=== PATIENT | female | born 1985 | race Caucasian/White ===

== ENCOUNTER 2017-09-30 07:57 | Day surgery (SDC) | payer OTHER ==
[2017-09-24 10:52] LABS: Absolute Lymphocytes (CBC) 2.2 K/uL (0.7-4.9); Absolute Monocytes 0.6 K/uL (0.1-1.3); Absolute Neutrophil 4.1 K/uL (1.8-8.0); Basophils % 0.6 % (0-1.3); Eosinophils % 2.5 % (0-4.4); Lymphocytes % 31.2 % (15.3-44.8); MCH 31.4 pg (27.0-35.0); MCV 90.4 fL (80-100); MPV 8.2 fL (7.6-11.3); Monocytes % 7.9 % (3.3-12.3); RBC Red Blood Cell Count 4.65 M/uL (3.86-4.86)
[2017-09-24 10:56] LABS: Protime INR 1.11
[2017-09-24 11:22] LABS: BUN Blood Urea Nitrogen 15 mg/dL (6-20); Bicarbonate 26 mEq/L (21-31); Glomerular Filtration Rate > 90 mL/min (=/>90); Glucose Level 92 mg/dL (65-120); Potassium 4.5 mEq/L (3.6-5.0); Sodium Level 139 mEq/L (135-145)
[~2017-09-30 07:57] MED LIST: CLINDAMYCIN INJ 600 MG in NA CHLORIDE 0.9% 50 ML IV SCH
[2017-09-30] MEDS ORDERED: Ringers Lactate 1,000 ML IV ONE ×2 (08:24→12:12)
[2017-09-30 08:50] VITALS: O2SAT 100
[2017-09-30] MEDS ORDERED: MIDAZOLAM HCL 2 MG/2 ML INJ ONE ×2 (10:14→11:24)
[2017-09-30] MEDS ORDERED: FENTANYL CITR 100 MCG/2 ML ONE (10:14)
[2017-09-30] MEDS ORDERED: DEXAMETHASONE 4 MG/ML VIAL ONE (10:14)
[2017-09-30] MEDS ORDERED: ROPLVACAINE HCL 40 ML ONE (10:15)
[2017-09-30] MEDS ORDERED: BUPIVACA 0.5%/EPI 0.0005%/PF 30 ML VIAL ONE (11:07)
[2017-09-30] MEDS ORDERED: EPINEPHRINE/PF 1 MG/ML AMP ONE (11:07)
[2017-09-30] MEDS ORDERED: ROCURONIUM 50 MG/5 ML VIAL IV ONE (11:15)
[2017-09-30] MEDS ORDERED: PROPOFOL 200 MG/20 ML VIAL IV ONE (11:15)
[2017-09-30] MEDS ORDERED: GLYCOPYRROLATE 0.2 MG/ML SYR ONE (11:16)
[2017-09-30] MEDS ORDERED: LIDOCAINE 2% MPF 5 ML VIAL ONE (11:16)
[2017-09-30] MEDS ORDERED: ONDANSETRON 4 MG/2 ML VIAL ONE (11:16)
[2017-09-30] MEDS ORDERED: NEOSTIGMINE 1 MG/ML -5 ML SYRINGE ONE (11:20)
--- NOTE | 2017-09-30 12:15 | P.BOP ---
Preoperative diagnosis: right shoulder SLAP tear Postoperative diagnosis: same Primary procedure: right shoulder arthroscopic SLAP debridement Still Operator Gin: NONE,NONE Estimated blood loss: < 5cc Specimen: none Findings: see dictation Anesthesia: General Complications: None Implants: none Fluids & blood products: per anesthesia Transferred to: Recovery Room Condition: Good
[2017-09-30 12:37] VITALS: TEMP 97.2
[2017-09-30 13:46] VITALS: BP 106/63
--- NOTE | 2017-10-01 17:40 | OP ---
Date of Procedure: 09/30/2017 Surgeon: Eddy Lester MD Preoperative Diagnosis: Right shoulder superior labrum from anterior to posterior tear. Postoperative Diagnosis: Right shoulder superior labrum from anterior to posterior tear. Procedure Performed: Right shoulder arthroscopic superior labrum from anterior to posterior tear debridement. Anesthesia: General endotracheal. Fluids: Per Anesthesia record. Estimated Blood Loss: Less than 5 cc. Implants: None. Complication: None. Indication For Procedure: Ms. Billy is a 32-year-old female, who presented to my clinic with pain with her right shoulder and MRI arthrogram of her right shoulder which demonstrated a SLAP tear. The patient had undergone corticosteroid injections as well as physical therapy without significant improvement of her symptoms. I discussed with the patient at length risks and benefits associated with operative and nonoperative treatment. She expressed understanding and given her failed conservative treatment measures, we will proceed with operative treatment. Description Of Procedure: After informed consent was obtained, the patient was identified in the preoperative holding area. The right upper extremity was marked. The patient was then evaluated by Anesthesia and underwent an interscalene block in the recovery room. She was then transferred to the operating room, transferred to operating table in supine fashion, and placed under general endotracheal anesthesia. She was then placed in the left lateral decubitus position with her extremities well padded and an axillary roll placed. The right upper extremity was then prepped and draped in usual sterile fashion. A time-out was initiated. Correct patient and procedure were confirmed and identified. The patient did receive her preoperative prophylactic antibiotics. Via the posterior portal position, a spinal needle was introduced in the right glenohumeral joint. The shoulder was injected with 30 cc of normal saline to distend the capsule. A posterior portal was then created and an arthroscope was brought in via the posterior portal position. Standard anterior portal was then made. A diagnostic arthroscopy was performed. The patient was noted to have pristine cartilage of the humeral head as well as the glenoid. Anterior and inferior labrum was found to be intact as well as the labrum posteriorly. There was noted to be some fraying of the superior labrum both anteriorly and posteriorly consistent with a type 1 SLAP tear. Via the anterior portal, arthroscopic shaver was introduced and the anterior, posterior, superior labrum was debrided via arthroscopic shaver. The probe was introduced in the superior labrum, was probed both anteriorly and posteriorly. There was no peeling off the glenoid or unstable tear which would necessitate repair. The subscapularis was then identified. There was no tear of the subscapularis as well as supraspinatus and infraspinatus. The biceps tendon anchor was found to be intact with no significant erythema. The biceps tendon was then brought into the joint using the probe. There was no significant tendinitis noted. The instruments were then removed. The wounds were then irrigated with normal saline and approximated using a 3-0 Monocryl. Sterile dressings were applied and the patient was placed in a sling and awakened and transferred to PACU in stable condition. Postoperative Plan: She will follow up next week for wound check. She may begin physical therapy for her range of motion, rotator cuff strengthening and scapular stabilization exercises. GREGG/SAE Voice ID: [id number] Report ID: [id number] H[place]ARY
== END 2017-09-30 13:50 | disposition home or self-care (01) ==
LOC: OR 07:57
PROVIDERS: ATTEND Orthopaedic Surgery Sports Medicine
DX: Z88.0 Allergy status to penicillin; S43.431A Superior glenoid labrum lesion of right shoulder, initial encounter
CPT/HCPCS: 36415; 80048; 81025; 85025; 85610; 85730; J0171; J2250; J2405; J2710; J2795; J3010

== ENCOUNTER 2019-04-12 10:52 | Emergency (ER) | payer OTHER ==
--- NOTE | 2019-04-12 11:59 | RAD REPORT ---
EXAM DESCRIPTION: CT - Head Brain Wo Cont - 04/12/2019 11:37 am CLINICAL HISTORY: headache COMPARISON: None TECHNIQUE: Computed axial tomography of the head was obtained. IV contrast was not requested. All CT scans are performed using dose optimization technique as appropriate and may include automated exposure control or mA/KV adjustment according to patient size. FINDINGS: An intracranial bleed is not seen . The ventricles are normal in caliber. No extra-axial fluid collection is noted. Fluid within the sinuses/ mastoids is not seen. IMPRESSION: No acute intracranial abnormality is seen. If patient's symptoms persist MRI of the bra in would be recommended.
[2019-04-12] MEDS ORDERED: MORPHINE 4 MG/ML SYR ONE (12:16)
[2019-04-12] MEDS ORDERED: METOCLOPRAMIDE 10 MG/2mL INJ ONE (12:16)
[2019-04-12] MEDS ORDERED: ONDANSETRON 4 MG/2 ML VIAL ONE (12:16)
[2019-04-12] MEDS ORDERED: NA CHLORIDE 0.9% 1,000 ML ONE (12:16)
[2019-04-12 12:36] LABS: Urine Blood NEGATIVE (NEG); Urine Glucose NEGATIVE (NEG); Urine Protein NEGATIVE (NEG)
[2019-04-12 12:45] LABS: Absolute Lymphocytes (CBC) 1.2 K/uL (0.7-4.9); Basophils % 0.3 % (0-1.3); Hematocrit 40.5 % (36.0-45.0); Lymphocytes % 14.6 % (15.3-44.8); MPV 8.2 fL (7.6-11.3); RBC Red Blood Cell Count 4.52 M/uL (3.86-4.86)
[2019-04-12 12:47] LABS: BUN Blood Urea Nitrogen 14 mg/dL (7-18); Bicarbonate 30 mmol/L (21-32); Glucose Level 90 mg/dL (74-106); Potassium 3.8 mmol/L (3.5-5.1); Sodium Level 140 mmol/L (136-145)
--- NOTE | 2019-04-12 13:54 | RAD REPORT ---
EXAM DESCRIPTION: CT - Head angio - 04/12/2019 1:20 pm CLINICAL HISTORY: HEADACHE TECHNIQUE: During dynamic enhancement using nonionic IV contrast, axial 1 millimeter thick images of the head were obtained. Sagittal and axial reconstruction images were generated using MIP technique and reviewed. All CT scans are performed using dose optimization technique as appropriate and may include automated exposure control or mA/KV adjustment according to patient size. COMPARISON: CT head same date FINDINGS: No aneurysm or vascular malformation identified. Major venous sinuses are patent. No stenosis, named branch occlusion, vasculitis or other significant vascular finding identifiable. A nterior communicating artery present. IMPRESSION: Negative CT angio head examination.
--- NOTE | 2019-04-12 14:11 | ER ---
Nurse's Notes [facility] Name: Yadi Billy Age: 33 yrs Sex: Female : 1985 Arrival Date: 04/12/2019 Time: 10:55 Bed 14 Private MD: Diagnosis: Migraine Presentation: 04/12 11:19 Presenting complaint: Patient states: "I started feeling sick, I threw up this morning aj1 and at the same time I started having really bad pain in my head. I have migraines and this is worse than anything I've ever experienced, its shooting down my neck and my back" Denies fever. Denies recent head injury. Transition of care: patient was not received from another setting of care. Onset of symptoms was April 12, 2019 at 08:00. Risk Assessment: Do you want to hurt yourself or someone else? Patient reports no desire to harm self or others. Initial Sepsis Screen: Does the patient meet any 2 criteria? No. Patient's initial sepsis screen is negative. Does the patient have a suspected source of infection? No. Patient's initial sepsis screen is negative. Care prior to arrival: None. 11:19 Method Of Arrival: Ambulatory aj 11:19 Acuity: AIDAN 3 aj1 Triage Assessment: 11:21 Headache History: The patient has had previous headaches and this one is different than aj1 previous episodes, and this one is more severe than previous episodes. General: Appears uncomfortable, Behavior is calm, cooperative, appropriate for age. Pain: Complains of pain in top of head, forehead, right eye, left eye and right rastafari Pain currently is 10 out of 10 on a pain scale. Pain began 3 hours ago. Also complains of nausea. Neuro: Level of Consciousness is awake, alert, obeys commands, Oriented to person, place, time, situation, Mud Jack Nozzleman are equal bilaterally Moves all extremities. Gait is steady, Speech is normal, Facial symmetry appears normal. Cardiovascular: Patient's skin is warm and dry. Respiratory: Airway is patent Respiratory effort is even, unlabored, Respiratory pattern is regular, symmetrical. 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 - Social history:: Smoking status: Patient/guardian denies using tobacco. - Ebola Screening: : Patient denies travel to an Ebola-affected area in the 21 days before illness onset. - Family history:: not pertinent. - Hospitalizations: : No recent hospitalization is reported. Screenin:09 Abuse screen: Denies threats or abuse. Nutritional screening: No deficits noted. rb1 Tuberculosis screening: No symptoms or risk factors identified. Fall Risk None identified. Assessment: 11:45 General: Appears uncomfortable, Behavior is calm, cooperative. Pain: Complains of pain rb1 in head Pain radiates to Neck and back Pain currently is 10 out of 10 on a pain scale. Pain began This morning. Neuro: Level of Consciousness is awake, alert, obeys commands, Oriented to person, place, time, situation. Cardiovascular: Capillary refill < 3 seconds is brisk in bilateral fingers. Respiratory: Airway is patent Respiratory effort is even, unlabored, Respiratory pattern is regular, symmetrical. GI: Reports nausea, vomiting, x 2 this morning. : No signs and/or symptoms were reported regarding the genitourinary system. Derm: Skin is pink, warm \\T\\ dry. Musculoskeletal: Range of motion: intact in all extremities. 12:33 Reassessment: Patient appears in no apparent distress at this time. No changes from rb1 previously documented assessment. 13:20 Reassessment: Patient appears in no apparent distress at this time. Patient and/or rb1 family updated on plan of care and expected duration. Pain level reassessed. Patient is alert, oriented x 3, equal unlabored respirations, skin warm/dry/pink. 14:20 Reassessment: Patient appears in no apparent distress at this time. No changes from rb1 previously documented assessment. Vital Signs: 11:21 BP 121 / 89; Pulse 83; Resp 18; Temp 97.5; Pulse Ox 99% on R/A; Weight 77.11 kg (R); aj1 Height 5 ft. 5 in. (165.10 cm) (R); Pain 10/10; 12:20 BP 120 / 80; Pulse 61; Resp 16; Pulse Ox 99% on R/A; Pain 10/10; rb1 13:20 BP 114 / 84; Pulse 66; Resp 17; Pulse Ox 99% on R/A; Pain 6/10; rb1 14:20 BP 121 / 81; Pulse 68; Resp 17; Pulse Ox 98% on R/A; Pain 4/10; rb1 11:21 Body Mass Index 28.29 (77.11 kg, 165.10 cm) aj1 [place] Coma Score: 14:06 Eye Response: spontaneous(4). Verbal Response: oriented(5). Motor Response: obeys rn commands(6). Total: 15. ED Course: 10:55 Patient arrived in ED. as 11:21 Triage completed. aj1 11:21 Arm band placed on Patient placed in waiting room. aj1 11:41 CT Head Brain wo Cont In Process Unspecified. EDMS 11:46 Arabella Monk, GIANNA is Primary Nurse. rb1 11:53 Ric Garcia MD is Attending Physician. rn 12:09 Patient has correct armband on for positive identification. Bed in low position. Call rb1 light in reach. Side rails up X 1. Pulse ox on. NIBP on. 12:25 Initial lab(s) drawn, by ga, sent to lab. Inserted saline lock: 22 gauge in right jb1 antecubital area, using aseptic technique. Blood collected. 13:21 CT Head Angio In Process Unspecified. EDMS 14:40 No provider procedures requiring assistance completed. IV discontinued, intact, rb1 bleeding controlled, No redness/swelling at site. Pressure dressing applied. Administered Medications: 12:30 Drug: NS 0.9% 1000 ml Route: IV; Rate: 1000 ml; Site: right antecubital; rb1 13:37 Follow up: IV Status: Completed infusion rb1 12:30 Drug: Reglan 10 mg Route: IVP; Site: right antecubital; rb1 12:45 Follow up: Response: No adverse reaction rb1 12:30 Drug: morphine 4 mg Route: IVP; Site: right antecubital; rb1 12:45 Follow up: Response: No adverse reaction; Pain is decreased rb1 12:30 Drug: Zofran 4 mg Route: IVP; Site: right antecubital; rb1 12:45 Follow up: Response: No adverse reaction; Nausea is decreased rb1 Outcome: 14:10 Discharge ordered by . rn 14:40 Discharged to home ambulatory, with family. rb1 14:40 Condition: stable 14:40 Discharge instructions given to patient, Instructed on discharge instructions, follow up and referral plans. Demonstrated understanding of instructions, follow-up care, Prescriptions given X none 14:41 Patient left the ED. rb1 Signatures: Dispatcher [employer] EDOlivier Santana jb1 Lorena Hewitt, RN RN aj1 Bridget Khan Roman, MD MD rn Barber, Rebecca, RN RN rb1
--- NOTE | 2019-04-12 14:11 | EDPHYS ---
Physician Documentation [facility] Name: Yadi Billy Age: 33 yrs Sex: Female : 1985 Arrival Date: 04/12/2019 Time: 10:55 Bed 14 Private MD: ED Physician Ric Garcia HPI: 04/12 14:06 This 33 yrs old Female presents to ER via Ambulatory with complaints of rn Headache. 14:06 The patient complains of pain to the forehead. The patient describes the headache as rn aching. Onset: The symptoms/episode began/occurred this morning. Associated signs and symptoms: Pertinent positives: nausea, vomiting, Pertinent negatives: there are no associated signs or symptoms. altered mental status, fever, rash, vision loss, vertigo. Severity of symptoms: At its worst the pain was "never this severe", in the emergency department the pain is unchanged. Headache History: The patient has had previous headaches and this one is more severe than previous episodes. The symptoms are alleviated by nothing. the symptoms are aggravated by lights, noise, stress. the symptoms are aggravated by movement. The patient has experienced similar episodes in the past, but today's symptoms are worse. The patient has not recently seen a physician. 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 - Social history:: Smoking status: Patient/guardian denies using tobacco. - Ebola Screening: : Patient denies travel to an Ebola-affected area in the 21 days before illness onset. - Family history:: not pertinent. - Hospitalizations: : No recent hospitalization is reported. ROS: 14:06 Constitutional: Negative for fever, chills, and weight loss, Eyes: Negative for injury, rn pain, redness, and discharge, Neck: Negative for injury, pain, and swelling, Cardiovascular: Negative for chest pain, palpitations, and edema, Respiratory: Negative for shortness of breath, cough, wheezing, and pleuritic chest pain, Abdomen/GI: Negative for abdominal pain, diarrhea, and constipation, MS/Extremity: Negative for injury and deformity, Skin: Negative for injury, rash, and discoloration, Neuro: Negative for numbness, tingling, and seizure. Exam: 14:06 Constitutional: This is a well developed, well nourished patient who is awake, alert, rn sitting with legs crossed in bed Head/Face: Normocephalic, atraumatic. Eyes: Pupils equal round and reactive to light, extra-ocular motions intact. Lids and lashes normal. Conjunctiva and sclera are non-icteric and not injected. Cornea within normal limits. Periorbital areas with no swelling, redness, or edema. ENT: MMM Neck: Trachea midline, no thyromegaly or masses palpated, and no cervical lymphadenopathy. Supple, full range of motion without nuchal rigidity, or vertebral point tenderness. No Meningismus. Cardiovascular: Regular rate and rhythm. No pulse deficits. Respiratory: No increased work of breathing, no retractions or nasal flaring. Abdomen/GI: soft, non-tender MS/ Extremity: Pulses equal, no cyanosis. Neurovascular intact. Full, normal range of motion. Equal circumference. Neuro: Awake and alert, GCS 15, oriented to person, place, time, and situation. Cranial nerves II-XII grossly intact. Motor strength 5/5 in all extremities. Sensory grossly intact. Cerebellar exam normal. Vital Signs: 11:21 BP 121 / 89; Pulse 83; Resp 18; Temp 97.5; Pulse Ox 99% on R/A; Weight 77.11 kg (R); aj1 Height 5 ft. 5 in. (165.10 cm) (R); Pain 10/10; 12:20 BP 120 / 80; Pulse 61; Resp 16; Pulse Ox 99% on R/A; Pain 10/10; rb1 13:20 BP 114 / 84; Pulse 66; Resp 17; Pulse Ox 99% on R/A; Pain 6/10; rb1 14:20 BP 121 / 81; Pulse 68; Resp 17; Pulse Ox 98% on R/A; Pain 4/10; rb1 11:21 Body Mass Index 28.29 (77.11 kg, 165.10 cm) aj1 [place] Coma Score: 14:06 Eye Response: spontaneous(4). Verbal Response: oriented(5). Motor Response: obeys rn commands(6). Total: 15. MDM: 11:53 Patient medically screened. rn 14:06 Differential diagnosis: intracerebral hemorrhage, migraine, tension headache, vasomotor rn headache. Data reviewed: vital signs, nurses notes, lab test result(s), radiologic studies, CT scan, and as a result, I will discharge patient. Counseling: I had a detailed discussion with the patient and/or guardian regarding: the historical points, exam findings, and any diagnostic results supporting the discharge/admit diagnosis, lab results, radiology results, the need for outpatient follow up, to return to the emergency department if symptoms worsen or persist or if there are any questions or concerns that arise at home. Response to treatment: the patient's symptoms have markedly improved after treatment, and as a result, I will discharge patient. Special discussion: I discussed with the patient/guardian in detail that at this point there is no indication for admission to the hospital. It is understood, however, that if the symptoms persist or worsen the patient needs to return immediately for re-evaluation. Based on the history and exam findings, there is no indication for further emergent testing or inpatient evaluation. I discussed with the patient/guardian the need to see the neurologist for further evaluation of the symptoms. 14:06 ED course: Markedly improved, ambulatory, normal neuro exam, neg ct head and ct angio. .rn 04/12 11:46 Order name: Urine Dipstick--Ancillary (enter results); Complete Time: 12:57 gm 04/12 11:46 Order name: Urine --Ancillary (enter results); Complete Time: 12:57 gm 04/12 11:24 Order name: CT Head Brain wo Cont; Complete Time: 12:57 aj1 04/12 12:06 Order name: Basic Metabolic Panel; Complete Time: 12:57 rn 04/12 12:06 Order name: CBC with Diff; Complete Time: 12:57 rn 04/12 12:06 Order name: CT Head Angio; Complete Time: 14:03 rn 04/12 12:08 Order name: IV Start; Complete Time: 12:25 rn Administered Medications: 12:30 Drug: NS 0.9% 1000 ml Route: IV; Rate: 1000 ml; Site: right antecubital; rb1 13:37 Follow up: IV Status: Completed infusion rb1 12:30 Drug: Reglan 10 mg Route: IVP; Site: right antecubital; rb1 12:45 Follow up: Response: No adverse reaction rb1 12:30 Drug: morphine 4 mg Route: IVP; Site: right antecubital; rb1 12:45 Follow up: Response: No adverse reaction; Pain is decreased rb1 12:30 Drug: Zofran 4 mg Route: IVP; Site: right antecubital; rb1 12:45 Follow up: Response: No adverse reaction; Nausea is decreased rb1 Disposition: 04/12/19 14:10 Discharged to Home. Impression: Migraine. - Condition is Stable. - Discharge Instructions: Migraine Headache. - Medication Reconciliation Form, Thank You Letter, Antibiotic Education, Prescription Opioid Use form. - Follow up: Private Physician; When: As needed; Reason: Recheck today's complaints, Re-evaluation by your physician. - Problem is new. - Symptoms have improved. Signatures: Dispatcher [employer] EDLorena Peter RN RN aj1 Ric Garcia MD MD rn Barber, Rebecca, RN RN rb1 Corrections: (The following items were deleted from the chart) 14:41 14:10 04/12/2019 14:10 Discharged to Home. Impression: Migraine. Condition is Stable. rb1 Forms are Medication Reconciliation Form, Thank You Letter, Antibiotic Education, Prescription Opioid Use. Follow up: Private Physician; When: As needed; Reason: Recheck today's complaints, Re-evaluation by your physician. Problem is new. Symptoms have improved. rn
[2019-04-12 15:40] VITALS: TEMP 97.5
[2019-04-12 15:44] VITALS: BP 121/81; O2SAT 98
== END 2019-04-12 14:41 | disposition home or self-care (01) ==
LOC: ER 10:52
DX: G43.909 Migraine, unspecified, not intractable, without status migrainosus (principal); Z88.0 Allergy status to penicillin
CPT/HCPCS: 96361; 85025; 80048; 36415; 81025; 81003; 70450; 70496; 96375; 96374; 99284; Q9967; J2765; J7030; J2405

== ENCOUNTER 2020-03-23 19:47 | Emergency (ER) | payer OTHER ==
--- OUTSIDE RECORDS SUMMARY | 2020-03-23 19:52 | XMS REPORT | Continuity of Care Document ---
:1985 Author Organization [employer] Care Team Providers Name Role Phone Quat-E Unavailable Un available Problems Problem Status Onset Classification Date Comments Sourc e Date Reported CONTRACTIONS Active 10/23/19 [facility] s Medical Center Patient Resolved 02/14/20 Problem 10/30/2018 [place] [id number] [facility] Center (finding) PELVIC PAIN Active 07/10/20 [facility] [address] [place] ABD PAIN Active 07/10/[address] Hypertensive Active Problem 07/14/2013 disorder, [facility] systemic arterial (disorder) Celiac disease Resolved Problem 10/30/2018 [facility] [place] (disorder) Medical Center,[facility] Test tube ovum Active Problem 10/30/2018 [facility] ex fertilization Medica l (procedure) Center Multiple Active Problem 10/30/2018 [facility] Medical (disorder) Center Polycystic Active Problem 10/30/2018 [facility] ovaries Medical (disorder) Center,[facility] Medications Medication Details Route Status Patient Ordering Order Source Instructions Provider Date Acetaminophen 325 1 tab, PO, Q4H, Active 10/29[facility] [place] MG / butalbital PRN Headache 2019 Med ical 50 MG / Caffeine 6-10, 0 [place] 40 MG Oral Tablet Refill(s) [Esgic] Acetaminophen 325 1 tab, PO, Q4H, Active 10/29[facility] MG / Hydrocodone PRN Pain Score 2019 Medical Bitartrate 5 MG 4-6, 0 [place] Oral Tablet Refill(s) Docusate Sodium 100 mg = 1 cap, Active [place] 100 MG Oral PO, BID, PRN 2019 Medical Capsule Constipation, 0 Center Refill(s) ibuprofen 600 mg 600 mg = 1 tab, Active [place] oral tablet PO, Q6H, PRN 2019 Medical Other -See Center Comment, 0 Refill(s) 1 tab, Route: No Longer Christophera s Multivitamins PO, Drug Form: Active 2019 Med ical oral tablet TAB, Dosing Center Weight 87.273, kg, Daily, Start date: 10/27/18 9:00:00 CDT, Duration: 30 day, Stop date: 11/25/18 9:00:00 CDT Ibuprofen Notes: (Same No Longer [facility] s as: Motrin) "Do Active 2019 Medical Not Crush" Center Take with food. M-M-R II Notes: (Same No Longer [facility] as: M-M-R II) Active 2019 Medical (measles-mumps- Center rubella virus vaccine 0.5 ml INJ VL) WASTE: F/P - Red; E -Red GIVE PRIOR TO DISCHARGE Atropine Sulfate Notes: (Same Inactive [facility] [place] 0.025 MG / As: Lomotil) 2019 Medical Diphenoxylate MAX Adult dose Eduardo ter Hydrochloride 2.5 = 8 tabs/day MG Oral Tablet [Lomotil] Acetaminophen 325 Notes: (Same No Longer [facility] MG / Hydrocodone as: [place] Active 2019 Medic al Bitartrate 5 MG 325/5) Do not C enter Oral Tablet exceed 4gm/day of acetaminophen. Bisacodyl Notes: (Same No Longer [facility] s As: Dulcolax, Active 2019 Medical Correctol) (Do Center Not Crush) "Do Not Crush" lanolin topical Notes: (Same No Longer [facility] as:Lanolin) Active 2019 Medical Center Ondansetron Notes: (Same [place] Long[place] as: Zofran) Active 2019 Medical MEDICATION Center WASTE Product Size: 4 mg Product Wasted: ___ mg Docusate Notes: (Same No Longer [place] as: Colace) (Do Active 2019 Medical Not Crush) Center zolpidem Notes: (Same No Longer [facility] As: Ambien) Active 2019 Medical Center Methylergonovine Notes: (Same No Longer [facility] as:Methergine) Active 2019 Medical Center Benzocaine 200 Notes: (Same No Longer [facility] MG/ML Topical As: Dermoplast) Active 2019 Me dical [place] WASTE: Aerosol Center [Dermoplast] - Return to Pharmacy FOR EXTERNAL USE ONLY Lactated Ringers 1,000 mL, Rate: No Longer 10/27 [facility] IV 1,000 mL 100 ml/hr, Active 2019 Medical Infuse over: 10 Center hr, Route: IV, Dosing Weight 87.273 kg, Total Volume: 1,000, Start date: 10/27/18 2:28:00 CDT, Duration: 30 day, Stop date: 11/26/18 2:27:00 CDT, 2.03, m2 Oxytocin 30 unit, 500 No Longer [place] mL, Rate: 42 Active 2018 Medical ml/hr, Infuse Center over: 11.9 hr, Dosing Weight 87.273, kg, Route: IV, Total Volume: 500 mL, Start date: 10/27/18 2:28:00 CDT, Duration: 2 day, Stop date: 10/29/18 2:27:00 CDT, Replace Every: 11.9 hr Oxytocin 30 unit, 500 No Longer [place] mL, Rate: Active 2018 Medical Titrate, Dosing Center Weight 87.273, kg, Route: IV, Total Volume: 500 mL, Start date: 10/26/18 10:00:00 CDT, Duration: 2 day, Stop date: 10/28/18 9:59:00 CDT, Replace Every: 24 hr Remove - Notes: Vaginal Inactive Marisol balbuena dinoprostone insert: to be 2019 Medic al (Cervidil) insert removed 1 hour Center prior to oxytocin administration or 12 hours after insertion. Ofirmev Notes: Infuse No Longer [place] over 15 minutes Active 2018 Medical Do not exceed Center 4gm/day of acetaminophen MEDICATION WASTE Product Size: 1000 mg Product Wasted: ___ mg Cervidil Notes: (Same Inactive [place] as: Cervidil) 2019 Medical Center Calcium Carbonate 1 tab, PO, No Longer H [place] 800 MG / Q12H, PRN Active 2019 Medical Famotidine 10 MG Heartburn, 0 Ce nter / Magnesium Refill(s) Hydroxide 165 MG Chewable Tablet [Pepcid Complete] Maxalt 10 mg, PO, Q2H, Active [facility] PRN Headache 2019 Medical 6-10, 0 Center Refill(s) Esomeprazole 20 20 mg = 1 cap, Active H [place] MG Enteric Coated PO, Daily, 0 2019 M edical Capsule [Nexium] Refill(s) Cente r Acetaminophen 325 1 cap, PO, Q6H, Active [facility] MG / butalbital PRN Headache 2019 Med ical 50 MG / Caffeine 6-10, 0 Center 40 MG Oral Refill(s) Capsule [Esgic] Unknown Home iron 1 tab, PO, Active [facility] Medication Q-M-W-F, 2019 Medical Refill(s) 0 Center Aspirin 81 mg, PO, No Longer [facility] Daily, 0 Active 2019 Medical Refill(s) Center PNV 1 tab, PO, Active [facility] Daily, 0 2019 Medical Refill(s) Center Oxytocin 30 unit, 500 No Longer [facility] mL, Rate: Active 2018 Medical Titrate, Dosing Center Weight 87.273, kg, Route: IV, Total Volume: 500 mL, Start date: 10/24/18 4:00:00 CDT, Duration: 2 day, Stop date: 10/26/18 3:59:00 CDT, Replace Every: 24 hr Remove - Notes: Vaginal Inactive [facility] dinoprostone insert: to be 2019 Medic al (Cervidil) insert removed 1 hour Center prior to oxytocin administration or 12 hours after insertion. betamethasone Notes: Inactive [facility] (betamethasone 2018 [facility] acetate-sodium Center phosphate 6 mg/ml INJ) (Same As: Celestone Soluspan) betamethasone 12 mg, Route: Inactive [facility] IM, Q24H, 2019 Medical Dosing Weight Center 87.273, kg, Start date: 10/23/18 13:00:00 CDT, Duration: 2 doses or times, Stop date: 10/24/18 13:00:00 CDT Cervidil Notes: (Same Inactive [facility] as: Cervidil) [address] [place] [address] Remove - Notes: Vaginal Inactive [facility] s dinoprostone insert: to be 2019 Medic al (Cervidil) insert removed 1 hour Center prior to oxytocin administration or 12 hours after insertion. Acetaminophen 325 Notes: No Longer [place] MG / butalbital (acetaminophen- Active 2018 Medical 50 MG / Caffeine butalbital-caff Center 40 MG Oral Tablet eine [Esgic] 325-50-40mg) Do not exceed 4 gm/day of acetaminophen. (Same as: Esgic, Fioricet) Famotidine Notes: (Same No Longer [place] as as: Pepcid) Can Active 2018 Medical be dilute in Center 5-10cc NS IVP: Slow IV push over at least 2 minutes. Misoprostol Notes: (Same [place] Long[place] as:Cytotec) Active 2019 Medical Take with food Center Carboprost Notes: (Same No Longer [place] As: Hemabate) Active 2019 Medical Center Methylergonovine Notes: (Same No Longer [place] as:Methergine) Active 2018 Medical Center Citric Acid / Notes: (Same No Longer [facility] sodium citrate As: Bicitra, Active 2018 [facility] Cytra-2) Sodium Center citrate-citric acid (500-334 mg/5 mL): 1 mL contains sodium 1 mEq/mL and bicarbonate 1 mEq/mL Cervidil Notes: (Same Inactive [place] as: Cervidil) 2019 Medical Center Ibuprofen Notes: (Same No Longer [place] as: Motrin) "Do Active 2018 Medical Not Crush" Center Take with food. Acetaminophen 325 Notes: (Same No Longer [facility] MG / Hydrocodone as: [place] Active 2018 Medic al Bitartrate 5 MG 325/5) Do not C enter Oral Tablet exceed 4gm/day of acetaminophen. Butorphanol Notes: (Same [place] Long[place] As: Stadol) Active 2019 Medical MEDICATION Center WASTE Product Size: 2 mg Product Wasted: ___ mg Ondansetron Notes: (Same [place] Long[place] as: Zofran) Active 2019 Medical MEDICATION Center WASTE Product Size: 4 mg Product Wasted: ___ mg Lidocaine Notes: No Longer [place] Hydrochloride 10 Preservative Active 2018 Me dical MG/ML Injectable free. (Same Ce nter Solution as: Xylocaine MPF) Terbutaline Notes: DO NOT No Longer [place] USE IN ASSISTANT OCEANOGRAPHER Active 2019 Medical AREA (Same Center As: Debra) Oxytocin 30 unit, 500 No Longer [place] mL, Rate: 42 Active 2019 Medical ml/hr, Infuse Center over: 11.9 hr, Dosing Weight 87.273, kg, Route: IV, Total Volume: 500 mL, Start date: 10/22/18 17:08:00 CDT, Duration: 2 day, Stop date: 10/24/18 17:07:00 CDT, Replace Every: 11.9 hr Lactated Ringers 1,000 mL, Rate: No Longer 10/22 [place] IV 1,000 mL 125 ml/hr, Active 2019 Medical Infuse over: 8 Center hr, Route: IV, Dosing Weight 87.273 kg, Total Volume: 1,000, Start date: 10/22/18 17:08:00 CDT, Duration: 30 day, Stop date: 11/21/18 17:07:00 CDT, 2.03, m2 Calcium Chloride 1,000 mL, 1,000 Inactive [place] 0.0014 MEQ/ML / ml/hr, Infuse 2018 Wy dical Potassium Over: 1 hr, Center Chloride 0.004 Route: IV, MEQ/ML / Sodium 1,000, Drug [place] 0.103 form: INJ, MEQ/ML / Sodium ONCE, Dosing Lactate 0.028 Weight 87.273 MEQ/ML Injectable kg, Start date: Solution 10/22/18 17:08:00 CDT, Stop date: 10/22/18 17:08:00 CDT, Bolus for regional anesthesia per unit routine Keflex 500 mg, 1 cap, Inactive [place] Route: PO, Drug 2012 [facility] t form: CAP, [id number], Dosing Weight 72.727, kg, Start date: 07/12/13 14:00:00, Duration: 30 day, Stop date: 08/11/13 2:00:00Take on empty stomach. (Same As: Keflex) Keflex 500 mg = 500 mg, PO, Active [facility] oral capsule [id number], # 20 2012 caplet, 0 Refill(s) [place] 10/325 oral 1-2 tab, PO, Active [place] tablet Q4-6H, Pain, # 2013 [place] 30 tab, 0 Refill(s) Tylenol 650 mg, 2 tab, Inactive [place] Route: PO, Drug [facility] t form: TAB, Q4H, Dosing Weight 72.727, kg, PRN Headache, Start date: 07/12/13 6:25:00, Duration: 30 day, Stop date: 08/11/13 6:24:00Do not exceed 4 gm/day. (Same as: Tylenol) metoprolol 100 mg, 1 tab, No Longer [place] extended release Route: PO, Drug Active 2012 form: ERTAB, Daily, Start date: 07/11/13 9:00:00, Duration: 30 day, Stop date: 08/09/13 9:00:00(Same as: Toprol XL) May split tab, but do not crush. Phenergan + 12.5 mg, 0.5 No Longer [place] Sodium Chloride mL, Route: Active 2012 [facility] 0.9% IV 50 mL IVPB, Drug form: INJ, Q6H, Dosing Weight 72.727, kg, PRN Nausea & Vomiting, Start date: 07/11/13 7:54:00, Duration: 30 day, Stop date: 08/10/13 7:53:00Do not give IV push. (Same as: Phenergan) Demerol HCl 50 mg, 1 mL, No Longer [place] 07/11/ MH Route: IV, Drug Active [facility] t form: INJ, Q4H, Dosing Weight 72.727, kg, PRN Pain, Start date: 07/11/13 7:53:00, Duration: 4 day, Stop date: 07/15/13 7:52:00(Same as: Demerol) "Use Precaution in Elderly, Seizure disorders, and Renal impairment" Zofran 4 mg, PO, 0 No Longer Refill(s) Active 2012 [place] 10/325 oral 1-2 tab, PO, No Longer [place] 07/11/ MH tablet Q4-6H, Pain, # Active 2012 tab, 0 Refill(s) metoprolol 100 mg 100 mg = 1 tab, No Longer 06/14 0/ MH oral tablet, PO, BID, # 30 Active 2012 [facility] extended release tab, 0 Refill(s) Dextrose 5% with 1,000 mL, Rate: No Longer [place] 06/14 0/ 0.45% NaCl IV 125 ml/hr, Active 2012 [facility] st 1,000 mL Infuse over: 8 hr, Route: IV, Dosing Weight 72.727 kg, Total Volume: 1,000, Start date: 07/11/13 4:49:00, Duration: 30 day, Stop date: 08/10/13 4:48:00 morphine Sulfate 2 mg, 1 mL, No Longer [place] Route: IVP, 2012 [facility] Drug form: INJ, Q3H, Dosing Weight 72.727, kg, PRN Pain Score 4-6, Start date: 07/11/13 4:49:00, Duration: 30 day, Stop date: 08/10/13 4:48:00(Same as:MORPhine Sulfate) ondansetron 4 mg, 2 mL, No Longer [place] Route: IVP, 2012 [facility] Drug form: INJ, Q8H, Dosing Weight 72.727, kg, PRN Nausea & Vomiting, Start date: 07/11/13 4:49:00, Duration: 30 day, Stop date: 08/10/13 4:48:00(Same as: Zofran) docusate 100 mg, 1 cap, No Longer [place] Route: PO, Drug Active 2012 [place] form: CAP, BID, Dosing Weight 72.727, kg, PRN Constipation, Start date: 07/11/13 4:49:00, Duration: 30 day, Stop date: 08/10/13 4:48:00(Same as: Colace) (Do Not Crush) Saline Flush 0.9% 5 ml, Route: No Longer [place] IVP, Drug Form: Active 2012 [place] INJ, Dosing Weight 72.727, kg, PRN, PRN Line Flush, Start date: 07/11/13 4:49:00, Duration: 30 day, Stop date: 08/10/13 4:48:00(Same as: BD Posiflush) morphine Sulfate 4 mg, 2 mL, Inactive [place] 07/11[facility] Route: IVP, 2012 [facility] Drug form: INJ, ONCE, Dosing Weight 72.727, kg, Priority: STAT, Start date: 07/11/13 3:45:00, Stop date: 07/11/13 3:45:00(Same as:MORPhine Sulfate) hydromorphone 1 mg, 1 mL, Inactive [facility] 07/11[facility] Route: IVP, 2012 [facility] Drug form: INJ, ONCE, Dosing Weight 72.727, kg, Priority: STAT, Start date: 07/11/13 0:48:00, Stop date: 07/11/13 0:48:00 Sodium Chloride 500 mL, Rate: Inactive [facility] 07/11[facility] 0.9% (Bolus) IV 500 ml/hr, 2012 [facility] 500 mL Infuse over: 1 hr, Route: IV, Dosing Weight 72.727 kg, Total Volume: 500, Priority: STAT, Start date: 07/10/13 23:16:00, Duration: 1 doses or times, Stop date: 07/11/13 0:15:00, Bolus DoseBolus Dose ondansetron 4 mg, Route: Inactive [facility] 07/11[facility] IVP, Drug form: 2012 [place] INJ, ONCE, Dosing Weight 72.727, kg, Priority: STAT, Start date: 07/10/13 23:10:00, Stop date: 07/10/13 23:10:00 morphine Sulfate 4 mg, 2 mL, Inactive [facility] 07/11[facility] Route: IVP, 2012 [facility] Drug form: INJ, ONCE, Dosing Weight 72.727, kg, Priority: STAT, Start date: 07/10/13 23:02:00, Stop date: 07/10/13 23:02:00(Same as:MORPhine Sulfate) Allergies, Adverse Reactions, Alerts Substance Category Reaction Severity Reaction Status Date Comments S ource type Reported Food drug Allergy Gluten/Whea allergy [place] Food Nuts food Allergy allergy [place] penicillin Assertion Anaphylaxis Severe Drug Active [facility] Immunizations No Data Provided for This Section Results Order Name Results Value Reference Date Interpretation Comments Jayne rce Range HEMATOLOGY Hgb 10.1 12.0 - 10/27 [facility] 16.0 /[address] [place] [address] HEMATOLOGY Hct 29.3 36.0 - 10/27 [facility] 48.0 [facility] BLOOD BANK ABO/Rh B POS 10/26 [facility] RESULTS [facility] BLOOD BANK Antibody Negative 10/26 [facility] RESULTS Scrn (10/26/18 5:43 AM) [facility] CHEM PANEL ALT 12 0 - 65 10/26 [facility] CHEM PANEL AST 17 0 - 37 10/26 [facility] CHEM PANEL LDH 175 98 - 192 10/26 [facility] ELECTROLYT AGAP 11.7 10.0 - 10/26 [facility] ES 20.0 [facility] ELECTROLYT eGFR 122 10/26 Result [facility] Comment: The Medical eGFR is Center calculated using the CKD-EPI formula. In most young, healthy individuals the eGFR will be >90 mL/min/1.73m2 . The eGFR declines with age. An eGFR of 60-89 may be normal in some populations, particularly the elderly, for whom the CKD-EPI formula has not been extensively validated. Use of the eGFR is not recommended in the following populations:< br/>
Silvia viduals with unstable creatinine concentration s, including patients and those with serious co-morbid conditions.<b r/>
Patie nts with extremes in muscle mass or diet.

The data above are obtained from the National Kidney Disease Education Program (NKDEP) which additionally recommends that when the eGFR is used in patients with extremes of body mass index for purposes of drug dosing, the eGFR should be multiplied by the estimated BMI. ELECTROLYT Chloride Lvl 111 95 - 109 10/26 [place] [facility] ELECTROLYT CO2 23 24 - 32 10/26 [facility] ELECTROLYT Calcium Lvl 8.4 8.5 - 10.5 10/26 [facility] ELECTROLYT Potassium 3.7 3.5 - 5.1 10/26 [facility] Lvl [facility] ELECTROLYT Glucose Lvl 72 70 - 99 10/26 [facility] ELECTROLYT Sodium Lvl 142 135 - [address] [facility] ELECTROLYT BUN 9 7 - 22 10/26 [facility] ELECTROLYT Creatinine 0.57 0.50 - 10/26 [facility] [place] ES Lvl 1.40 [facility] HEMATOLOGY Eosinophils 0.1 0.0 - 0.5 10/26 [place] # /2019 [facility] HEMATOLOGY Lymphocytes 1.8 1.0 - 5.5 10/26 [place] # /2019 [facility] HEMATOLOGY Neutrophils 5.1 1.5 - 8.1 10/26 [place] # /2019 [facility] HEMATOLOGY Monocytes # 0.7 0.0 - 0.8 10/26 [place] /2019 [facility] HEMATOLOGY Segs 66.7 45.0 - 10/26 [place] 75.0 /2019 [facility] HEMATOLOGY Monocytes 9.1 2.0 - 12.0 10/26 /2018 [facility] HEMATOLOGY Lymphocytes 23.0 20.0 - 10/26 [place] 40.0 [facility] HEMATOLOGY Basophils 0.5 0.0 - 1.0 10/26 /2018 [facility] HEMATOLOGY Eosinophils 0.7 0.0 - 4.0 10/26 [place] /2018 [facility] HEMATOLOGY Platelet 130 133 - 450 10/26 [facility] HEMATOLOGY MPV 10.8 7.4 - 10.4 10/26 /2018 [facility] HEMATOLOGY WBC 7.7 3.7 - 10.4 10/26 [facility] HEMATOLOGY RBC 3.75 4.20 - 10/26 [place] 5.40 [facility] HEMATOLOGY RDW 13.6 11.5 - 10/26 [place] 14.5 2019 [facility] HEMATOLOGY Hgb 12.1 12.0 - 10/26 [place] 16.0 2019 [facility] HEMATOLOGY MCV 92.2 80.0 - 10/26 [place] 98.0 2019 [facility] HEMATOLOGY Hct 34.5 36.0 - 10/26 [place] 48.0 2019 [facility] HEMATOLOGY MCHC 34.9 32.0 - 10/26 [place] 36.0 2019 [facility] HEMATOLOGY MCH 32.2 27.0 - 10/26 [place] 31.0 2019 [facility] URINE AND UA Bacteria Occasional None Seen 10/26 [place] STOOL /HPF /HPF /2018 [facility] URINE AND UA Sq Epi Occasional Few /LPF 10/26 [place] STOOL /LPF /2018 [facility] URINE AND UA Leuk Est Negative Negative 10/26 [facility] STOOL (10/25/18 7:16 PM) /2018 [facility] URINE AND UA RBC 1 0 - 2 10/26 [facility] STOOL [facility] URINE AND UA WBC <1 0 - 5 10/26 [facility] STOOL [facility] URINE AND UA Nitrite Negative Negative 10/26 [facility] (10/25/18 7:16 PM) [facility] URINE AND UA <1.0 0.1 - 1.0 10/26 [facility] Urobilinogen /2018 [facility] URINE AND UA Mucus Few /LPF None Seen 10/26 [facility] STOOL /LPF /2018 [facility] URINE AND UA Ketones Negative Negative 10/26 [facility] STOOL *NA* /2018 [facility] (10/25/18 7:16 PM) Center URINE AND UA Glucose Negative Negative 10/26 [facility] *NA* [facility] (10/25/18 7:16 PM) [place] URINE AND UA Bili Negative Negative 10/26 [facility] STOOL *NA* [facility] (10/25/18 7:16 PM) [place] URINE AND UA Blood Small Negative 10/26 [facility] *ABN* [facility] (10/25/18 7:16 PM) Center URINE AND UA Spec Grav 1.002 <=1.030 10/26 [facility] STOOL [facility] URINE AND UA Turbidity Clear Clear 10/26 [facility] (10/25/18 7:16 PM) [facility] URINE AND UA Color Light Yellow Yellow 10/26 [facility] STOOL *NA* [facility] (10/25/18 7:16 PM) [place] URINE AND UA Protein Negative Negative 10/26 [facility] (10/25/18 7:16 PM) [facility] URINE AND UA pH 7.0 5.0 - 8.0 10/26 [facility] STOOL [facility] BLOOD BANK Antibody Negative 10/22 [facility] RESULTS Scrn (10/22/18 5:16 PM) [facility] BLOOD BANK ABO/Rh B POS 10/22 [facility] RESULTS /2018 [facility] CHEM PANEL AST 14 0 - 37 10/22 [place] [facility] CHEM PANEL ALT 13 0 - 65 10/22 [place] [facility] CHEM PANEL LDH 179 98 - 192 10/22 [facility] CHEM PANEL Uric Acid 6.4 2.5 - 7.0 10/22 [place] [facility] CHEM PANEL Creatinine 0.56 0.50 - 10/22 [facility] [place] Lvl 1.40 [facility] CHEM PANEL eGFR 123 10/22 Result Comment: The Medical eGFR is Center calculated using the CKD-EPI formula. In most young, healthy individuals the eGFR will be >90 mL/min/1.73m2 . The eGFR declines with age. An eGFR of 60-89 may be normal in some populations, particularly the elderly, for whom the CKD-EPI formula has not been extensively validated. Use of the eGFR is not recommended in the following populations:< br/>
Silvia viduals with unstable creatinine concentration s, including patients and those with serious co-morbid conditions.<b r/>
Patie nts with extremes in muscle mass or diet.

The data above are obtained from the National Kidney Disease Education Program (NKDEP) which additionally recommends that when the eGFR is used in patients with extremes of body mass index for purposes of drug dosing, the eGFR should be multiplied by the estimated BMI. HEMATOLOGY Hgb 12.9 12.0 - 10/22 [facility] 16.0 [facility] HEMATOLOGY RBC 4.03 4.20 - 10/22 [facility] 5.40 [facility] HEMATOLOGY WBC 9.0 3.7 - 10.4 10/22 [facility] HEMATOLOGY MCV 92.2 80.0 - 10/22 [facility] 98.0 [facility] HEMATOLOGY MCH 31.9 27.0 - 10/22 [facility] 31.0 [facility] HEMATOLOGY Hct 37.1 36.0 - 10/22 [facility] 48.0 [facility] HEMATOLOGY RDW 13.5 11.5 - 10/22 [facility] 14.5 [facility] HEMATOLOGY MCHC 34.6 32.0 - 10/22 [facility] 36.0 2019 [facility] HEMATOLOGY Platelet 162 133 - 450 10/22 2018 [facility] HEMATOLOGY MPV 10.9 7.4 - 10.4 10/22 2018 [facility] HEMATOLOGY Basophils 0.2 0.0 - 1.0 10/22 [facility]2018 [facility] HEMATOLOGY Neutrophils 7.7 1.5 - 8.1 10/22 [place] # /2018 [facility] HEMATOLOGY Monocytes # 0.2 0.0 - 0.8 10/22 [place] /2018 [facility] HEMATOLOGY Lymphocytes 1.0 1.0 - 5.5 10/22 [place] # /2018 [facility] HEMATOLOGY Eosinophils 0.3 0.0 - 4.0 10/22 [place] /2018 [facility] HEMATOLOGY Monocytes 2.1 2.0 - 12.0 10/22 [facility] HEMATOLOGY Segs 86.3 45.0 - 10/22 [place] 75.0 [facility] HEMATOLOGY Lymphocytes 11.1 20.0 - 10/22 [facility] 40.0 [facility]UNOLOGY [facility]. [facility] 5[facility] [place] IMMUNOLOGY Hep Bs Ag Negative Negative 10[facility]10[facility] 5:16 PM[facility] IMMUNOLOGY Treponemal Non-Reactive Non 10/22 [place] [facility] [facility] (10/22/18 5:16 PM) [place] URINE CHEM U Creatinine 89.60 10/22 [facility] URINE CHEM U Prot/Creat 0.17 10/22 [facility] URINE CHEM U Protein 15.0 10/22 [facility] CHEMISTRY S Preg Positive Negative 07/12 * [place] (07/12/2013 06:10:00) CHEMISTRY hCG Tot 201 07/12 <sup>5</sup>I nterpretive [facility] Data: Reference Range:
Male 0 - 5 mIU/mL
Non- Female 0 - 5 mIU/mL
<b r/>Note: hCG result should be used in conjunction with symptoms, results
of other tests, and clinical impressions.& lt;br/>
W eeks of Gestation hCG (mIU/mL)
----- ---
3 6 - 71
4 10-750
5 217 - 7,138
6 158 -31,795<br/&g t; 7 3,697 - 163,563
8 32,065 - 149,571
9 63,803 - 151,410
10 46,506 - 186,977
11 27,832 - 210,612
14 13,950 - 62,530
15 12,039 - 70,971
16 9,040 - 56,451
17 8,175 - 55,868
18 8,099 - 58,176 CHEMISTRY eGFR 124 07/12 <sup>1</sup>R /2012 esult [facility] Comment: The eGFR is calculated using the CKD-EPI formula. In most young, healthy individuals the eGFR will be >90 mL/min/1.73m2 . The eGFR declines with age. An eGFR of 60-89 may be normal in some populations, particularly the elderly, for whom the CKD-EPI formula has not been extensively validated. Use of the eGFR is not recommended in the following populations:& lt;br/>
I ndividuals with unstable creatinine concentration s, including patients and those with serious co-morbid conditions.<b r/>
Patie nts with extremes in muscle mass or diet.

The data above are obtained from the National Kidney Disease Education Program (NKDEP) which additionally recommends that when the eGFR is used in patients with extremes of body mass index for purposes of drug dosing, the eGFR should be multiplied by the estimated BMI. CHEMISTRY CO2 28 24 - 32 07/12 Normal [facility] CHEMISTRY Calcium Lvl 8.0 8.5 - 10.5 07/12 LOW MH [facility] CHEMISTRY Chloride Lvl 107 95 - 109 07/12 Normal [facility] CHEMISTRY Total 6.1 6.4 - 8.4 07/12 LOW Protein [facility] CHEMISTRY Albumin Lvl 3.3 3.5 - 5.0 07/12 LOW [facility] CHEMISTRY BUN 3 7 - 22 07/12 LOW MH [facility] CHEMISTRY Creatinine 0.6 0.5 - 1.4 07/12 Normal MH Lvl [facility] CHEMISTRY Glucose Lvl 91 70 - 99 07/12 Normal <sup>3</sup>I nterpretive [facility] Data: Adult reference range values reflect the clinical guidelines
of the [place] [employer]. CHEMISTRY Sodium Lvl 141 135 - 145 07/12 Normal MH /2012 [facility] CHEMISTRY Potassium 3.6 3.5 - 5.1 07/12 Normal MH Lvl /2012 [facility] CHEMISTRY ALANINE 17 0 - 65 07/12 Normal MH AMINOTRANSFE /2012 [facility] RASE CHEMISTRY Alk Phos 32 39 - 136 07/12 LOW MH /2012 [facility] CHEMISTRY Bili Total 0.3 0.2 - 1.3 07/12 Normal MH /2012 [facility] CHEMISTRY ASPARTATE 11 0 - 37 07/12 Normal MH TRANSAMINASE /2012 [facility] CHEMISTRY AGAP 9.6 10.0 - 07/12 LOW MH 20.0 /2012 [facility] CHEMISTRY B/C Ratio 5 6 - 25 07/12 LOW MH /2012 [facility] CHEMISTRY Globulin 2.8 2.0 - 4.0 07/12 Normal MH /2012 [facility] CHEMISTRY A/G Ratio 1.2 0.7 - 1.6 07/12 Normal MH /2012 [facility] HEMATOLOGY RBC X 10x6 3.19 4.20 - 07/12 LOW MH 5.40 /2012 [facility] HEMATOLOGY WBC X 10x3 4.9 3.7 - 10.4 07/12 Normal /2012 [facility] HEMATOLOGY Hct 30.1 36.0 - 07/12 LOW MH 48.0 /2012 [facility] HEMATOLOGY Hgb 10.4 12.0 - 07/12 LOW MH 16.0 /2012 [facility] HEMATOLOGY MPV 8.3 7.4 - 10.4 07/12 Normal /2012 [facility] HEMATOLOGY Platelet 215 133 - 450 07/12 Normal MH /2012 [place] HEMATOLOGY MCH 32.6 27.0 - 07/12 HI MH 31.0 /2012 [facility] HEMATOLOGY MCV 94.6 81.0 - 07/12 Normal MH 99.0 /2012 [facility] HEMATOLOGY RDW 12.0 11.5 - 07/12 Normal MH 14.5 /2012 [facility] HEMATOLOGY MCHC 34.5 32.0 - 07/12 Normal MH 36.0 /2013 [facility] HEMATOLOGY Lymphocytes 2.2 1.0 - 5.5 07/12 Normal MH # /2013 [facility] HEMATOLOGY Basophils # 0.0 0.0 - 0.2 07/12 Normal MH /2012 [facility] HEMATOLOGY Eosinophils 0.2 0.0 - 0.5 07/12 Normal MH # /2012 [facility] HEMATOLOGY Monocytes # 0.5 0.0 - 0.8 07/12 Normal MH /2012 [facility] HEMATOLOGY Basophils 0.4 0.0 - 1.0 07/12 Normal /2012 [facility] HEMATOLOGY Eosinophils 5.0 0.0 - 4.0 07/12 HI /2012 [facility] HEMATOLOGY Lymphocytes 45.3 20.0 - 07/12 HI MH 40.0 [facility] HEMATOLOGY Monocytes 10.0 2.0 - 12.0 07/12 Normal [facility] HEMATOLOGY Segs 39.3 45.0 - 07/12 LOW MH 75.0 /2012 [facility] HEMATOLOGY Segs-Bands # 1.9 1.5 - 8.1 07/12 Normal [facility] HEMATOLOGY Hgb 10.5 12.0 - 07/11 LOW MH 16.0 [facility] HEMATOLOGY Hct 30.9 36.0 - 07/11 LOW MH 48.0 /2012 [facility] HEMATOLOGY Hgb 10.3 12.0 - 07/11 LOW MH 16.0 [facility] HEMATOLOGY Hct 30.3 36.0 - 07/11 LOW MH 48.0 [facility] CHEMISTRY hCG Tot 270 07/11 <sup>6</sup>I nterpretive [facility] Data: Reference Range:
Male 0 - 5 mIU/mL
Non- Female 0 - 5 mIU/mL
<b r/>Note: hCG result should be used in conjunction with symptoms, results
of other tests, and clinical impressions.& lt;br/>
W eeks of Gestation hCG (mIU/mL)
----- ---
3 6 - 71
4 10-750
5 217 - 7,138
6 158 -31,795<br/&g t; 7 3,697 - 163,563
8 32,065 - 149,571
9 63,803 - 151,410
10 46,506 - 186,977
11 27,832 - 210,612
14 13,950 - 62,530
15 12,039 - 70,971
16 9,040 - 56,451
17 8,175 - 55,868
18 8,099 - 58,176 BLOOD BANK ABO/Rh B POS 07/11 RESULTS [facility] BLOOD BANK Antibody Negative 07/11 Normal RESULTS [facility] (07/10/2013 23:05:00) /2012 [place] CHEMISTRY hCG Tot 314 07/11 <sup>7</sup>I nterpretive [facility] Data: Reference Range:
Male 0 - 5 mIU/mL
Non- Female 0 - 5 mIU/mL
<b r/>Note: hCG result should be used in conjunction with symptoms, results
of other tests, and clinical impressions.& lt;br/>
W eeks of Gestation hCG (mIU/mL)
----- ---
3 6 - 71
4 10-750
5 217 - 7,138
6 158 -31,795<br/&g t; 7 3,697 - 163,563
8 32,065 - 149,571
9 63,803 - 151,410
10 46,506 - 186,977
11 27,832 - 210,612
14 13,950 - 62,530
15 12,039 - 70,971
16 9,040 - 56,451
17 8,175 - 55,868
18 8,099 - 58,176 CHEMISTRY A/G Ratio 1.2 0.7 - 1.6 07/11 Normal [facility] CHEMISTRY Globulin 3.5 2.0 - 4.0 07/11 Normal [facility] CHEMISTRY AGAP 8.8 10.0 - 07/11 LOW MH 20.0 [facility] CHEMISTRY B/C Ratio 12 6 - 25 07/11 Normal [facility] CHEMISTRY eGFR 101 07/11 <sup>2</sup>R esult [facility] Comment: The eGFR is calculated using the CKD-EPI formula. In most young, healthy individuals the eGFR will be >90 mL/min/1.73m2 . The eGFR declines with age. An eGFR of 60-89 may be normal in some populations, particularly the elderly, for whom the CKD-EPI formula has not been extensively validated. Use of the eGFR is not recommended in the following populations:& lt;br/>
I ndividuals with unstable creatinine concentration s, including patients and those with serious co-morbid conditions.<b r/>
Patie nts with extremes in muscle mass or diet.

The data above are obtained from the National Kidney Disease Education Program (NKDEP) which additionally recommends that when the eGFR is used in patients with extremes of body mass index for purposes of drug dosing, the eGFR should be multiplied by the estimated BMI. CHEMISTRY Glucose Lvl 87 70 - 99 07/11 Normal <sup>4</sup>I nterpretive [facility] Data: Adult reference range values reflect the clinical guidelines
of the [place] [employer]. CHEMISTRY BUN 10 7 - 22 07/11 Normal MH [facility] CHEMISTRY ASPARTATE 15 0 - 37 07/11 Normal MH TRANSAMINASE [facility] CHEMISTRY Total 7.7 6.4 - 8.4 07/11 Normal MH Protein [facility] CHEMISTRY Albumin Lvl 4.2 3.5 - 5.0 07/11 Normal [facility] CHEMISTRY ALANINE 21 0 - 65 07/11 Normal AMINOTRANSFE [facility] RASE CHEMISTRY Alk Phos 52 39 - 136 07/11 Normal [facility] CHEMISTRY Bili Total 0.3 0.2 - 1.3 07/11 Normal [facility] CHEMISTRY Potassium 3.8 3.5 - 5.1 07/11 Normal MH Lvl [facility] CHEMISTRY Chloride Lvl 106 95 - 109 07/11 Normal [facility] CHEMISTRY CO2 28 24 - 32 07/11 Normal [facility] CHEMISTRY Calcium Lvl 8.6 8.5 - 10.5 07/11 Normal [facility] CHEMISTRY Creatinine 0.8 0.5 - 1.4 07/11 Normal MH Lvl [facility] CHEMISTRY Sodium Lvl 139 135 - 145 07/11 Normal [facility] HEMATOLOGY Segs 43.7 45.0 - 07/11 LOW MH 75.0 /2013 [facility] HEMATOLOGY Eosinophils 3.9 0.0 - 4.0 07/11 Normal MH [facility] HEMATOLOGY Segs-Bands # 3.1 1.5 - 8.1 07/11 Normal /2012 [facility] HEMATOLOGY Basophils 0.4 0.0 - 1.0 07/11 Normal /2012 [facility] HEMATOLOGY Lymphocytes 43.1 20.0 - 07/11 HI MH 40.0 /2012 [facility] HEMATOLOGY Monocytes 8.9 2.0 - 12.0 07/11 Normal /2012 [facility] HEMATOLOGY Basophils # 0.0 0.0 - 0.2 07/11 Normal /2012 [facility] HEMATOLOGY Eosinophils 0.3 0.0 - 0.5 07/11 Normal MH # /2012 [facility] HEMATOLOGY Lymphocytes 3.0 1.0 - 5.5 07/11 Normal MH # /2012 [facility] HEMATOLOGY Monocytes # 0.6 0.0 - 0.8 07/11 Normal /2012 [facility] HEMATOLOGY WBC X 10x3 7.0 3.7 - 10.4 07/11 Normal /2012 [facility] HEMATOLOGY MCHC 33.6 32.0 - 07/11 Normal MH 36.0 [facility] HEMATOLOGY MCH 31.5 27.0 - 07/11 HI MH 31.0 [facility] HEMATOLOGY RBC X 10x6 3.65 4.20 - 07/11 LOW MH 5. [facility] HEMATOLOGY MCV 93.6 81.0 - 07/11 Normal MH 99.0 /2012 [facility] HEMATOLOGY MPV 8.6 7.4 - 10.4 07/11 Normal [facility] HEMATOLOGY Platelet 260 133 - 450 07/11 Normal /2012 [facility] HEMATOLOGY RDW 12.0 11.5 - 07/11 Normal MH 14.5 [facility] CHEMISTRY U Preg Positive Negative 07/11 ABN MH *ABN* /2012 [facility] (07/10/2013 20:42:12) URINALYSIS UA Mucus Few /LPF None Seen 07/11 [facility] URINALYSIS UA RBC 5 0 - 2 07/11 HI [facility] URINALYSIS UA <=1.0 0.1 - 1.0 07/11 Urobilinogen mg/dL /2012 [facility] URINALYSIS UA Color Ltyellow 07/11 [facility] URINALYSIS UA Blood Large Negative 07/11 ABN MH *ABN* /2012 [facility] (07/10/2013 20:42:12) URINALYSIS UA Bili Negative Negative 07/11 MH *NA* /2012 [facility] (07/10/2013 20:42:12) URINALYSIS UA WBC 1 0 - 5 07/11 Normal [facility] URINALYSIS UA Sq Epi Many /LPF Few 07/11 ABN [facility] URINALYSIS UA Leuk Est Negative Negative 07/11 Normal (07/10/2013 20:42:12) [place] URINALYSIS UA Nitrite Negative Negative 07/11 Normal (07/10/2013 20:42:12) [place] URINALYSIS UA Spec Grav 1.024 <=1.030 07/11 Normal [facility] URINALYSIS UA Ketones Negative Negative 07/11 mg/dL [facility] URINALYSIS UA Glucose Negative Negative 07/11 mg/dL [facility] URINALYSIS UA Protein Negative Negative 07/11 Normal mg/dL [facility] URINALYSIS UA pH 5.0 5.0 - 8.0 07/11 Normal [facility] URINALYSIS UA Turbidity Slight Clear 07/11 ABN *ABN* /2012 [facility] (07/10/2013 20:42:12) Pathology Reports No Data Provided for This Section Diagnostic Reports Report Value Date Source Abdomen/Pelvis w IV CT ABDOMEN WITH CONTRAST; CT PELVIS WITH CONTRAST: 07/11/[address] [facility] [address] TECHNIQUE: Both exams were done with oral and IV contrast. FINDINGS: There is no eviden ce of appendicitis or diverticulitis. The GI tract is otherwise within normal limits. The liver, spleen, pancreas, kidneys and adrenal glands show no significant abnormality. The gallbladder is unremark able. There is no intra-abdominal mass, free fluid or significant retroperitoneal abnormality. High density free fluid is seen in the cul-de-sac consistent with hemorrhagic f luid. The uterus and adnexal regions are otherwi se unremarkable. IMPRESSION: Hemorrhagic free fluid in th e cul-de-sac. There is no other acute CT abnormality in the abdomen or pelvis. SL:13 Consultation Notes No Data Provided for This Section Discharge Summaries No Data Provided for This Section History and Physicals No Data Provided for This Section Vital Signs Vital Sign Value Date Comments Source Temperature Oral (F) 98.0 F 10/28/2018 [facility] Heart Rate 77 10/28/2018 [facility] [place] Respitory Rate 18 10/28/2018 [facility] Systolic (mm Hg) 136 10/28/2018 [facility] dical Center Diastolic (mm Hg) 88 10/28/2018 [facility] Temperature Oral (F) 97.9 F 10/28/2018 [facility] Respitory Rate 18 10/28/2018 [facility] Heart Rate 92 10/28/[facility] [place] [facility] [place] Systolic (mm Hg) 136 10/28/2018 [facility] dical Center Diastolic (mm Hg) 84 10/28/2018 [facility] Respitory Rate 18 10/28/2018 [facility] Heart Rate 89 10/28/2018 [facility] [place] Temperature Oral (F) 98.2 F 10/28/2018 [facility] Systolic (mm Hg) 126 10/28/2018 [facility] dical Center Diastolic (mm Hg) 82 10/28/2018 [facility] BMI Calculated 32.02 10/22/2018 [facility] Weight 87.273 10/22/2018 [facility] [place] [facility] Height 165.1 cm 10/22/2018 [facility] [place] Temperature Oral (F) 98.6 F 07/12/2013 [facility] Rate 14 07/12/2013 [facility] Heart Rate 77 07/12/2013 [facility] Systolic (mm Hg) 104 07/12/[place] [facility] Diastolic (mm Hg) 64 07/12/[address] Temperature Oral (F) 98.3 F 07/12/2013 [facility] Diastolic (mm Hg) 61 07/12/[address] Heart Rate 82 07/12/2013 [facility] Respitory Rate 16 07/12/2013 [facility] Systolic (mm Hg) 97 07/12/[place] [facility] Diastolic (mm Hg) 64 07/12/[address] Systolic (mm Hg) 98 07/12/2013 [facility] Temperature Oral (F) 98.5 F 07/12/2013 [facility] Rate 16 07/12/2013 [facility] Heart Rate 77 07/12/2013 [facility] Height 165.1 cm 07/11/2013 [facility] Weight 72.727 07/11/2013 [facility] Height 165.1 cm 07/11/2013 [facility] Weight 72.727 07/11/2013 [facility] Encounters Location Location Encounter Encounter Reason Attending ADM DC Stat us Source Details Type Number For Provider Date Date Visit [facility] [id number] PELVIC JAG 07/10 07/12 Active [facility] PAIN ASROSENDO /2012 [facility] Inpatient [id number] Martinez 10/22 10/29 Peace Nickerson /2018 [facility] Procedures Procedure Code Date Perfomer Comments Source Appendectomy<sup [id number] 2003 [facility] ></sup> [facility] Assessment and Plan Assessment and Plan Date Source Extracted from:Title: Clinical Document 10/29/2018 [facility] [place] Author: Martinez Nickerson MD Date: 10/28/18 PPD 1 S/Asx. Ambulating and voiding w/o problems. States normal bleeding. Some afterpains. going well. Neonates have passed their tests. Boy had circumcision. Would like to go home today. and neonates at bedside . O/VSS. Normotensive. Afebrile course Eupneic. Alert and oriented. Not pale. CTA B. Cor rhythmic Uterus involuted. No edema in LE's PP H/H: 10.129.3 A/P 1-A1 2-PPD 1 for twin delivery 3-In clinical condition to be discharged home Plan: 1-D/C home 2-F/U in 4 weeks 3-D/C meds: [place]/Ibuprofen Plan of Care No Data Provided for This Section Social History Social History Date Source Social History TypeResponse 10/22/2018 [facility] Substance Abuse Use: None. Employment/School Status: Employed. Alcohol Past, Frequency: 1-2 times per week. Smoking Status Former smoker; Type: Cigarettes; Exposur e to Tobacco Smoke None; Cigarette Smoking Last 365 Days No; Reg Smoking Cessation Counseling No; Started at age: 15.0; Stopped at age: 21; entered on: 10/22/18 Family History No Data Provided for This Section Advance Directives No Data Provided for This Section Functional Status No Data Provided for This Section
--- OUTSIDE RECORDS SUMMARY | 2020-03-23 19:53 | XMS REPORT | Summary of Care ---
:1985 Author Organization [facility] Address [address] [place] [id number] Care Team Providers Name Role Phone Ralf Mg Unavailable Pcp, Does Not Have A Primary Care Provider Reason for Visit Reason Comments Refill Request Encounter Details Date Type Department Care Team Description 01/11/[address] [facility] Jamar Veras MD Refill Request Neurology-[address] [place] [phone] [address] [place] [address] [facility] [phone] Allergies Active Allergy Reactions Severity Noted Date Comments Penicillins Rash 02/18/2016 Penicillin Anaphylaxis 11/30/2018 documented as of this encounter (statuses as of 01/16/2020) Medications Medication Sig Dispensed Refills Start Date End Date Status acetaminophen-cod Take 1 tablet 10 tablet 0 02/05/2016 Active eine by mouth (TYLENOL-CODEINE every 4 #3) 300-30 mg (four) hours tablet as needed for Pain (scale 4-6). cephALEXin 500 mg TAKE 1 0 11/24/2018 A ctive capsule CAPSULE BY MOUTH EVERY 6 HOURS X7 DAYS TOPIRAMATE 50 mg TAKE 1 TABLET 180 tablet 1 08/04/2019 Active tabletIndications BY MOUTH : Other TWICE A DAY complicated headache syndrome DULoxetine 60 mg Take 60 mg by 0 09/02/2019 Active capsule mouth daily. benzonatate 200 Take 1 30 capsule 0 10/21/2019 Ac tive mg capsule capsule by mouth 2 (two) times daily as needed for Cough. butorphanol 10 INSERT 1 2.5 mL 0 01/16/2020 Acti ve mg/mL nasal SPRAY INTO sprayIndications: NOSTRIL EVERY Intractable 8 HOURS migraine without NEEDED FOR aura and without PAIN*USE status SPARINGLYMA migrainosus YBE HABIT FORMING butorphanol 10 INSERT 1 2.5 mL 3 09/26/2019 Disc ontinued mg/mL nasal SPRAY INTO 0 (Reorde r) sprayIndications: NOSTRIL EVERY Intractable 8 HOURS migraine without NEEDED FOR aura and without PAIN*USE status SPARINGLYMA migrainosus YBE HABIT [employer]MING documented as of this encounter (statuses as of 01/16/2020) Active Problems No known active problemsdocumented as of this encounter (statuses as of 01/16/2020) Social History Tobacco Use Types Packs/Day Years Used Date Former Smoker Quit: 2013 Smokeless Tobacco: Never Used Alcohol Use Drinks/Week oz/Week Comments Yes occaisonal Sex Assigned at Date Recorded Not on file Job Start Date Occupation Industry Not on file Not on file Not on file Travel History Travel Start Travel End No recent travel history available. documented as of this encounter Last Filed Vital Signs Not on filedocumented in this encounter Plan of Treatment Health Maintenance Due Date Last Done Comments VARICELLA VACCINES (1 of 2 - 1986 2-dose childhood series) DTaP,Tdap,and Td Vaccines (1 - 1996 Tdap) PAP SMEAR 2006 INFLUENZA VACCINE (#1) 2020 03/29/2019 Depression Screening 10/08/2020 10/09/2019 PNEUMOCOCCAL 0-64 YEARS COMBINED Aged Out No longer eligible based on SERIES patient's age to complete this topic documented as of this encounter Results Not on filedocumented in this encounter Visit Diagnoses Diagnosis Intractable migraine without aura and wi thout status migrainosus Migraine without aura, with intractable migraine, so stated, without mention of status migrainosus documented in this encounter Insurance Payer Benefit Plan / Group Subscriber ID Effective Dates Phone Address Type [employer] [id number] 2018-Present PPO A[employer] AET[employer] HMO [id number] 2018-Present HMO documented as of this encounter
--- OUTSIDE RECORDS SUMMARY | 2020-03-23 19:53 | XMS REPORT | Summary of Care ---
:1985 Author Organization [facility] Address [address] [place] [address] Care Team Providers Name Role Phone Ralf Mg Unavailable Pcp, Does Not Have A Primary Care Provider Reason for Visit Reason Comments Refill Request Encounter Details Date Type Department Care Team Description 01/16/2020 Telephone [facility] Jamar Veras MD Refill Request Neurology-[address] [place] [phone] [address] [place] [address] [facility] [phone] Allergies Active Allergy Reactions Severity Noted Date Comments Penicillins Rash 02/18/2016 Penicillin Anaphylaxis 11/30/2018 documented as of this encounter (statuses as of 01/17/2020) Medications Medication Sig Dispensed Refills Start Date End Date Status acetaminophen-codeine Take 1 tablet by 10 tablet 0 02/05/2016 Active (TYLENOL-CODEINE #3) mouth every 4 300-30 mg tablet (four) hours as needed for Pain (scale 4-6). cephALEXin 500 mg TAKE 1 CAPSULE BY 0 11/24/2018 Active capsule MOUTH EVERY 6 HOURS X7 DAYS TOPIRAMATE 50 mg TAKE 1 TABLET BY 180 tablet 1 08/04/2019 Active tabletIndications: MOUTH TWICE A DAY Other complicated headache syndrome DULoxetine 60 mg Take 60 mg by 0 09/02/2019 Active capsule mouth daily. benzonatate 200 mg Take 1 capsule by 30 capsule 0 10/21/2019 Active capsule mouth 2 (two) times daily as needed for Cough. butorphanol 10 mg/mL INSERT 1 SPRAY 2.5 mL 0 01/16/2020 Active nasal INTO NOSTRIL sprayIndications: EVERY 8 HOURS Intractable migraine NEEDED FOR without aura and PAIN*USE without status SPARINGLYMAYBE migrainosus HABIT FORMING documented as of this encounter (statuses as of 01/17/2020) Active Problems No known active problemsdocumented as of this encounter (statuses as of 01/17/2020) Social History Tobacco Use Types Packs/Day Years [...] Last Done Comments VARICELLA VACCINES (1 of - 1986 2-dose childhood series) DTaP,Tdap,and Td Vaccines ( - 1996 Tdap) PAP SMEAR 2006 INFLUENZA VACCINE (#1) 2020 03/29/2019 Depression Screening 10/08/2020 10/09/2019 PNEUMOCOCCAL 0-64 YEARS COMBINED Aged Out No longer eligible based on SERIES patient's age to complete this topic documented as of this encounter Results Not on filedocumented in this encounter Insurance Payer Benefit Plan / Group Subscriber ID Effective Dates Phone Address Type [employer] [id number] 2018-Present PPO A[employer] AETNA O [id number] 2018-Present HMO documented as of this encounter
--- OUTSIDE RECORDS SUMMARY | 2020-03-23 19:53 | XMS REPORT | Summary of Care ---
:1985 Author Name Yancy Bhatia Address Unavailable Unavailable , Care Team Providers Name Role Phone HOMAR Torres Unavailable Unavailable Yancy Bhatia Unavailable Unavailable HOMAR GIL Unavailable Unavailable Unavailable Unavailable Unavailable Functional Status Name Dates Details Functional status health issues are not documented Status: Name Dates Details Cognitive status health issues are not documented Status: Problems Name Dates Details Anxiety (300.00, F41.9) Status: Active Intractable chronic migraine without aur a and with status migrainosus (346.73, G43.711) Status: Active Status migrainosus (346.20, G43.901) Sta tus: Active Medications Name Dates Details Drvsyjdmxz-ISRZ-Gvwhnahj 50-325-40 MG Or al Capsule TAKE 1 CAPSULE Daily PRN headache Quantity: 9 Refills: 1 JUSTIN GRAF M.D. Start : 15-Dec-2019 Active Magnesium Gluconate 500 MG Oral Tablet TAKE 1 TABLET DAILY. Quantity: 90 Refills: 1 JUSTIN GRAF M.D. Start : 15-Dec-2019 Active Allergies and Adverse Reactions Name Dates Details Penicillins (Allergy) Status: Active Past Medical History Name Dates Details History of migraine (V12.49, Z86.69) Sta tus: Resolved Procedures Procedure Dates Details History of In vitro fertilization Comple wilder Immunization Name Dates Details Immunizations not documented Family History Name Dates Details Family history of cerebrovascular accident (CVA) (V17.1, Z82 .3) Status: Active Social History Name Dates Details Tobacco smoking consumption unknown (finding) Vital Signs Date Test Result Details [id number] Systolic blood pressure 127 mm[Hg] Status: Diastolic blood pressure 87 mm[Hg] Status: Body height 65 in Status: Weight 180 lb Status: Body mass index (BMI) [Ratio] 29.95 kg/m2 Status: Body surface area Derived from formula 1.89 m2 S tatus: Body temperature 98.2 f Status: Heart Rate 89 /min Status: Results Date Description Value Details Results not documented Plan of Care Name Dates Details Planned Observations Planned Goals not documented Planned Encounters Appointment; JUSTIN GRAF M.D. On: 27-Mar-2020 13:0 0 Interventions Provided Discussion/SummaryGuideline Used: Zach is on day 2 of a migraine. PT is taking magnesium daily, PT took last butalbital apap caffeine capsule. - No relief. Requesting new medication to [facility] on [address]: worst headache, weakness, numbness, fever Intended Caller Action: Other: new Rx Additional Information: Task sent to [facility] clinical team Instructions Name Dates Details Instructions not documented Encounters Appointment; JUSTIN GRAF M.D. On: 14-Jun-2019 14:00 Encounter Diagnosis: Problem not documented Appointment; JUSTIN GRAF M.D. On: 30-Aug-2019 13:3 0 Encounter Diagnosis: Problem not documented Appointment; JUSTIN GRAF M.D. On: 29-Nov-2019 8:00 Encounter Diagnosis: Problem not documented Appointment; JUSTIN GRAF M.D. On: 03-Jan-2020 9:30 Encounter Diagnosis: Problem not documented
--- OUTSIDE RECORDS SUMMARY | 2020-03-23 19:53 | XMS REPORT | Continuity of Care Document ---
:1985 Author Organization [facility] t Address [address] [place] [address] Care Team Providers Name Role Phone HOMAR Attending Clinician Unavailable Rito GIL, Gene Attending Clinician Doctor Unassigned, Name Attending Clinician Unavailable Mario Nickerson Attending Clinician Mario Nickerson Admitting Clinician Problems Condition Condition Condition Status Onset Resolution Last Treating Co mments Source Name Details Category Date Date Treatment Clinician Date CONTRACTIO Diagnosis Active 2018-10-22 Memoria NS - 19:01:00 l 00:00: Isaak CONTRACTIO 00 NS Active 9 [facility] [place] PELVIC Diagnosis Active 2012-072013-08-16 Mem oria PAIN 08:15:00 l PELVIC 00:00: [place] PAIN 00 Active 07/10/2013 [facility] ABD PAIN Diagnosis Active 2012-072013-07-10 M emoria 23:22:00 l ABD PAIN 00:00: Joe n 00 Active 07/10/2013 [facility] Pain [facility] shoulder [facility] a region region l Outpati ent Clinics Bicipital Bicipital Diagnosis Active [facility] tendinitis tendinitis Joann kes - of right of right Memori a shoulder shoulder l Outpati ent Clinics Superior Superior Diagnosis Active [facility] glenoid glenoid [facility] - labrum labrum Memoria lesion of lesion of l right right Outpati shoulder, shoulder, ent subsequent subsequent Cl inics encounter encounter History of History of Problem Resolve Univers migraine migraine d [facility] [place] [facility] ans Intractabl Intractabl Problem Active U nivers e chronic e chronic ity of migraine migraine [place] without without Physici aura and aura and ans with with status status migrainosu migrainosu s s Anxiety Anxiety Problem Active [facility] [place] [facility] ans Status Status Problem Active Univers migrainosu migrainosu it y of s s [place] [facility] ans Transient Transient Problem Active Uni vers neurologic neurologic it y of al al [place] symptoms symptoms Physic i ans Gait Gait Problem Active Univers instabilit instabilit it y of y y [place] [facility] ans Visual Visual Problem Active Univers changes changes [facility] [place] [facility] Neck pain Neck pain Problem Active Uni vers [facility] [place] [facility] Back pain Back pain Problem Active Uni vers [facility] [place] [facility] ans Celiac Problem Resolve 2018-10-30 Masood ana disease d 22:45:49 l (disorder) Celiac Herm becky disease (disorder) Resolved Problem 10/30/2018 [facility] Hypertensi Problem Active 2013-07-14 M emoria ve 22:15:02 l disorder, Isaak systemic Hypertensi arterial ve (disorder) disorder, systemic arterial (disorder) Active Problem 07/14/2013 [facility] Test tube Problem Active 2018-10-30 Me moria ovum 22:45:49 l fertilizat Test Joe n ion tube ovum (procedure fertilizat ) ion (procedure ) Active Problem 10/30/2018 [facility] [place] Multiple Problem Active 2018-10-30 Mem oria 22:45:49 l (disorder) Multiple He rmann (disorder) Active Problem 10/30/2018 [facility] [place] Polycystic Problem Active 2018-10-30 M emoria ovaries 22:45:49 l (disorder) Joe n Polycystic ovaries (disorder) Active Problem 10/30/2018 [facility] History of Past Illness Condition Condition Condition Status Onset Resolution Last Treating Co mments Source Name Details Category Date Date Treatment Clinician Date Patient Problem Resolve 2018-10-30 2018-10-30 Memoria currently d 8-04 22:45:49 22:45:49 l Patient 00:00: Chary nn (finding) currently 00 (finding) Resolved 02/13/2018 Problem 10/30/2018 [facility] [place] Allergies, Adverse Reactions, Alerts Allergy Allergy Status Severity Reaction(s) Onset Inactive Treating Comm ents Source Name Type Date Date Clinician Peniclli Adverse Active Info Not [facility] Reaction [facility] Penicill Allergy Active Univers ins to drug ity of (finding [place] ) Physici ans Food Food Active Memoria Gluten/W Gluten/W l heat heat [place] Food Food Active Memoria Nuts Nuts l [place] penicill penicill Active Severe Memori a in in l [place] Family History Family Member Diagnosis Comments Start Date Stop Date Source Mother Family history of Univers ity of cerebrovascular [place] Phy sicians accident (CVA) Social History Social Habit Start Date Stop Date Quantity Comments Source Social History 2018-10-22 2018-10-22 [facility] 21:54:29 21:54:29 Medications Ordered Filled Start Stop Current Ordering Indication Dosage Frequency Signature Comments Components Source Medication Medication Date Date Medication? Clinician (SIG) Name Name Diclofenac Diclofenac 2019-0 Yes JUSTIN 1 QD TAKE 1 Univers Sodium ER Sodium ER 9-11 HOMAR M.D. TABLET ity of 100 MG Oral 100 MG Oral 00:00: DAILY PRN [place] Tablet Tablet 00 Back Pain Physic i Extended Extended ans Release 24 Release 24 Hour Hour Rizatriptan Rizatriptan 2019-0 Yes JUSTIN Q2H TAKE 1 Univers Benzoate 10 Benzoate 10 7-21 BROWN M.D. TABLET AT ity of MG Oral MG Oral 00:00: ONSET OF Christopher as Tablet Tablet 00 HEADACHE. Physic i MAY REPEAT ans EVERY 2 HOURS NEEDED. MAXIMUM 3 TABLETS IN 24 HOURS. Butalbital- Butalbital- 2020-0 Yes JUSTIN 1 QD TAKE 1 Univers APAP-Caffei APAP-Caffei 6-04 BROWN M.D. CAPSULE ity of ne ne 00:00: Daily PRN [place] 50-325-40 50-325-40 00 headache P hysici MG Oral MG Oral ans Capsule Capsule Magnesium Magnesium 2019-0 Yes JUSTIN 1 QD TAKE 1 Univers Gluconate Gluconate 6-04 BROWN M.D. TABLET ity of 500 MG Oral 500 MG Oral 00:00: DAILY. [place] Tablet Tablet 00 Physici ans Acetaminoph 2019-0 Yes 1 tab, PO, Memoria en 325 MG / 4-19 Q4H, PRN l butalbital 00:34: Headache Her adamson 50 MG / 00 6-10, 0 Caffeine 40 Refill(s) MG Oral Tablet [Esgic] Acetaminoph Yes 1 tab, PO, Memoria en 325 MG / -19 Q4H, PRN l Hydrocodone 00:34: Pain Score [place] Bitartrate 00 4-6, 0 5 MG Oral Refill(s) Tablet Docusate Yes 100 mg = 1 Mem oria Sodium 100 4-19 cap, PO, l MG Oral 00:34: BID, PRN Joe n Capsule 00 Constipati on, 0 Refill(s) ibuprofen Yes 600 mg = 1 Me moria 600 mg oral -19 tab, PO, l tablet 00:34: Q6H, PRN [place] 00 Other -See Comment, 0 Refill(s) No 1 tab, Memoria Multivitami -17 Route: PO, l ns oral 14:00: Drug Form: Herm becky tablet 00 TAB, Dosing Weight 87.273, kg, Daily, Start date: 10/27/18 9:00:00 CDT, Duration: 30 day, Stop date: 11/25/18 9:00:00 CDT Ibuprofen No Notes: Memori a 4-17 (Same as: l 08:00: Motrin) [place] 00 "Do Not Crush" Take with food. M-M-R II No Notes: Memoria 4-17 (Same as: l 08:00: M-M-R II) [place] 00 (measles-m umps-rubel la virus vaccine 0.5 ml INJ VL) WASTE: F/P - Red; E -Red GIVE PRIOR TO DISCHARGE Atropine No Notes: Memoria Sulfate -17 (Same As: l 0.025 MG / 07:38: Lomotil) Her adamson Diphenoxyla 00 MAX Adult te dose = 8 Hydrochlori tabs/day de 2.5 MG Oral Tablet [Lomotil] Acetaminoph No Notes: Masood ana en 325 MG / 4-17 (Same as: l Hydrocodone 07:28: [place] Chary nn Bitartrate 00 325/5) Do 5 MG Oral not exceed Tablet 4gm/day of acetaminop hen. Bisacodyl No Notes: Memori a 4-17 (Same As: l 07:28: Dulcolax, Isaak 00 Correctol) (Do Not Crush) "Do Not Crush" lanolin No Notes: Memoria topical 4-17 (Same l 07:28: as:Lanolin Isaak ) Ondansetron No Notes: Masood ana 4-17 (Same as: l 07:28: Zofran) Isaak MEDICATION WASTE Product Size: 4 mg Product Wasted: ___ mg Docusate No Notes: Memoria 4-17 (Same as: l 07:28: Colace) [place] (Do Not Crush) zolpidem No Notes: Memoria 4-17 (Same As: l 07:28: Ambien) [place] 00 Methylergon No Notes: Masood ana ovine -17 (Same l 07:28: as:Metherg [place] ine) Benzocaine No Notes: Memor ia 200 MG/ML - (Same As: l Topical 07:28: Dermoplast Herm becky [place] ) WASTE: [Dermoplast Aerosol - ] Return to Pharmacy FOR EXTERNAL USE ONLY Lactated No 1,000 mL, Masood ana Ringers IV -17 Rate: 100 l 1,000 mL 07:28: ml/hr, [place] 00 Infuse over: 10 hr, Route: IV, Dosing Weight 87.273 kg, Total Volume: 1,000, Start date: 10/27/18 2:28:00 CDT, Duration: 30 day, Stop date: 11/26/18 2:27:00 CDT, 2.03, m2 Oxytocin No 30 unit, Memor ia 4-17 500 mL, l 07:28: Rate: 42 Isaak 00 ml/hr, Infuse over: 11.9 hr, Dosing Weight 87.273, kg, Route: IV, Total Volume: 500 mL, Start date: 10/27/18 2:28:00 CDT, Duration: 2 day, Stop date: 10/29/18 2:27:00 CDT, Replace Every: 11.9 hr Oxytocin No 30 unit, Memor ia 4-16 500 mL, l 15:00: Rate: Isaak 00 Titrate, Dosing Weight 87.273, kg, Route: IV, Total Volume: 500 mL, Start date: 10/26/18 10:00:00 CDT, Duration: 2 day, Stop date: 10/28/18 9:59:00 CDT, Replace Every: 24 hr Remove - No Notes: Memoria dinoproston 4-16 Vaginal l e 09:00: insert: to Isaak (Cervidil) 00 be removed insert 1 hour prior to oxytocin administra tion or 12 hours after insertion. Ofirmev No Notes: Memoria 4-16 Infuse l 00:25: over 15 Isaak minutes Do not exceed 4gm/day of acetaminop hen MEDICATION WASTE Product Size: 1000 mg Product Wasted: ___ mg Cervidil No Notes: Memoria 4-15 (Same as: l 20:38: Cervidil) Calcium No 1 tab, PO, Masood ana Carbonate 4-15 Q12H, PRN l 800 MG / 00:24: Heartburn, Her adamson Famotidine 00 0 10 MG / Refill(s) Magnesium Hydroxide 165 MG Chewable Tablet [Pepcid Complete] Maxalt Yes 10 mg, PO, Memor ia 4-15 Q2H, PRN l 00:24: Headache Isaak 00 6-10, 0 Refill(s) Esomeprazol Yes 20 mg = 1 M emoria e 20 MG 4-15 cap, PO, l Enteric 00:24: Daily, 0 Joe n Coated 00 Refill(s) Capsule [Nexium] Acetaminoph Yes 1 cap, PO, Memoria en 325 MG / 4-15 Q6H, PRN l butalbital 00:24: Headache Her adamson 50 MG / 00 6-10, 0 Caffeine 40 Refill(s) MG Oral Capsule [Esgic] Unknown Yes iron 1 Memoria Home 4-15 tab, PO, l Medication 00:24: Q-M-W-F, Her adamson 00 Refill(s) 0 Aspirin No 81 mg, PO, Masood ana 4-15 Daily, 0 l 00:22: Refill(s) [place] 00 PNV Yes 1 tab, PO, Memoria 4-15 Daily, 0 l 00:22: Refill(s) Oxytocin No 30 unit, Memor ia 4-14 500 mL, l 09:00: Rate: Titrate, Dosing Weight 87.273, kg, Route: IV, Total Volume: 500 mL, Start date: 10/24/18 4:00:00 CDT, Duration: 2 day, Stop date: 10/26/18 3:59:00 CDT, Replace Every: 24 hr Remove - No Notes: Memoria dinoproston 4-14 Vaginal l e 00:00: insert: to [place] (Cervidil) 00 be removed insert 1 hour prior to oxytocin administra tion or 12 hours after insertion. betamethaso No Notes: Masood ana ne 4-13 (betametha l 19:30: sone acetate-so dium phosphate 6 mg/ml INJ) (Same As: Celestone Soluspan) betamethaso No 12 mg, Masood ana ne 4-13 Route: IM, l 18:00: Q24H, Dosing Weight 87.273, kg, Start date: 10/23/18 13:00:00 CDT, Duration: 2 doses or times, Stop date: 10/24/18 13:00:00 CDT Cervidil No Notes: Memoria 4-13 (Same as: l 11:43: Cervidil) Remove - No Notes: Memoria dinoproston 4-13 Vaginal l e 11:00: insert: to Isaak (Cervidil) 00 be removed insert 1 hour prior to oxytocin administra tion or 12 hours after insertion. Acetaminoph No Notes: Masood ana en 325 MG / 4-12 (acetamino l butalbital 23:08: phen-butal H ermann 50 MG / 00 bital-caff Caffeine 40 eine MG Oral 325-50-40m Tablet g) Do not [Esgic] exceed 4 gm/day of acetaminop hen. (Same as: Esgic, Fioricet) Famotidine No Notes: Memor ia 4-12 (Same as: l 23:00: Pepcid) Can be dilute in 5-10cc NS IVP: Slow IV push over at least 2 minutes. Misoprostol No Notes: Masood ana 4-12 (Same l 23:00: as:Cytotec [place] 00 ) Take with food Carboprost No Notes: Memor ia 4-12 (Same As: l 23:00: Hemabate) Methylergon No Notes: Masood ana ovine 4-12 (Same l 23:00: as:Metherg Isaak 00 ine) Citric Acid No Notes: Masood ana / sodium 4-12 (Same As: l citrate 23:00: Bicitra, Joe n 00 Cytra-2) Sodium citrate-ci tric acid (500-334 mg/5 mL): 1 mL contains sodium 1 mEq/mL and bicarbonat e 1 mEq/mL Cervidil No Notes: Memoria 4-12 (Same as: l 22:08: Cervidil) [place] 00 Ibuprofen No Notes: Memori a 4-12 (Same as: l 22:08: Motrin) "Do Not Crush" Take with food. Acetaminoph No Notes: Masood ana en 325 MG / 4-12 (Same as: l Hydrocodone 22:08: [place] Chary nn Bitartrate 00 325/5) Do 5 MG Oral not exceed Tablet 4gm/day of acetaminop hen. Butorphanol No Notes: Masood ana 4-12 (Same As: l 22:08: Stadol) MEDICATION WASTE Product Size: 2 mg Product Wasted: ___ mg Ondansetron No Notes: Masood ana 4-12 (Same as: l 22:08: Zofran) 00 MEDICATION WASTE Product Size: 4 mg Product Wasted: ___ mg Lidocaine No Notes: Memori a Hydrochlori 4-12 Preservati l de 10 MG/ML 22:08: ve free. He rmann Injectable (Same as: Solution Xylocaine MPF) Terbutaline No Notes: Masood ana 4-12 DO NOT l 22:08: USE IN [place] 00 [employer] ARE[employer] (Same As: Debra) Oxytocin 2019-0 No 30 unit, Memor ia 4-12 500 mL, l 22:08: Rate: 42 Isaak 00 ml/hr, Infuse over: 11.9 hr, Dosing Weight 87.273, kg, Route: IV, Total Volume: 500 mL, Start date: 10/22/18 17:08:00 CDT, Duration: 2 day, Stop date: 10/24/18 17:07:00 CDT, Replace Every: 11.9 hr Lactated 0 No 1,000 mL, Masood naa Ringers IV 4-12 Rate: 125 l 1,000 mL 22:08: ml/hr, Infuse over: 8 hr, Route: IV, Dosing Weight 87.273 kg, Total Volume: 1,000, Start date: 10/22/18 17:08:00 CDT, Duration: 30 day, Stop date: 11/21/18 17:07:00 CDT, 2.03, m2 Calcium 2019- Yes 1,000 mL, Memor ia Chloride 4-12 1,000 l 0.0014 22:08: ml/hr, Isaak MEQ/ML / 00 Infuse Potassium Over: 1 Chloride hr, Route: 0.004 IV, 1,000, MEQ/ML / Drug form: Sodium INJ, ONCE, Chloride Dosing 0.103 Weight MEQ/ML / 87.273 kg, Sodium Start Lactate date: 0.028 10/22/18 MEQ/ML 17:08:00 Injectable CDT, Stop Solution date: 10/22/18 17:08:00 CDT, Bolus for regional anesthesia per unit routine Keflex 2012-07 No Casa N 500 mg, 1 Memoria 2-31 Asumugha cap, l 20:00: Route: PO, Drug form: CAP, [id number], Dosing Weight 72.727, kg, Start date: 07/12/13 14:00:00, Duration: 30 day, Stop date: 08/11/13 2:00:00Tak e on empty stomach. (Same As: Keflex) Keflex 500 2012-07 Yes Mcclelland N = 500 mg, Memoria mg oral 2-31 Asumugha PO, l capsule 19:43: [id number], # Herm becky 00 20 caplet, 0 Refill(s) [place] 2012-07 Yes Casa N 1-2 tab, Me moria 10/325 oral 2-31 Asumugha PO, Q4-6H, l tablet 19:39: Pain, # 30 Chary nn 00 tab, 0 Refill(s) Tylenol 2012-07 No Mcclelland N 650 mg, 2 Memoria 2-31 Asumugha tab, l 12:25: Route: PO, Isaak 00 Drug form: TAB, Q4H, Dosing Weight 72.727, kg, PRN Headache, Start date: 07/12/13 6:25:00, Duration: 30 day, Stop date: 08/11/13 6:24:00Do not exceed 4 gm/day. (Same as: Tylenol) metoprolol 2012-07 No Mcclelland N 100 mg, 1 Memoria extended 2-30 Asumugha tab, l release 15:00: Route: PO, Herm becky 00 Drug form: ERTAB, Daily, Start date: 07/11/13 9:00:00, Duration: 30 day, Stop date: 08/09/13 9:00:00([facility] as: Toprol XL) May split tab, but do not crush. Phenergan + 2012-07 No Mcclelland N 12.5 mg, Memoria Sodium 2-30 Asumugha 0.5 mL, l Chloride 13:54: Route: [place] 0.9% IV 50 00 IVPB, Drug mL form: INJ, Q6H, Dosing Weight 72.727, kg, PRN Nausea & Vomiting, Start date: 07/11/13 7:54:00, Duration: 30 day, Stop date: 08/10/13 7:53:00Do not give IV push. (Same as: Phenergan) Demerol HCl 2012-07 No Mcclelland N 50 mg, 1 Memoria 2-30 Asumugha mL, Route: l 13:53: IV, Drug Isaak 00 form: INJ, Q4H, Dosing Weight 72.727, kg, PRN Pain, Start date: 07/11/13 7:53:00, Duration: 4 day, Stop date: 07/15/13 7:52:00(Sa me as: Demerol) "Use Precaution in Elderly, Seizure disorders, and Renal impairment " Zofran 2012-07 No 4 mg, PO, Memori a 2-30 0 l 11:30: Refill(s) [place] 00 [place] 2012-07 No Casa N 1-2 tab, Me moria 10/325 oral 2-30 Asumugha PO, Q4-6H, l tablet 11:30: Pain, # 30 Chary nn 00 tab, 0 Refill(s) metoprolol 2012-07 No 100 mg = 1 M emoria 100 mg oral 2-30 tab, PO, l tablet, 11:29: BID, # 30 Chary nn extended 00 tab, 0 release Refill(s) Dextrose 5% 2012-07 No Mcclelland N 1,000 mL, Memoria with 0.45% 2-30 Asumugha Rate: 125 l NaCl IV 10:49: ml/hr, Isaak 1,000 mL 00 Infuse over: 8 hr, Route: IV, Dosing Weight 72.727 kg, Total Volume: 1,000, Start date: 07/11/13 4:49:00, Duration: 30 day, Stop date: 08/10/13 4:48:00 morphine 2012-07 No Mcclelland N 2 mg, 1 Memoria Sulfate 2-30 Asumugha mL, Route: l 10:49: IVP, Drug form: INJ, Q3H, Dosing Weight 72.727, kg, PRN Pain Score 4-6, Start date: 07/11/13 4:49:00, Duration: 30 day, Stop date: 08/10/13 4:48:00([facility] [place] as:MORPhin e Sulfate) ondansetron 2012-07 No Mcclelland N 4 mg, 2 Memoria 2-30 Asumugha mL, Route: l 10:49: IVP, Drug form: INJ, Q8H, Dosing Weight 72.727, kg, PRN Nausea & Vomiting, Start date: 07/11/13 4:49:00, Duration: 30 day, Stop date: 08/10/13 4:48:00([facility] [place] as: Zofran) docusate 2012-07 No Casa N 100 mg, 1 Memoria 2-30 Asumugha cap, l 10:49: Route: PO, Isaak 00 Drug form: CAP, BID, Dosing Weight 72.727, kg, PRN Constipati on, Start date: 07/11/13 4:49:00, Duration: 30 day, Stop date: 08/10/13 4:48:00(Sa me as: Colace) (Do Not Crush) Saline 2012-07 No Mcclelland N 5 ml, Masood aan Flush 0.9% 2-30 Asumugha Route: l 10:49: IVP, Drug [place] 00 Form: INJ, Dosing Weight 72.727, kg, PRN, PRN Line Flush, Start date: 07/11/13 4:49:00, Duration: 30 day, Stop date: 08/10/13 4:48:00(Sa me as: BD Posiflush) morphine 2012-07 No Christion 4 mg, 2 M emoria Sulfate 2-30 Brett mL, Route: l 09:45: Rice IVP, Drug [place] 00 form: INJ, ONCE, Dosing Weight 72.727, kg, Priority: STAT, Start date: 07/11/13 3:45:00, Stop date: 07/11/13 3:45:00(Sa me as:MORPhin e Sulfate) hydromorpho 2012-07 No [place] 1 mg, 1 M emoria ne 2-30 Damian Sparks mL, Route: l 06:48: IVP, Drug Isaak 00 form: INJ, ONCE, Dosing Weight 72.727, kg, Priority: STAT, Start date: 07/11/13 0:48:00, Stop date: 07/11/13 0:48:00 Sodium 2012-07 No [place] 500 mL, Memori a Chloride 2-30 Damian Sparks Rate: 500 l 0.9% 05:16: ml/hr, [place] (Bolus) IV 00 Infuse 500 mL over: 1 hr, Route: IV, Dosing Weight 72.727 kg, Total Volume: 500, Priority: STAT, Start date: 07/10/13 23:16:00, Duration: 1 doses or times, Stop date: 07/11/13 0:15:00, Bolus DoseBolus Dose ondansetron 2012-07 No [place] 4 mg, Mem oria 2-30 Damian Sparks Route: l 05:10: IVP, Drug Isaak 00 form: INJ, ONCE, Dosing Weight 72.727, kg, Priority: STAT, Start date: 07/10/13 23:10:00, Stop date: 07/10/13 23:10:00 morphine 2012- No [place] 4 mg, 2 Masood ana Sulfate 2-30 Damian Sparks mL, Route: l 05:02: IVP, Drug [place] 00 form: INJ, ONCE, Dosing Weight 72.727, kg, Priority: STAT, Start date: 07/10/13 23:02:00, Stop date: 07/10/13 23:02:00(S jace as:MORPhin e Sulfate) Cyclobenzap Cyclobenzap Yes Eddy not [facility] rine HCl rine HCl Lester defined Shar s - [facility] Vital Signs Vital Name Observation Time Observation Value Comments Source Systolic blood 2020-01-03 09:33:00 127 mm[Hg] Univer sity of pressure [place] [facility]ician s Diastolic blood 2020-01-03 09:33:00 87 mm[Hg] Unive rsity of pressure [place] Physician s Body height 2020-01-03 09:33:00 65 [in_us] [facility] ty [facility] [place] [facility]ician s Weight 2020-01-03 09:33:00 180 [lb_av] [facility] [place] [facility] s Body mass index 2020-01-03 09:33:00 29.95 kg/m2 Unive rsity of (BMI) [Ratio] [place] Physicia ns Body temperature 2020-01-03 09:33:00 98.2 [degF] Univ ersity of [place] [facility]ician s Heart Rate 2020-01-03 09:33:00 89 /min [facility] [place] [facility] BP Systolic 2019-06-14 14:05:00 117 mm[Hg] [facility] [place] [facility] BP Diastolic 2019-06-14 14:05:00 78 mm[Hg] [facility] [place] [facility] Height 2019-06-14 14:05:00 65 [in_us] [facility] [place] [facility] Weight 2019-06-14 14:05:00 156.375 [lb_av] Unive rsity of [place] [facility]ician s Body Mass Index 2019-06-14 14:05:00 26.02 kg/m2 Unive rsity of Calculated [place] Physician s Temperature 2019-06-14 14:05:00 97.5 [degF] Universi ty [facility] Physician s Heart Rate 2019-06-14 14:05:00 80 [facility] Phys[facility] s Respiration Rate 2019-06-14 14:05:00 80 /min [facility] [place] [facility] Temperature Oral (F) 2018-10-28 21:58:00 98.0 F [facility] [place] Heart Rate 2018-10-28 21:58:00 [facility] [place] Respitory Rate 2018-10-28 21:58:00 Memori al Isa[place] Systolic (mm Hg) 2018-10-28 21:58:00 Masood rial Isaak Diastolic (mm Hg) 2018-10-28 21:58:00 Mem orial Isaak Temperature Oral (F) 2018-10-28 13:43:00 97.9 F [facility] [place] Respitory Rate 2018-10-28 13:43:00 Memori al [place] Heart Rate 2018-10-28 13:43:00 [facility] [place] Systolic (mm Hg) 2018-10-28 13:43:00 Masood rial Isaak Diastolic (mm Hg) 2018-10-28 13:43:00 Mem orial [place] Respitory Rate 2018-10-28 05:01:00 Memori al [place] Heart Rate 2018-10-28 05:01:00 [facility] [place] Temperature Oral (F) 2018-10-28 05:01:00 98.2 F [facility] [place] Systolic (mm Hg) 2018-10-28 05:01:00 Masood rial [place] Diastolic (mm Hg) 2018-10-28 05:01:00 Mem orial Isaak BMI Calculated 2018-10-22 21:56:00 Memori al [place] Weight 2018-10-22 21:56:00 [facility] [place] Height 2018-10-22 21:56:00 165.1 cm [facility] [place] Temperature Oral (F) 2013-07-12 13:35:00 98.6 F [facility] [place] Respitory Rate 2013-07-12 13:35:00 Memori al Isaak Heart Rate 2013-07-12 13:35:00 [facility] [place] Systolic (mm Hg) 2013-07-12 13:35:00 Masood rial Isaak Diastolic (mm Hg) 2013-07-12 13:35:00 Mem orial [place] Temperature Oral (F) 2013-07-12 09:32:00 98.3 F [facility] [place] Diastolic (mm Hg) 2013-07-12 09:32:00 Mem orial Isaak Heart Rate 2013-07-12 09:32:00 [facility] [place] Respitory Rate 2013-07-12 09:32:00 Memori al Isa[place] Systolic (mm Hg) 2013-07-12 09:32:00 Masood rial [place] Diastolic (mm Hg) 2013-07-12 07:15:00 Mem orial Isaak Systolic (mm Hg) 2013-07-12 07:15:00 Masood rial Isaak Temperature Oral (F) 2013-07-12 07:15:00 98.5 F [facility] [place] Respitory Rate 2013-07-12 07:15:00 Memori al Isa[place] Heart Rate 2013-07-12 07:15:00 [facility] [place] Height 2013-07-11 11:17:00 165.1 cm [facility] [place] Weight 2013-07-11 11:17:00 [facility] [place] Height 2013-07-11 01:11:00 165.1 cm [facility] [place] Weight 2013-07-11 01:11:00 [facility] [place] Procedures Procedure Date / Time Performing Clinician Source Performed MRI Brain wo contrast 2020-03-21 00:00:00 [facility] [id number] Physicians [UTP] Toxin - Botox 2020-02-15 00:00:00 [facility] Physicians [UTP] Toxin - Botox 2019-12-09 00:00:00 [facility] Physicians [UTP] Toxin - Botox 2019-11-29 00:00:00 [facility] Physicians [UTP] Toxin - Botox 2019-07-27 00:00:00 [facility] Physicians [UTP] Toxin - Botox 2019-06-14 00:00:00 [facility] Physicians History of In vitro [facility] [place] fertilization Physicians Appendectomy<sup>1</sup> Mook Beyerann Plan of Care Planned Activity Planned Date Details Comments Source Future Scheduled Test 2020-03-27 [UTP] Toxin - Unive [facility] 00:00:00 Botox [code = Physicians [UTP] Toxin - Botox] Future Scheduled Test 2020-03-27 [UTP] Toxin - Unive [facility] 00:00:00 Botox [code = Physicians [UTP] Toxin - Botox] Future Scheduled Test 2019-12-20 [UTP] Toxin - Unive [facility] 00:00:00 Botox [code = Physicians [UTP] Toxin - Botox] Diagnostic Test 2019-11-29 [UTP] Toxin [facility] Pending 00:00:00 Botox [code = Physicians [UTP] Toxin - Botox] Diagnostic Test 2019-11-29 [UTP] Toxin - [facility] Pending 00:00:00 Botox [code = Physicians [UTP] Toxin - Botox] Diagnostic Test 2019-11-29 [UTP] Toxin [facility] Pending 00:00:00 Botox [code = Physicians [UTP] Toxin - Botox] Diagnostic Test 2019-08-30 [UTP] Toxin [facility] Pending 00:00:00 Botox [code = Physicians [UTP] Toxin - Botox] Diagnostic Test 2019-08-30 [UTP] Toxin [facility] Pending 00:00:00 Botox [code = Physicians [UTP] Toxin - Botox] Diagnostic Test 2019-06-14 [UTP] Toxin [facility] Pending 00:00:00 Botox [code = Physicians [UTP] Toxin - Botox] Diagnostic Test 2019-06-14 [UTP] Toxin [facility] Pending 00:00:00 Botox [code = Physicians [UTP] Toxin - Botox] Future Appointment 2020-03-27 Melissa ANDERSON [facility] 13:00:00 Dante GRAF Encounters Start End Encounter Admission Attending Care Care Encounter Source Date/Time Date/Time Type Type Clinicians Facility Department ID 2018-10-22 Inpatient U [facility] 9102 [facility] H 16:11:00 2020-03-21 2020-03-21 Appointmen MAHSA GRAF Neurology - [id number] [facility] 09:00:00 09:00:00 tJUSTIN BERNAL, [facility] gaby ANDERSON M.D. [facility] [place] [facility] 2020-02-07 2020-02-07 Kayy Veras [facility] [id number] 00:00:00 00:00:00 Jamar Willson [id number] [place] [id number] Professio [phone] nal 092 [facility] 2020-01-11 2020-01-11 [facility] [id number] 00:00:00 00:00:00 Jamar Willson [id number] [place] [id number] Professio [phone] nal 092 [facility] 2020-01-03 2020-01-03 Appointmen MAHSA GRAF Neurology - [id number] [facility] 09:30:00 09:30:00 t; JUSTIN GRAF [place] [facility]. [facility] [place] [facility] 2019-12-20 2019-12-20 Appointmen MAHSA GRAF Neurology - [id number] [facility] 10:30:00 10:30:00 t; JUSTIN GRAF [place], M.D. [facility] [place] [facility] 2019-11-29 2019-11-29 Appointmen MAHSA GRAF Neurology - [id number] [facility] 08:00:00 08:00:00 t; JUSTIN GRAF [place], M.D. [facility] [place] [facility] 2019-08-30 2019-08-30 Appointmen MAHSA GRAF Neurology - [id number] [facility] 13:30:00 13:30:00 t; JUSTIN GRAF [place], [facility]. [facility] [place] [facility] 2019-06-14 2019-06-14 Appointmen MAHSA GRAF Neurology - [id number] [facility] 14:00:00 14:00:00 t; JUSTIN GRAF [place], M.[facility]. [facility] [place] [facility] 2019-02-25 2019-02-25 Betina TREJO [id number] 00:00:00 00:00:00 Only Unassigned, AMAURY [id number] [place] [facility] 4.2.7.2.686 [id number] [id number] 2019-02-22 2019-02-22 [facility] [id number] 12:51:52 23:59:00 Encounter Jamar Willson [id number] [place] 4.2.7.2.686 [place] [id number] [id number] 2019-02-22 2019-02-22 [facility] [id number] 12:45:29 12:50:00 Encounter Jamar Willson [id number] [place] 4.2.7.2.686 [place] [phone] [id number] 2019-02-22 2019-02-22 [facility] [id number] 12:44:26 12:44:26 Encounter Jamar Willson [id number] [place] 4.2.7.2.686 [place] [id number] [id number] 2019-02-22 2019-02-22 Orders Doctor NEIL [id number] 00:00:00 00:00:00 Only Unassigned, AMAURY 350.1.13.10 [place] [id number] [id number] 2019-02-08 2019-02-08 [facility] [id number] 00:00:00 00:00:00 Jamar Willson 350.1.13.10 [place] [id number] Professio [phone] nal 2 [facility] 2018-10-22 2018-10-28 Outpatient Liya, [facility] [id number] 16:11:00 20:45:[address] [place] [address] 2018-02-05 2018-02-05 [facility] [id number] 08:30:00 08:30:00 [facility] 2013-07-10 2013-07-12 Outpatient JUANITA VIRAL [id number] Memoria 18:58:00 14:30:00 l [facility] l Results Test Description Test Time Test Comments Results Result [facility] e Comments HEMATOLOGY 2018-10-27 10.1 [facility] 20:37:00 [place] HEMATOLOGY 2018-10-27 29.3 [facility] 20:37:00 [place] BLOOD BANK RESULTS 2018-10-26 Negative Memori al 10:43:00 (10/26/18 5:43 [place] AM) CHEM PANEL 2018-10-26 12 [facility] 10:43:00 [place] CHEM PANEL 2018-10-26 17 [facility] 10:43:00 [place] CHEM PANEL 2018-10-26 175 [facility] 10:43:00 [place] ELECTROLYTES 2018-10-26 11.7 [facility] 10:43:00 [place] ELECTROLYTES 2018-10-26 122 [facility] 10:43:00 [place] ELECTROLYTES 2018-10-26 111 [facility] 10:43:00 [place] ELECTROLYTES 2018-10-26 23 [facility] 10:43:00 [place] ELECTROLYTES 2018-10-26 8.4 [facility] 10:43:00 [place] ELECTROLYTES 2018-10-26 3.7 [facility] 10:43:00 [place] ELECTROLYTES 2018-10-26 72 [facility] 10:43:00 [place] ELECTROLYTES 2018-10-26 142 [facility] 10:43:00 [place] ELECTROLYTES 2018-10-26 9 [facility] 10:43:00 [place] ELECTROLYTES 2018-10-26 0.57 [facility] 10:43:00 [place] HEMATOLOGY 2018-10-26 0.1 [facility] 10:43:00 [place] HEMATOLOGY 2018-10-26 1.8 [facility] 10:43:00 [place] HEMATOLOGY 2018-10-26 5.1 [facility] 10:43:00 [place] HEMATOLOGY 2018-10-26 0.7 [facility] 10:43:00 [place] HEMATOLOGY 2018-10-26 66.7 [facility] 10:43:00 [place] HEMATOLOGY 2018-10-26 9.1 [facility] 10:43:00 [place] HEMATOLOGY 2018-10-26 23.0 [facility] 10:43:00 [place] HEMATOLOGY 2018-10-26 0.5 [facility] 10:43:00 [place] HEMATOLOGY 2018-10-26 0.7 [facility] 10:43:00 [place] HEMATOLOGY 2018-10-26 130 [facility] 10:43:00 [place] HEMATOLOGY 2018-10-26 10.8 [facility] 10:43:00 [place] HEMATOLOGY 2018-10-26 7.7 [facility] 10:43:00 [place] HEMATOLOGY 2018-10-26 3.75 [facility] 10:43:00 [place] HEMATOLOGY 2018-10-26 13.6 [facility] 10:43:00 [place] HEMATOLOGY 2018-10-26 12.1 [facility] 10:43:00 [place] HEMATOLOGY 2018-10-26 92.2 [facility] 10:43:00 [place] HEMATOLOGY 2018-10-26 34.5 [facility] 10:43:00 [place] HEMATOLOGY 2018-10-26 34.9 [facility] 10:43:00 [place] HEMATOLOGY 2018-10-26 10:43:00 Test Item Value Reference Range Interpretation Comme nts MCH (test code = MCH) 32.2 pg 27.0-31.0 [facility] YHTMW9995-67-58 00:16:00Negative (10/25/18 7:16 PM) [facility] YUALI7003-80-92 00:16:001[facility] KCBMR1650-40-60 00:16:00<1[facility] ALYCV7936-50-84 00:16:00 Negative (10/25/18 7:16 PM)[facility] PHGNL3324-78-40 00:16:00 <1.0[facility] XLFEI3862-16-10 00:16:00Negative *NA*(10/25/18 7:16 PM)[facility] PVARE7773-87-70 00:16:00Negative *NA*(10/25/18 7:16 PM)[facility] BTSSK7107-19-42 00:16:00Negative *NA*(10/25/18 7:16 PM)[facility] NXLVQ8364-85-92 00:16:00Small *ABN*(10/25/18 7:16 PM)[facility] HGAIP3799-59-54 00:16:00 Test Item Value Reference Range Interpretation Comments UA Spec Grav (test code = UA Spec 1.002 1 Grav) [facility] JPBTR7036-50-92 00:16:00Clear (10/25/18 7:16 PM) [facility] USDUV8334-58-02 00:16:00Light Yellow *NA*(10/25/18 7:16 PM)[facility] MVHJM3721-63-74 00:16:00Negative (10/25/18 7:16 PM) [facility] UYFKR4776-07-53 00:16:00 Test Item Value Reference Range Interpretation Comments UA pH (test code = UA pH) 7.0 1 5.0-8.0 [facility] GIQKRWP1464-31-06 22:16:00Negative (10/22/18 5:16 PM) [facility] ZABNH6847-68-68 22:16:0014[facility]annCHE[facility] PANEL 2018-10-22 22:16:0013[facility]annCHE[facility] EKUUL1527-04-50 22:16:75262Hbhaighm HermannCHEM SNRUP7466-01-49 22:16:006.4[facility]ann[facility] ERWNO2668-07-70 22:16:000.56[facility]ann[facility] TLUJN3606-32-63 22:16:67556[place] UHKNIATFVF1840-14-78 22:16:0012.9[facility] EtxlrwtEPVNHATENL4200-76-91 22:16:00 4.03Memorial WsyxkvgQHEHCWAJVX2547-79-49 22:16:009.0[facility]annHEMATOLOGY 2018-10-22 22:16:0092.2[facility] DhcnsizAIBSPKVJRT4922-29-69 22:16:00 Test Item Value Reference Range Interpretation Comments MCH (test code = MCH) 31.9 pg 27.0-31.0 [facility] OchfemnRPASIXHKXR4622-28-56 22:16:0037.1[facility]ann[facility]MATOLOGY 2018-10-22 22:16:0013.5[facility] JypgpzlHWTXLZLCOZ6622-59-67 22:16:0034.6[facility] OnpkolwQKXBCFAMYU2874-60-12 22:16:21949Oxvgbyqc WmtictnNBDWKGYVDI0592-85-87 22:16:0010.9[facility] MoqpwjqPBFDNKOYSF5609-72-38 22:16:000.2[facility] [place] MISJIONBPB5901-27-29 22:16:007.7[facility] EogfuwrQGNQJQQHSI1460-61-28 22:16:000.2 [facility] VuxiryqQNLXWHQBTT4959-29-98 22:16:001.0[facility]annHEMATOLOGY 2018-10-22 22:16:000.3[facility] VrujcxeIQAIEPRJZO0907-80-20 22:16:002.1[facility] YqkumytRVPPXPRXVC8490-07-76 22:16:0086.3[facility] MtsxohcZIUAPLHJWL7937-59-65 22:16:0011.1[facility] EkeahffTYBBGKLQTG3907-71-57 22:16:00Negative *NA*(10/22/18 5:16 PM)[facility] NorlqfxLRBDTTBPMZ3038-49-65 22:16:00Negative *NA*(10/22/18 5:16 PM)[facility] MbvxgvkSTFGTVPDAR6188-38-68 22:16:00Non-Reactive *NA*(10/22/18 5:16 PM)[facility] ELWX3290-98-25 22:16:0089.60[facility] CHEM 2018-10-22 22:16:00 Test Item Value Reference Range Interpretation Comments U Prot/Creat (test code = U 0.17 1 Prot/Creat) [facility] LHCW9307-84-30 22:16:0015.0[facility]annCHEMISTRY 2013-07-12 12:10:00Positive *NA*(07/12/2013 06:10:00)[facility]annCHEMISTRY 2013-07-12 12:10:82446Tjhjkkev MzhixfdBNMLNCQVS5291-10-02 12:10:27803Zgodrxcr XohnybhVHZTUZIGB0026-65-29 12:10:0028[facility] ArawuiaWVVQUPOPB8076-48-43 12:10:008.0[facility] UvwpipbOZFCKBXWD4715-93-11 12:10:98755Mnfxcewk [place] OFUUUYEDD7204-46-61 12:10:006.1[facility] BfmzhxxDADAAACPJ6101-14-33 12:10:003.3 Memorial LcugbywYOPFVZWGS6217-68-28 12:10:003[facility] VlchzdgAGCKBROVS3355-00-18 12:10:000.6[facility] MmvctotKZHXSWBJC4107-61-66 12:10:0091[facility] [place] XQEGTUVMD9362-15-93 12:10:83361Dyrtovrd TnnsfvgJFXVPZCJY5832-26-56 12:10:003.6 [facility] IafznxgBPEFTDKRP3051-59-91 12:10:0017[facility] HermannCHEMISTRY 2013-07-12 12:10:0032[facility] CesllflXOFRYACZY5760-10-02 12:10:000.3[facility] DbipqirQUGQEOYCW7140-46-05 12:10:0011[facility] KuapgncGBDIIGAXG1020-40-20 12:10:009.6[facility] WcmodxyEEVJNOBRO4218-98-98 12:10:005[facility] [place] PWTUYWUCV3797-40-42 12:10:002.8[facility] JszaitjIWVBWBPPF6155-11-60 12:10:001.2 [facility] ZtlzywfLEPZUTDXIC3744-49-37 12:10:003.19[facility] HermannHEMATOLOGY 2013-07-12 12:10:004.9[facility] IgbizoeBLPZWUYDRP1753-63-53 12:10:0030.1[facility] RnomfhtOHFKPGLLNP0186-43-54 12:10:0010.4[facility] ElalqzhKDQXBHAWET4160-32-99 12:10:008.3[facility] CenecfnACDOFJBSHR6679-79-43 12:10:70528Fitjkiqt [place] BNDBGPUPQZ4995-58-09 12:10:00 Test Item Value Reference Range Interpretation Comments MCH (test code = MCH) 32.6 pg 27.0-31.0 H [facility] SxcnujeWKSVGRILHW8501-16-88 12:10:0094.6[facility] HermannHEMATOLOGY 2013-07-12 12:10:0012.0[facility] LedvsfmOTROPOESHX9475-88-03 12:10:0034.5[facility] JhdhlnvBNQMXEINDK8716-37-37 12:10:002.2[facility] ZuebyqqIPEELNMZDY9265-95-23 12:10:000.0[facility] SeuavjqIRTCZDTLQY2239-67-09 12:10:000.2[facility] [place] VBXXTKCFUJ2798-02-58 12:10:000.5[facility] NpcnjdrDOYAQOPBZL8274-22-51 12:10:000.4 Memorial KlfzwyjDYYLIHOFQX2578-53-68 12:10:005.0[facility] HermannHEMATOLOGY 2013-07-12 12:10:0045.3[facility] QaajqhpRYHXMLQIMK2317-03-65 12:10:0010.0[facility] AqrqpbpFMPLIHZOYW1162-06-71 12:10:0039.3[facility] PzklughNGCWOUXBYA0273-78-48 12:10:001.9[facility] RagaegkTLAAAOAIUD8839-22-31 20:52:0010.5[facility] [place] SDTBJVOCZD4409-42-79 20:52:0030.9[facility] HipmmmlRZOCWMQECG4125-43-99 15:58:00 10.3[facility] IqnyeopXAMRZRESCP6874-16-46 15:58:0030.3[facility]annCHEMISTRY 2013-07-11 10:19:98655Kizdgnzr HermannBLOOD BANK DUVMKMF3964-07-47 05:05:00 Negative (07/10/2013 23:05:00)[facility] TnkzmghMVGPPYCKI5043-64-96 04:50:87937 [facility] RnsjyrcXCHPPHGDR8858-19-96 04:50:001.2[facility] HermannCHEMISTRY 2013-07-11 04:50:003.5[facility] NllcoofHVMTCDNNI7309-91-60 04:50:008.8[facility] HswpmizUXLTVBQQN3406-70-07 04:50:0012[facility] AwavootTGAOSGVCJ5621-02-00 04:50:66807Rqclynyo NmnnzqdRPQQLXDHS2769-29-60 04:50:0087[facility] [place] YLAVHFEGX2331-39-12 04:50:0010[facility] FntyhitTSAHWEIRP0130-97-84 04:50:0015 Memorial TqlibhoBKKYHCXPH9920-86-85 04:50:007.7[facility] HermannCHEMISTRY 2013-07-11 04:50:004.2[facility] HsgptbqECJOUZIJF6363-07-07 04:50:0021[facility] DnwbvizDAOWHOENV0391-98-73 04:50:0052[facility] AtmqlhgNCKAWIZCC9324-11-64 04:50:000.3[facility] OgkphblEDQWXRIFV9495-16-88 04:50:003.8[facility] [place] FKCHPJTRI1248-88-15 04:50:64767Pfkdwwud WxnlwkqELVPIERXO5886-70-64 04:50:0028 [facility] IycspfhBJFOUILTA8347-39-31 04:50:008.6[facility] HermannCHEMISTRY 2013-07-11 04:50:000.8[facility] UopyfeqJJQXOFKJV5038-27-58 04:50:56342Xfnlidbr FpicavnDGHUCTYAUR5807-33-12 04:50:0043.7[facility] LgqbcknKRVTXYUPAM4616-72-88 04:50:003.9[facility] OwicelbKUBDFLDLPS5375-52-03 04:50:003.1[facility] [place] UJZDDQQAPG6291-62-70 04:50:000.4[facility] JbfvbfgSBKAKTBHCM7547-86-51 04:50:00 43.1[facility] KovlqyzLECEFRLJEI4898-69-73 04:50:008.9[facility] HermannHEMATOLOGY 2013-07-11 04:50:000.0[facility] VhvwvxvFXRRRSMRQD6409-07-28 04:50:000.3[facility] KbfkqxrDYWDFVSDEL6553-06-72 04:50:003.0[facility] HkklofuLUFPXVUZVL7466-10-44 04:50:000.6[facility] MohbtgaPSXITNKGGH1544-53-29 04:50:007.0[facility] [place] FTVRZNHABP0958-36-55 04:50:0033.6[facility] WatquwfXYSKKHAWWZ5904-34-50 04:50:00 Test Item Value Reference Range Interpretation Comments MCH (test code = MCH) 31.5 pg 27.0-31.0 H [facility] TktfkjaTQPJCJPQLM5907-71-61 04:50:003.65[facility] HermannHEMATOLOGY 2013-07-11 04:50:0093.6[facility] VcathjfLPBNMTWGIZ0632-39-26 04:50:008.6[facility] LntrfcqKJIBUNVJTZ2838-16-89 04:50:04783Mgjvbvpl XmsiqxnELNNHVFYRP6845-90-42 04:50:0012.0[facility] DgdllwmZHRKDSMIM6717-91-84 02:42:12Positive *ABN*(07/10/2013 20:42:12)[facility] GplehdnMEONXDUFYT9621-13-87 02:42:125[facility] GqatcthZOJKWYPELI6694-48-19 02:42:12Large *ABN*(07/10/2013 20:42:12)[facility] QarlwnvTZYVMSOBCN7681-34-72 02:42:12Negative *NA*(07/10/2013 20:42:12)[facility] LohgehdMLMOQBPYBY1233-14-16 02:42:121[facility] KgowlfyOICUIYCOQS1051-83-47 02:42:12Negative (07/10/2013 20:42:12)[facility] FkeyttkOUVCNWVCKB6237-04-16 02:42:12Negative (07/10/2013 20:42:12)[facility] MoykrbwFQMKERWVDC2691-06-68 02:42:121.024[facility] GhrhpubLICRWXLMBP1512-12-75 02:42:125.0[facility] [place] KUKKYEAYDV2797-53-22 02:42:12Slight *ABN*(07/10/2013 20:42:12)[facility]
--- OUTSIDE RECORDS SUMMARY | 2020-03-23 19:53 | XMS REPORT | Summary of Care ---
:1985 Author Name HOMAR Torres Address Unavailable Unavailable , Care Team Providers Name Role Phone HOMAR Torres Unavailable Unavailable HOMAR GIL Unavailable Unavailable Unavailable [...] Sta tus: Active Medications Name Dates Details Agtckstkgb-RZJO-Ckgxqjmf 50-325-40 MG Or al Capsule TAKE 1 CAPSULE Daily PRN headache Quantity: 9 Refills: 1 JUSTIN GRAF M.D. Start : 15-Dec-2019 Active Magnesium Gluconate 500 MG Oral Tablet TAKE 1 TABLET DAILY. Quantity: 90 Refills: 1 HOMAR Torres, JUSTIN Start : 15-Dec-2019 Active Rizatriptan Benzoate 10 MG Oral Tablet TAKE 1 TABLET AT ONSET OF HEADACHE. MAY REPEAT EVERY 2 HOURS NEEDED. MAXIMUM 3 TABLETS IN 24 HOURS. Quantity: 9 Refills: 5 HOMAR Torres, JUSTIN Start : 31-Jan-2020 Active Allergies and Adverse Reactions Name Dates [...] (finding) Vital Signs Date Test Result Details 64-Lml-83508:33 Systolic blood pressure 127 mm[Hg] Status: Diastolic [...] M.D. On: 27-Mar-2020 13:0 0 Interventions Provided Medication ChangesRizatriptan Benzoate 10 MG Oral Tablet - Start Instructions Name Dates Details Instructions not documented [...]
--- OUTSIDE RECORDS SUMMARY | 2020-03-23 19:54 | XMS REPORT | Summary of Care ---
:1985 Author Organization [facility] Address [address] [place] [address] Care Team Providers Name Role Phone Ralf Mg Unavailable Pcp, Does Not Have A Primary Care Provider Reason for Visit Reason Comments Refill Request Encounter Details Date Type Department Care Team Description 02/07/2020 Refill [facility] Jamar Veras MD Refill Request Neurology-[address] [place] [phone] [address] [place] [address]7 [facility] [phone] Allergies Active Allergy Reactions Severity Noted Date Comments Penicillins Rash 02/18/2016 Penicillin Anaphylaxis 11/30/2018 documented as of this encounter (statuses as of 02/08/2020) Medications Medication Sig Dispensed Refills Start Date End Date Status acetaminophen-code Take 1 tablet 10 tablet 0 02/05/2016 Active ine by mouth every (TYLENOL-CODEINE 4 (four) hours #3) 300-30 mg as needed for tablet Pain (scale 4-6). cephALEXin 500 mg TAKE 1 CAPSULE 0 11/24/2018 Active capsule BY MOUTH EVERY 6 HOURS X7 DAYS DULoxetine 60 mg Take 60 mg by 0 09/02/2019 Active capsule mouth daily. benzonatate 200 mg Take 1 capsule 30 capsule 0 10/21/2019 Active capsule by mouth 2 (two) times daily as needed for Cough. butorphanol 10 INSERT 1 SPRAY 2.5 mL 0 01/16/2020 Active mg/mL nasal INTO NOSTRIL sprayIndications: EVERY 8 HOURS Intractable NEEDED FOR migraine without PAIN*USE aura and without SPARINGLYMAY status migrainosus BE HABIT FORMING TOPIRAMATE 50 mg TAKE 1 TABLET 180 tablet 2 02/08/2020 Active tabletIndications: BY MOUTH TWICE Other complicated A DAY headache syndrome TOPIRAMATE 50 mg TAKE 1 TABLET 180 tablet 1 08/04/2019 020 Discontinued tabletIndications: BY MOUTH TWICE Other complicated A DAY headache syndrome documented as of this encounter (statuses as of 02/08/2020) Active Problems No known active problemsdocumented as of this encounter (statuses as of 02/08/2020) Social History Tobacco Use Types Packs/Day Years [...] filedocumented in this encounter Visit Diagnoses Diagnosis Other complicated headache syndrome documented in this encounter Insurance Payer Benefit Plan / Group Subscriber ID Effective Dates Phone Address Type [employer] [id number] 2018-Present PPO A[employer] AETNA HMO [id number] 2018-Present HMO documented as of this encounter
--- OUTSIDE RECORDS SUMMARY | 2020-03-23 19:54 | XMS REPORT | Summary of Care ---
:1985 Author Name HOMAR Torres Address Unavailable Unavailable , Care Team Providers Name Role Phone HOMAR Torres Unavailable Unavailable HOMAR IGL Unavailable Unavailable Unavailable Unavailable Unavailable Functional Status Name Dates Details Functional status health issues are not documented Status: Name Dates Details Cognitive status health issues are not documented Status: Problems Name Dates Details Anxiety (300.00, F41.9) Status: Active Status migrainosus (346.20, G43.901) Sta tus: Active Intractable chronic migraine without aur a and with status migrainosus (346.73, G43.711) Status: Active Transient neurological symptoms (781.99, R29.818) Status: Active Gait instability (781.2, R26.81) Status: Active Visual changes (368.9, H53.9) Status: Ac tive Neck pain (723.1, M54.2) Status: Active Back pain (724.5, M54.9) Status: Active Medications Name Dates Details Enokoeypvc-BAWN-Zfhysayy 50-325-40 MG Or al Capsule TAKE 1 CAPSULE Daily PRN headache Quantity: 9 Refills: 1 JUSTIN GRAF M.D. Start : 15-Dec-2019 Active Magnesium Gluconate 500 MG Oral Tablet TAKE 1 TABLET DAILY. Quantity: 90 Refills: 1 JUSTIN GRAF M.D. Start : 15-Dec-2019 Active Rizatriptan Benzoate 10 MG Oral Tablet TAKE 1 TABLET AT ONSET OF HEADACHE. MAY REPEAT EVERY 2 HOURS NEEDED. MAXIMUM 3 TABLETS IN 24 HOURS. Quantity: 9 Refills: 5 JUSTIN GRAF M.D. Start : 31-Jan-2020 Active Diclofenac Sodium ER 100 MG Oral Tablet Extended Release 24 Hour TAKE 1 TABLET DAILY PRN Back Pain Quantity: 7 Refills: 0 JUSTIN GRAF M.D. Start : 23-Mar-2020 Active Allergies and Adverse Reactions Name Dates Details Penicillins (Allergy) Status: Active Past Medical History Name Dates Details History of migraine (V12.49, Z86.69) Sta tus: Resolved Procedures Procedure Dates Details [UTP] Toxin - Botox Date: 15-Feb-2020 MRI Brain wo contrast 24966 Date: 21-Mar-2020 History of In vitro fertilization Comple wilder Immunization Name Dates Details Immunizations not documented Family History Name Dates Details Family history of cerebrovascular accident (CVA) (V17.1, Z82 .3) Status: Active Social History Name Dates Details Tobacco smoking consumption unknown (finding) Vital Signs Date Test Result Details No Known Vitals to report Results Date Description Value Details Results not documented Plan of Care Name Dates Details Planned Observations Planned Goals not documented Planned Encounters Appointment; JUSTIN GRAF M.D. On: 27-Mar-2020 13:0 0 Interventions Provided Medication ChangesDiclofenac Sodium ER 100 MG Oral Tablet Extended Release 24 Hour - Start Instructions Name Dates Details Instructions not documented Encounters Appointment; JUSTIN GRAF M.D. On: 14-Jun-2019 14:00 Encounter Diagnosis: Problem not documented Appointment; JUSTIN GRAF M.D. On: 30-Aug-2019 13:3 0 Encounter Diagnosis: Problem not documented Appointment; JUSTIN GRAF M.D. On: 29-Nov-2019 8:00 Encounter Diagnosis: Problem not documented Appointment; JUSTIN GRAF M.D. On: 03-Jan-2020 9:30 Encounter Diagnosis: Problem not documented Appointment; JUSTIN GRAF M.D. On: 21-Mar-2020 9:00 Encounter Diagnosis: Problem not documented
--- OUTSIDE RECORDS SUMMARY | 2020-03-23 19:54 | XMS REPORT | Summary of Care ---
:1985 Author Organization [facility] Address [address] [place] [address] Care Team Providers Name Role Phone Ralf Mg Unavailable Pcp, Does Not Have A Primary Care Provider Reason for Visit Reason Comments Refill Request Encounter Details Date Type Department Care Team Description 01/11/2020 Refill [facility] Jamar Veras MD Refill Request Neurology-[address] [place] [phone] [address] [place] [address] [facility] [phone] Allergies Active Allergy Reactions Severity Noted Date Comments Penicillins Rash 02/18/2016 Penicillin Anaphylaxis 11/30/2018 documented as of this encounter (statuses as of 01/31/2020) Medications Medication Sig Dispensed Refills Start Date [...] as of this encounter (statuses as of 01/31/2020) Active Problems No known active problemsdocumented as of this encounter (statuses as of 01/31/2020) Social History Tobacco Use Types Packs/Day Years [...] Address Type [employer] [id number] 2018-Present PPO AETNA AETNA HMO [id number] 2018-Present HMO documented as of this encounter
--- OUTSIDE RECORDS SUMMARY | 2020-03-23 19:54 | XMS REPORT | Summary of Care ---
:1985 Author Name Buck Bhatia Address Unavailable Unavailable , Care Team Providers Name Role Phone HOMAR Torres Unavailable Unavailable Buck Bhatia Unavailable Unavailable HOMAR GIL Unavailable Unavailable [...] tive Neck pain (723.1, M54.2) Status: Active Medications Name Dates Details Kevbqqbqwj-[id number]-Cixhxllx 50-325-40 MG Or al Capsule TAKE 1 [...] 24 HOURS. Quantity: 9 Refills: 5 HOMAR Rosa., JUSTIN Start : 31-Jan-2020 Active Allergies and Adverse Reactions Name Dates Details Penicillins (Allergy) Status: Active Past Medical History Name Dates Details History of migraine (V12.49, Z86.69) Sta tus: Resolved Procedures Procedure Dates Details [UTP] Toxin - Botox Date: 15-Feb-2020 MRI Brain wo contrast 18281 Date: 21-Mar-2020 History of In vitro fertilization [...] 27-Mar-2020 13:0 0 Interventions Provided Discussion/SummaryGuideline Used: Other: Diagnostice orders Recommended Disposition: Task sent to [facility] Name Dates Details Instructions not documented Encounters Appointment; JUSTIN GRAF M.D. On: 14-Jun-2019 14:00 Encounter Diagnosis: Problem not documented Appointment; JUSTIN GRAF M.D. On: 30-Aug-2019 13:3 0 Encounter Diagnosis: Problem not documented Appointment; JUSTIN GRAF M.D. On: 29-Nov-2019 8:00 Encounter Diagnosis: Problem not documented Appointment; JUSTIN GRAF M.D. On: 03-Jan-2020 9:30 Encounter Diagnosis: Problem not documented
--- OUTSIDE RECORDS SUMMARY | 2020-03-23 19:54 | XMS REPORT | Summary of Care ---
:1985 Author Name Hany Ferrari Address Unavailable Unavailable , Care Team Providers Name Role Phone HOMAR Torres Unavailable Unavailable Hany Ferrari Unavailable Unavailable HOMAR GIL Unavailable Unavailable Unavailable [...] Sta tus: Active Medications Name Dates Details Ekouocicwe-RODO-Prppcnaf 50-325-40 MG Or al Capsule TAKE 1 [...] JUSTIN GRAF M.D. Start : 31-Jan-2020 Active Allergies and Adverse Reactions Name Dates Details Penicillins (Allergy) Status: Active Past Medical History Name Dates Details History of migraine (V12.49, Z86.69) Sta tus: Resolved Procedures Procedure Dates Details [UTP] Toxin - Botox Date: 15-Feb-2020 History of In vitro fertilization Comple wilder [...] of Care Name Dates Details Planned Observations [UTP] Toxin - Botox On: 27-Mar-2020 Intent Planned Goals not documented Planned Encounters Appointment; JUSTIN GRAF M.D. On: 27-Mar-2020 13:0 0 Instructions Name Dates Details Instructions not documented [...]
--- OUTSIDE RECORDS SUMMARY | 2020-03-23 19:54 | XMS REPORT | Summary of Care ---
[...] M54.2) Status: Active Medications Name Dates Details Zpbxbiqxpx-PLZW-Varuqtzl 50-325-40 MG Or al Capsule TAKE 1 [...] Botox Date: 15-Feb-2020 MRI Brain wo contrast [id number] Date: 21-Mar-2020 History of In vitro fertilization [...] M.D. On: 27-Mar-2020 13:0 0 Interventions Provided Labs/Procedures/ImagingMRI Brain wo contrast [id number]; To Be Done: 21 Mar 2020Plan- Refer to PT for neck pain.- Order MRI Brain and Tilt Table Test.- Advised patient to see eye doctor.- Obtain external medical records.- RTC in 6 weeks. Discussion/SummaryMrsMarita Billy is a 34 y/o woman who I was previously following for migraine headaches who presents toclinic today requesting evaluation of multiple complaints including brain fog, transient vision changes, speech difficulties, poor balance/coordination, lightheadedness, fatigue and GI complaints. She states that she has been evaluated by multiple specialists but an etiology for her concerns have not been determined. She has undergone a MRI brain (greater than 1 year ago before visual changes) and MRI cervical spine which was reportedly unremarkable. The etiology of the patient's symptoms are unclear but she has been following with rheumatology who told her that her symptoms were likely related to hormonal changes related to . Will plan to get imaging and get tilt-table testing to rule out dysautonomia as a possible cause of her symptoms Instructions Name Dates Details Instructions not documented [...]
--- OUTSIDE RECORDS SUMMARY | 2020-03-23 19:54 | XMS REPORT | Summary of Care ---
[...] M54.2) Status: Active Medications Name Dates Details Smcthjhcmp-RKXV-Kuctenae 50-325-40 MG Or al Capsule TAKE 1 [...] IN 24 HOURS. Quantity: 9 Refills: 5 HMOAR Torres, JUSTIN Start : 31-Jan-2020 Active Allergies and Adverse Reactions Name Dates Details Penicillins (Allergy) Status: Active Past Medical History Name Dates Details History of migraine (V12.49, Z86.69) Sta tus: Resolved Procedures Procedure Dates Details [UTP] Toxin - Botox Date: 15-Feb-2020 MRI Brain wo contrast [id number] Date: 21-Mar-2020 History of In vitro fertilization [...] 0 Interventions Provided Labs/Procedures/ImagingMRI Brain wo contrast [id number]; To Be Done: 21 Mar 2020 Instructions Name Dates Details Instructions not documented [...]
--- OUTSIDE RECORDS SUMMARY | 2020-03-23 19:54 | XMS REPORT | Summary of Care ---
:1985 Author Name Marion Cat Address Unavailable Unavailable , Care Team Providers [...] Sta tus: Active Medications Name Dates Details Eoolmpijif-AUWY-Izuqiulm 50-325-40 MG Or al Capsule TAKE 1 [...] 24 HOURS. Quantity: 9 Refills: 5 JUSTIN RGAF M.D. Start : 31-Jan-2020 Active Allergies and [...] Planned Encounters Appointment; JUSTIN GRAF M.D. On: 21-Mar-2020 9:00 Appointment; JUSTIN GRAF M.D. On: 27-Mar-2020 13:0 0 Interventions Provided Plan- Refer to PT for neck pain.- Order MRI Brain and Tilt Table Test.- Advised patient to see eye doctor.- Obtain external medical records.- RTC in 6 weeks. Instructions Name Dates Details Instructions not documented [...]
--- OUTSIDE RECORDS SUMMARY | 2020-03-23 19:54 | XMS REPORT | Summary of Care ---
[...] Sta tus: Active Medications Name Dates Details Tmxpkvgakj-WRLK-Aqlowmfo 50-325-40 MG Or al Capsule TAKE 1 [...]
--- NOTE | 2020-03-23 20:59 | RAD REPORT ---
EXAM DESCRIPTION: CTSpine Lumbar Wo Con03/23/2020 8:29 pm CLINICAL HISTORY: Bilateral leg radiculopathy and back pain COMPARISON: None TECHNIQUE: Computed axial tomography lumbar spine was obtained with coronal and sagittal reconstruct ion. All CT scans are performed using dose optimization technique as appropriate and may include automated exposure control or mA/KV adjustment according to patient size. FINDINGS: Slight posterior subluxation L4 on L5. Slight anterior subluxation L5 on S1. Bilateral spondylolysis L5 No fracture Large bulging/disc herniation not seen. Next central spinal stenosis. Neural foramina are patent IMPRESSION: Spondylolysis L5 4.1 centimeter right ovarian cystic mass. Further evaluation with ultrasound may helpful
--- NOTE | 2020-03-23 21:22 | ER ---
Nurse's Notes [facility] Name: Yadi Billy Age: 34 yrs Sex: Female : 1985 Arrival Date: 03/23/2020 Time: 19:50 Bed 5 Private MD: Diagnosis: Low back pain Presentation: 03/23 19:52 Chief complaint: Patient states: "I am having really bad lower back pain. the pain jd3 travels down into both my legs.". Coronavirus screen: At this time, the client does not indicate any symptoms associated with coronavirus-19. Ebola Screen: Patient negative for fever greater than or equal to 101.5 degrees Fahrenheit, and additional compatible Ebola Virus Disease symptoms. Initial Sepsis Screen: Does the patient meet any 2 criteria? No. Patient's initial sepsis screen is negative. Does the patient have a suspected source of infection? No. Patient's initial sepsis screen is negative. Risk Assessment: Do you want to hurt yourself or someone else? Patient reports no desire to harm self or others. Onset of symptoms was March 23, 2020. 19:52 Method Of Arrival: Ambulatory jd3 19:52 Acuity: AIDAN 3 jd3 19:56 Note Robaxin taken at about 1700. 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 - Social history:: Smoking status: Patient/guardian denies using tobacco, the patient reports quitting approximately 5 years ago. Screenin:23 Abuse screen: Denies threats or abuse. Nutritional screening: No deficits noted. ea Tuberculosis screening: No symptoms or risk factors identified. Fall Risk None identified. Assessment: 20:22 General: Appears in no apparent distress. Behavior is calm, cooperative, appropriate ea for age. Pain: Complains of pain in low back area. Neuro: Level of Consciousness is awake, alert, obeys commands, Oriented to person, place, time. Respiratory: Airway is patent Respiratory effort is even, unlabored, Respiratory pattern is regular, symmetrical. Derm: Skin is pink, warm \\T\\ dry. Vital Signs: 19:55 BP 139 / 90; Pulse 84; Resp 16 S; Temp 98.0(TE); Pulse Ox 97% on R/A; Weight 77.11 kg jd3 (R); Height 5 ft. 5 in. (165.10 cm) (R); Pain 9/10; 20:58 BP 121 / 93; Pulse 79; Resp 18; Pulse Ox 98% ; ea 19:55 Body Mass Index 28.29 (77.11 kg, 165.10 cm) jd3 ED Course: 19:50 Patient arrived in ED. cf2 19:53 Triage completed. jd3 19:56 Arm band placed on. jd3 19:57 Neli Logan FNP-C [facility]. kb 19:57 Boaz Sharma MD is Attending Physician. kb 20:07 Kavya Tolentino, RN is Primary Nurse. ea 20:23 Patient has correct armband on for positive identification. Bed in low position. Call ea light in reach. Side rails up X 1. 20:29 CT Lumbar Spine Wo Con In Process Unspecified. EDMS 21:26 No provider procedures requiring assistance completed. Patient did not have IV access rv during this emergency room visit. Administered Medications: 21:13 Drug: [place] (7.5 mg-325 mg) 1 tabs {Note: RASS 0.} Route: PO; ea 21:26 Follow up: Response: Medication administered at discharge. rv Outcome: 21:21 Discharge ordered by MD. kb 21:26 Discharged to home ambulatory. rv 21:26 Condition: good 21:26 Discharge instructions given to patient, Instructed on discharge instructions, follow up and referral plans. medication usage, Demonstrated understanding of instructions, follow-up care, medications, Prescriptions given X 2. 21:26 Patient left the ED. rv Signatures: Dispatcher [employer] EDMS Neli Logan FNP-C FNP-Ckb Antunez, Elena, RN RN ea Davies, Jonathon, RN RN jd3 Vicente, Ronaldo, RN RN rv Frazier, Celesta cf2 Corrections: (The following items were deleted from the chart) 20:58 20:22 General: rv ea
--- NOTE | 2020-03-23 21:22 | EDPHYS ---
Physician Documentation [facility] Name: Yadi Billy Age: 34 yrs Sex: Female : 1985 Arrival Date: 03/23/2020 Time: 19:50 Bed 5 Private MD: ED Physician Boaz Sharma HPI: 03/23 22:06 This 34 yrs old Female presents to ER via Ambulatory with complaints of Back kb Pain, Leg Pain. 22:06 The patient presents with pain that is acute, with no known mechanism of injury, and kb tenderness. The symptoms are located in the low back. Onset: The symptoms/episode began/occurred 6 day(s) ago. The pain radiates to the right hamstring and left hamstring. Associated signs and symptoms: The patient has no apparent associated signs or symptoms, Pertinent negatives: incontinence, numbness, tingling, urinary retention, weakness. The problem was sustained without known cause. Modifying factors: The patient symptoms are alleviated by nothing, the patient symptoms are aggravated by walking. Severity of symptoms: At their worst the symptoms were moderate, in the emergency department the symptoms are unchanged. The patient has not experienced similar symptoms in the past. The patient has not recently seen a physician. Pt reports pain across entire low back that started 6 days ago. States pain radiates down back of legs when she walks. Denies fever, injury, trauma, incontinence, numbness, tingling. 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 - Social history:: Smoking status: Patient/guardian denies using tobacco, the patient reports quitting approximately 5 years ago. ROS: 21:37 Constitutional: Negative for fever, chills, and weight loss, Cardiovascular: Negative kb for chest pain, palpitations, and edema, Respiratory: Negative for shortness of breath, cough, wheezing, and pleuritic chest pain, Abdomen/GI: Negative for abdominal pain, nausea, vomiting, diarrhea, and constipation, : Negative for injury, bleeding, discharge, and swelling, MS/Extremity: Negative for injury and deformity, Skin: Negative for injury, rash, and discoloration, Neuro: Negative for headache, weakness, numbness, tingling, and seizure. 21:37 Back: Positive for pain at rest, pain with movement, of the low back area, Negative for injury or acute deformity, decreased range of motion. Exam: 21:37 Constitutional: This is a well developed, well nourished patient who is awake, alert, kb and in no acute distress. Head/Face: Normocephalic, atraumatic. Chest/axilla: Normal chest wall appearance and motion. Nontender with no deformity. No lesions are appreciated. Cardiovascular: Regular rate and rhythm with a normal S1 and S2. No gallops, murmurs, or rubs. Normal PMI, no JVD. No pulse deficits. Respiratory: Lungs have equal breath sounds bilaterally, clear to auscultation and percussion. No rales, rhonchi or wheezes noted. No increased work of breathing, no retractions or nasal flaring. Abdomen/GI: Soft, non-tender, with normal bowel sounds. No distension or tympany. No guarding or rebound. No evidence of tenderness throughout. Skin: Warm, dry with normal turgor. Normal color with no rashes, no lesions, and no evidence of cellulitis. MS/ Extremity: Pulses equal, no cyanosis. Neurovascular intact. Full, normal range of motion. Neuro: Awake and alert, GCS 15, oriented to person, place, time, and situation. Cranial nerves II-XII grossly intact. Motor strength 5/5 in all extremities. Sensory grossly intact. Cerebellar exam normal. Normal gait. 21:37 Back: pain, that is moderate, of the low back area, ROM is normal, normal spinal alignment noted, CVA tenderness, is absent. 21:39 Neuro: Exam negative for kb Vital Signs: 19:55 BP 139 / 90; Pulse 84; Resp 16 S; Temp 98.0(TE); Pulse Ox 97% on R/A; Weight 77.11 kg jd3 (R); Height 5 ft. 5 in. (165.10 cm) (R); Pain 9/10; 20:58 BP 121 / 93; Pulse 79; Resp 18; Pulse Ox 98% ; ea 19:55 Body Mass Index 28.29 (77.11 kg, 165.10 cm) jd3 MDM: 19:57 Patient medically screened. kb 21:08 Data reviewed: vital signs, nurses notes. Data interpreted: Pulse oximetry: on room air kb is 98 %. Interpretation: normal. Counseling: I had a detailed discussion with the patient and/or guardian regarding: the historical points, exam findings, and any diagnostic results supporting the discharge/admit diagnosis, lab results, radiology results, the need for outpatient follow up, a family practitioner, to return to the emergency department if symptoms worsen or persist or if there are any questions or concerns that arise at home. 21:38 ED course: Pt ambulates with steady gait. No tingling, numbness to extremities. No kb injury or trauma to back. Educated on need for MRI if symptoms persist. Educated to return for numbness, incontinence or any other concerns. . 03/23 20:22 Order name: Urine Dipstick--Ancillary (enter results) [facility] 03/23 20:22 Order name: Urine --Ancillary (enter results) [facility] 03/23 20:07 Order name: Urine Test (obtain specimen); Complete Time: 20:21 kb 03/23 20:07 Order name: Urine Dipstick-Ancillary (obtain specimen); Complete Time: 20:21 kb 03/23 20:07 Order name: CT Lumbar Spine Wo Con; Complete Time: 21:03 kb Administered Medications: 21:13 Drug: [place] (7.5 mg-325 mg) 1 tabs {Note: RASS 0.} Route: PO; ea 21:26 Follow up: Response: Medication administered at discharge. rv Disposition: 03/24 03:31 Co-signature as Attending Physician, Boaz Sharma MD I agree with the assessment and tw4 plan of care. Disposition: 03/23/20 21:21 Discharged to Home. Impression: Low back pain. - Condition is Stable. - Discharge Instructions: Back Injury Prevention, Jreg-rf-Vvkl, Back Pain, Adult, Yiub-zg-Uszl, Back Exercises, Rcdu-vb-Amxn. - Prescriptions for Cyclobenzaprine 10 mg Oral Tablet - take 1 tablet by ORAL route every 8 hours As needed; 21 tablet. Diclofenac Sodium 75 mg Oral Tablet, Delayed Release (E.C.) - take 1 tablet by ORAL route 2 times per day As needed; 30 tablet. - Medication Reconciliation Form, Thank You Letter, Antibiotic Education, Prescription Opioid Use form. - Follow up: Emergency Department; When: As needed; Reason: Worsening of condition. Follow up: Private Physician; When: 2 - 3 days; Reason: Recheck today's complaints, Continuance of care, Re-evaluation by your physician. Signatures: Dispatcher [employer] EDNeli Carter, MOHAMUD HERNÁNDEZ-Kavya Andrews, RN RN Abhijeet Langford RN RN jBoaz Wallace MD MD tw4 Jorge L Multani RN RN rv Corrections: (The following items were deleted from the chart) 03/23 21:26 21:21 03/23/2020 21:21 Discharged to Home. Impression: Low back pain. Condition is rv Stable. Forms are Medication Reconciliation Form, Thank You Letter, Antibiotic Education, Prescription Opioid Use. Follow up: Emergency Department; When: As needed; Reason: Worsening of condition. Follow up: Private Physician; When: 2 - 3 days; Reason: Recheck today's complaints, Continuance of care, Re-evaluation by your physician. kb
[2020-03-23] MEDS ORDERED: HYDROCODONE/APAP 7.5/325 MG TAB ONE (21:24)
[2020-03-23 21:42] VITALS: TEMP 98
[2020-03-23 21:43] VITALS: BP 121/93; O2SAT 98
[2020-03-23 21:54] LABS: Urine Blood NEGATIVE (NEG); Urine Glucose NEGATIVE (NEG); Urine Protein NEGATIVE (NEG)
== END 2020-03-23 21:26 | disposition home or self-care (01) ==
LOC: ER 19:47
DX: M54.5 Low back pain (principal); F32.9 Major depressive disorder, single episode, unspecified; Z88.0 Allergy status to penicillin; Z88.8 Allergy status to other drugs, medicaments and biological substances
CPT/HCPCS: 72131; 81003; 81025; 99283

== ENCOUNTER 2020-08-26 11:03 | Emergency (ER) | payer OTHER ==
[2020-08-26 11:48] LABS: Absolute Lymphocytes (CBC) 1.9 K/uL (0.7-4.9); Basophils % 0.5 % (0-1.3); Hematocrit 43.5 % (36.0-45.0); Lymphocytes % 19.4 % (15.3-44.8); MPV 8.5 fL (7.6-11.3); RBC Red Blood Cell Count 4.73 M/uL (3.86-4.86)
[2020-08-26 12:09] LABS: ALT/SGPT 13 U/L (12-78); AST/SGOT 12 U/L (15-37); Albumin 3.8 g/dL (3.4-5.0); Alkaline Phosphatase 49 U/L (45-117); BUN Blood Urea Nitrogen 12 mg/dL (7-18); Bicarbonate 29 mmol/L (21-32); Bilirubin Direct < 0.1 mg/dL (0-0.2); Bilirubin Total 0.3 mg/dL (0.2-1.0); Glucose Level 88 mg/dL (74-106); Lipase 128 U/L (73-393); Potassium 3.9 mmol/L (3.5-5.1); Protein, Total 8.3 g/dL (6.4-8.2); Sodium Level 140 mmol/L (136-145)
[2020-08-26 12:15] LABS: Urine Blood TRACE (NEG); Urine Glucose NEGATIVE (NEG); Urine Protein NEGATIVE (NEG); Urine pH 5.5 (5.0-7.0)
--- NOTE | 2020-08-26 12:32 | RAD REPORT ---
EXAM DESCRIPTION: CT - Abdomen Pelvis W Contrast - 08/26/2020 12:13 pm CLINICAL HISTORY: Abdominal pain COMPARISON: 2016 TECHNIQUE: Computed axial tomography of the abdomen pelvis was obtained. 100 cc Isovue-300 was admin istered intravenously. Oral contrast was not requested which limits evaluation of bowel. All CT scans are performed using dose optimization technique as appropriate and may include automated exposure control or mA/KV adjustment according to patient size. FINDINGS: The liver, spleen, pancreas, adrenal and kidneys appear unremarkable. There is no evidence of diverticulitis. No adnexal mass noted. Spondylolysis L5 IMPRESSION: No acute abnormality is displayed.
[2020-08-26] MEDS ORDERED: MORPHINE 4 MG/ML SYR ONE (12:47)
[2020-08-26] MEDS ORDERED: PROMETHAZINE INJ 25 MG/ML AMP ONE (12:47)
--- NOTE | 2020-08-26 13:31 | RAD REPORT ---
EXAM DESCRIPTION: US - Transvaginal Study Probe - 08/26/2020 1:15 pm CLINICAL HISTORY: Pelvic pain COMPARISON: 2018 FINDINGS: The uterus measures 7 x 3 x 3cm. A fibroid is not seen. The uterus is retroverted. Endomet rial stripe measures 5 millimeters Each ovary contains blood flow. The ovaries are normal in size and echotexture. The right and left ad nexal unremarkable No significant free fluid is seen. IMPRESSION: Unremarkable pelvic ultrasound
[2020-08-26] MEDS ORDERED: KETOROLAC 30 MG/ML INJ ONE (14:38)
--- NOTE | 2020-08-26 15:03 | ER ---
Nurse's Notes [facility] Name: Yadi Billy Age: 35 yrs Sex: Female : 1985 Arrival Date: 08/26/2020 Time: 11:05 Bed 17 Private MD: Diagnosis: Lower abdominal pain, unspecified Presentation: 08/26 11:10 Chief complaint: Patient states: L groin/LLQ pain for 1 hour. Coronavirus screen: 1 Client denies travel out of the [place] in the last 14 days. At this time, the client does not indicate any symptoms associated with coronavirus-19. Ebola Screen: Patient denies travel to an Ebola-affected area in the 21 days before illness onset. Initial Sepsis Screen: Does the patient meet any 2 criteria? No. Patient's initial sepsis screen is negative. Does the patient have a suspected source of infection? Yes: Acute abdominal pain. Risk Assessment: Do you want to hurt yourself or someone else? Patient reports no desire to harm self or others. Onset of symptoms was August 26, 2020. 11:10 Method Of Arrival: Ambulatory [facility] 11:10 Acuity: AIDAN 3 ll1 Triage Assessment: 13:00 General: Appears in no apparent distress. uncomfortable, Behavior is calm, cooperative. ae4 Pain: Complains of pain in left femoral area, left inguinal area and left iliac crest. EENT: No signs and/or symptoms were reported regarding the EENT system. Neuro: Level of Consciousness is awake, alert, obeys commands, Oriented to person, place, time, situation, Appropriate for age. Cardiovascular: Heart tones S1 S2 present Patient's skin is warm and dry. Respiratory: Airway is patent Respiratory effort is even, unlabored, Respiratory pattern is regular, symmetrical. GI: Patient currently denies nausea, vomiting. : Urine is clear. Derm: Skin is pink, warm \T\ dry. Musculoskeletal: No signs and/or symptoms reported regarding the musculoskeletal system. 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 - Social history:: Smoking status: Patient denies any tobacco usage or history of. Screenin:22 Abuse screen: Denies threats or abuse. Denies injuries from another. Nutritional ae4 screening: No deficits noted. Tuberculosis screening: No symptoms or risk factors identified. Fall Risk None identified. Assessment: 12:49 Reassessment: Ultrasound at bedside discussing procedure. ae4 14:50 Reassessment: Patient reports pain is increasing, provider notified, new orders ae4 received. 15:21 Reassessment: Patient reports pain has returned, provider notified, new orders received.ae4 15:41 Reassessment: Provider at bedside discussing results and plan of care. ae4 Vital Signs: 11:10 BP 145 / 108; Pulse 81; Resp 17; Temp 97.9; Pulse Ox 98% ; Weight 70.31 kg; Height 5 ll1 ft. 5 in. (165.10 cm); Pain 7/10; 13:30 BP 133 / 90; Pulse 79; Resp 18; Pulse Ox 99% on R/A; ae4 14:11 BP 129 / 94; Resp 17; Pulse Ox 99% on R/A; ae4 15:34 BP 143 / 93; Pulse 88; Resp 17; Pulse Ox 99% on R/A; ae4 11:10 Body Mass Index 25.79 (70.31 kg, 165.10 cm) ll1 ED Course: 11:05 Patient arrived in ED. ds1 11:11 Triage completed. ll1 11:11 Christiane Clayton PA is PHCP. jmm 11:11 Boaz Sharma MD is Attending Physician. jmm 11:11 Arm band placed on Patient placed in an exam room, on a stretcher. ll1 11:39 Inserted saline lock: 22 gauge in right antecubital area, using aseptic technique. ll1 Blood collected. 12:26 Lito Mcleod, GIANNA is Primary Nurse. ae4 13:00 Placed in gown. Bed in low position. Call light in reach. Side rails up X 1. Lights ae4 dimmed. Warm blanket given. 13:13 Ultrasound completed. Patient tolerated well. Notified ED Physician christiane. sg3 15:37 No provider procedures requiring assistance completed. IV discontinued, intact, ae4 bleeding controlled, No redness/swelling at site. Pressure dressing applied. Administered Medications: 12:40 Drug: Promethazine 12.5 mg Route: IVP; Site: right antecubital; ae4 14:45 Follow up: Response: No adverse reaction ae4 12:45 Drug: morphine 4 mg Route: IVP; Site: right antecubital; ae4 12:49 Follow up: Response: No adverse reaction; Pain is decreased ae4 14:25 Drug: Ketorolac 30 mg Route: IVP; Site: right antecubital; ae4 14:44 Follow up: Response: Pain is decreased ae4 14:45 Follow up: Response: RASS: Alert and Calm (0) ae4 15:15 Drug: Dilaudid 1 mg Route: IVP; Site: left antecubital; ae4 15:40 Follow up: Response: Pain is decreased; RASS: Alert and Calm (0) ae4 Outcome: 15:02 Discharge ordered by MD. escobar 15:42 Discharged to home ambulatory, Patient ambulated with steady gait, patient states her ae4 Mom is awaiting to transport her home. 15:42 Condition: stable 15:42 Discharge instructions given to patient, Instructed on discharge instructions, follow up and referral plans. medication usage, Demonstrated understanding of instructions, follow-up care, medications, Prescriptions given X 1. 15:43 Patient left the ED. ae4 Signatures: Christiane Clayton PA PA jmm Sanford, Demi ds1 Romelia Umanzor sg3 Lito Mcleod RN RN ae4 Destiny Saavedra RN RN ll1
--- NOTE | 2020-08-26 15:03 | EDPHYS ---
Physician Documentation [facility] Name: Yadi Billy Age: 35 yrs Sex: Female : 1985 Arrival Date: 08/26/2020 Time: 11:05 Bed 17 Private MD: ED Physician Boaz Sharma HPI: 08/26 11:27 This 35 yrs old Female presents to ER via Ambulatory with complaints of Lower jmm Abd Pain. 11:27 The patient presents with abdominal pain in the lower abdomen. Onset: The jmm symptoms/episode began/occurred acutely. 11:27 The symptoms radiate to left leg. jmm 11:27 Associated signs and symptoms: Pertinent positives: Pertinent negatives: diarrhea, jmm vaginal discharge, vomiting. The symptoms are described as achy, crampy. Modifying factors: The symptoms are alleviated by nothing, the symptoms are aggravated by nothing. The patient has not experienced similar symptoms in the past. This is a 35 year old female with a history of kidney stones, depression, migraines, ovarian cysts that presents to the ED of worsening llq abdominal pain described as cramping beginning approx 1 hour prior to arrival. Denies fever, vomiting, diarrhea, dysuria, vaginal discharge. Patient is s/p hysteroscopy this past Thursday with no pain afterwards. . 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 - Social history:: Smoking status: Patient denies any tobacco usage or history of. ROS: 11:27 Constitutional: Negative for fever, chills, and weight loss, Cardiovascular: Negative jmm for chest pain, palpitations, and edema, Respiratory: Negative for shortness of breath, cough, wheezing, and pleuritic chest pain. 11:27 Abdomen/GI: Positive for abdominal pain. 11:27 All other systems are negative. Exam: 11:27 Constitutional: This is a well developed, well nourished patient who is awake, alert, jmm and in no acute distress. Head/Face: atraumatic. Eyes: EOMI, no conjunctival erythema appreciated ENT: Moist Mucus Membranes Neck: Trachea midline, Supple Chest/axilla: Normal chest wall appearance and motion. Cardiovascular: Regular rate and rhythm. No edema appreciated Respiratory: Normal respirations, no respiratory distress appreciated Abdomen/GI: Non distended, soft Back: Normal ROM Skin: General appearance color normal MS/ Extremity: Moves all extremities, no obvious deformities appreciated, no edema noted to the lower extremities Neuro: Awake and alert, normal gait Psych: Behavior is normal, Mood is normal, Patient is cooperative and pleasant Vital Signs: 11:10 BP 145 / 108; Pulse 81; Resp 17; Temp 97.9; Pulse Ox 98% ; Weight 70.31 kg; Height 5 ll1 ft. 5 in. (165.10 cm); Pain 7/10; 13:30 BP 133 / 90; Pulse 79; Resp 18; Pulse Ox 99% on R/A; ae4 14:11 BP 129 / 94; Resp 17; Pulse Ox 99% on R/A; ae4 15:34 BP 143 / 93; Pulse 88; Resp 17; Pulse Ox 99% on R/A; ae4 11:10 Body Mass Index 25.79 (70.31 kg, 165.10 cm) ll1 MDM: 11:27 Patient medically screened. [facility] 15:00 Data reviewed: vital signs, nurses notes. Counseling: I had a detailed discussion with [facility] the patient and/or guardian regarding: the historical points, exam findings, and any diagnostic results supporting the discharge/admit diagnosis, lab results, radiology results, the need for outpatient follow up, to return to the emergency department if symptoms worsen or persist or if there are any questions or concerns that arise at home. 15:00 ED course: Pain is decreased in the ED. CT imaging and US negative for an acute [facility] process. Patient is advised to follow up with [facility] or return to the ED if symptoms worsen. . 08/26 11:36 Order name: Basic Metabolic Panel [facility] 08/26 11:36 Order name: CBC with Diff [facility] 08/26 11:36 Order name: Hepatic Function [facility] 08/26 11:36 Order name: Lipase [facility] 08/26 11:51 Order name: CBC with Automated Diff; Complete Time: 11:53 EDMS 08/26 12:09 Order name: Basic Metabolic Panel; Complete Time: 12:19 EDMS 08/26 11:36 Order name: US Pelvis Complete [facility] 08/26 11:40 Order name: CT Abd/Pelvis - IV Contrast Only [facility] 08/26 12:09 Order name: Liver (Hepatic) Function; Complete Time: 12:19 EDMS 08/26 12:09 Order name: Lipase; Complete Time: 12:19 EDMS 08/26 12:11 Order name: Urine Dipstick--Ancillary (enter results) [facility] 08/26 12:11 Order name: Urine --Ancillary (enter results) [facility] 08/26 12:15 Order name: Urine --Ancillary; Complete Time: 12:19 EDMS 08/26 12:15 Order name: Urine Dipstick-Ancillary; Complete Time: 12:19 MS 08/26 11:36 Order name: IV Saline Lock; Complete Time: 11:38 [facility] 08/26 11:36 Order name: Labs collected and sent; Complete Time: 11:38 [facility] 08/26 11:36 Order name: Urine Dipstick-Ancillary (obtain specimen); Complete Time: 11:38 [facility] 08/26 11:36 Order name: Urine Test (obtain specimen); Complete Time: 12:11 [facility] 08/26 12:33 Order name: CT; Complete Time: 12:44 EDMS 08/26 13:32 Order name: US; Complete Time: 13:44 EDMS Administered Medications: 12:40 Drug: Promethazine 12.5 mg Route: IVP; Site: right antecubital; ae4 14:45 Follow up: Response: No adverse reaction ae4 12:45 Drug: morphine 4 mg Route: IVP; Site: right antecubital; ae4 12:49 Follow up: Response: No adverse reaction; Pain is decreased ae4 14:25 Drug: Ketorolac 30 mg Route: IVP; Site: right antecubital; ae4 14:44 Follow up: Response: Pain is decreased ae4 14:45 Follow up: Response: RASS: Alert and Calm (0) ae4 15:15 Drug: Dilaudid 1 mg Route: IVP; Site: left antecubital; ae4 15:40 Follow up: Response: Pain is decreased; RASS: Alert and Calm (0) ae4 Disposition: 08/26/20 15:02 Discharged to Home. Impression: Lower abdominal pain, unspecified. - Condition is Stable. - Discharge Instructions: Abdominal Pain, Adult. - Prescriptions for Ultracet 37.5- 325 mg Oral Tablet - take 1 tablet by ORAL route every 6 hours - for up to 5 days; do not exceed 8 tablets per day.; 20 tablet. - Medication Reconciliation Form, Thank You Letter, Antibiotic Education, Prescription Opioid Use form. - Follow up: Private Physician; When: 2 - 3 days; Reason: Recheck today's complaints, Continuance of care, Re-evaluation by your physician. Addendum: 08/31/2020 19:20 Co-signature as Attending Physician, Boaz Sharma MD I agree with the assessment and t w4 plan of care. Signatures: Dispatcher [employer] EDMS Darrin Clayton PA PA jmm Wadley, Terrence, MD MD tw4 Lito Mcleod RN RN ae4 Destiny Saavedra RN RN ll1 Corrections: (The following items were deleted from the chart) 08/26 15:43 15:02 08/26/2020 15:02 Discharged to Home. Impression: Lower abdominal pain, ae4 unspecified. Condition is Stable. Forms are Medication Reconciliation Form, Thank You Letter, Antibiotic Education, Prescription Opioid Use. Follow up: Private Physician; When: 2 - 3 days; Reason: Recheck today's complaints, Continuance of care, Re-evaluation by your physician. luz
[2020-08-26] MEDS ORDERED: HYDROMORPHONE HCL 1 MG/ML INJ ONE (15:25)
[2020-08-26 15:47] VITALS: TEMP 97.9
[2020-08-26 15:48] VITALS: O2SAT 99
[2020-08-26 15:51] VITALS: BP 143/93
== END 2020-08-26 15:43 | disposition home or self-care (01) ==
LOC: ER 11:03
DX: R10.30 Lower abdominal pain, unspecified (principal); F32.9 Major depressive disorder, single episode, unspecified; Z87.442 Personal history of urinary calculi; Z88.0 Allergy status to penicillin; Z88.8 Allergy status to other drugs, medicaments and biological substances
CPT/HCPCS: 85025; 80048; 36415; 81025; 80076; 81003; 83690; 74177; 76830; 99284; Q9967; J2550; J1170

== ENCOUNTER 2021-11-13 10:53 | Day surgery (SDC) | payer OTHER ==
[2021-11-08 12:07] LABS: Absolute Lymphocytes (CBC) 1.3 K/uL (0.7-4.9); Hematocrit 38.7 % (36.0-45.0); Lymphocytes % 24.8 % (15.3-44.8); MPV 7.7 fL (7.6-11.3)
[2021-11-08 12:22] LABS: Protime INR 1.02
[2021-11-08 12:25] LABS: BUN Blood Urea Nitrogen 15 mg/dL (7-18); Bicarbonate 31 mmol/L (21-32); Glucose Level 104 mg/dL (74-106); Potassium 3.7 mmol/L (3.5-5.1); Sodium Level 140 mmol/L (136-145)
--- NOTE | 2021-11-08 12:44 | RAD REPORT ---
EXAM DESCRIPTION: Pratima Ho (2 Views)11/08/2021 12:07 pm CLINICAL HISTORY: Preop for carpal tunnel surgery COMPARISON: 2016 FINDINGS: The lungs appear clear of acute infiltrate. The heart is normal size IMPRESSION: No acute abnormalities displayed
--- NOTE | 2021-11-08 17:32 | EKG ---
Test Date: 2021-11-08 Test Time: 10:48:45 Rn Examiner: JUAN MEASUREMENT RESULTS: Intervals: Rate: 62 LA: 142 QRSD: 92 QT: 432 QTc: 438 [place]: P: 57 LA: 142 QRS: 74 T: 50 INTERPRETIVE STATEMENTS: Normal sinus rhythm Normal ECG No previous ECG available for comparison Electronically Signed On 11-08-21 17:31:03 CDT by Todd Nelson
[2021-11-13] MEDS ORDERED: Ringers Lactate 1,000 ML IV ONE (11:09)
[2021-11-13] MEDS ORDERED: MIDAZOLAM HCL 2 MG/2 ML INJ ONE (11:54)
[2021-11-13] MEDS ORDERED: FENTANYL CITR 100 MCG/2 ML ONE (11:54)
[2021-11-13] MEDS ORDERED: propofoL 200 MG/20 ML VIAL IV ONE (11:54)
[2021-11-13] MEDS ORDERED: LIDOCAINE 1% MPF 30 ML VIAL ONE (11:54)
[2021-11-13] MEDS ORDERED: LIDOCAINE 2% MPF 5 ML VIAL ONE (11:54)
[2021-11-13] MEDS ORDERED: NS 0.9% VIAL 30 ML ONE (11:54)
[2021-11-13] MEDS: BUPIVACAINE 0.25% PF 10 ML VIAL ONE ×3 (12:20→13:36)
[2021-11-13] MEDS: CLINDAMYCIN 600MG/D5W 600 MG/50 ML BAG IV ONE ×2 (12:21→12:48)
--- NOTE | 2021-11-13 13:48 | P.BOP ---
Preoperative diagnosis: right carpal tunnel syndrome Postoperative diagnosis: same Primary procedure: right open carpal tunnel release Call Center Nurse: NONE,NONE Estimated blood loss: 2 cc Specimen: none Findings: see dictation Anesthesia: General Complications: None Implants: none Fluids & blood products: per anesthesia record; TT: 37 mins @ 300 mmHg Transferred to: Recovery Room Condition: Good
[2021-11-13] MEDS ORDERED: TRAMADOL HCL 50 MG TAB ONE (14:29)
[2021-11-13 15:00] VITALS: BP 114/81; TEMP 97.6; O2SAT 97
--- NOTE | 2021-11-14 08:20 | OP ---
Date of Procedure: 11/13/2021 Surgeon: Eddy Lester MD Preoperative Diagnosis: Right carpal tunnel syndrome. Postoperative Diagnosis: Right carpal tunnel syndrome. Procedure Performed: Right open carpal tunnel release. Anesthesia: Wren block. Complications: None. Implants: None. Tourniquet Time: 37 minutes at 300 mmHg. Indication For Procedure: Yadi is a 36-year-old female, who presented to my clinic with signs and signs symptoms and EMG findings consistent with severe right carpal tunnel syndrome. Patient failed conservative treatment measures and have significant symptoms that interfere with her activities of d aily living. Given her symptoms, she elected to proceed with right open carpal tunnel release. Risk s and benefits associated with the procedure were discussed with the patient and then she expressed u nderstanding and elected to proceed with operative treatment. Description Of Procedure: After informed consent was obtained, the patient was identified in the pre operative holding area. The right upper extremity was marked. Patient was then brought back to the operating room, underwent Wren block anesthesia performed by the anesthesia team. The right upper ex tremity was then prepped and draped in usual sterile fashion. A time-out was initiated. The correct patient and procedure confirmed and identified. The patient did receive her preoperative prophylact ic antibiotics. Approximately, a 2 cm incision was made just ulnar to her thenar crease. Dissection was taken down to the palmar fascia, was then released in line with the incision and a [place] elevato r was placed just deep to the palmar fascia to protect the median nerve at all times. The 15 blade w as then used to release the palmar fascia as well as the transverse carpal ligament to complete the c arpal tunnel release. Any remaining fascial bands were released using blunt-tipped Metzen[place]ums with the tips pointed superficially to protect the median nerve at all times. After this was completed, t he wound was then irrigated thoroughly with normal saline. Skin was approximated using a 5-0 Prolene . Sterile dressings were applied. Tourniquet was let down. The patient was awakened and transferre d to post-anesthesia care unit in stable condition. Postoperative Plan: The patient will be nonweightbearing. She will follow up in 1 week for suture r emoval. She may begin working on range of motion exercises. GREGG/MODL Voice ID: [id number] Report ID: [id number]
== END 2021-11-13 14:50 | disposition home or self-care (01) ==
LOC: OR 10:53
PROVIDERS: ATTEND Orthopaedic Surgery Sports Medicine
PROC: 01N50ZZ Release Median Nerve, Open Approach (ICD-10-PCS; principal; 2021-11-13 12:15)
DX: G56.01 Carpal tunnel syndrome, right upper limb (principal); M25.541 Pain in joints of right hand; Z20.822 Contact with and (suspected) exposure to COVID-19; F41.9 Anxiety disorder, unspecified; Z88.0 Allergy status to penicillin
CPT/HCPCS: 93005; 85025; 80048; 36415; 81025; 85610; 85730; 71046; 64721; U0003; J2704; J7120; J2250; J3010

== ENCOUNTER 2022-06-11 09:07 | Emergency (ER) | payer OTHER ==
--- OUTSIDE RECORDS SUMMARY | 2022-06-11 09:27 | XMS REPORT | Continuity of Care Document ---
:1985 Author Organization [facility] t Address [address] [place] [address] Care Team Providers Name Role Phone Justin Crabtree MD Primary Care Physician MONA RANDALL Attending Clinician Unavailable NEIL WALKER Attending Clinician Unavailable Rob Bucio Attending Clinician Unavailable [email or web address]_Kyung Attending Clinician Unavailable Neil Saucedo Attending Clinician Unavailable Masood Medeiros Attending Clinician [phone] JH_Karla_Kelin Attending Clinician Unavailable Jean Marie Muniz MD Attending Clinician Clementina Obando Attending Clinician [phone] Amanda Gamez Attending Clinician Unavailable JUSTIN CRABTREE M.D. Attending Clinician Unavailable MONA RANDALL M.D. Attending Clinician Unavailable Anali PALOMINO, Rudi Attending Clinician [phone] Arnold Hopper MD Attending Clinician Doctor Unassigned, [place] Attending Clinician Unavailable Jamar Veras MD Attending Clinician JAMAR VERAS Attending Clinician Unavailable JAMAR VERAS Attending Clinician Unavailable JUSTIN CRABTREE Attending Clinician Unavailable YANNICK MURDOCK Attending Clinician Unavailable [facility] Attending Clinician Unavailable Unknown, Attending Attending Clinician Unavailable Trang Solis Attending Clinician UNKNOWN, ATTENDING Attending Clinician Unavailable Agnes Saenz RN Attending Clinician Unavailable KNOW, DOES_NOT Admitting Clinician Unavailable [email or web address]_Waldemar_S Admitting Clinician Unavailable JH_SUSANA_Fred_Kelin Admitting Clinician Unavailable Amanda Gamez Admitting Clinician Unavailable JAMAR VERAS Admitting Clinician Unavailable Payers Payer Name Policy Type Policy Number Effective Date Expiration Date S eliel AETNA CHOICE [id number] 2017 POS II 00:00:00 AETNA [id number] [facility] AETNA (POS) [id number] 2017 00:00:00 Problems Condition Condition Condition Status Onset Resolution Last Treating Co mments Source Name Details Category Date Date Treatment Clinician Date High risk High Risk Problem Active 2020-07 Kristy via 1-11 Medi amada 00:00: 00 Cervico-oc Cervico-oc Problem Active 2020-07 P rivia cipital cipital 0-21 Medical neuralgia Neuralgia 00:00: 00 Acid Acid Problem Active [facility] reflux Reflux 9-23 Medical 00:00: 00 Sciatica Sciatica Problem Active [facility] 7-14 Medical 00:00: 00 Low lying Low Lying Problem Active Kristy via placenta Placenta 7-12 Medica l 00:00: 00 Vomiting Vomiting Problem Active [facility] of of 6-14 Medical 00:00: 00 Multigravi Multigravi Problem Active P sheila da of da of 6-14 Medical advanced Advanced 00:00: maternal Maternal 00 age Age [id number] [place]pal [place] [id number] tunnel Spirit syndrome - [facility] on left [facility] [id number] Carpal [place] [id number] tunnel Spirit syndrome - [facility] on right [facility] History of History of Problem Resolve [facility] migraine migraine d Physic i ans Intractabl Intractabl Problem Active U T e chronic e chronic Phys ici migraine migraine ans without without aura and aura and with with status status migrainosu migrainosu s s Anxiety Anxiety Problem Active [facility] Physici ans Status Status Problem Active UT migrainosu migrainosu Ph ysici s s ans Transient Transient Problem Active UT neurologic neurologic Ph ysici al al ans symptoms symptoms Gait Gait Problem Active UT instabilit instabilit Ph ysici y y ans Visual Visual Problem Active UT changes changes Physici ans Neck pain Neck pain Problem Active UT Physici ans Back pain Back pain Problem Active [facility] Physici ans Dysautonom Dysautonom Problem Active U T ia ia Physici ans Cognitive Cognitive Problem Active UT changes changes Physici ans Atypical Atypical Problem Active UT facial facial Physici pain pain ans Bilateral Bilateral Problem Active UT occipital occipital Phys ici neuralgia neuralgia ans No known No known Disease Unive rs active active ity of problems problems [facility] Branch Allergies, Adverse Reactions, Alerts Allergy Allergy Status Severity Reaction(s) Onset Inactive Treating Comm ents Source Name Type Date Date Clinician Penicill Propensi Active Anaphylaxis M ethodi ins ty to 09-11 st adverse 00:00: Hospita reaction 00 l s to drug amoxicil DA Active SV ANAPHYLAXIS 2020-07 [facility] bob 1-17 Clear 00:00: Feng 00 [facility] amoxicil DA Active SV ANAPHYLAXIS 2020-07 [facility] bob 1-10 Clear 00:00: Feng 00 [facility] Penicill DA Active SV 2019-07 [facility] ins 2- [place] 00:00: Orthope 00 dic Hospita l ondanset DA Active SV 2019-07 [facility] cristo 2- [place] 00:00: Orthope 00 dic Hospita l Penicill DA Active SV ANAPHYLAXIS, 2019-07 [facility] ins mouth/[place]ongue 2[place] swell[place] 00:[place]: Orthop e 00 dic Hospita l ondanset DA Active SV anaphylaxis, 2019-07 HC A cristo tongue/mouth 2-[place] swell[place]itch 00:00: Orthop e 00 dic Hospita l Penicill Propensi Active Anaphylaxis 2019-0 U nivers in ty to 5-21 ity of adverse 00:00: [place] reaction 00 Medical s Branch Penicill Propensi Active Anaphylaxis 2019-0 U nivers in ty to 5-21 ity of adverse 00:00: [place] reaction 00 Medical s Branch PENICILL DRUG Active Anaphylaxis 2019-0 Uni vers IN INGREDI 5-21 ity of 00:00: [place] 00 Medical Branch Penicill DA Active SV 2018-0 [facility] ins 2- [place] 00:00: Orthope 00 dic Hospita l Penicill DA Active SV ANAPHYLAXIS 2017-0 [facility] ins 2-21 [place] 00:00: Orthope 00 dic Hospita l amoxicil DA Active SV ANAPHYLAXIS 2015-0 [facility] bob 8-12 Clear 00:00: Feng 00 [facility] Penicill Propensi Active Rash 2016-0 Univer s ins ty to 8-08 ity of adverse 00:00: [place] reaction 00 Medical s Branch PENICILL Drug Active Rash 2016-0 Univers INS Class 8-08 ity of 00:00: [place] 00 Medical Branch 0 Drug Active Unknown Common allergy [facility] Penicill Allergy Active [facility] ins to drug [facility] (finding ans ) PENICILL Allergy Active [facility] INS to Medical substanc e Family History Family Member Diagnosis Comments Start Date Stop Date Source Mother Family history of [facility] icians cerebrovascular accident (CVA) Social History Social Habit Start Date Stop Date Quantity Comments Source History of [facility] - Tobacco Use [facility] Tobacco use and 2021-09-11 2021-09-11 Smokeless tobacco [facility] exposure 00:00:00 00:00:00 non-user Hospital Alcohol intake 2021-09-11 2021-09-11 Current drinker of [facility] 00:00:00 00:00:00 alcohol (finding) Hospita l Alcohol Comment 2021-09-11 2021-09-11 occassionally [facility] 00:00:00 00:00:00 Hospital Sex Ass[birth year] At [birth year] [facility] 00:00:00 00:00:00 Hospital Smoking Status Start Date Stop Date Source Tobacco smoking [facility] consumption unknown Never Smoker [facility] nter Former smoker 2018-11-30 00:00:00 2018-11-30 [facility] 00:00:00 Medical Branch Medications Ordered Filled Start Stop Current Ordering Indication Dosage Frequency Signature Comments Components Source Medication Medication Date Date Medication? Clinician (SIG) Name Name Mobic 7.5 Mobic 7.5 2021- No 1{table QD Mobic 7.5 MG MG 3-31 04-30 t} MG 00:00: 00:00 00 :00 Mobic 7.5 Mobic 7.5 0 2021- No 1{table QD Mobic 7.5 MG MG 3-31 04-30 t} MG 00:00: 00:00 00 :00 Mobic 7.5 Mobic 7.5 2021- No 1{table QD Mobic 7.5 MG MG 3-31 04-30 t} MG 00:00: 00:00 00 :00 Mobic 7.5 Mobic 7.5 2021-0 2021- No 1{table QD Mobic 7.5 MG MG 3-31 04-30 t} MG 00:00: 00:00 00 :00 Mobic 7.5 Mobic 7.5 2021-0 2- No 1{table QD Mobic 7.5 MG MG 3-31 04-30 t} MG 00:00: 00:00 00 :00 Mobic 7.5 Mobic 7.5 0 2021- No 1{table QD Mobic 7.5 MG MG 3-31 04-30 t} MG 00:00: 00:00 00 :00 Mobic 7.5 Mobic 7.5 0 2022- No 1{table QD Mobic 7.5 MG MG 3-31 04-30 t} MG 00:00: 00:00 00 :00 Mobic 7.5 Mobic 7.5 0 2- No 1{table QD Mobic 7.5 MG MG 3-31 04-30 t} MG 00:00: 00:00 00 :00 gabapentin 2021-0 Yes 300mg Take 300 [facility] (NEURONTIN) 3-[address] 300 mg 13:21: mouth. Hospita capsule 00 l buprenorphi Yes 1{film} Q.5D 1 Film 2 [facility] ne-naloxone 2-01 (two) st (SUBOXONE) 00:00: times a Hosp matthieu 8-2 mg film 00 day. l Acetaminoph Acetaminoph Yes JUSTIN 1 QD TAKE 1 UT en-Codeine en-Codeine 4-29 BROWN M.DMarita TABLET [facility] 300-15 MG 300-15 MG 00:00: Daily PRN ans Oral Tablet Oral Tablet 00 facial pain Estradiol 2 Estradiol 2 Yes 1 Q0.3333D TAKE 1 UT MG Oral MG Oral 4-20 TABLET 3 Physi ci Tablet Tablet 00:00: TIMES ans 00 DAILY Estradiol Estradiol Yes APPLY 2 UT 0.1 MG/24HR 0.1 MG/24HR 4-20 PATCHES [facility] Transdermal Transdermal 00:00: EVERY ans Patch Patch 00 THREE DAYS Weekly Weekly Progesteron Progesteron Yes 2 QD INJECT 2 UT e 50 MG/ML e 50 MG/ML 4-20 ML DAILY [facility] Intramuscul Intramuscul 00:00: ans ar Oil ar Oil 00 lidocaine 2020- No [id number] 2.5mL U nivers 2% 10-16 ity of (XYLOCAINE) 21:45: 21:26 [place] 20 mg/mL (2 00 :00 Medical %) Branch injection 2.5 mL triamcinolo 2020- No [id number] 2.4mg [facility] 10-16 ity of acetonide 21:45: 21:26 [place] (KENALOG) 00 :00 Medical injection Branch 2.4 mg triamcinolo 2020- No [id number] 2.5mg 2.4 mg [facility] 10-16 (rounded ity of acetonide 21:45: 21:26 from 2.5 [place] as (KENALOG) 00 :00 mg), Medical injection Intramuscu Bran ch 2.4 mg lar, ONCE, 1 dose, 10/16/20 at 1645, Routine lidocaine 2020- No [id number] 2.5mL 2.5 mL, Univers 2% 10-16 Infiltrati ity of (XYLOCAINE) 21:45: 21:26 on, ONCE, [place] 20 mg/mL (2 00 :00 1 dose, Medic al %) 10/16/20 Branch injection at 1645, 2.5 mL Routine lidocaine 2020-0 2020- No [id number] 2.5mL U nivers 2% 10-16- ity of (XYLOCAINE) 21:45: 21:26 [place] 20 mg/mL (2 00 :00 Medical %) Branch injection 2.5 mL triamcinolo 2020-0 2020- No [id number] 2.4mg Univers ne 10-16 ity of acetonide 21:45: 21:26 [place] (KENALOG) 00 :00 Medical injection Branch 2.4 mg triamcinolo 2020-0 2020- No [id number] 2.5mg 2.4 mg Univers ne 10-16 (rounded ity of acetonide 21:45: 21:26 from 2.5 [place] as (KENALOG) 00 :00 mg), Medical injection Intramuscu Bran ch 2.4 mg lar, ONCE, 1 dose, 10/16/20 at 1645, Routine lidocaine 2020-0 2020- No [id number] 2.5mL 2.5 mL, Univers 2% 10-16 Infiltrati ity of (XYLOCAINE) 21:45: 21:26 on, ONCE, [place] 20 mg/mL (2 00 :00 1 dose, Medic al %) 10/16/20 Branch injection at 1645, 2.5 mL Routine lidocaine 2020-0 2020- No [id number] 2.5mL U nivers 2% 10-16 ity of (XYLOCAINE) 21:45: 21:26 [place] 20 mg/mL (2 00 :00 Medical %) Branch injection 2.5 mL triamcinolo 2020-0 2020- No [id number] 2.4mg Univers ne 10-16 ity of acetonide 21:45: 21:26 [place] (KENALOG) 00 :00 Medical injection Branch 2.4 mg triamcinolo 2020-0 2020- No [id number] 2.5mg 2.4 mg Univers ne 10-16 (rounded ity of acetonide 21:45: 21:26 from 2.5 [place] as (KENALOG) 00 :00 mg), Medical injection Intramuscu Bran ch 2.4 mg lar, ONCE, 1 dose, 10/16/20 at 1645, Routine lidocaine 2020-0 2020- No [id number] 2.5mL 2.5 mL, Univers 2% 10-16 Infiltrati ity of (XYLOCAINE) 21:45: 21:26 on, ONCE, [place] 20 mg/mL (2 00 :00 1 dose, Medic al %) 10/16/20 Branch injection at 1645, 2.5 mL Routine lidocaine 2020-0 2020- No [id number] 2.5mL U nivers 2% 10-16 ity of (XYLOCAINE) 21:45: 21:26 [place] 20 mg/mL (2 00 :00 Medical %) Branch injection 2.5 mL triamcinolo 2020-2020- No [id number] 2.4mg Univers ne 10-16 ity of acetonide 21:45: 21:26 [place] (KENALOG) 00 :00 Medical injection Branch 2.4 mg triamcinolo 2020-0 2020- No [id number] 2.5mg 2.4 mg Univers ne 10-16 (rounded ity of acetonide 21:45: 21:26 from 2.5 [place] as (KENALOG) 00 :00 mg), Medical injection Intramuscu Bran ch 2.4 mg lar, ONCE, 1 dose, 10/16/20 at 1645, Routine lidocaine 2020-0 2020- No [id number] 2.5mL 2.5 mL, Univers 2% 10-16 Infiltrati ity of (XYLOCAINE) 21:45: 21:26 on, ONCE, [place] 20 mg/mL (2 00 :00 1 dose, Medic al %) 10/16/20 Branch injection at 1645, 2.5 mL Routine triamcinolo 2020-0 2020- No [id number] 2.4mg Univers ne 10-16 ity of acetonide 20:15: 21:16 [place] (KENALOG) 00 :02 Medical injection Branch 2.4 mg lidocaine 2020-0 2020- No [id number] 2.5mL U nivers 2% 10-16 ity of (XYLOCAINE) 20:15: 21:16 [place] 20 mg/mL (2 00 :01 Medical %) Branch injection 2.5 mL triamcinolo 2020- No [id number] 2.4mg Univers ne 10-16- ity of acetonide 20:15: 21:16 [place] (KENALOG) 00 :02 Medical injection Branch 2.4 mg lidocaine 2020- No [id number] 2.5mL U nivers 2% 10-16- ity of (XYLOCAINE) 20:15: 21:16 [place] 20 mg/mL (2 00 :01 Medical %) Branch injection 2.5 mL triamcinolo 2020- No [id number] 2.4mg Univers ne 10-16- ity of acetonide 20:15: 21:16 [place] (KENALOG) 00 :02 Medical injection Branch 2.4 mg lidocaine 2020- No [id number] 2.5mL U nivers 2% 10-16- ity of (XYLOCAINE) 20:15: 21:16 [place] 20 mg/mL (2 00 :01 Medical %) Branch injection 2.5 mL triamcinolo 2020- No [id number] 2.4mg Univers ne 10-16- ity of acetonide 20:15: 21:16 [place] (KENALOG) 00 :02 Medical injection Branch 2.4 mg lidocaine 2020- No [id number] 2.5mL U nivers 2% 10-16- ity of (XYLOCAINE) 20:15: 21:16 [place] 20 mg/mL (2 00 :01 Medical %) Branch injection 2.5 mL estradioL 2 2020- Yes 1{tbl} Take 1 Un moises mg tablet 3-24 tablet by ity o f 00:00: mouth 3 (three) Medical times Branch daily. estradioL 2 2020- Yes 1{tbl} Take 1 Un moises mg tablet 3-24 tablet by ity o f 00:00: mouth 3 (three) Medical times Branch daily. estradioL 2 2020- Yes 1{tbl} Take 1 Un moises mg tablet 3-24 tablet by ity o f 00:00: mouth 3 00 (three) Medical times Branch daily. estradioL 2 2020- Yes 1{tbl} Take 1 Un moises mg tablet 3-24 tablet by ity o f 00:00: mouth 3 00 (three) Medical times Branch daily. estradioL 2 Yes 1{tbl} Take 1 Un moises mg tablet 3-24 tablet by ity o f 00:00: mouth 3 00 (three) Medical times Branch daily. estradioL Yes 2{patch Apply 2 Un moises 0.1 mg/24 3-23 } Patches to ity of hr twice 00:00: skin every [place] as weekly 00 72 Medical patch (seventy-t Branch wo) hours. estradioL Yes 2{patch Apply 2 Un moises 0.1 mg/24 3-23 } Patches to ity of hr twice 00:00: skin every [place] as weekly 00 72 Medical patch (seventy-t Branch wo) hours. estradioL Yes 2{patch Apply 2 Un moises 0.1 mg/24 3-23 } Patches to ity of hr twice 00:00: skin every [place] as weekly 00 72 Medical patch (seventy-t Branch wo) hours. estradioL Yes 2{patch Apply 2 Un moises 0.1 mg/24 3-23 } Patches to ity of hr twice 00:00: skin every [place] as weekly 00 72 Medical patch (seventy-t Branch wo) hours. estradioL Yes 2{patch Apply 2 Un moises 0.1 mg/24 3-23 } Patches to ity of hr twice 00:00: skin every [place] as weekly 00 72 Medical patch (seventy-t Branch wo) hours. butorphanol 2020- No [id number] 1{spray Use 1 U nivers 10 mg/mL 09-24 } Yoder in ity of nasal spray 00:00: 04:59 each [place] 00 :00 nostril Medical every 8 Branch (eight) hours as needed for Pain for up to 7 days. Indication s: chronic pain, occipital nerve apin butorphanol 2020- No 2745 1{spray Use 1 U nivers 10 mg/mL 323 } Yoder in ity of nasal spray 00:00: 04:59 each [place] 00 :00 nostril Medical every 8 Branch (eight) hours as needed for Pain for up to 7 days. Indication s: chronic pain, occipital nerve apin butorphanol 2020- No 2745 1{spray Use 1 U nivers 10 mg/mL 3-15 -23 } Yoder in ity of nasal spray 00:00: 04:59 each [place] 00 :00 nostril Medical every 8 Branch (eight) hours as needed for Pain for up to 7 days. Indication s: chronic pain, occipital nerve apin butorphanol 2020- No 2745 1{spray Use 1 U nivers 10 mg/mL 3-15 -23 } Yoder in ity of nasal spray 00:00: 04:59 each [place] 00 :00 nostril Medical every 8 Branch (eight) hours as needed for Pain for up to 7 days. Indication s: chronic pain, occipital nerve apin butorphanol Yes 4647 SPRAY ONCE Univers 10 mg/mL 2-23 IN A ity of nasal spray 00:00: NOSTRIL [place] as 00 EVERY 8 Medical HOURS Branch NEEDED; USE SPARINGLY, MAY CAUSE HABIT FORMING Indication s: acute pain butorphanol Yes 4647 SPRAY ONCE Univers 10 mg/mL 2-23 IN A ity of nasal spray 00:00: NOSTRIL [place] as 00 EVERY 8 Medical HOURS Branch NEEDED; USE SPARINGLY, MAY CAUSE HABIT FORMING Indication s: acute pain butorphanol Yes 4647 SPRAY ONCE Univers 10 mg/mL 2-23 IN A ity of nasal spray 00:00: NOSTRIL [place] as 00 EVERY 8 Medical HOURS Branch NEEDED; USE SPARINGLY, MAY CAUSE HABIT FORMING Indication s: acute pain butorphanol 2020- No 4647 SPRAY ONCE Univers 10 mg/mL 2-23 -15 IN A ity of nasal spray 00:00: 00:00 NOSTRIL [place] 00 :00 EVERY 8 Medical HOURS Branch NEEDED; USE SPARINGLY, MAY CAUSE HABIT FORMING Indication s: acute pain butorphanol 2020- No 4647 SPRAY ONCE Univers 10 mg/mL 2-17 -23 IN A ity of nasal spray 00:00: 00:00 [place]STRIL [place] 00 :00 EVERY 8 Medical HOURS Branch NEEDED; USE SPARINGLY, MAY CAUSE HABIT FORMING Indication s: acute pain butorphanol 2020- No 4647 SPRAY ONCE Univers 10 mg/mL 2-17 -23 IN A ity of nasal spray 00:00: 00:00 NOSTRIL [place] 00 :00 EVERY 8 Medical HOURS Branch NEEDED; USE SPARINGLY, MAY CAUSE HABIT FORMING Indication s: acute pain butorphanol 2020- No 4647 SPRAY ONCE Univers 10 mg/mL 08-29 IN A ity of nasal spray 00:00: 00:00 NOSTRIL [place] 00 :00 EVERY 8 Medical HOURS Branch NEEDED; USE SPARINGLY, MAY CAUSE HABIT FORMING Indication s: acute pain butorphanol No 4647 SPRAY ONCE Univers 10 mg/mL 08-29 IN A ity of nasal spray 00:00: 00:00 NOSTRIL [place] 00 :00 EVERY 8 Medical HOURS Branch NEEDED; USE SPARINGLY, MAY CAUSE HABIT FORMING Indication s: acute pain butorphanol 2020- No 2745 1{spray Use 1 U nivers 10 mg/mL 08-10 } Yoder in ity of nasal spray 00:00: 05:59 each [place] 00 :00 nostril Medical every 8 Branch (eight) hours as needed for Pain for up to 7 days. Indication s: chronic pain, intractabl e complicate d headache. butorphanol 2020- No 2745 1{spray Use 1 U nivers 10 mg/mL 08-10 } Yoder in ity of nasal spray 00:00: 05:59 each [place] 00 :00 nostril Medical every 8 Branch (eight) hours as needed for Pain for up to 7 days. Indication s: chronic pain, intractabl e complicate d headache. butorphanol 2020- No 2745 1{spray Use 1 U nivers 10 mg/mL 08-10 } Yoder in ity of nasal spray 00:00: 05:59 each [place] 00 :00 nostril Medical every 8 Branch (eight) hours as needed for Pain for up to 7 days. Indication s: chronic pain, intractabl e complicate d headache. progesteron Yes 2mL 2 mL by Uni vers e 50 mg/mL 1-14 Intramuscu ity of injection 00:00: lar route [place] as 00 daily. Medical Branch progesteron Yes 2mL 2 mL by Uni vers e 50 mg/mL 1-14 Intramuscu ity of injection 00:00: lar route [place] as 00 daily. Medical Branch progesteron Yes 2mL 2 mL by Uni vers e 50 mg/mL 1-14 Intramuscu ity of injection 00:00: lar route [place] as 00 daily. Medical Branch progesteron Yes 2mL 2 mL by Uni vers e 50 mg/mL 1-14 Intramuscu ity of injection 00:00: lar route [place] as 00 daily. Medical Branch progesteron Yes 2mL 2 mL by Uni vers e 50 mg/mL 1-14 Intramuscu ity of injection 00:00: lar route [place] as 00 daily. Medical Branch butorphanol 2019-07 Yes 4647 SPRAY ONCE Univers 10 mg/mL 0-13 IN A ity of nasal spray 00:00: NOSTRIL [place] as 00 EVERY 8 Medical HOURS Branch NEEDED; USE SPARINGLY, MAY CAUSE HABIT FORMING Indication s: acute pain butorphanol 2019-07 Yes 4647 SPRAY ONCE Univers 10 mg/mL 0-13 IN A ity of nasal spray 00:00: NOSTRIL [place] as 00 EVERY 8 Medical HOURS Branch NEEDED; USE SPARINGLY, MAY CAUSE HABIT FORMING Indication s: acute pain butorphanol 2019-07 Yes 4647 SPRAY ONCE Univers 10 mg/mL 0-13 IN A ity of nasal spray 00:00: NOSTRIL [place] as 00 EVERY 8 Medical HOURS Branch NEEDED; USE SPARINGLY, MAY CAUSE HABIT FORMING Indication s: acute pain butorphanol 2019-07 Yes 4647 SPRAY ONCE Univers 10 mg/mL 0-13 IN A ity of nasal spray 00:00: NOSTRIL [place] as 00 EVERY 8 Medical HOURS Branch NEEDED; USE SPARINGLY, MAY CAUSE HABIT FORMING Indication s: acute pain butorphanol 2019-07 Yes 4647 SPRAY ONCE Univers 10 mg/mL 0-13 IN A ity of nasal spray 00:00: NOSTRIL [place] as 00 EVERY 8 Medical HOURS Branch NEEDED; USE SPARINGLY, MAY CAUSE HABIT FORMING Indication s: acute pain butorphanol 2019-07- No 4647 SPRAY ONCE Univers 10 mg/mL 0-13 02-17 IN A ity of nasal spray 00:00: 00:00 NOSTRIL [place] 00 :00 EVERY 8 Medical HOURS Branch NEEDED; USE SPARINGLY, MAY CAUSE HABIT FORMING Indication s: acute pain butorphanol 2019-2020- No 4647 SPRAY ONCE Univers 10 mg/mL 013 17 IN A ity of nasal spray 00:00: 00:00 NOSTRIL [place] 00 :00 EVERY 8 Medical HOURS Branch NEEDED; USE SPARINGLY, MAY CAUSE HABIT FORMING Indication s: acute pain TOPIRAMATE 2020-0 Yes [id number] TAKE 1 Univers 50 mg 7-29 TABLET BY ity of tablet 00:00: MOUTH 00 TWICE A Medical DAY Branch TOPIRAMATE 2020-0 Yes [id number] TAKE 1 Univers 50 mg 7-29 TABLET BY ity of tablet 00:00: MOUTH 00 TWICE A Medical DAY Branch TOPIRAMATE 2020-0 Yes [id number] TAKE 1 Univers 50 mg 7-29 TABLET BY ity of tablet 00:00: MOUTH 00 TWICE A Medical DAY Branch TOPIRAMATE 2020-0 Yes [id number] TAKE 1 Univers 50 mg 7-29 TABLET BY ity of tablet 00:00: MOUTH TWICE A Medical DAY Branch TOPIRAMATE 2020-0 Yes [id number] TAKE 1 Univers 50 mg 7-29 TABLET BY ity of tablet 00:00: MOUTH 00 TWICE A Medical DAY Branch TOPIRAMATE 2020-0 Yes [id number] TAKE 1 Univers 50 mg 7-29 TABLET BY ity of tablet 00:00: MOUTH 00 TWICE A Medical DAY Branch TOPIRAMATE 2020-0 Yes [id number] TAKE 1 Univers 50 mg 7-29 TABLET BY ity of tablet 00:00: MOUTH 00 TWICE A Medical DAY Branch TOPIRAMATE 2020-0 Yes [id number] TAKE 1 Univers 50 mg 7-29 TABLET BY ity of tablet 00:00: MOUTH 00 TWICE A Medical DAY Branch TOPIRAMATE 2020-0 Yes [id number] TAKE 1 Univers 50 mg 7-29 TABLET BY ity of tablet 00:00: MOUTH 00 TWICE A Medical DAY Branch TOPIRAMATE 2020-0 Yes [id number] TAKE 1 Univers 50 mg 7-29 TABLET BY ity of tablet 00:00: MOUTH 00 TWICE A Medical DAY Branch TOPIRAMATE 2020-0 Yes [id number] TAKE 1 Univers 50 mg 7-29 TABLET BY ity of tablet 00:00: MOUTH 00 TWICE A Medical DAY Branch TOPIRAMATE 2020-0 Yes [id number] TAKE 1 Univers 50 mg 7-29 TABLET BY ity of tablet 00:00: MOUTH [place] 00 TWICE A Medical DAY Branch TOPIRAMATE 2020-0 Yes [id number] TAKE 1 Univers 50 mg 7-29 TABLET BY ity of tablet 00:00: MOUTH [place] 00 TWICE A Medical DAY Branch TOPIRAMATE 2020-0 Yes [id number] TAKE 1 Univers 50 mg 7-29 TABLET BY ity of tablet 00:00: MOUTH [place] 00 TWICE A Medical DAY Branch TOPIRAMATE 2020-0 Yes [id number] TAKE 1 Univers 50 mg 7-29 TABLET BY ity of tablet 00:00: MOUTH [place] 00 TWICE A Medical DAY Branch TOPIRAMATE 2020-0 Yes [id number] TAKE 1 Univers 50 mg 7-29 TABLET BY ity of tablet 00:00: MOUTH [place] 00 TWICE A Medical DAY Branch TOPIRAMATE 2020-0 Yes [id number] TAKE 1 Univers 50 mg 7-29 TABLET BY ity of tablet 00:00: MOUTH [place] 00 TWICE A Medical DAY Branch TOPIRAMATE 2020-0 Yes [id number] TAKE 1 Univers 50 mg 7-29 TABLET BY ity of tablet 00:00: MOUTH [place] 00 TWICE A Medical DAY Branch TOPIRAMATE 2020-0 Yes [id number] TAKE 1 Univers 50 mg 7-29 TABLET BY ity of tablet 00:00: MOUTH [place] 00 TWICE A Medical DAY Branch TOPIRAMATE 2020-0 Yes [id number] TAKE 1 Univers 50 mg 7-29 TABLET BY ity of tablet 00:00: MOUTH [place] 00 TWICE A Medical DAY Branch TOPIRAMATE 2020-0 Yes [id number] TAKE 1 Univers 50 mg 7-29 TABLET BY ity of tablet 00:00: MOUTH [place] 00 TWICE A Medical DAY Branch Rizatriptan Rizatriptan 2020-0 Yes JUSTIN Q2H TAKE 1 UT Benzoate 10 Benzoate 10 7-21 BROWN M.DMarita TABLET AT [facility] MG Oral MG Oral 00:00: ONSET OF ans Tablet Tablet 00 HEADACHE. MAY REPEAT EVERY 2 HOURS NEEDED. MAXIMUM 3 TABLETS IN 24 HOURS. butorphanol 2019-0 Yes [id number] INSERT 1 Univers 10 mg/mL 706 SPRAY INTO ity o f nasal spray 00:00: NOSTRIL [place] as 00 EVERY 8 Medical HOURS Branch NEEDED FOR PAIN*USE SPARINGLY* *MAYBE HABIT FORMING butorphanol 2019-0 Yes [id number] INSERT 1 Univers 10 mg/mL 7-06 SPRAY INTO ity o f nasal spray 00:00: NOSTRIL [place] as 00 EVERY 8 Medical HOURS Branch NEEDED FOR PAIN*USE SPARINGLY* *MAYBE HABIT FORMING butorphanol 2020-0 Yes [id number] INSERT 1 Univers 10 mg/mL 7-06 SPRAY INTO ity o f nasal spray 00:00: NOSTRIL [place] as 00 EVERY 8 Medical HOURS Branch NEEDED FOR PAIN*USE SPARINGLY* *MAYBE HABIT FORMING butorphanol 2020-0 Yes [id number] INSERT 1 Univers 10 mg/mL 7-06 SPRAY INTO ity o f nasal spray 00:00: NOSTRIL [place] as 00 EVERY 8 Medical HOURS Branch NEEDED FOR PAIN*USE SPARINGLY* *[employer] butorphanol 2020-0 2020- No [id number] INSERT 1 [facility] 10 mg/mL 7-06 10-13 SPRAY INTO ity of nasal spray 00:00: 00:00 [place] 00 :00 EVERY 8 Medical HOURS Branch NEEDED FOR PAIN*USE SPARINGLY* *[employer]BE [employer]MING fluticasone 2020-0 Yes 2{spray Use 2 Un moises propionate 6-18 } Sprays in ity of 50 00:00: each [place] mcg/actuati 00 nostril 2 Med ical on nasal (two) Branch spray times daily. fluticasone 2020-0 Yes 2{spray Use 2 Un mo[facility] propionate 6-18 } Sprays in ity of 50 00:00: each [place] mcg/actuati 00 nostril 2 Med ical on nasal (two) Branch spray times daily. fluticasone 2020-0 Yes 2{spray Use 2 Un mo[facility] propionate 6-18 } Sprays in ity of 50 00:00: each [place] mcg/actuati 00 nostril 2 Med ical on nasal (two) Branch spray times daily. fluticasone 2020-0 Yes 2{spray Use 2 Un mo[facility] propionate 6-18 } Sprays in ity of 50 00:00: each [place] mcg/actuati 00 nostril 2 Med ical on nasal (two) Branch spray times daily. fluticasone 2020-0 Yes 2{spray Use 2 Un mo[facility] propionate 6-18 } Sprays in ity of 50 00:00: each [place] mcg/actuati 00 nostril 2 Med ical on nasal (two) Branch spray times daily. benzonatate 2020-0 Yes 200mg Take 1 [facility] vers 200 mg 4-10 capsule by ity of capsule 00:00: mouth (two) Medical times Branch daily as needed for Cough. benzonatate 2020-0 Yes 200mg Take 1 [facility] vers 200 mg 4-10 capsule by ity of capsule 00:00: mouth (two) Medical times Branch daily as needed for Cough. benzonatate 2020-0 Yes 200mg Take 1 [facility] vers 200 mg 4-10 capsule by ity of capsule 00:00: mouth (two) Medical times Branch daily as needed for Cough. benzonatate 2020-0 Yes 200mg Take 1 [facility] vers 200 mg 4-10 capsule by ity of capsule 00:00: mouth (two) Medical times Branch daily as needed for Cough. benzonatate 2020-0 Yes 200mg Take 1 [facility] vers 200 mg 4-10 capsule by ity of capsule 00:00: mouth (two) Medical times Branch daily as needed for Cough. benzonatate 2020-0 Yes 200mg Take 1 [facility] vers 200 mg 4-10 capsule by ity of capsule 00:00: mouth (two) Medical times Branch daily as needed for Cough. benzonatate 2020-0 Yes 200mg Take 1 [facility] vers 200 mg 4-10 capsule by ity of capsule 00:00: mouth (two) Medical times Branch daily as needed for Cough. benzonatate 2020-0 Yes 200mg Take 1 [facility] vers 200 mg 4-10 capsule by ity of capsule 00:00: mouth (two) Medical times Branch daily as needed for Cough. benzonatate 2020-0 Yes 200mg Take 1 [facility] vers 200 mg 4-10 capsule by ity of capsule 00:00: mouth (two) Medical times Branch daily as needed for Cough. benzonatate 2020-0 Yes 200mg Take 1 [facility] vers 200 mg 4-10 capsule by ity of capsule 00:00: mouth (two) Medical times Branch daily as needed for Cough. benzonatate 2020-0 Yes 200mg Take 1 [facility] vers 200 mg 4-10 capsule by ity of capsule 00:00: mouth (two) Medical times Branch daily as needed for Cough. benzonatate 2020-0 Yes 200mg Take 1 [facility] vers 200 mg 4-10 capsule by ity of capsule 00:00: mouth (two) Medical times Branch daily as needed for Cough. benzonatate 2020-0 Yes 200mg Take 1 [facility] vers 200 mg 4-10 capsule by ity of capsule 00:00: mouth (two) Medical times Branch daily as needed for Cough. benzonatate 2020-0 Yes 200mg Take 1 [facility] vers 200 mg 4-10 capsule by ity of capsule 00:00: mouth (two) Medical times Branch daily as needed for Cough. benzonatate 2020-0 Yes 200mg Take 1 [facility] vers 200 mg 4-10 capsule by ity of capsule 00:00: mouth (two) Medical times Branch daily as needed for Cough. benzonatate 2020-0 Yes 200mg Take 1 [facility] vers 200 mg 4-10 capsule by ity of capsule 00:00: mouth (two) Medical times Branch daily as needed for Cough. benzonatate 2020-0 Yes 200mg Take 1 [facility] vers 200 mg 4-10 capsule by ity of capsule 00:00: mouth (two) Medical times Branch daily as needed for Cough. benzonatate 2020-0 Yes 200mg Take 1 [facility] vers 200 mg 4-10 capsule by ity of capsule 00:00: mouth (two) Medical times Branch daily as needed for Cough. benzonatate 2020-0 Yes 200mg Take 1 [facility] vers 200 mg 4-10 capsule by ity of capsule 00:00: mouth (two) Medical times Branch daily as needed for Cough. benzonatate 2020-0 Yes 200mg Take 1 [facility] vers 200 mg 4-10 capsule by ity of capsule 00:00: mouth (two) Medical times Branch daily as needed for Cough. benzonatate 2020-0 Yes 200mg Take 1 [facility] vers 200 mg 4-10 capsule by ity of capsule 00:00: mouth (two) Medical times Branch daily as needed for Cough. benzonatate 2020-0 Yes 200mg Take 1 [facility] vers 200 mg 4-10 capsule by ity of capsule 00:00: mouth (two) Medical times Branch daily as needed for Cough. benzonatate 2020-0 Yes 200mg Take 1 [facility] vers 200 mg 4-10 capsule by ity of capsule 00:00: mouth 2 [place] 00 (two) Medical times Branch daily as needed for Cough. benzonatate 2020-0 Yes 200mg Take 1 [facility] vers 200 mg 4-10 capsule by ity of capsule 00:00: mouth 2 [place] (two) Medical times Branch daily as needed for Cough. butorphanol 2020-0 Yes [id number] INSERT 1 [facility] 10 mg/mL 3-16 SPRAY INTO ity o f nasal spray 00:00: [place]STRIL [place] 00 EVERY 8 Medical HOURS Branch NEEDED FOR PAIN*USE SPARINGLY* *[employer] butorphanol 2020-0 Yes [id number] INSERT 1 [facility] 10 mg/mL 3-16 SPRAY INTO ity o f nasal spray 00:00: [place]IL [place] 00 EVERY 8 Medical HOURS Branch NEEDED FOR PAIN*USE SPARINGLY* *[employer] butorphanol 2020-0 Yes [id number] INSERT 1 [facility] 10 mg/mL 3-16 SPRAY INTO ity o f nasal spray 00:00: [place] 00 EVERY 8 Medical HOURS Branch NEEDED FOR PAIN*USE SPARINGLY* *[employer] butorphanol 2020-0 Yes [id number] INSERT 1 [facility] 10 mg/mL 3-16 SPRAY INTO ity o f nasal spray 00:00: [place] 00 EVERY 8 Medical HOURS Branch NEEDED FOR PAIN*USE SPARINGLY* *[employer] butorphanol 2020-0 2020- No [id number] INSERT 1 [facility] 10 mg/mL 3-16 07-06 SPRAY INTO ity of nasal spray 00:00: 00:00 [place] 00 :00 EVERY 8 Medical HOURS Branch NEEDED FOR PAIN*USE SPARINGLY* *[employer] butorphanol 2020-0 2020- No [id number] INSERT 1 [facility] 10 mg/mL 3-16 07-06 SPRAY INTO ity of nasal spray 00:00: 00:00 [place] 00 :00 EVERY 8 Medical HOURS Branch NEEDED FOR PAIN*USE SPARINGLY* *[employer]ING DULoxetine 2020-0 Yes 60mg Take 60 mg U nivers 60 mg 2-21 by mouth ity of capsule 00:00: daily. [place] [address] Medical Branch DULoxetine 2020-0 Yes 60mg Take 60 mg U nivers 60 mg 2-21 by mouth ity of capsule 00:00: daily. [place] [address] Medical Branch DULoxetine 2020-0 Yes 60mg Take 60 mg U nivers 60 mg 2-21 by mouth ity of capsule 00:00: daily. [place] [facility] DULoxetine 2020-0 Yes 60mg Take 60 mg U nivers 60 mg 2-21 by mouth ity of capsule 00:00: daily. [place] [facility] Branch DULoxetine 2020-0 Yes 60mg Take 60 mg U nivers 60 mg 2-21 by mouth ity of capsule 00:00: daily. [place] [facility] DULoxetine 2020-0 Yes 60mg Take 60 mg U nivers 60 mg 2-21 by mouth ity of capsule 00:00: daily. [place] [facility] Branch DULoxetine 2020-0 Yes 60mg Take 60 mg U nivers 60 mg 2-21 by mouth ity of capsule 00:00: daily. [place] [facility] DULoxetine 2020-0 Yes 60mg Take 60 mg U nivers 60 mg 2-21 by mouth ity of capsule 00:00: daily. [place] [facility] DULoxetine 2020-0 Yes 60mg Take 60 mg U nivers 60 mg 2-21 by mouth ity of capsule 00:00: daily. [place] [facility] DULoxetine 2020-0 Yes 60mg Take 60 mg U nivers 60 mg 2-21 by mouth ity of capsule 00:00: daily. [place] [facility] DULoxetine 2020-0 Yes 60mg Take 60 mg U nivers 60 mg 2-21 by mouth ity of capsule 00:00: daily. [place] [facility] DULoxetine 2020-0 Yes 60mg Take 60 mg U nivers 60 mg 2-21 by mouth ity of capsule 00:00: daily. [place] [facility] DULoxetine 2020-0 Yes 60mg Take 60 mg U nivers 60 mg 2-21 by mouth ity of capsule 00:00: daily. [place] [facility] DULoxetine 2020-0 Yes 60mg Take 60 mg U nivers 60 mg 2-21 by mouth ity of capsule 00:00: daily. [place] [facility] DULoxetine 2020-0 Yes 60mg Take 60 mg U nivers 60 mg 2-21 by mouth ity of capsule 00:00: daily. [place] [facility] DULoxetine 2020-0 Yes 60mg Take 60 mg U nivers 60 mg 2-21 by mouth ity of capsule 00:00: daily. [address] DULoxetine 2020-0 Yes 60mg Take 60 mg U nivers 60 mg 2-21 by mouth ity of capsule 00:00: daily. [place] 00 Medical Branch DULoxetine 2020-0 Yes 60mg Take 60 mg U nivers 60 mg 2-21 by mouth ity of capsule 00:00: daily. [place] [facility] Branch DULoxetine 2020-0 Yes 60mg Take 60 mg U nivers 60 mg 2-21 by mouth ity of capsule 00:00: daily. [place] [facility] Branch DULoxetine 2020-0 Yes 60mg Take 60 mg U nivers 60 mg 2-21 by mouth ity of capsule 00:00: daily. [place] [facility] Branch DULoxetine 2020-0 Yes 60mg Take 60 mg U nivers 60 mg 2-21 by mouth ity of capsule 00:00: daily. [place] [facility] Branch DULoxetine 2020-0 Yes 60mg Take 60 mg U nivers 60 mg 2-21 by mouth ity of capsule 00:00: daily. [place] [facility] Branch DULoxetine 2020-0 Yes 60mg Take 60 mg U nivers 60 mg 2-21 by mouth ity of capsule 00:00: daily. [place] [facility] Branch DULoxetine 2020-0 Yes 60mg Take 60 mg U nivers 60 mg 2-21 by mouth ity of capsule 00:00: daily. [place] [facility] Branch DULoxetine 2020-0 Yes 60mg Take 60 mg U nivers 60 mg 2-21 by mouth ity of capsule 00:00: daily. [place] [facility] Branch DULoxetine 2020-0 Yes 60mg Take 60 mg U nivers 60 mg 2-21 by mouth ity of capsule 00:00: daily. [place] [address] Medical Branch TOPIRAMATE 2020-0 Yes [id number] TAKE 1 [facility] 50 mg 1-23 TABLET BY ity of tablet 00:00: [facility] TWICE A Medical DAY Branch TOPIRAMATE 2020-0 Yes [id number] TAKE 1 [facility] 50 mg 1-23 TABLET BY ity of tablet 00:00: [facility] TWICE A Medical DAY Branch TOPIRAMATE 2020-0 Yes [id number] TAKE 1 [facility] 50 mg 1-23 TABLET BY ity of tablet 00:00: [facility] TWICE A Medical DAY Branch TOPIRAMATE 2020-0 Yes [id number] TAKE 1 [facility] 50 mg 1-23 TABLET BY ity of tablet 00:00: [facility] TWICE A Medical DAY Branch TOPIRAMATE 2020-0 Yes [id number] TAKE 1 [facility] 50 mg 1-23 TABLET BY ity of tablet 00:00: [facility] TWICE A Medical DAY Branch TOPIRAMATE Yes [id number] TAKE 1 [facility] 50 mg 1-23 TABLET BY ity of tablet 00:00: MOUTH [place] 00 TWICE A Medical DAY Branch TOPIRAMATE Yes [id number] TAKE 1 [facility] 50 mg 1-23 TABLET BY ity of tablet 00:00: MOUTH [place] 00 TWICE A Medical DAY Branch TOPIRAMATE Yes [id number] TAKE 1 [facility] 50 mg 1-23 TABLET BY ity of tablet 00:00: MOUTH [place] 00 TWICE A Medical DAY Branch TOPIRAMATE 2020- No [id number] TAKE 1 [facility] 50 mg 1-23 07-29 TABLET BY ity of tablet 00:00: 00:00 MOUTH [place] 00 :00 TWICE A Medical DAY Branch butorphanol 2018-07 Yes [id number] INSERT 1 [facility] 10 mg/mL 1-07 SPRAY INTO ity o f nasal spray 00:00: NOSTRIL [place] 00 EVERY 8 Medical HOURS Branch NEEDED FOR PAIN*USE SPARINGLY* *[employer]BE [employer]MING butorphanol 2018-07 Yes [id number] INSERT 1 [facility] 10 mg/mL 1-07 SPRAY INTO ity o f nasal spray 00:00: [place] 00 EVERY 8 Medical HOURS Branch NEEDED FOR PAIN*USE SPARINGLY* *[employer]BE [employer]MING butorphanol 2018-07 2020- No [id number] INSERT 1 [facility] 10 mg/mL 1-07 03-16 SPRAY INTO ity of nasal spray 00:00: 00:00 [place] 00 :00 EVERY 8 Medical HOURS Branch NEEDED FOR PAIN*USE SPARINGLY* *[employer]MING topiramate 2018-07 Yes [id number] 50mg Take 1 [facility] 50 mg 0-28 tablet by ity of tablet 00:00: mouth 2 [place] 00 (two) Medical times Branch daily. topiramate 2018-07 2020- No [id number] 50mg Take 1 [facility] 50 mg 0-28 -23 tablet by ity of tablet 00:00: 00:00 mouth 2 [place] 00 :00 (two) Medical times Branch daily. gadoterate 2019- No .2mL/kg 15.06 mL [facility] [place] 8- 08-13 (0.2 mL/kg ity of (DOTAREM-15 20:30: 20:30 ?75.3 kg), [place] mL) 00 :00 Intravenou Medical injection s, ONCE, 1 Bran ch 15.06 mL dose, 02/22/19 at 1530, Routine BUTORPHANOL Yes [id number] INSERT 1 [facility] 10 mg/mL 7-30 SPRAY INTO ity o f nasal spray 00:00: NOSTRIL [place] 00 EVERY 8 Medical HOURS Branch NEEDED FOR PAIN*USE SPARINGLY* *[employer]BE [employer]MING BUTORPHANOL Yes [id number] INSERT 1 [facility] 10 mg/mL 7-30 SPRAY INTO ity o f nasal spray 00:00: NO[place] 00 EVERY 8 Medical HOURS Branch NEEDED FOR PAIN*USE SPARINGLY* *MAYBE HABIT FORMING BUTORPHANOL Yes [id number] INSERT 1 [facility] 10 mg/mL 7-30 SPRAY INTO ity o f nasal spray 00:00: [place] 00 EVERY 8 Medical HOURS Branch NEEDED FOR PAIN*USE SPARINGLY* *MAYBE HABIT FORMING BUTORPHANOL Yes [id number] INSERT 1 [facility] 10 mg/mL 7-30 SPRAY INTO ity o f nasal spray 00:00: NO[place] 00 EVERY 8 Medical HOURS Branch NEEDED FOR PAIN*USE SPARINGLY* *MAYBE HABIT FORMING BUTORPHANOL Yes [id number] INSERT 1 [facility] 10 mg/mL 7-30 SPRAY INTO ity o f nasal spray 00:00: [place] 00 EVERY 8 Medical HOURS Branch NEEDED FOR PAIN*USE SPARINGLY* *MAYBE HABIT FORMING BUTORPHANOL Yes [id number] INSERT 1 [facility] 10 mg/mL 7-30 SPRAY INTO ity o f nasal spray 00:00: [place] 00 EVERY 8 Medical HOURS Branch NEEDED FOR PAIN*USE SPARINGLY* *[employer]BE H[employer]MING TOPIRAMATE Yes [id number] TAKE 1 [facility] 25 mg 6-12 TABLET BY ity of tablet 00:00: MOUTH [place] 00 TWICE A Medical DAY Branch TOPIRAMATE Yes [id number] TAKE 1 [facility] 25 mg 6-12 TABLET BY ity of tablet 00:00: MOUTH [place] 00 TWICE A Medical DAY Branch TOPIRAMATE Yes [id number] TAKE 1 [facility] 25 mg 6-12 TABLET BY ity of tablet 00:00: MOUTH [place] 00 TWICE A Medical DAY Branch TOPIRAMATE Yes [id number] TAKE 1 [facility] 25 mg 6-12 TABLET BY ity of tablet 00:00: MOUTH 00 TWICE A Medical DAY Branch TOPIRAMATE 2019-0 Yes [id number] TAKE 1 [facility] 25 mg 6-12 TABLET BY ity of tablet 00:00: MOUTH [place] 00 TWICE A Medical DAY Branch TOPIRAMATE 2019-0 Yes [id number] TAKE 1 [facility] 25 mg 6-12 TABLET BY ity of tablet 00:00: MOUTH [place] 00 TWICE A Medical DAY Branch butorphanol 2018-0 2019- No [id number] 1{spray Use 1 [facility] 10 mg/mL 5-24 02-08 } [place] in ity of nasal spray 00:00: 00:00 each [place] 00 :00 nostril Medical every 8 Branch (eight) hours as needed for Pain. cephALEXin 2018- Yes TAKE 1 Unive rs 500 mg 5-15 CAPSULE BY ity of capsule 00:00: MOUTH [place] 00 EVERY 6 Medical HOURS X7 Branch DAYS cephALEXin Yes TAKE 1 Unive rs 500 mg 5-15 CAPSULE BY ity of capsule 00:00: MOUTH [place] 00 EVERY 6 Medical HOURS X7 Branch DAYS cephALEXin 2018-0 Yes TAKE 1 Unive rs 500 mg 5-15 CAPSULE BY ity of capsule 00:00: MOUTH [place] 00 EVERY 6 Medical HOURS X7 Branch DAYS cephALEXin 2018-0 Yes TAKE 1 Unive rs 500 mg 5-15 CAPSULE BY ity of capsule 00:00: MOUTH [place] 00 EVERY 6 Medical HOURS X7 Branch DAYS cephALEXin 2019-0 Yes TAKE 1 Unive rs 500 mg 5-15 CAPSULE BY ity of capsule 00:00: MOUTH [place] 00 EVERY 6 Medical HOURS X7 Branch DAYS cephALEXin 2019-0 Yes TAKE 1 Unive rs 500 mg 5-15 CAPSULE BY ity of capsule 00:00: MOUTH [place] 00 EVERY 6 Medical HOURS X7 Branch DAYS cephALEXin 2019-0 Yes TAKE 1 Unive rs 500 mg 5-15 CAPSULE BY ity of capsule 00:00: MOUTH [place] 00 EVERY 6 Medical HOURS X7 Branch DAYS cephALEXin 2019-0 Yes TAKE 1 Unive rs 500 mg 5-15 CAPSULE BY ity of capsule 00:00: MOUTH [place] 00 EVERY 6 Medical HOURS X7 Branch DAYS cephALEXin 2019-0 Yes TAKE 1 Unive rs 500 mg 5-15 CAPSULE BY ity of capsule 00:00: MOUTH [place] 00 EVERY 6 Medical HOURS X7 Branch DAYS cephALEXin 2019-0 Yes TAKE 1 Unive rs 500 mg 5-15 CAPSULE BY ity of capsule 00:00: MOUTH [place] 00 EVERY 6 Medical HOURS X7 Branch DAYS cephALEXin 2019-0 Yes TAKE 1 Unive rs 500 mg 5-15 CAPSULE BY ity of capsule 00:00: MOUTH [place] 00 EVERY 6 Medical HOURS X7 Branch DAYS cephALEXin 2019-0 Yes TAKE 1 Unive rs 500 mg 5-15 CAPSULE BY ity of capsule 00:00: MOUTH [place] 00 EVERY 6 Medical HOURS X7 Branch DAYS cephALEXin 2019-0 Yes TAKE 1 Unive rs 500 mg 5-15 CAPSULE BY ity of capsule 00:00: MOUTH [place] 00 EVERY 6 Medical HOURS X7 Branch DAYS cephALEXin 2019-0 Yes TAKE 1 Unive rs 500 mg 5-15 CAPSULE BY ity of capsule 00:00: MOUTH [place] 00 EVERY 6 Medical HOURS X7 Branch DAYS cephALEXin 2019-0 Yes TAKE 1 Unive rs 500 mg 5-15 CAPSULE BY ity of capsule 00:00: MOUTH [place] 00 EVERY 6 Medical HOURS X7 Branch DAYS cephALEXin 2019-0 Yes TAKE 1 Unive rs 500 mg 5-15 CAPSULE BY ity of capsule 00:00: MOUTH [place] 00 EVERY 6 Medical HOURS X7 Branch DAYS cephALEXin 2019-0 Yes TAKE 1 Unive rs 500 mg 5-15 CAPSULE BY ity of capsule 00:00: MOUTH [place] 00 EVERY 6 Medical HOURS X7 Branch DAYS cephALEXin 2019-0 Yes TAKE 1 Unive rs 500 mg 5-15 CAPSULE BY ity of capsule 00:00: MOUTH [place] 00 EVERY 6 Medical HOURS X7 Branch DAYS cephALEXin 2019-0 Yes TAKE 1 Unive rs 500 mg 5-15 CAPSULE BY ity of capsule 00:00: MOUTH [place] 00 EVERY 6 Medical HOURS X7 Branch DAYS cephALEXin 2019-0 Yes TAKE 1 Unive rs 500 mg 5-15 CAPSULE BY ity of capsule 00:00: MOUTH [place] 00 EVERY 6 Medical HOURS X7 Branch DAYS cephALEXin 2019-0 Yes TAKE 1 Unive rs 500 mg 5-15 CAPSULE BY ity of capsule 00:00: MOUTH [place] 00 EVERY 6 Medical HOURS X7 Branch DAYS cephALEXin 2019-0 Yes TAKE 1 Unive rs 500 mg 5-15 CAPSULE BY ity of capsule 00:00: MOUTH [place] 00 EVERY 6 Medical HOURS X7 Branch DAYS cephALEXin 2019-0 Yes TAKE 1 Unive rs 500 mg 5-15 CAPSULE BY ity of capsule 00:00: MOUTH [place] 00 EVERY 6 Medical HOURS X7 Branch DAYS cephALEXin 2019-0 Yes TAKE 1 Unive rs 500 mg 5-15 CAPSULE BY ity of capsule 00:00: MOUTH [place] 00 EVERY 6 Medical HOURS X7 Branch DAYS cephALEXin 2019-0 Yes TAKE 1 Unive rs 500 mg 5-15 CAPSULE BY ity of capsule 00:00: MOUTH [place] 00 EVERY 6 Medical HOURS X7 Branch DAYS cephALEXin 2019-0 Yes TAKE 1 Unive rs 500 mg 5-15 CAPSULE BY ity of capsule 00:00: MOUTH [place] 00 EVERY 6 Medical HOURS X7 Branch DAYS cephALEXin 2019-0 Yes TAKE 1 Unive rs 500 mg 5-15 CAPSULE BY ity of capsule 00:00: MOUTH [place] 00 EVERY 6 Medical HOURS X7 Branch DAYS cephALEXin 2019-0 Yes TAKE 1 Unive rs 500 mg 5-15 CAPSULE BY ity of capsule 00:00: MOUTH [place] 00 EVERY 6 Medical HOURS X7 Branch DAYS cephALEXin 2019-0 Yes TAKE 1 Unive rs 500 mg 5-15 CAPSULE BY ity of capsule 00:00: MOUTH [place] 00 EVERY 6 Medical HOURS X7 Branch DAYS cephALEXin 2019-0 Yes TAKE 1 Unive rs 500 mg 5-15 CAPSULE BY ity of capsule 00:00: MOUTH [place] 00 EVERY 6 Medical HOURS X7 Branch DAYS cephALEXin 2019-0 Yes TAKE 1 Unive rs 500 mg 5-15 CAPSULE BY ity of capsule 00:00: MOUTH [place] 00 EVERY 6 Medical HOURS X7 Branch DAYS cephALEXin 2019-0 Yes TAKE 1 Unive rs 500 mg 5-15 CAPSULE BY ity of capsule 00:00: MOUTH [place] 00 EVERY 6 Medical HOURS X7 Branch DAYS cephALEXin 2019-0 Yes TAKE 1 Unive rs 500 mg 5-15 CAPSULE BY ity of capsule 00:00: MOUTH [place] 00 EVERY 6 Medical HOURS X7 Branch DAYS cephALEXin 2019-0 Yes TAKE 1 Unive rs 500 mg 5-15 CAPSULE BY ity of capsule 00:00: MOUTH [place] 00 EVERY 6 Medical HOURS X7 Branch DAYS cephALEXin 2019-0 Yes TAKE 1 Unive rs 500 mg 5-15 CAPSULE BY ity of capsule 00:00: MOUTH [place] 00 EVERY 6 Medical HOURS X7 Branch DAYS cephALEXin 2019-0 Yes TAKE 1 Unive rs 500 mg 5-15 CAPSULE BY ity of capsule 00:00: MOUTH [place] 00 EVERY 6 Medical HOURS X7 Branch DAYS Betamethaso Betamethaso 2018-0 No 1mL Common ne Sodium ne Sodium 7-27 Spiri t Phosphate Phosphate 00:00: - C HI [facility] LIDOCAINE LIDOCAINE 2018-0 No 5mL Com mon HCL 10MG/ML HCL 10MG/ML 7-27 S pirit 00:00: - CHI 00 [facility] Betamethaso Betamethaso 2018-0 No 1mL Common ne Sodium ne Sodium 7-27 Spiri t Phosphate Phosphate 00:00: - C HI [facility] LIDOCAINE LIDOCAINE 2018-0 No 5mL Com mon HCL 10MG/ML HCL 10MG/ML 7-27 S pirit 00:00: - CHI 00 [facility] Betamethaso Betamethaso 2018-0 No 1mL Common ne Sodium ne Sodium 7-27 Spiri t Phosphate Phosphate 00:00: - C HI [facility] LIDOCAINE LIDOCAINE 2018-0 No 5mL Com mon HCL 10MG/ML HCL 10MG/ML 7-27 S pirit 00:00: - CHI [facility] Betamethaso Betamethaso 2018-0 No 1mL Common ne Sodium ne Sodium 7-27 Spiri t Phosphate Phosphate 00:00: - C HI [facility] LIDOCAINE LIDOCAINE 2018-0 No 5mL Com mon HCL 10MG/ML HCL 10MG/ML 7-27 S pirit 00:00: - CHI 00 [facility] Betamethaso Betamethaso 2018-0 No 1mL Common ne Sodium ne Sodium 7-27 Spiri t Phosphate Phosphate 00:00: - C HI [facility] LIDOCAINE LIDOCAINE 2018-0 No 5mL Com mon HCL 10MG/ML HCL 10MG/ML 7-27 S pirit 00:00: - CHI 00 [facility] Betamethaso Betamethaso 2018-0 No 1mL Common ne Sodium ne Sodium 7-27 Spiri t Phosphate Phosphate 00:00: - C HI [facility] LIDOCAINE LIDOCAINE 2018-0 No 5mL Com mon HCL 10MG/ML HCL 10MG/ML 7-27 S pirit 00:00: - [facility]I 00 [facility] Betamethaso Betamethaso 2018-0 No 1mL Common ne Sodium ne Sodium 7-27 Spiri t Phosphate Phosphate 00:00: - C HI [facility] LIDOCAINE LIDOCAINE 2018-0 No 5mL Com mon HCL 10MG/ML HCL 10MG/ML 7-27 S pirit 00:00: - [facility]I 00 [facility] acetaminoph Yes 1{tbl} Take 1 Un moises en-codeine 7-26 tablet by ity of (TYLENOL-CO 00:00: mouth [place] DEINE #3) 00 every 4 Medical 300-30 mg (four) Branch tablet hours as needed for Pain (scale 4-6). acetaminoph Yes 1{tbl} Take 1 Un moises en-codeine 7-26 tablet by ity of (TYLENOL-CO 00:00: mouth [place] DEINE #3) 00 every 4 Medical 300-30 mg (four) Branch tablet hours as needed for Pain (scale 4-6). acetaminoph Yes 1{tbl} Take 1 Un moises en-codeine 7-26 tablet by ity of (TYLENOL-CO 00:00: mouth [place] DEINE #3) 00 every 4 Medical 300-30 mg (four) Branch tablet hours as needed for Pain (scale 4-6). acetaminoph Yes 1{tbl} Take 1 Un moises en-codeine 7-26 tablet by ity of (TYLENOL-CO 00:00: mouth [place] DEINE #3) 00 every 4 Medical 300-30 mg (four) Branch tablet hours as needed for Pain (scale 4-6). acetaminoph Yes 1{tbl} Take 1 Un moises en-codeine 7-26 tablet by ity of (TYLENOL-CO 00:00: mouth [place] DEINE #3) 00 every 4 Medical 300-30 mg (four) Branch tablet hours as needed for Pain (scale 4-6). acetaminoph Yes 1{tbl} Take 1 Un moises en-codeine 7-26 tablet by ity of (TYLENOL-CO 00:00: mouth [place] DEINE #3) 00 every 4 Medical 300-30 mg (four) Branch tablet hours as needed for Pain (scale 4-6). acetaminoph Yes 1{tbl} Take 1 Un moises en-codeine 7-26 tablet by ity of (TYLENOL-CO 00:00: mouth [place] DEINE #3) 00 every 4 Medical 300-30 mg (four) Branch tablet hours as needed for Pain (scale 4-6). acetaminoph Yes 1{tbl} Take 1 Un moises en-codeine 7-26 tablet by ity of (TYLENOL-CO 00:00: mouth [place] DEINE #3) 00 every 4 Medical 300-30 mg (four) Branch tablet hours as needed for Pain (scale 4-6). acetaminoph Yes 1{tbl} Take 1 Un moises en-codeine 7-26 tablet by ity of (TYLENOL-CO 00:00: mouth [place] DEINE #3) 00 every 4 Medical 300-30 mg (four) Branch tablet hours as needed for Pain (scale 4-6). acetaminoph Yes 1{tbl} Take 1 Un moises en-codeine 7-26 tablet by ity of (TYLENOL-CO 00:00: mouth [place] DEINE #3) 00 every 4 Medical 300-30 mg (four) Branch tablet hours as needed for Pain (scale 4-6). acetaminoph Yes 1{tbl} Take 1 Un moises en-codeine 7-26 tablet by ity of (TYLENOL-CO 00:00: mouth [place] DEINE #3) 00 every 4 Medical 300-30 mg (four) Branch tablet hours as needed for Pain (scale 4-6). acetaminoph Yes 1{tbl} Take 1 Un moises en-codeine 7-26 tablet by ity of (TYLENOL-CO 00:00: mouth [place] DEINE #3) 00 every 4 Medical 300-30 mg (four) Branch tablet hours as needed for Pain (scale 4-6). acetaminoph Yes 1{tbl} Take 1 Un moises en-codeine 7-26 tablet by ity of (TYLENOL-CO 00:00: mouth [place] DEINE #3) 00 every 4 Medical 300-30 mg (four) Branch tablet hours as needed for Pain (scale 4-6). acetaminoph Yes 1{tbl} Take 1 Un moises en-codeine 7-26 tablet by ity of (TYLENOL-CO 00:00: mouth [place] DEINE #3) 00 every 4 Medical 300-30 mg (four) Branch tablet hours as needed for Pain (scale 4-6). acetaminoph Yes 1{tbl} Take 1 Un moises en-codeine 7-26 tablet by ity of (TYLENOL-CO 00:00: mouth [place] DEINE #3) 00 every 4 Medical 300-30 mg (four) Branch tablet hours as needed for Pain (scale 4-6). acetaminoph 0 Yes 1{tbl} Take 1 Un moises en-codeine 7-26 tablet by ity of (TYLENOL-CO 00:00: mouth [place] DEINE #3) 00 every 4 Medical 300-30 mg (four) Branch tablet hours as needed for Pain (scale 4-6). acetaminoph 0 Yes 1{tbl} Take 1 Un moises en-codeine 7-26 tablet by ity of (TYLENOL-CO 00:00: mouth [place] DEINE #3) 00 every 4 Medical 300-30 mg (four) Branch tablet hours as needed for Pain (scale 4-6). acetaminoph Yes 1{tbl} Take 1 Un moises en-codeine 7-26 tablet by ity of (TYLENOL-CO 00:00: mouth [place] DEINE #3) 00 every 4 Medical 300-30 mg (four) Branch tablet hours as needed for Pain (scale 4-6). acetaminoph 0 Yes 1{tbl} Take 1 Un moises en-codeine 7-26 tablet by ity of (TYLENOL-CO 00:00: mouth [place] DEINE #3) 00 every 4 Medical 300-30 mg (four) Branch tablet hours as needed for Pain (scale 4-6). acetaminoph 0 Yes 1{tbl} Take 1 Un moises en-codeine 7-26 tablet by ity of (TYLENOL-CO 00:00: mouth [place] DEINE #3) 00 every 4 Medical 300-30 mg (four) Branch tablet hours as needed for Pain (scale 4-6). acetaminoph 0 Yes 1{tbl} Take 1 Un moises en-codeine 7-26 tablet by ity of (TYLENOL-CO 00:00: mouth [place] DEINE #3) 00 every 4 Medical 300-30 mg (four) Branch tablet hours as needed for Pain (scale 4-6). acetaminoph Yes 1{tbl} Take 1 Un moises en-codeine 7-26 tablet by ity of (TYLENOL-CO 00:00: mouth [place] DEINE #3) 00 every 4 Medical 300-30 mg (four) Branch tablet hours as needed for Pain (scale 4-6). acetaminoph 0 Yes 1{tbl} Take 1 Un moises en-codeine 7-26 tablet by ity of (TYLENOL-CO 00:00: mouth [place] DEINE #3) 00 every 4 Medical 300-30 mg (four) Branch tablet hours as needed for Pain (scale 4-6). acetaminoph Yes 1{tbl} Take 1 Un moises en-codeine 7-26 tablet by ity of (TYLENOL-CO 00:00: mouth [place] DEINE #3) 00 every 4 Medical 300-30 mg (four) Branch tablet hours as needed for Pain (scale 4-6). acetaminoph Yes 1{tbl} Take 1 Un moises en-codeine 7-26 tablet by ity of (TYLENOL-CO 00:00: mouth [place] DEINE #3) 00 every 4 Medical 300-30 mg (four) Branch tablet hours as needed for Pain (scale 4-6). acetaminoph Yes 1{tbl} Take 1 Un moises en-codeine 7-26 tablet by ity of (TYLENOL-CO 00:00: mouth [place] DEINE #3) 00 every 4 Medical 300-30 mg (four) Branch tablet hours as needed for Pain (scale 4-6). acetaminoph 0 Yes 1{tbl} Take 1 Un moises en-codeine 7-26 tablet by ity of (TYLENOL-CO 00:00: mouth [place] DEINE #3) 00 every 4 Medical 300-30 mg (four) Branch tablet hours as needed for Pain (scale 4-6). acetaminoph 0 Yes 1{tbl} Take 1 Un moises en-codeine 7-26 tablet by ity of (TYLENOL-CO 00:00: mouth [place] DEINE #3) 00 every 4 Medical 300-30 mg (four) Branch tablet hours as needed for Pain (scale 4-6). acetaminoph 2015-0 Yes 1{tbl} Take 1 Un moises en-codeine 7-26 tablet by ity of (TYLENOL-CO 00:00: mouth [place] DEINE #3) 00 every 4 Medical 300-30 mg (four) Branch tablet hours as needed for Pain (scale 4-6). acetaminoph 2016 Yes 1{tbl} Take 1 Un moises en-codeine 7-26 tablet by ity of (TYLENOL-CO 00:00: mouth [place] DEINE #3) 00 every 4 Medical 300-30 mg (four) Branch tablet hours as needed for Pain (scale 4-6). acetaminoph acetaminoph No acetaminop [facility] en 300 en 300 hen 300 Medical mg-codeine mg-codeine mg-codeine 30 mg 30 mg 30 mg tablet TAKE tablet TAKE tablet 1 TABLET BY 1 TABLET BY TAKE 1 MOUTH EVERY MOUTH EVERY TABLET BY 4 - 6 HOURS 4 - 6 HOURS MOUTH NEEDED NEEDED EVERY 4 - FOR 5 DYAS FOR 5 DYAS 6 HOURS NEEDED FOR 5 DYAS hydrocodone hydrocodone No hydrocodon [facility] 5 5 e 5 Medical mg-acetamin mg-acetamin mg-acetami ophen 325 ophen 325 nophen 325 mg tablet mg tablet mg tablet Take 1 Take 1 Take 1 tablet tablet tablet every 6 every 6 every 6 hours by hours by hours by oral route oral route oral route as needed. as needed. as needed. hydrocortis hydrocortis No hydrocorti [facility] one 2.5 % one 2.5 % sone 2.5 % Medical topical topical topical cream with cream with cream with perineal perineal perineal applicator applicator applicator APPLY A APPLY A APPLY A THIN LAYER THIN LAYER THIN LAYER TO THE TO THE TO THE AFFECTED AFFECTED AFFECTED AREA(S) BY AREA(S) BY AREA(S) BY TOPICAL TOPICAL TOPICAL ROUTE 2-4 ROUTE 2-4 ROUTE 2-4 TIMESDAILY TIMESDAILY TIMESDAILY ibuprofen ibuprofen No ibuprofen [facility] 800 mg 800 mg 800 mg Medical tablet Take tablet Take tablet 1 tablet 1 tablet Take 1 every 8 every 8 tablet hours by hours by every 8 oral route oral route hours by as as oral route directed. directed. as directed. montelukast montelukast No montelukas [facility] 10 mg 10 mg t 10 mg Medical tablet tablet tablet ondansetron ondansetron No 1 Q4H ondansetro [facility] 4 mg 4 mg n 4 mg Medical disintegrat disintegrat disintegra ing tablet ing tablet ting Place 1 Place [address] 1 every 4 every 4 tablet hours by hours by every 4 translingua translingua hours by l route as l route as translingu needed for needed for al route 30 days. 30 days. as needed for 30 days. pantoprazol pantoprazol No pantoprazo [facility] e 40 mg e 40 mg le 40 mg Medic al tablet,lizandro tablet,lizandro tablet,del yed release yed release ayed TAKE 1 TAKE 1 release TABLET BY TABLET BY TAKE 1 MOUTH EVERY MOUTH EVERY TABLET BY DAY DAY MOUTH EVERY DAY Zofran 4 mg Zofran 4 mg No 1 Q5H Zofran 4 [facility] tablet Take tablet Take mg tablet Medical 1 tablet 1 tablet Take 1 every 4-6 every 4-6 tablet hours by hours by every 4-6 oral route oral route hours by as needed as needed oral route for 30 for 30 as needed days. days. for 30 days. buprenorphi buprenorphi No buprenorph [facility] ne 8 ne 8 ine 8 Medical mg-naloxone mg-naloxone mg-naloxon 2 mg 2 mg e 2 mg sublingual sublingual sublingual film TAKE 1 film TAKE 1 film TAKE FILM TWICE FILM TWICE 1 FILM A DAY FOR A DAY FOR TWICE A 28 DAY(S) 28 DAY(S) DAY FOR 28 DAY(S) gabapentin gabapentin No gabapentin [facility] 300 mg 300 mg 300 mg Medical capsule capsule capsule TAKE 1 TAKE 1 TAKE 1 CAPSULE CAPSULE CAPSULE THREE TIMES THREE TIMES THREE A DAY FOR A DAY FOR TIMES A 28 DAYS 28 DAYS DAY FOR 28 START AT START AT DAYS START BEDTIME X 3 BEDTIME X 3 AT BEDTIME DAYS THEN 3 DAYS THEN 3 X 3 DAYS TIMES A DAY TIMES A DAY THEN 3 TIMES A DAY Cyclobenzap Cyclobenzap Yes Eddy not Common rine HCl rine HCl Lester defined Spir it - [facility] Cyclobenzap Cyclobenzap No Cyclobenza rine HCl 10 rine HCl 10 adry HCl MG MG 10 MG Gabapentin Gabapentin No Gabapentin Cyclobenzap Cyclobenzap No Cyclobenza rine HCl 10 rine HCl 10 adry HCl MG MG 10 MG Gabapentin Gabapentin No Gabapentin Cyclobenzap Cyclobenzap No Cyclobenza rine HCl 10 rine HCl 10 adry HCl MG MG 10 MG Gabapentin Gabapentin No Gabapentin Cyclobenzap Cyclobenzap No Cyclobenza rine HCl 10 rine HCl 10 adry HCl MG MG 10 MG Gabapentin Gabapentin No Gabapentin Gabapentin Gabapentin No Gabapentin Cyclobenzap Cyclobenzap No Cyclobenza rine HCl 10 rine HCl 10 adry HCl MG MG 10 MG Suboxone Suboxone No Suboxone Cyclobenzap Cyclobenzap No Cyclobenza rine HCl 10 rine HCl 10 adry HCl MG MG 10 MG Gabapentin Gabapentin No Gabapentin traMADol traMADol No traMADol HCl HCl HCl Suboxone Suboxone No Suboxone traMADol traMADol No traMADol HCl HCl HCl Gabapentin Gabapentin No Gabapentin Suboxone Suboxone No Suboxone Cyclobenzap Cyclobenzap No Cyclobenza rine HCl 10 rine HCl 10 adry HCl MG MG 10 MG Immunizations Ordered Immunization Filled Immunization Date Status Commen ts Source Name Name influenza, influenza, 2021-04-04 Completed [facility] injectable, injectable, 12:28:09 quadrivalent, quadrivalent, preservative free preservative free influenza, influenza, 2021-04-04 Completed [facility] injectable, injectable, 12:28:09 quadrivalent, quadrivalent, preservative free preservative free Vital Signs Vital Name Observation Time Observation Value Comments Source blood pressure 2021-12-12 74 mm[Hg] [facility] - diastolic 10:15:00 [facility] height 2021-12-12 65 [in_i] [facility] - 10:15:00 [facility] weight 2021-12-12 164 [lb_av] [facility] - 10:15:00 [facility] temperature 2021-12-12 97.1 [degF] [facility] - 10:15:00 [facility] bmi 2021-12-12 27.29 kg/m2 [facility] - 10:15:00 [facility] blood pressure 2021-12-12 112 mm[Hg] [facility] - systolic 10:15:00 [facility] height 2021-11-25 65 [in_i] [facility] - 10:15:00 [facility] weight 2021-11-25 164 [lb_av] [facility] - 10:15:00 [facility] temperature 2021-11-25 97.4 [degF] [facility] - 10:15:00 [facility] bmi 2021-11-25 27.29 kg/m2 [facility] - 10:15:00 [facility] blood pressure 2021-11-25 100 mm[Hg] [facility] - systolic 10:15:00 [facility] blood pressure 2021-11-25 64 mm[Hg] [facility] - diastolic 10:15:00 [facility] height 2021-11-07 65 [in_i] [facility] - 14:45:00 [facility] weight 2021-11-07 164 [lb_av] [facility] - 14:45:00 [facility] temperature 2021-11-07 97.4 [degF] [facility] - 14:45:00 [facility] bmi 2021-11-07 27.29 kg/m2 [facility] - 14:45:00 [facility] blood pressure 2021-11-07 132 mm[Hg] [facility] - systolic 14:45:00 [facility] blood pressure 2021-11-07 74 mm[Hg] [facility] - diastolic 14:45:00 [facility] height 2021-10-10 65 [in_i] [facility] - 11:00:00 [facility] weight 2021-10-10 164 [lb_av] [facility] - 11:00:00 [facility] temperature 2021-10-10 97.8 [degF] [facility] - 11:00:00 [facility] bmi 2021-10-10 27.29 kg/m2 [facility] - 11:00:00 [facility] blood pressure 2021-10-10 122 mm[Hg] [facility] - systolic 11:00:00 [facility] blood pressure 2021-10-10 82 mm[Hg] [facility] - diastolic 11:00:00 [facility] Height 2021-09-18 65 [in_i] [facility] 00:00:00 BMI (Body Mass 2021-09-18 26.6 kg/m2 [facility] Index) 00:00:00 Body Weight 2021-09-18 2560 [oz_av] [facility] 00:00:00 BP Diastolic 2021-07-03 89 mm[Hg] [facility] 00:00:00 Height 2021-07-03 65 [in_i] [facility] 00:00:00 BMI (Body Mass 2021-07-03 26.6 kg/m2 [facility] l Index) 00:00:00 BP Systolic 2021-07-03 132 mm[Hg] [facility] 00:00:00 Body Weight 2021-07-03 160 [lb_av] [facility] 00:00:00 Systolic blood 2020-10-16 114 mm[Hg] [facility] pressure 19:04:00 [facility] Diastolic blood 2020-10-16 78 mm[Hg] [facility] pressure 19:04:00 [facility] Heart rate 2020-10-16 84 /min University of 19:04:00 [facility] Body temperature 2020-10-16 36.72 [place] [facility] of 19:04:00 [facility] Respiratory rate 2020-10-16 18 /min University of 19:04:00 [facility] Body height 2020-10-16 165.1 cm University of 19:04:00 [facility] Body weight 2020-10-16 74.98 kg University of 19:04:00 [facility] BMI 2020-10-16 27.51 kg/m2 University of 19:04:00 [facility] Systolic blood 2019-10-09 126 mm[Hg] [facility] pressure 20:16:00 [facility] Diastolic blood 2019-10-09 81 mm[Hg] University o [facility] pressure 20:16:00 [facility] Heart rate 2019-10-09 77 /min University of 20:16:00 [facility] Body temperature 2019-10-09 36.89 [place] [facility] 20:16:00 [facility] Respiratory rate 2019-10-09 18 /min University of 20:16:00 [facility] Body height 2019-10-09 165.1 cm University of 20:16:00 [facility] Body weight 2019-10-09 72.576 kg University of 20:16:00 [facility] BMI 2019-10-09 26.63 kg/m2 University of 20:16:00 [facility] Oxygen saturation 2019-10-09 97 /min [facility] in Arterial blood 20:16:00 [facility] by Pulse oximetry [place] Systolic blood 2021-09-11 144 mm[Hg] [facility] pressure 19:20:00 Hospital Diastolic blood 2021-09-11 94 mm[Hg] [facility] pressure 19:20:00 Hospital Heart rate 2021-09-11 79 /min [facility] 19:20:00 Hospital Body temperature 2021-09-11 36.78 [place] [facility] 19:20:00 Hospital Respiratory rate 2021-09-11 18 /min [facility] 19:20:00 Hospital Oxygen saturation 2021-09-11 99 /min [facility] in Arterial blood 19:20:00 Hospital by Pulse oximetry Body height 2021-09-11 165.1 cm [facility] 15:52:00 Hospital Body weight 2021-09-11 73.936 kg [facility] 15:52:00 Hospital BMI 2021-09-11 27.12 kg/m2 [facility] 15:52:00 Hospital Systolic blood 2020-05-10 136 mm[Hg] Location: [facility]; [facility] pressure 09:33:00 Position: Sitting Diastolic blood 2020-05-10 93 mm[Hg] [place] [facility] [place] [facility] pressure 09:33:00 Position: Sitting Body height 2020-05-10 65 [in_us] [facility] 09:33:00 Weight 2020-05-10 168.4 [lb_av] [facility] 09:33:00 Body mass index 2020-05-10 28.02 kg/m2 [facility] (BMI) [Ratio] 09:33:00 Body temperature 2020-05-10 98.2 [degF] Method: [facility] 09:33:00 Temporal Heart Rate 2020-05-10 73 /min [facility] 09:33:00 O2 SAT 2020-05-10 99 % Source: RA [facility] 09:33:00 Systolic blood 2020-01-03 127 mm[Hg] [facility] pressure 09:33:00 Diastolic blood 2020-01-03 87 mm[Hg] [facility] pressure 09:33:00 Body height 2020-01-03 65 [in_us] [facility] 09:33:00 Weight 2020-01-03 180 [lb_av] [facility] 09:33:00 Body mass index 2020-01-03 29.95 kg/m2 [facility] (BMI) [Ratio] 09:33:00 Body temperature 2020-01-03 98.2 [degF] [facility] 09:33:00 Heart Rate 2020-01-03 89 /min [facility] 09:33:00 BP Systolic 2019-06-14 117 mm[Hg] [facility] 14:05:00 BP Diastolic 2019-06-14 78 mm[Hg] [facility] 14:05:00 Height 2019-06-14 65 [in_us] [facility] 14:05:00 Weight 2019-06-14 156.375 [lb_av] [facility] 14:05:00 Body Mass Index 2019-06-14 26.02 kg/m2 [facility] Calculated 14:05:00 Temperature 2019-06-14 97.5 [degF] [facility] 14:05:00 Heart Rate 2019-06-14 80 /min [facility] 14:05:00 Respiration Rate 2019-06-14 80 /min [facility] 14:05:00 Procedures Procedure Date / Time Performing Clinician Source Performed MRI, brain, w/o contrast 2021-09-18 00:00:00 Kristy via Medical MRI, cervical spine, w/o 2021-09-18 00:00:00 Kristy via Medical contrast CT HEAD WO CONTRAST 2021-09-11 17:38:41 Rosa ElenaJean Marie walker [facility] CT CERVICAL SPINE WO 2021-09-11 17:35:00 Rosa ElenaJean Marie walker [facility] CONTRAST HC COMPLETE BLD COUNT 2021-09-11 16:55:00 Rosa ElenaJean Marie salvador [facility] W/AUTO DIFF COMPREHENSIVE METABOLIC 2021-09-11 16:55:00 Rosa Elena Jean Marie D. [facility] PANEL HCG QUALITATIVE, URINE 2021-09-11 16:55:00 Rosa ElenaJean Marie salvador [facility] SCREEN URINALYSIS 2021-09-11 16:55:00 Rosa ElenaJean Marie walker [facility] ESTIMATED GFR 2021-09-11 16:55:00 Rosa ElenaJean Marie walker [facility] [id number] 2021-05-30 00:00:00 LEBJO [facility] [id number] 2021-05-30 00:00:00 LEBJO [facility] [id number] 2021-05-30 00:00:00 LEBJO [facility] [id number] 2021-05-30 00:00:00 LEBJO [facility] [UT[facility]] Neuro - Nerve 2020-10-31 00:00:00 [facility] Blocks DISCLOSURE AND CONSENT, 2020-10-16 05:01:00 [facility] [place] [facility] PROCEDURES Hysteroscopy 2020-08-13 00:00:00 [facility] MEDICATION CORRESPONDENCE 2020-08-10 06:01:00 Doctor Unassigned, [facility] [place] [facility] Knee Arthroscopy/surgery 2020-06-12 00:00:00 Kristy via Medical Tilt Table Test 2020-03-25 00:00:00 [facility] MRI Brain wo contrast 2020-03-21 00:00:[place] [id number] [[place]] Toxin - Botox 2020-02-15 00:00:00 [facility] [[facility]] Toxin - Botox 2019-12-09 00:00:00 [facility] [[facility]] Toxin - Botox 2019-11-29 00:00:00 [facility] POCT FLU A AND B 2019-10-09 20:28:00 Trang Kinsey [facility] (MOLECULAR) [facility] [[facility]] Toxin - Botox 2019-07-27 00:00:00 [facility] AUTHORIZATION FOR RELEASE 2019-06-29 06:01:00 Doctor Иван, [facility] [place] [facility] [[facility]] Toxin - Botox 2019-06-14 00:00:00 [facility] AUTHORIZATION FOR RELEASE 2019-02-25 05:01:00 Doctor Иван, [facility] [place] [facility] MR CERVICAL SPINE W WO 2019-02-22 20:05:59 [facility] [place] MR VENOGRAM HEAD WO 2019-02-22 19:35:32 Jamar Veras Uni versity [facility] CONTRAST [facility] MR BRAIN W WO CONTRAST 2019-02-22 19:00:00 Jamar Veras [facility] ASSIGNMENT OF BENEFITS 2019-02-22 17:34:41 Doctor Unassigned, Un [facility] [place] [facility] Knee Arthroscopy/surgery 2015-07-13 00:00:00 Kristy via Medical Dilation and Curettage 2013-07-13 00:00:00 [facility] Shoulder Joint Surgery [facility] Laparoscopy [facility] Appendectomy [facility] History of In vitro [facility] fertilization Plan of Care Planned Activity Planned Date Details Comments Source Future Scheduled 2022-05-13 HEPATITIS B VACCINES Met [facility] Test 08:02:10 (1 of 3 - 3-dose series) [code = HEPATITIS B VACCINES (1 of 3 - 3-dose series)] Future Scheduled 2022-05-13 Hepatitis C [facility] Test 08:02:10 screening (procedure) [code = 605908412] Future Scheduled 2022-05-13 Screening for [facility] Test 08:02:10 malignant neoplasm of cervix (procedure) [code = 572370466] Future Scheduled 2022-05-13 COVID-19 [facility]10 - Booster for Pfizer series) [code = COVID-19 VACCINE (3 - Booster for Pfizer series)] Future Scheduled 2022-05-13 INFLUENZA VACCINE Method [facility] Test 08:02:10 [code = INFLUENZA VACCINE] Diagnostic Test 2021-07-03 vitamin D, [facility] Pending 00:00:00 25-hydroxy, total, serum [code = vitamin D, 25-hydroxy, total, serum] Diagnostic Test 2021-07-03 Grapefruit IgE Ab [facility] Pending 00:00:00 [Units/volume] in Serum [code = 6131-7] Diagnostic Test 2021-07-03 TSH + free T4, serum [facility] Pending 00:00:00 [code = TSH + free T4, serum] Diagnostic Test 2021-07-03 Pyridoxine congeners [facility] Pending 00:00:00 [Mass/volume] in Serum or Plasma [code = 2901-7] Diagnostic Test 2021-07-03 vitamin B12 + [facility]i amada Pending 00:00:00 folate, serum or blood [code = vitamin B12 + folate, serum or blood] Diagnostic Test 2021-07-03 Spiny Pigweed IgE Ab [facility] Pending 00:00:00 [Units/volume] in Serum [code = 6250-5] Diagnostic Test 2021-07-03 zander albicans [facility] Pending 00:00:00 DNA, PCR, vaginal fluid [code = zander albicans DNA, PCR, vaginal fluid] Diagnostic Test 2020-10-31 [[facility]] Neuro - Nerve [facility] Pending 00:00:00 Blocks [code = [UTP] Neuro - Nerve Blocks] Future Scheduled 2020-03-27 [UTP] Toxin - Botox [facility] Test 00:00:00 [code = [UTP] Toxin - Botox] Future Scheduled 2020-03-27 [UTP] Toxin - Botox [facility] Test 00:00:00 [code = [UTP] Toxin - Botox] Future Scheduled 2019-12-20 [UTP] Toxin - Botox [facility] Test 00:00:00 [code = [UTP] Toxin - Botox] Diagnostic Test 2019-11-29 [UTP] Toxin - Botox [facility] Pending 00:00:00 [code = [UTP] Toxin - Botox] Diagnostic Test 2019-11-29 [UTP] Toxin - Botox [facility] Pending 00:00:00 [code = [UTP] Toxin - Botox] Diagnostic Test 2019-11-29 [UTP] Toxin - Botox [facility] Pending 00:00:00 [code = [UTP] Toxin - Botox] Diagnostic Test 2019-08-30 [UTP] Toxin - Botox [facility] Pending 00:00:00 [code = [UTP] Toxin - Botox] Diagnostic Test 2019-08-30 [UTP] Toxin - Botox [facility] Pending 00:00:00 [code = [UTP] Toxin - Botox] Diagnostic Test 2019-06-14 [UTP] Toxin - Botox [facility] Pending 00:00:00 [code = [UTP] Toxin - Botox] Diagnostic Test 2019-06-14 [UTP] Toxin - Botox [facility] Pending 00:00:00 [code = [UTP] Toxin - Botox] Encounters Start End Encounter Admission Attending Care Care Encounter Source Date/Time Date/Time Type Type Clinicians Facility Department ID 2022-01-23 Outpatient [facility] [id number] Common 15:39:00 [facility] 2021-10-10 Outpatient [facility] [id number] Common 11:18:01 [facility] 2021-10-09 Outpatient STLMLC STLMLC [id number] Common 10:41:00 [facility] 2021-09-25 Outpatient STLMLC STLMLC [id number] Common 11:01:00 [facility] 2021-09-14 Outpatient SANJIV, [facility] [id number] [place] 02:41:35 [facility] 2021-09-13 Outpatient DENISE [facility] [id number] [place] 15:21:58 [facility] 2021-09-09 Outpatient SANJIV, [facility] [id number] [place] 08:51:39 [facility] 2021-08-09 Outpatient SANJIV, [facility] [id number] [place] 15:16:50 [facility] 2021-08-07 Outpatient STLMLC STLMLC [id number] Common 12:21:34 [id number] [facility] 2020-06-29 Inpatient ABIGAIL Bucio, [facility] [id number] [facility] 11:00:00 Rob Vicente [facility] 2018-10-22 Inpatient U [id number] [facility] H 16:11:00 2021-12-12 2021-12-12 NON-BILLAB STLMLC STLMLC [id number] Common 00:00:00 00:00:[address] [facility] 2021-12-07 2021-12-07 Outpatient GC_TNC_Lovi PRIV PRIV [id number] [facility] 02:30:00 02:30:00 tt_S [id number] Medica l 2021-11-25 2021-11-25 NON-BILLAB STLMLC STLMLC [id number] Common 00:00:00 00:00:[address] [facility] 2021-11-09 2021-11-09 Outpatient GC_TNC_Lovi PRIV PRIV [id number] [facility] 01:16:00 01:16:00 tt_S [id number] Medica l 2021-11-07 2021-11-07 OFFICE STLMLC STLMLC [id number] Co mmon 00:00:00 00:00:[address] 2021-10-28 2021-10-28 (TEL) STLMLC STLMLC [id number] Co mmon 00:00:00 00:00:00 [facility] 2021-10-14 2021-10-14 (TEL) STLMLC STLMLC [id number] Co mmon 00:00:00 00:00:00 [facility] 2021-10-12 2021-10-12 Outpatient GC_TNC_Lovi PRIV PRIV [id number] [facility] 02:26:00 02:26:00 tt_S [id number] Medica l 2021-10-10 2021-10-10 (TEL) STLMLC STLMLC [id number] Co mmon 00:00:00 00:00:00 [facility] 2021-10-10 2021-10-10 OFFICE STLMLC STLMLC [id number] Co mmon 00:00:00 00:00:00 VISIT [facility] LEVEL 4 [facility] 2021-09-18 2021-09-18 Outpatient GC_TNC_Lovi PRIV PRIV [id number] [facility] 12:53:00 12:53:00 tt_S [id number] Medica l 2021-09-18 2021-09-18 Outpatient Waldemar PRIV PRIV [id number] 00:00:00 00:00:00 Masood Spaulding [id number] 2021-09-18 2021-09-18 Masood Spaulding PRIV PR - [facility] [id number] [facility] 00:00:00 00:00:00 Waldemar [facility] - Medic hipolito GIL: [id number] GC_TNC_Sout [facility], Office* [address], [place] [address] , Ph. 2021-09-17 2021-09-17 Outpatient GC_SWHABAWS PRIV PRIV [id number] [facility] 01:40:00 01:40:00 _Romina [id number] Medi amada 2021-09-16 2021-09-16 Outpatient GC_TNC_Lovi PRIV PRIV [id number] [facility] 10:50:00 10:50:00 tt_S [id number] Medica l 2021-09-11 2021-09-11 Emergency Rosa Elena, [id number] Methodi 09:41:00 13:21:00 Jean Marie BravoMarita [id number] 825 s t [id number] Hospit [id number] l .8 2021-09-11 2021-09-11 Emergency ROSA ELENA, [facility] [id number] [place] 00:00:00 00:00:00 JEAN MARIE [address] 2021-09-11 2021-09-11 Travel [id number] [facility] 00:00:00 00:00:00 [id number] [address] 3.430.2.7 0.2.7.3.698 Ho spita .[id number] 084.8 l .8 2021-09-10 2021-09-10 Outpatient GC_TNC_Lovi PRIV PRIV 215 [id number] [facility] 12:53:00 12:53:00 tt_S [id number] Medica l 2021-08-28 2021-08-28 Telephone MAHSA Randall 6410 1.2.840.114 [id number] [place] 00:00:00 00:00:[address] 350.1.13.58 Health 9.2.7.2.686 [id number] 8 2021-08-11 2021-08-11 Abstract MAHSA Randall 6410 1.2.645.783 [id number] [place] 00:00:00 00:00:[address] 350.1.13.58 Health 9.2.7.2.686 [id number] 8 2021-07-03 2021-07-03 Outpatient GC_SWHABAWS PRIV PRIV 215 [id number] [facility] 02:30:00 02:30:00 _Romina [id number] [facility] 2021-07-03 2021-07-03 Clementina PRIV PR - [facility] [id number] [facility] 00:00:00 00:00:00 Gisella [facility] dical PA: 560 GC_SUSANA [place] _Blossom [facility], [place] [address] , Ph. 2021-07-03 2021-07-03 Outpatient CELESTINO Obando PRIV b966 e92c-[id number] 00:00:00 00:00:00 Clementina 1ab-11ec-9 [id number] 2021-05-29 2021-06-01 Inpatient ABIGAIL Gamez HCACL OBPP [id number] [facility] 11:11:00 11:00:00 Amanda 84 [facility] 2021-05-22 2021-05-22 Outpatient ABIGAIL Gamez HCACL ADMI [id number] [facility] 11:31:00 11:31:00 Amanda 70 [facility] 2020-11-12 2020-11-12 Outpatient JH_SUSANA PRIV PRIV [id number] [facility] 02:45:00 02:45:00 _Fred_J [id number] [facility] 2020-11-08 2020-11-08 Appointmen MAHSA CRABTREE Neurology - [id number] [place] 14:00:00 14:00:00 t; JUSTIN CRABTREE [place] Dejuan ANDERSON M.D. Medical ans M.DMarita Campo 2020-10-31 2020-10-31 Appointmen MAHSA RANDALL Neurology [id number] [place] 11:00:00 11:00:00 t; MONA RANDALL [place] Dejuan ORNELAS M.D. Medical ans M.DMarita Campo 2020-10-16 2020-10-16 Office Rudi Briones [facility] 1.2 .840.114 [id number] Univers 13:51:59 14:54:13 Visit Arnold Hopper PRIMARY 350.1.13.1 0 ity of CARE 4.2.7.2.686 Marisol FERRERA [id number] Hi dical [address] 2020-10-16 2020-10-16 Outpatient R [facility] [id number] Univers 14:00:00 14:00:00 ity of [facility] 2020-10-16 2020-10-16 Orders Doctor NEIL 1.2.840.114 [id number] Univers 00:00:00 00:00:00 Only Unassigned, AMAURY 350.1.13.10 ity of [place] [facility] 4.2.7.2.686 Christopher as [phone] [address] 2020-09-24 2020-09-24 Refill Doctor [place] 1.2.840.114 [id number] Univers 00:00:00 00:00:00 Unassigned, [place] 350.1.13.10 ity of [place] [phone] [address] 2020-09-24 2020-09-24 Refill Doctor [place] 1.2.840.114 [id number] Univers 00:00:00 00:00:00 Unassigned, [place] 350.1.13.10 ity of [place] [phone] Hi dicor nal [address] [place] [address] 2020-09-24 2020-09-24 Refill Doctor [facility] 1.2.840.114 [id number] Univers 00:00:00 00:00:00 Unassigned, [place] 350.1.13.10 [place] of [place] [phone] Hi dicor nal [address] [place] [address] 2020-09-24 2020-09-24 Refill Doctor [facility] 1.2.840.114 [id number] Univers 00:00:00 00:00:00 Unassigned, [place] 350.1.13.10 [place] [phone] [address] 2020-09-20 2020-09-20 Ray Veras [facility] 1.2.840.114 [id number] Univers 00:00:00 00:00:00 Jamar Willson 350.1.13.10 [place] of [place] [phone] [address] 2020-09-14 2020-09-14 [facility] 1.2.840.114 [id number] Univers 00:00:00 00:00:00 Jamar Willson 350.1.13.10 it[place] of [place] [phone] [address] 2020-09-04 2020-09-04 [facility] 1.2.840.114 [id number] Univers 00:00:00 00:00:00 Jamar Willson 350.1.13.10 it[place] of [place] [phone] [address] 2020-08-24 2020-08-[address] [facility] 1.2.840.114 [id number] Univers 00:00:00 00:00:00 Jamar Willson 350.1.13.10 it[place] of [place] [phone] [address] 2020-08-14 2020-08-14 [facility] 1.2.840.114 [id number] Univers 00:00:00 00:00:00 Jamar Willson 350.1.13.10 ity of [place] [phone] [address] 2020-08-10 2020-08-10 Outpatient R JAMAR VERAS [facility] [id number] Univers 15:00:00 15:00:00 JAMAR VERAS [facility] 2020-08-10 2020-08-10 Telemedici Rito [facility] 1.2.840.114 [id number] Univers 07:56:15 14:42:38 ne Visit Jamar Willson 350.1.13.10 ity of [place] 4.[place].2.[place] [phone] [address] 2020-08-10 2020-08-10 Orders Doctor NEIL 1.2.840.114 [id number] Univers 00:00:00 00:00:00 Only Unassigned, AMAURY 350.1.13.10 ity of [place] [facility] 4.2.7.2.686 Christopher as [phone] [address] 2020-08-07 2020-08-07 Telephone [facility] 1.2.840.114 [id number] Univers 00:00:00 00:00:00 Jamar Willson 350.1.13.10 [place] of [place] [phone] [address] 2020-07-27 2020-07-27 Outpatient STLMLC STLMLC [id number] Common 00:00:00 00:00:00 [facility] 2020-05-10 2020-05-10 Appointmen HOMAR [facility] Neurology - [id number] [place] 09:30:00 09:30:00 t; JUSTIN CRABTREE [facility] chris ANDERSON M.D. [facility] 2020-04-24 2020-04-24 Telephone [facility] 1.2.840.114 [id number] 00:00:00 00:00:00 Jamar Willson 350.1.13.10 [place] 4.2.7.2.686 Professio [phone] [address] 2020-04-24 2020-04-24 Telephone [facility] 1.2.840.114 [id number] [facility] 00:00:00 00:00:00 Jamar Willson 350.1.13.10 ity of [place] [phone] [address] 2020-04-23 2020-04-23 Refill [facility] 1.2.840.114 [id number] 00:00:00 00:00:00 Jamar Willson 350.1.13.10 [place] 4.2.7.2.686 Professio [phone] [address] 2020-04-23 2020-04-23 [facility] 1.2.840.114 [id number] Univers 00:00:00 00:00:00 Jamar Willson 350.1.13.10 ity of [place] 4.[place].2.[place] [phone] Hi dic[address] 2020-04-10 2020-04-10 [facility] 07:20:00 07:20:00 JUSTIN 2020-03-27 2020-03-27 Appointzeeshan CRABTREE [facility] [id number] [place] 13:00:00 13:00:00 t; [facility] ans Melissa 2020-03-21 2020-03-21 Appointzeeshan CRABTREE [facility] Neurology - 690 [id number] [place] 09:00:00 09:00:00 t; [place] AND[place] M.D. [facility] MThao Campo 2020-02-07 2020-02-07 [facility] 1.2.840.114 [id number] 00:00:00 00:00:00 Jamar Willson 350.1.13.10 [place] 4.2.7.2.686 Professio [phone] [address] 2020-02-07 2020-02-07 [facility] 1.2.840.114 [id number] [facility] 00:00:00 00:00:00 Jamar Willson 350.1.13.10 ity of [place] 4[place].2.[place] [phone] Hi dic[address] 2020-01-16 2020-01-16 Ray Rito [facility] 1.2.840.114 [id number] Univers 00:00:00 00:00:00 Jamar Willson 350.1.13.10 ity of [place] 4[place].2.[place] [phone] Hi dic[address] 2020-01-11 2020-01-11 Kayy Veras [facility] 1.2.840.114 [id number] 099 00:00:00 00:00:00 Jamar Willson 350.1.13.10 [place] 4.2.7.2.686 Professio [phone] [address] 2020-01-11 2020-01-11 Kayy Veras [facility] 1.2.840.114 [id number] [id number] Univers 00:00:00 00:00:00 Jamar Willson 350.1.13.10 ity of [place] 4.2.7.2.686 [facility] [phone] [facility] 092 [facility] 2020-01-03 2020-01-03 Appointmen MAHSA CRABTREE Neurology - 672 [id number] [place] 09:30:00 09:30:00 t; JUSTIN CRABTREE [place] [facility] [place], M.D. Medical rc [place] 2019-12-20 2019-12-20 Appointmen MAHSA CRABTREE Neurology - 667 [id number] [place] 10:30:00 10:30:00 t; JUSTIN CRABTREE [place] [facility] [place] [place]ST[place], M.D. Medical rc [place] 2019-11-29 2019-11-29 Appointmen MAHSA CRABTREE Neurology - [id number] [place] 08:00:00 08:00:00 t; JUSTIN CRABTREE [place] [facility] [place] [place], M.D. Medical rc [place] 2019-10-21 2019-10-21 Outpatient R ANENE, [facility] [id number] Univers 13:00:00 13:00:00 YANNICK lees of [facility] 2019-10-09 2019-10-09 Urgent Pob1, Acute Care Clinic [facility] 1. 2.840.114 [id number] Univers 15:06:11 16:33:23 Care Unknown, Attending Health 350.1.13.10 ity of [place] 4.2.7.2.686 [place] Profess[place] [phone] [place] [address] [address] 2019-10-09 2019-10-09 Outpatient R UNKNOWN, [facility] [id number] Univers 15:00:00 15:00:00 ATTENDING ity of [facility] 2019-10-09 2019-10-09 Nurse NEIL Saenz 1.2.840.114 [id number] Univers 00:00:00 00:00:00 Triage Agnes GELLERY 350.1.13.10 it y of [facility] 4.2.7.2.686 Christopher as [phone] [facility] 019 [place] 2019-09-26 2019-09-[address] [facility] 1.2.840.114 [id number] Univers 00:00:00 00:00:00 Jamar Willson 350.1.13.10 ity of [place].2.[place] [phone] Hi dicor nal 2 [facility] 2019-08-30 2019-08-30 Appointmen MAHSA CRABTREE Neurology - 622 [id number] [place] 13:30:00 13:30:00 t; JUSTIN CRABTREE [place] [facility] [place] [place]ST[place], M.D. Medical ans M.D. [place] 2019-07-31 2019-07-31 [facility]ha [facility] 1.2.840.114 [id number] Univers 00:00:00 00:00:00 Jamar Willosn 350.1.13.10 ity [facility] 4.2.7.2.[place] [phone] [place] [address]142 [facility] 2019-06-29 2019-06-29 Orders Doctor TREJO 1.2.840.114 [id number] Univers 00:00:00 00:00:00 Only Unassigned, AMAURY 350.1.13.10 ity of [facility] 4.2.7.2.686 Christopher as [phone] [facility] 009 [place] 2019-06-14 2019-06-14 Appointmen MAHSA CRABTREE Neurology - 586 [id number] [place] 14:00:00 14:00:00 t; JUSTIN CRABTREE [place] [facility] [place] KRISTIN, M.D. Medical ans Melissa Campo 2019-02-25 2019-02-25 Orders Doctor TREJO 1.2.840.114 [id number] 00:00:00 00:00:00 Only Unassigned, [place]UR[place] 350.1.13.10 [place] [facility] [id number] 009 2019-02-25 2019-02-25 Orders Doctor NEIL 1.2.840.114 [id number] Univers 00:00:00 00:00:00 Only Unassigned, AMAURY 350.1.13.10 ity of [place] [facility] 4.2.7.2.686 Christopher as [phone] [facility] [address] 2019-02-22 2019-02-22 [facility] 1.2.842.477 [id number] 12:51:52 23:59:00 Encounter Jamar Willson 350.1.13.10 [place] 4.2.7.2.686 [place] [id number] 804 2019-02-22 2019-02-22 [facility] 1.2.851.341 [id number] [facility] 12:51:52 23:59:00 Encounter Jamar Willson 350.1.13.10 ity of [place] 4.2.7.2.686 [facility] [place] [phone] [facility] [address] 2019-02-22 2019-02-22 [facility] 1.2.493.072 [id number] 3592 12:45:29 12:50:00 Encounter Jamar Willson 350.1.13.10 [place] 4.2.7.2.686 [place] [phone] [facility] 2019-02-22 2019-02-22 [facility] 1.2.512.260 [id number] [facility] 12:45:29 12:50:00 Encounter Jamar [place] 350.1.13.10 ity of [place] 4.2.7.2.686 [facility] [place] [phone] [facility] [address] 2019-02-22 2019-02-22 [facility] 1.2.438.688 [id number] 12:44:26 12:44:26 Encounter Jamar [place] 350.1.13.10 [place] 4.2.7.2.686 [place] [phone] [facility] 2019-02-22 2019-02-22 [facility] 1.2.950.520 [id number] Univers 12:44:26 12:44:26 Encounter Jamar Willson 350.1.13.10 ity of [place] 4.2.7.2.686 [place] [phone] [facility] 804 [place] 2019-02-22 2019-02-22 Outpatient Renate VERAS JAMAR [facility] [id number] [facility] 12:44:26 12:44:26 JAMAR VERAS itchina [facility] 2019-02-22 2019-02-22 Orders Doctor NEIL 1.2.840.114 [id number] 00:00:00 00:00:00 Only Unassigned, [place] 350.1.13.10 [place] [facility] [phone] [facility] [place] 2019-02-22 2019-02-22 Orders Doctor NEIL 1.2.840.114 [id number] Univers 00:00:00 00:00:00 Only Unassigned, AMAURY 350.1.13.10 ity of [place] [facility] 4.2.7.2.686 Christopher as [phone] [facility] 009 [place] 2019-02-08 2019-02-08 [facility] 1.2.840.114 [id number] 00:00:00 00:00:00 Jamar Willson 350.1.13.10 [place] 4.2.7.2.686 Professio [phone] [address] 2019-02-08 2019-02-08 Refmiesha [facility] 1.2.840.114 [id number] [facility] 00:00:00 00:00:00 Jamar Willson 350.1.13.10 ity of [place] 4.[place].2.[place] [phone] Hi dical [address] 2018-02-05 2018-02-05 [facility] [id number] Common 08:30:00 08:30:00 t [facility] Results Test Description Test Time Test Comments Results Result Sour e Comments MRI CERVICAL WO 2021-09-19 15:18:41 DACIA Geoffrey MEDICAL IMAGINGName: YADI PETERSEN : 1985 Sex: F CLINI AMADA INDICATION: R20.0, Anesthesia of skin MODALITY: Synthorx 3T MRITECHNIQUE: Multiplanar SE and FSE evaluation of the cervical region was performed without contrast enhancement.IMPRESSION :1. C6-7 shows a three - 4 mm posterior leftward lateralizing disc protrusion mildly compressing cord against posterior elements with mild to moderate central canal stenosis. No cord gliosis or edema. Moderate left foraminal stenosis encroaching on left C7 root.2. Remainder described belowFINDINGS:COMPARIS ON: noneNo tonsillar ectopia or foramen magnum mass and cervical cord is unremarkable without intradural extramedullary abnormalities.Mild kyphotic deformity cervical spine with curvature convex to the right.There is mild disc desiccation and disc degeneration C4-5, C5-6 and C6-7 levels.No vertebral body compression or pathologic marrow infiltrative process. No evidence of paraspinal soft tissue mass.Atlanto-axial articulation unremarkable. FINDINGS AT SPECIFIC LEVELS:C2-C3: UnremarkableC3-C4: UnremarkableC4-C5: One - 2 mm posterior disc bulge with small annular tear slightly encroaches on ventral cord no significant central canal stenosis. No foraminal stenosis.C5-C6: Two - 3 millimeter posterocentral disc protrusion with annular tear encroaches on ventral cord with slight posterior cord displacement and mild central canal narrowing. No cord compression, gliosis or edema. No foraminal stenosis.C6-C7: Three - 4 mm posterior leftward lateralizing disc protrusion or herniation encroaches on left ventral lateral cord. There is posterior cord displacement I could not exclude mild cord compression to the left. No cord gliosis or edema. Mild to moderate central canal stenosis. There is moderate left foraminal stenosis encroaching on left C7 root. Only minimal right foraminal narrowing noted.C7-T1: Unremarkable. MRI BRAIN WO 2021-09-19 15:18:41 DACIA Hale MEDICAL IMAGINGName: YADI PETERSEN : 1985 Sex: F CLINI AMADA INDICATION: R20.0, Anesthesia of skinMODALITY: [employer] [place] 3T MRITECHNIQUE: Multiplanar SE, FSE and inversion recovery pulse sequences of the brain were performed without contrast enhancement. Diffusion weighted imaging is utilized.IMPRESSION:1. Minimal supratentorial deep white matter disease with an occasional tiny subcortical deep white matter lesion. This is nonspecific but probably secondary to chronic microvascular ischemic change. Recommend clinical laboratory correlation.FINDINGS:C OMPARISON: noneMinimal supratentorial deep white matter disease with an occasional tiny subcortical deep white matter lesion. This is nonspecific.There are no acute infarcts, ischemic changes or hemorrhages. There is no acute restriction on diffusion sequences.There are no intracranial or extra-axial masses. There is no hydrocephalous.Sella and parasellar structures are normal. Central skull base is intact. The craniocervical junction is intact. No mass or Chiari malformation.The brainstem, midbrain and cerebellum are normal. Bilateral internal auditory canals are normal and symmetric.Normal flow voids are seen intracranially in carotid and vertebrobasilar arteries. The calvarium is intact. Extracranial soft tissues are unremarkable. Bacterial vaginosis DNA and score panel - Vaginal flui d by CESAR 2021-07-12 00:00:00 with probe detection Test Item Value Reference Range Interpretation Comme nts g. vaginalis by RT-PCR (test code = g. vaginalis by not detected no t detected RT-PCR) g. vaginalis log (cells/mL) (test code = g. vaginalis <3.25 not detected log (cells/mL)) A. vaginalis by RT-PCR (test code = A. vaginalis by not detected no t detected RT-PCR) A. vaginalis log (cells/mL) (test code = A. vaginalis <3.25 not detected log (cells/mL)) bvab2 by RT-PCR (test code = bvab2 by RT-PCR) not detected not dete cted lactobacillus (species) by PCR (test code = not detected detected A lactobacillus (species) by PCR) lactobacillus sp. log (cells/mL) (test code = <3.25 not dete cted A lactobacillus sp. log (cells/mL)) megasphaera type 1 by RT PCR (test code = megasphaera not detect ed not detected type 1 by RT PCR) [facility] [Presence] in Vaginal fluid by CESAR with probe [id number] 00:00:00 Test Item Value Reference Range Interpretation Comments C.albicans by PCR (test code = not detected not detected C.albicans by PCR) zander genus (test code = not detected not detected zander genus) [facility] panel - Blood by Automated [id number] 00:00:00 Test Item Value Reference Range Interpretation Comments WBC (test code = WBC) 6.6 10 3.7-12.0 RBC (test code = RBC) 4.50 10 3.60-5.50 HGB (test code = HGB) 12.3 g/dL 11.5-15.6 HCT (test code = HCT) 38.1 % 34.5-46.5 MCV (test code = MCV) 84.7 um 80.0-102.0 MCH (test code = MCH) 27.2 pg 25.0-34.1 MCHC (test code = MCHC) 32.2 g/dL 29.0-35.0 RDW (test code = RDW) 16.0 % 10.9-16.9 plt (test code = plt) 263 10 136-392 MPV (test code = MPV) 8.7 um 7.4-11.1 gran % (test code = gran %) 72.7 % 36.0-78.0 lymph % (test code = lymph %) 19.0 % 12.0-48.0 mono % (test code = mono %) 6.3 % 0.0-13.0 eos % (test code = eos %) 1 % 0-8 baso % (test code = baso %) 1 % 0-2 gran # (test code = gran #) 4.8 10 1.2-6.8 lymph # (test code = lymph #) 1.3 10 1.2-3.2 mono # (test code = mono #) 0.4 10 0.3-0.8 eos # (test code = eos #) 0.1 10 0.0-0.2 baso # (test code = baso #) 0.1 10 0.0-0.2 [facility]+Cyanocobalamin [Interpretation] in Serum or [id number] 00:00:00 Test Item Value Reference Range Interpretation Comments folate (test code = folate) 10.44 NG/mL 2.00-20.00 vitamin B12 (test code = vitamin 635.1 pg/mL 200.0-900.0 B12) [facility] HospitalNbcresn68-Vvkcjeajopnwoh D3+25-Hydroxyvitamin D2 [Mass/volume] in Serum or [id number] 00:00:00 Test Item Value Reference Range Interpretation Comments vitamin D (test code = vitamin D) 22.2 NG/mL 32.0-100.0 L [facility] T4 and TSH panel - Serum or [id number] 00:00:00 Test Item Value Reference Range Interpretation Comments TSH (test code = TSH) 0.147 uIU/mL 0.178-4.530 L free T4 (test code = free T4) 1.05 NG/dL 0.80-1.73 [facility] HospitalComprehensive [facility] 2000 panel - Serum or [id number] 00:00:00 Test Item Value Reference Range Interpretation Comments sodium (test code = 142 mmol/L 136-145 sodium) potassium (test code = 4.0 mmol/L 3.5-5.5 potassium) chloride (test code = 102 mmol/L 98-107 chloride) CO2 (test code = CO2) 24 mmol/ L 24-31 glucose (test code = 91 mg/dL 70-99 glucose) BUN (test code = BUN) 13 mg/dL 6-20 creatinine (test code = 0.5 mg/dL 0.5-0.9 creatinine) calcium (test code = 9.4 mg/dL 8.8-10.6 calcium) total protein (test code = 7.2 g/dL 6.0-8.3 total protein) albumin (test code = 4.6 g/dL 3.5-5.2 albumin) total bilirubin (test code 0.2 mg/dL 0.0-1.2 = total bilirubin) alkaline phosphatase (test 67 U/L 44-147 code = alkaline phosphatase) AST (SGOT) (test code = 20 U/L 0-32 AST (SGOT)) ALT (SGPT) (test code = 17 U/L 0-33 ALT (SGPT)) globulin (test code = 2.6 g/dL 1.7-3.7 globulin) A/G ratio (test code = A/G 1.8 calc. 1.1-2.9 ratio) BUN/creatinine ratio (test 25.8 calc 10.0-28.0 code = BUN/creatinine ratio) eGFR non- 148.380 >60.000 (test code = eGFR mL/min/1.73A? non-) eGFR 178.056 >60.000 (test code = eGFR mL/min/1.73A? andorran) [facility]MA [id number] 10:35:00 Test Item Value Reference Range Interpretation Comments RAPID PLASMA REAGIN (test code = NONREACTIVE NONREACTIVE RPR) AG HEPATITIS B [id number] 10:35:00 Test Item Value Reference Range Interpretation Comments AG HEPATITIS B SURFACE NON REACTIVE INDEX NonReactive (test code = HBSAG) AB HIV 1 10:35:00 Test Item Value Reference Range Interpretation Comments AB HIV 1 2 (test code = [id number]) Nonreactive Nonreactive COVID 19 Asymptomatic IH [id number] 12:47:00 Test Item Value Reference Range Interpretation Comments COVID 19 Asymptomatic Negative Negative A nega tive result is IH AG (test code = presumpti ve and should COVNONPUIAG) be confirmedwit h an FDA authorized mole cular assay, if neces halley forpatient marla gement.A positive result does not rule out co-inf ections withother patho gens.This test detects osvaldo th viable (live) and non-viable,SARS -CoV, and SARS-CoV-2. Radha t performance dep ends on theamount of vi brandon (antigen) in th e sample.This radha t has not been FDA cleare d or approved; the t est hasbeen authori zed by FDA under an Em ergency Use Authorizati on(EUA) for use by labo ratories certified under the CLIA thatmeet the requirements to perform moderate, high or waivedcomplexit y tests. CBC W/AUTO [id number] 12:45:00 Test Item Value Reference Range Interpretation Comments WHITE BLOOD CELL (test code = 5.8 x10 3/uL 4.5-11.0 N WBC) RED BLOOD CELL (test code = 3.86 x10 6/uL 3.54-5.02 N RBC) HEMOGLOBIN (test code = HGB) 10.8 g/dL 11.0-15.0 L HEMATOCRIT (test code = HCT) 32.6 % 33.0-45.0 L MEAN CELL VOLUME (test code = 84.5 fL 81.0-99.0 N MCV) MEAN CELL HGB (test code = MCH) 28.0 pg 27.0-33.0 N MEAN CELL HGB CONCETRATION 33.1 g/dL 33.0-37.0 N (test code = MCHC) RED CELL DISTRIBUTION WIDTH CV 13.0 % 11.5-14.5 N (test code = RDW) RED CELL DISTRIBUTION WIDTH SD 39.4 fL 37.0-54.0 N (test code = RDW-SD) PLATELET COUNT (test code = 200 x10 3/uL 150-400 N PLT) MEAN PLATELET VOLUME (test code 10.4 fL 7.0-9.0 H = MPV) NEUTROPHIL % (test code = NT%) 63.1 % 56.0-77.0 N IMMATURE GRANULOCYTE % (test 0.3 % 0.0-2.0 N code = IG%) LYMPHOCYTE % (test code = LY%) 25.6 % 14.0-32.0 N MONOCYTE % (test code = MO%) 9.0 % 4.8-9.0 N EOSINOPHIL % (test code = EO%) 1.7 % 0.3-3.7 N BASOPHIL % (test code = BA%) 0.3 % 0.0-2.0 N NUCLEATED RBC % (test code = 0.0 % 0-0 N NRBC%) NEUTROPHIL # (test code = NT#) 3.63 x10 3/uL 2.0-7.6 N IMMATURE GRANULOCYTE # (test 0.02 x10 3/uL 0.00-0.03 N code = IG#) LYMPHOCYTE # (test code = LY#) 1.48 x10 3/uL 1.0-3.8 N MONOCYTE # (test code = MO#) 0.52 x10 3/uL 0.1-0.8 N EOSINOPHIL # (test code = EO#) 0.10 x10 3/uL 0.0-0.2 N BASOPHIL # (test code = BA#) 0.02 x10 3/uL 0.0-0.2 N NUCLEATED RBC # (test code = 0.00 x10 3/uL 0.0-0.1 N NRBC#) MANUAL DIFF REQUIRED (test code NO = MDIFF) AMNISURE (ROM) [id number] 12:29:00 Test Item Value Reference Range Interpretation Comments AMNISURE (ROM) TEST (test NEGATIVE NEGATIVE OP ENED:05-21-2021 code = AMNI) COVID 19 Asymptomatic IH [id number] 09:15:00 Test Item Value Reference Range Interpretation Comments COVID 19 Asymptomatic IH AG (test NEGATIVE NEGATIVE code = COVNONPUIAG) POCT FLU A AND B (MOLECULAR)2019-10-09 20:39:00 Test Item Value Reference Range Interpretation Comments POCT INFLUENZA A (test code = negative Negative - Negative 3840) POCT INFLUENZA B (test code = negative Negative - Negative 3841) Lab Interpretation (test code = Normal 06550-2) [facility]2019-10-09 20:39:00 Test Item Value Reference Range Interpretation Comments POCT INFLUENZA A (test code = negative Negative - Negative 3840) POCT INFLUENZA B (test code = negative Negative - Negative 3841) Lab Interpretation (test code = Normal 71277-8) [facility] SP[facility] W WO [id number] 20:14:50HISTORY: Migraines. TECHNIQUE: T1/T2/STIR sagittal and T1/T2 FRFSE/2D MERGE axial studies ofcervicalspines were obtained. Contrast enhanced fat sat sagittal and axialstudies were obtained after intravenous injection of 15 mL of DOTAREM. FINDINGS: Reversal of normal cervical lordosis is suggestive of neck musclespasm. No compression fracture or abnormal marrow changes of the bonesdetected. Spinal canal is of adequate size and no intrinsic cervical cordpathology detected. The anatomy of the craniocervical junction appearsnormal. C2-C3: Normal. C3-C4: Normal. C4-C5: Prominent disc bulge in the midline indenting the ventral surface ofthe spinal cord without causing any pressure effect or displacementof thespinal cord. No foraminal encroachment. C5- C6: Prominent midline disc bulge indenting the ventral surface of thespinal cord in the midline and slightly to the left of the midline withoutpressure effect or displacement of the spinal cord. No foraminalencroachment. C6-C7: Mild bulging of the disc in the midline and left side of the spinalcanal without cord compression or foraminal encroachment. C7-T1: Normal. CONCLUSIONS:1. Neck muscle spasm suspected.2. Prominent bulging of the disc at C4-C5, C5-C6 and mild bulging disc atC6-C7 without cord compression or nerve root compression. [facility], Radiant Results Inft User - 02/22/2019 3:16 PM CDTHISTORY: Migraines.TECHNIQUE: T1/T2/STIR sagittal and T1/D8TBFYI/2D MERGE axial studies ofcervical spines were obtained. Contrast enhanced fat sat sagittal andaxialstudies were obtained after intravenous injection of 15 mL of DOTAREM.FINDINGS: Reversal of normal cervical lordosis is suggestive of neck musclespasm. No compression fracture or abnormal marrow changes of the bonesdetected. Spinal canal is of adequate size and no intrinsic cervical cordpathologydetected. The anatomy of the craniocervical junction appearsnormal.C2-C3: Normal.C3-C4: Normal.C4-C5: Prominent disc bulge in the midline indenting the ventral surface ofthe spinal cord without causingany pressure effect or displacement of thespinal cord. No foraminal encroachment.C5-C6: Prominent midline disc bulge indenting the ventral surface of thespinal cord in the midline and slightly to the left of the midline withoutpressure effect or displacement of the spinal cord. No foraminalencroachment.C6-C7: Mild bulging of the disc in the midline and left side of the spinalcanal without cord compression or foraminal encroachment.C7- T1: Normal.CONCLUSIONS:1. Neck muscle spasm suspected.2. Prominentbulging of the disc at C4-C5, C5-C6 and mild bulging disc atC6-C7 without cord compression or nerve root compression.[facility] VENOGRAM HEAD WO [id number] 19:55:40HISTORY: Occlusion of sagittal venous sinus. Patient complaining ofheadache after childbirth. TECHNIQUE: Multislab 2-D TOF acquisition and MIP processing techniques areutilized to generate venographic i mages of major intracranial venouscirculation. FINDINGS: Sagittal sinus appears to be patent and normal. Transverse andsigmoid sinuses also appear patent and symmetrical.The vein of Alberto, vein of Trolard/Blaise and inferior cerebral vein areall visualized and appear patent. CONCLUSIONS: Normal MR venography study. [facility], Radiant Results Inft User - 02/22/2019 2:57 PM CDTHISTORY: Occlusion of sagittal venous sinus. Patient complaining ofheadache after childbirth.TECHNIQUE: Multislab 2-D TOF acquisition and MIP processing techniques areutilized to generate venographic images of major intracranial v enouscirculation.FINDINGS: Sagittal sinus appears to be patent and normal. Transverse andsigmoid sinuses also appear patent and symmetrical.The vein of Alberto, vein of Trolard/Blaise and inferior cerebral vein areall visualized and appear patent.CONCLUSIONS: Normal MR venography study.[facility] BRAIN W WO [id number] 19:55:31HISTORY: Patient recently delivered twins and having headaches. TECHNIQUE: Routine MRI of the brain is obtained initially without andsubsequently with intravenous contrast injection of 15 mL of DOTAREM.Examination includes sagittal T1/T2 FLAIR/3-D FSPGR, axial T2 FLAIR,DWI/ADC studies and postcontrastsagittal SPGR 3-D, axial T1 FS and coronalT1 FS studies. From the 3-D imaging, subsequently axial and coronalreformations were generated. FINDINGS: Following structures appear to be of normal size, shape andtissue intensity in all the sequences: ?* Signal void of major intracranial vascular structures.?* Ventricular system, periventricular and peripheral white andgray matter.?* Pituitary gland, parasellar and suprasellar structuresincluding optic chiasm.?* Basal ganglia, brain stem and posterior fossa structuresincluding internal auditory canals and mastoids.?* Orbits, retroorbital contents and para ocular muscles. Contrast-enhanced study shows no abnormal area of enhancement in the brainsubstance, vascular structures?or in the leptomeninges. CONCLUSION: Normal MRI of the brain without and with contrast. Note made ofmild chronic right anterior ethmoid sinusitis and minimal chronic rightfrontal sinusitis. Note: Patient was instructed not to feed babies with breast milk for next24 hours.. [facility], Radiant Results Inft User - 02/22/2019 2:57 PM CDTHISTORY: Patient recently delivered twins and having headaches.TECHNIQUE: Routine MRI of the brain is obtained initially without andsubsequently with intravenous contrast injection of 15 mL of DOTAREM.Examination includes sagittal T1/T2 FLAIR/3-D FSPGR, axial T2 FLAIR,DWI/ADC studies and postcontrast sagittal SPGR 3-D, axial T1 FS and coronalT1 FS studies. From the 3-D imaging, subsequently axial and coronalreformations were generated.FINDINGS: Following structures appear to be of normal size, shape andtissue intensity in all the sequences: * Signal void of major intracranial vascular structures. * Ventricular system, periventricular and peripheral white andgray matter. * Pituitary gland, parasellar and suprasellar structuresincluding optic chiasm. * Basal ganglia, brain stem and posterior fossa structuresincluding internal auditory canals and mastoids. * Orbits, retroorbital contents and para ocular muscles.Contrast-enhanced study shows no abnormal area of enhancement in the brainsubstance, vascular structures or in the leptomeninges.CONCLUSION:Normal MRI of the brain without and with contrast. Note made ofmild chronic right anterior ethmoid sinusitis and minimal chronic rightfrontal sinusitis.Note: Patient was instructed not to feed babies with breast milk for next24 hours..[facility]
[2022-06-11 10:13] LABS: Absolute Lymphocytes (CBC) 1.5 K/uL (0.7-4.9); Hematocrit 43.8 % (36.0-45.0); Lymphocytes % 20.7 % (15.3-44.8); MCV 89.6 fL (80-100); MPV 7.9 fL (7.6-11.3); RBC Red Blood Cell Count 4.89 M/uL (3.86-4.86)
[2022-06-11 10:30] LABS: Albumin 4.1 g/dL (3.4-5.0); Bilirubin Total 0.4 mg/dL (0.2-1.0); Potassium 3.7 mmol/L (3.5-5.1); Protein, Total 7.9 g/dL (6.4-8.2)
[2022-06-11] MEDS ORDERED: FAMOTIDINE 20 MG/2 ML VIAL IV ONE (11:55)
[2022-06-11] MEDS ORDERED: MORPHINE 4 MG/ML SYR ONE ×2 (11:55→14:32)
[2022-06-11] MEDS ORDERED: NA CHLORIDE 0.9% 1,000 ML ONE (11:55)
[2022-06-11] MEDS ORDERED: ONDANSETRON 4 MG/2 ML VIAL ONE (11:55)
--- NOTE | 2022-06-11 12:31 | RAD REPORT ---
EXAM DESCRIPTION: US - Abdomen Exam Limited - 06/11/2022 10:01 am CLINICAL HISTORY: Abdominal pain. COMPARISON: None. FINDINGS: The gallbladder wall is not thickened. A gallstone is not seen. The biliary tree is normal caliber. IMPRESSION: Unremarkable gallbladder ultrasound.
[2022-06-11 13:18] LABS: Urine Blood Negative (Negative); Urine Glucose Negative (Negative); Urine Protein Negative (Negative); Urine Specific Gravity 1.025 (1.005-1.030)
[2022-06-11 13:23] LABS: Urine Specific Gravity/Preg 1.025 (1.005-1.030)
--- NOTE | 2022-06-11 13:42 | RAD REPORT ---
EXAM DESCRIPTION: CTAbdomen Pelvis W Contrast - 06/11/2022 1:28 pm CLINICAL HISTORY: abdominal pain, vomiting COMPARISON: Abdomen Pelvis W Contrast dated 08/26/2020; Abdomen Pelvis W Contrast dated 05/18/2017 TECHNIQUE: CT of the abdomen and pelvis was performed. All CT scans are performed using dose optimization technique as appropriate and may include automated exposure control or mA/KV adjustment according to patient size. FINDINGS: Lower chest: No acute abnormality. Liver: No acute abnormality or suspicious lesions. Biliary: No biliary ductal dilatation. Stomach: No significant focal abnormality. Duodenum: No significant focal abnormality. Pancreas: No significant abnormality. Spleen: No significant abnormality. Adrenal: No suspicious lesions. Kidney/ureter: No hydronephrosis. No renal calculi. Retroperitoneum: No retroperitoneal adenopathy. Vascular: No aneurysm. Bowel: Appendix not identified. Mild fluid filled loops of small bowel in the pelvis.. Peritoneum: Trace free fluid. Bladder: Grossly unremarkable. Reproductive: No adnexal masses. Bones: No acute fracture. Grade 1 anterolisthesis of L5 on S1 with bilateral pars defects. Other: n/a IMPRESSION: Possible gastroenteritis, otherwise no acute process identified. Small volume pelvic kassie e fluid is likely physiologic.
--- NOTE | 2022-06-11 14:06 | EDPHYS ---
Physician Documentation [facility] Name: Yadi Billy Age: 37 yrs Sex: Female : 1985 Arrival Date: 06/11/2022 Time: 09:08 Bed 25 Private MD: Keith Worthy ED Physician Yesica Salmeron HPI: 06/11 09:45 This 37 yrs old Female presents to ER via Ambulatory with complaints of Abdominal Pain, jmm Back Pain, Nausea/Vomiting/Diarrhea. 09:45 The patient presents with abdominal pain. Onset: The symptoms/episode began/occurred jmm gradually, 1 day(s) ago. The symptoms radiate to left back. Associated signs and symptoms: Pertinent positives: nausea and vomiting, diarrhea, Pertinent negatives: fever. The symptoms are described as achy. Modifying factors: The symptoms are alleviated by nothing, the symptoms are aggravated by nothing. The patient has not experienced similar symptoms in the past. Patient states taking a pinworm medication prior to developing symptoms. . Historical: - Allergies: 09:20 PENICILLINS; ll1 - PMHx: 09:20 Kidney stones; Migraines; Ovarian cyst; Depression; ll1 - PSHx: 09:20 knee SX x 2; ll1 - Immunization history:: Client reports receiving the 2nd dose of the Covid vaccine. - Social history:: Smoking status: Patient denies any tobacco usage or history of. ROS: 09:45 Constitutional: Negative for fever, chills, and weight loss, Cardiovascular: Negative jmm for chest pain, palpitations, and edema, Respiratory: Negative for shortness of breath, cough, wheezing, and pleuritic chest pain. 09:45 Abdomen/GI: Positive for abdominal pain, nausea and vomiting, diarrhea. 09:45 All other systems are negative. Exam: 09:45 Constitutional: This is a well developed, well nourished patient who is awake, alert, jmm and in no acute distress. Head/Face: atraumatic. Eyes: EOMI, no conjunctival erythema appreciated ENT: Moist Mucus Membranes Neck: Trachea midline, Supple Chest/axilla: Normal chest wall appearance and motion. Cardiovascular: Regular rate and rhythm. No edema appreciated Respiratory: Normal respirations, no respiratory distress appreciated 09:45 Abdomen/GI: Inspection: abdomen appears normal, Bowel sounds: normal, Palpation: soft, mild abdominal tenderness, in all quadrants. 09:45 Back: CVA tenderness, is absent. 09:45 Musculoskeletal/extremity: ROM: intact in all extremities. 09:45 Skin: Appearance: Color: normal in color. 09:45 Neuro: Orientation: is normal, Mentation: is normal, Memory: is normal. 09:45 Psych: Behavior/mood is pleasant, cooperative. Vital Signs: 09:20 BP 161 / 100; Pulse 74; Resp 16; Temp 97.6; Pulse Ox 100% ; Weight 65.77 kg; Height 5 ll1 ft. 5 in. (165.10 cm); Pain 6/10; 12:00 BP 132 / 90; Pulse 63; Resp 16; Pulse Ox 100% on R/A; tp1 13:00 BP 121 / 88; Pulse 71; Resp 16; Pulse Ox 100% on R/A; tp1 14:38 BP 131 / 95; Pulse 65; Resp 16; Pulse Ox 99% on R/A; tp1 09:20 Body Mass Index 24.13 (65.77 kg, 165.10 cm) ll1 MDM: 09:45 Patient medically screened. [facility] 14:06 Data reviewed: vital signs, nurses notes. Counseling: I had a detailed discussion with luz the patient and/or guardian regarding: the historical points, exam findings, and any diagnostic results supporting the discharge/admit diagnosis, the need for outpatient follow up, to return to the emergency department if symptoms worsen or persist or if there are any questions or concerns that arise at home. 06/11 09:46 Order name: CBC with Diff; Complete Time: 10:31 [facility] 06/11 09:46 Order name: CMP; Complete Time: 10:31 [facility] 06/11 09:46 Order name: Lipase; Complete Time: 10:31 [facility] 06/11 09:46 Order name: CT Abd/Pelvis - IV Contrast Only; Complete Time: 13:45 [facility] 06/11 13:18 Order name: Urine --Ancillary (enter results); Complete Time: 13:24 06/11 13:18 Order name: Urine Dipstick-Ancillary; Complete Time: 13:24 [facility] 06/11 09:46 Order name: US Abdomen Limited; Complete Time: 12:34 [facility] 06/11 09:46 Order name: IV Saline Lock; Complete Time: 09:54 [facility] 06/11 09:46 Order name: Labs collected and sent; Complete Time: 09:54 [facility] 06/11 09:46 Order name: Urine Dipstick-Ancillary (obtain specimen); Complete Time: 13:27 [facility] 06/11 10:43 Order name: Urine Test (obtain specimen); Complete Time: 13:26 [facility] Administered Medications: 12:00 Drug: NS 0.9% 1000 ml Route: IV; Rate: 1 bolus; Site: left antecubital; tp1 13:00 Follow up: IV Status: Completed infusion; IV Intake: 1000ml tp1 12:03 Drug: Zofran (Ondansetron) 4 mg Route: IVP; Site: left antecubital; tp1 13:00 Follow up: Response: Nausea is decreased tp1 12:05 Drug: morphine 4 mg Route: IVP; Infused Over: 4 mins; Site: left antecubital; tp1 12:49 Follow up: Response: Pain is decreased tp1 12:09 Drug: Pepcid (famotidine) 20 mg Route: IVP; Site: left antecubital; tp1 12:49 Follow up: Response: Pain is decreased tp1 14:33 Drug: morphine 4 mg Route: IVP; Infused Over: 4 mins; Site: left antecubital; tp1 14:36 Follow up: Response: Medication administered at discharge. tp1 Disposition Summary: 06/11/22 14:06 Discharge Ordered Location: Home [facility] Condition: Stable [facility] Diagnosis - Vomiting jmm - Diarrhea, unspecified jmm Followup: [facility] - With: Keith Worthy MD - When: 2 - 3 days - Reason: Recheck today's complaints, Continuance of care, Re-evaluation by your physician Discharge Instructions: - Discharge Summary Sheet [facility] - Food Choices to Help Relieve Diarrhea, Adult jm - Diarrhea, Adult jmm - Vomiting, Adult [facility] Forms: - Medication Reconciliation Form [facility] - Thank You Letter [facility] - Antibiotic Education [facility] - Prescription Opioid Use [facility] Prescriptions: - Carafate 1 gram Oral Tablet - take 1 tablet by ORAL route 4 times per day take on an empty stomach, beginning jmm on waking and last dose at bedtime; 100 tablet; Refills: 0, Product Selection Permitted - ondansetron 4 mg Oral tablet,disintegrating - take 1 tablet by ORAL route every 4-6 hours As needed; 20 tablet; Refills: 0, [facility] Product Selection Permitted - Pepcid 20 mg Oral Tablet - take 1 tablet by ORAL route every 12 hours for 10 days; 20 tablet; Refills: 0, [facility] Product Selection Permitted Signatures: Dispatcher [employer] Darrin Stringer PA PA jmm Lewis, Lynsay, RN RN ll1 Corrine Turpin RN RN tp1 Corrections: (The following items were deleted from the chart) 09:20 09:20 Allergies: Zofran; ll1 ll1
--- NOTE | 2022-06-11 14:06 | ER ---
Nurse's Notes [facility] Name: Yadi Billy Age: 37 yrs Sex: Female : 1985 Arrival Date: 06/11/2022 Time: 09:08 Bed 25 Private MD: Keith Worthy Diagnosis: Vomiting;Diarrhea, unspecified Presentation: 06/11 09:20 Chief complaint: Patient states: Body aches, cold sweats, runny nose, sneezing started ll1 Thursday. Started having upper abd pain yesterday at 6PM. N/V started last night. No fever. Took "pin worm" medication yesterday at 1700 right before her abd pain started. Coronavirus screen: Vaccine status: Patient reports receiving the 2nd dose of the covid vaccine. Client denies travel out of the [place] in the last 14 days. congestion, fatigue, headache, muscle pain, nausea, shaking with chills, vomiting. Client presents with at least one sign or symptom that may indicate coronavirus-19. Standard/surgical mask placed on the client. Ebola Screen: Patient denies travel to an Ebola-affected area in the 21 days before illness onset. Initial Sepsis Screen: Does the patient meet any 2 criteria? No. Patient's initial sepsis screen is negative. Does the patient have a suspected source of infection? Yes: Acute abdominal pain. Risk Assessment: Do you want to hurt yourself or someone else? Patient reports no desire to harm self or others. Onset of symptoms was June 07, 2022. 09:20 Method Of Arrival: Ambulatory ll1 09:20 Acuity: AIDAN 3 ll1 Triage Assessment: 09:22 General: Appears uncomfortable, ill, Behavior is cooperative, appropriate for age. ll1 Pain: Complains of pain in abdomen Pain currently is 6 out of 10 on a pain scale. Quality of pain is described as aching. EENT: Reports nasal congestion sneezing. Neuro: No deficits noted. Cardiovascular: No deficits noted. Respiratory: No deficits noted. GI: Reports upper abdominal pain, nausea, vomiting. Historical: - Allergies: 09:20 PENICILLINS; ll1 - PMHx: 09:20 Kidney stones; Migraines; Ovarian cyst; Depression; ll1 - PSHx: 09:20 knee SX x 2; ll1 - Immunization history:: Client reports receiving the 2nd dose of the Covid vaccine. - Social history:: Smoking status: Patient denies any tobacco usage or history of. Screenin:35 Abuse screen: Denies threats or abuse. Denies injuries from another. Nutritional tp1 screening: No deficits noted. Tuberculosis screening: No symptoms or risk factors identified. Fall Risk None identified. Assessment: 09:57 Reassessment: in ultrasound. ll1 10:06 Reassessment: No changes from previously documented assessment. Patient and/or family ll1 updated on plan of care and expected duration. Pain level reassessed. Patient is alert, oriented x 3, equal unlabored respirations, skin warm/dry/pink. 12:00 General: Appears in no apparent distress. uncomfortable, Behavior is calm, cooperative. tp1 Pain: Complains of pain in abdomen Pain radiates to back Pain currently is 7 out of 10 on a pain scale. Quality of pain is described as sharp. Neuro: Level of Consciousness is awake, alert, obeys commands, Oriented to person, place, time, situation. Cardiovascular: Patient's skin is warm and dry. Respiratory: Airway is patent Respiratory effort is even, unlabored. GI: Abdomen is flat, non-distended, Abd is soft and non tender. GI: Reports diarrhea, nausea, vomiting. : No signs and/or symptoms were reported regarding the genitourinary system. EENT: No signs and/or symptoms were reported regarding the EENT system. Derm: Skin is pink, warm \\T\\ dry. Musculoskeletal: Circulation, motion, and sensation intact. 13:00 Reassessment: Patient appears in no apparent distress at this time. No changes from tp1 previously documented assessment. Patient is alert, oriented x 3, equal unlabored respirations, skin warm/dry/pink. 14:10 Reassessment: PT CO pain in ABD when drinking fluids provider notified. tp1 14:30 Reassessment: pt requested pain medication before discharge, provider notified. tp1 Vital Signs: 09:20 BP 161 / 100; Pulse 74; Resp 16; Temp 97.6; Pulse Ox 100% ; Weight 65.77 kg; Height 5 ll1 ft. 5 in. (165.10 cm); Pain 6/10; 12:00 BP 132 / 90; Pulse 63; Resp 16; Pulse Ox 100% on R/A; tp1 13:00 BP 121 / 88; Pulse 71; Resp 16; Pulse Ox 100% on R/A; tp1 14:38 BP 131 / 95; Pulse 65; Resp 16; Pulse Ox 99% on R/A; tp1 09:20 Body Mass Index 24.13 (65.77 kg, 165.10 cm) ll1 ED Course: 09:08 Patient arrived in ED. am2 09:09 [facility] Clayton [facility] 09:09 Yesica Salmeron MD is Attending Physician. jm 09:15 Keith Worthy MD is Private Physician. am2 09:19 Arm band placed on. ll1 09:22 Triage completed. ll1 10:03 US Abdomen Limited In Process Unspecified. EDMS 10:06 Initial lab(s) drawn, by me, sent to lab. Missed attempt(s): 22 gauge in right ll1 antecubital area. Bleeding controlled, band aid applied, catheter tip intact. 10:15 Lipase Sent. ll1 10:15 CMP Sent. ll1 10:15 CBC with Diff Sent. ll1 11:49 Clementina Tinsley, RN is Primary Nurse. ap3 11:49 Corrine Turpin, RN is Primary Nurse. tp1 12:00 Patient has correct armband on for positive identification. Bed in low position. Call tp1 light in reach. Pulse ox on. NIBP on. 13:30 CT Abd/Pelvis - IV Contrast Only In Process Unspecified. EDMS 14:06 Keith Worthy MD is Referral Physician. [facility] 14:36 No provider procedures requiring assistance completed. IV discontinued, intact, tp1 bleeding controlled, No redness/swelling at site. Pressure dressing applied. Administered Medications: 12:00 Drug: NS 0.9% 1000 ml Route: IV; Rate: 1 bolus; Site: left antecubital; tp1 13:00 Follow up: IV Status: Completed infusion; IV Intake: 1000ml tp1 12:03 Drug: Zofran (Ondansetron) 4 mg Route: IVP; Site: left antecubital; tp1 13:00 Follow up: Response: Nausea is decreased tp1 12:05 Drug: morphine 4 mg Route: IVP; Infused Over: 4 mins; Site: left antecubital; tp1 12:49 Follow up: Response: Pain is decreased tp1 12:09 Drug: Pepcid (famotidine) 20 mg Route: IVP; Site: left antecubital; tp1 12:49 Follow up: Response: Pain is decreased tp1 14:33 Drug: morphine 4 mg Route: IVP; Infused Over: 4 mins; Site: left antecubital; tp1 14:36 Follow up: Response: Medication administered at discharge. tp1 Medication: 14:36 VIS not applicable for this client. tp1 Intake: 13:00 IV: 1000ml; Total: 1000ml. tp1 Outcome: 14:06 Discharge ordered by . luz 14:36 Discharged to home ambulatory, with family. tp1 14:36 Condition: good 14:36 Discharge instructions given to patient, Instructed on discharge instructions, follow up and referral plans. medication usage, Demonstrated understanding of instructions, follow-up care, medications, Prescriptions given X 3. 14:37 Patient left the ED. tp1 Signatures: Dispatcher [employer] EDMS Darrin Clayton PA PA jmm Moreno, Amanda am2 Prokisch, Amanda RN RN ap3 Destiny Saavedra RN RN ll1 Corrine Turpin RN RN tp1 Corrections: (The following items were deleted from the chart) 09:20 09:20 Allergies: Zofran; ll1 ll1
[2022-06-11 14:44] VITALS: BP 161/100; TEMP 97.6; O2SAT 100
== END 2022-06-11 14:37 | disposition home or self-care (01) ==
LOC: ER 09:07
DX: R11.10 Vomiting, unspecified (principal); R19.7 Diarrhea, unspecified; Z88.0 Allergy status to penicillin
CPT/HCPCS: 96361; 85025; 36415; 81025; 81003; 83690; 80053; 74177; 76705; 96375; 96374; 99284; J7030; J2405

== ENCOUNTER 2022-06-18 15:40 | Emergency (ER) | payer OTHER ==
--- OUTSIDE RECORDS SUMMARY | 2022-06-18 15:48 | XMS REPORT | Continuity of Care Document ---
:[address] [facility] t Address [address] [place] [address] Care Team Providers Name Role Phone Justin Crabtree MD Primary Care Physician MONA RANDALL Attending Clinician Unavailable NEIL WALKER Attending Clinician Unavailable Rob Bucio Attending Clinician Unavailable JUSTIN CRABTREE Attending Clinician Unavailable DONTE_[email or web address]_Kyung Attending Clinician Unavailable Neil Saucedo Attending Clinician Unavailable Masood Medeiros Attending Clinician [phone] JH_Rolando Attending Clinician Unavailable Jean Marie Muniz MD Attending Clinician Clementina Obando Attending Clinician [phone] Amanda Gamez Attending Clinician Unavailable JUSTIN CRABTREE M.D. Attending Clinician Unavailable MONA RANDALL M.D. Attending Clinician Unavailable Anali PALOMINO, Rudi Attending Clinician [phone] GIL, Arnold Bledsoe Attending Clinician Doctor Unassigned, [place] Attending Clinician Unavailable Jamar Veras MD Attending [...] Admitting Clinician Unavailable [email or web address] Admitting Clinician Unavailable JH_Rolando Admitting Clinician Unavailable Amanda Gamez Admitting Clinician Unavailable JAMAR VERAS Admitting Clinician Unavailable Payers Payer Name Policy Type Policy Number Effective Date Expiration Date Kyung julian [employer]ET[employer] CHOICE [id number] 2017 POS II 00:00:00 AETNA 53 [id number] [facility] AETNA (POS) [id number] 2017 00:00:00 Problems Condition Condition Condition Status [...] 00:00: 00 Multigravi Multigravi Problem Active P rivia da of da of 12-24 Medical advanced Advanced 00:00: maternal Maternal 00 age Age [id number] Carpal [place] 14921 [facility] on left [facility] [id number] Carpal [place] 64264 [facility] on right [facility] History of History of Problem Resolve [...] rs active active ity of problems problems [facility] Allergies, Adverse Reactions, Alerts Allergy Allergy Status Severity Reaction(s) Onset Inactive Treating Comm ents Source Name Type Date Date Clinician Penicill Propensi Active Anaphylaxis M ethodi ins ty to 09-11 st adverse 00:00: Hospita reaction 00 l s to drug amoxicil DA Active SV ANAPHYLAXIS 2020-07 [facility] bob 1-17 Clear 00:00: Feng 00 [facility] amoxicil DA Active SV ANAPHYLAXIS 2020-07 [facility] bob 1-10 Clear 00:00: Feng 00 [facility] Penicill DA Active SV 2019-07 [facility] ins 08-30 [place] 00:00: Orthope 00 dic Hospita l ondanset DA Active SV 2019-07 [facility] cristo 2 [place] 00:00: Orthope 00 dic Hospita l [...] Hospita l Penicill DA Active SV ANAPHYLAXIS 2018-0 [facility] ins 2-21 [place] 00:00: Orthope 00 dic Hospita l amoxicil DA Active SV ANAPHYLAXIS 2016-0 [facility] bob 8-12 Clear 00:00: Feng 00 [facility] Penicill Propensi Active Rash 2016-0 Univer s ins ty to 8-08 ity of adverse 00:00: [place] reaction 00 Medical s Branch PENICILL Drug Active Rash 2016-0 Univers INS Class 8-08 ity of 00:00: [place] 00 Medical Branch 0 Drug Active Unknown Common allergy [facility] PENICILL Allergy Active [facility] INS to Medical substanc e Penicill Allergy Active [facility] ins to drug [facility] (finding ans ) Family History Family Member Diagnosis Comments Start Date Stop Date Source Mother Family history of [facility] cerebrovascular accident (CVA) Social History Social Habit Start Date Stop Date Quantity Comments Source History of [facility] Tobacco use and 2021-09-11 2021-09-11 Smokeless tobacco [facility] exposure 00:00:00 00:00:00 non-user Hospital Alcohol intake 2021-09-11 2021-09-11 Current drinker of [facility] 00:00:00 00:00:00 alcohol (finding) Hospita l Alcohol Comment 2021-09-11 2021-09-11 occassionally Method [facility] 00:00:00 00:00:00 Hospital Sex Ass[birth year] At [birth year] [facility] 00:00:00 00:00:00 Hospital Smoking Status Start Date Stop Date Source Tobacco smoking [facility] consumption unknown Never Smoker [facility] nter Former smoker 2018-11-30 00:00:00 2018-11-30 [facility] 00:00:00 Medical Branch Medications Ordered Filled Start Stop Current Ordering Indication Dosage Frequency Signature Comments Components Source Medication Medication Date Date Medication? Clinician (SIG) Name Name Mobic 7.5 Mobic 7.5 2- No 1{table QD Mobic 7.5 MG MG 3-31 04-30 t} MG 00:00: 00:00 00 :00 Mobic 7.5 Mobic 7.5 2021-0 2021- No 1{table QD Mobic 7.5 MG MG 3-31 04-30 t} MG 00:00: 00:00 00 :00 Mobic 7.5 Mobic 7.5 2021-0 2021- No 1{table QD Mobic 7.5 MG MG 3-31 04-30 t} MG 00:00: 00:00 00 :00 Mobic 7.5 Mobic 7.5 2021-0 2022- No 1{table QD Mobic 7.5 MG MG 3-31 04-30 t} MG 00:00: 00:00 00 :00 Mobic 7.5 Mobic 7.5 2021-0 2- No 1{table QD Mobic 7.5 MG MG 3-31 04-30 t} MG 00:00: 00:00 00 :00 Mobic 7.5 Mobic 7.5 2021-0 2- No 1{table QD Mobic 7.5 MG MG 3-31 04-30 t} MG 00:00: 00:00 00 :00 Mobic 7.5 Mobic 7.5 2021-0 2022- No 1{table QD Mobic 7.5 MG MG 3-31 04-30 t} MG 00:00: 00:00 00 :00 Mobic 7.5 Mobic 7.5 2021-0 2022- No 1{table QD Mobic 7.5 MG MG 3-31 04-30 t} MG 00:00: 00:00 00 :00 gabapentin 2021-0 Yes 300mg Take 300 [facility] (NEURONTIN) 3-[address] 300 mg 13:21: mouth. Hospita capsule 00 l gabapentin 2022-0 Yes 300mg Take 300 [facility] (NEURONTIN) 3-[address] 300 mg 13:21: mouth. Hospita capsule 00 l buprenorphi 2021-0 Yes 1{film} Q.5D 1 Film 2 Methodi ne-naloxone 2- (two) st (SUBOXONE) 00:00: times a Hosp matthieu 8-2 mg film 00 day. l buprenorphi 2021-0 Yes 1{film} Q.5D 1 Film 2 Methodi ne-naloxone 2-01 (two) st (SUBOXONE) 00:00: times a Hosp [facility] 8-2 mg film 00 day. l Acetaminoph Acetaminoph Yes JUSTIN 1 QD TAKE 1 [facility] en-Codeine en-Codeine 4-29 BROWN M.Saji TABLET [facility] 300-15 MG 300-15 MG 00:00: Daily PRN ans Oral Tablet Oral Tablet 00 facial pain Estradiol 2 Estradiol 2 2020-0 Yes 1 Q0.3333D TAKE 1 [facility] MG [...] Oil ar Oil 00 lidocaine 2020- No [id number] 2.5mL U nivers 2% 10-16 ity of (XYLOCAINE) 21:45: 21:26 [place] 20 mg/mL (2 00 :00 Medical %) Branch injection 2.5 mL triamcinolo 2020- No [id number] 2.4mg Univers ne 10-16 ity of acetonide 21:45: 21:26 [place] (KENALOG) 00 :00 Medical injection Branch 2.4 mg triamcinolo 2020- No [id number] 2.5mg 2.4 mg Univers ne 10-16 (rounded ity of acetonide 21:45: 21:26 from 2.5 [place] as (KENALOG) 00 :00 mg), Medical injection Intramuscu Bran ch 2.4 mg lar, ONCE, 1 dose, 10/16/20 at 1645, Routine lidocaine 2020-0 2020- No [id number] 2.5mL 2.5 mL, Univers 2% 10-16 Infiltrati ity of (XYLOCAINE) 21:45: 21:26 on, ONCE, [place] 20 mg/mL (2 00 :00 1 dose, Medic al %) 10/16/20 Branch injection at 1645, 2.5 mL Routine lidocaine 2020-0 2020- No [id number] 2.5mL U nivers 2% 10-16- ity of (XYLOCAINE) 21:45: 21:26 [place] 20 mg/mL (2 00 :00 Medical %) Branch injection 2.5 mL triamcinolo 2020-2020- No [id number] 2.4mg Univers ne 10-16 ity of acetonide 21:45: 21:26 [place] (KENALOG) 00 :00 Medical injection Branch 2.4 mg triamcinolo 2020- No [id number] 2.5mg 2.4 mg Univers ne 10-16 (rounded ity of acetonide 21:45: 21:26 from 2.5 [place] (KENALOG) 00 :00 mg), Medical injection Intramuscu Bran ch 2.4 mg lar, ONCE, 1 dose, 10/16/20 at 1645, Routine lidocaine 2020-2020- No [id number] 2.5mL 2.5 mL, Univers 2% 10-16 Infiltrati ity of (XYLOCAINE) 21:45: 21:26 on, ONCE, [place] 20 mg/mL (2 00 :00 1 dose, Medic al %) 10/16/20 Branch injection at 1645, 2.5 mL Routine lidocaine 2020-0 2020- No [id number] 2.5mL U nivers 2% 10-16 ity of (XYLOCAINE) 21:45: 21:26 [place] 20 mg/mL (2 00 :00 Medical %) Branch injection 2.5 mL triamcinolo 2020-0 2020- No [id number] 2.4mg Univers ne 10-16 ity of acetonide 21:45: 21:26 [place] (KENALOG) 00 :00 Medical injection Branch 2.4 mg triamcinolo 2020-0 2020- No [id number] 2.5mg 2.4 mg Univers ne 10-16 (rounded ity of acetonide 21:45: 21:26 from 2.5 [place] (KENALOG) 00 :00 mg), Medical injection Intramuscu Bran ch 2.4 mg lar, ONCE, 1 dose, 10/16/20 at 1645, Routine lidocaine 2020-0 2020- No [id number] 2.5mL 2.5 mL, Univers 2% 10-16 Infiltrati ity of (XYLOCAINE) 21:45: 21:26 on, ONCE, [place] 20 mg/mL (2 00 :00 1 dose, Medic al %) 10/16/20 Branch injection at 1645, 2.5 mL Routine lidocaine 2020-0 2020- No [id number] 2.5mL U nivers 2% 10-16 ity of (XYLOCAINE) 21:45: 21:26 [place] 20 mg/mL (2 00 :00 Medical %) Branch injection 2.5 mL triamcinolo 2020-0 2020- No [id number] 2.4mg Univers ne 10-16 ity of acetonide 21:45: 21:26 [place] (KENALOG) 00 :00 Medical injection Branch 2.4 mg triamcinolo 2020-0 2020- No [id number] 2.5mg 2.4 mg Univers ne 10-16 (rounded ity of acetonide 21:45: 21:26 from 2.5 [place] (KENALOG) 00 :00 mg), Medical injection Intramuscu Bran ch 2.4 mg lar, ONCE, 1 dose, 10/16/20 at 1645, Routine lidocaine 2020-0 2020- No [id number] 2.5mL 2.5 mL, Univers 2% 10-16 Infiltrati ity of (XYLOCAINE) 21:45: 21:26 on, ONCE, [place] 20 mg/mL (2 00 :00 1 dose, Medic al %) 10/16/20 Branch injection at 1645, 2.5 mL Routine triamcinolo 2020-0 2020- No [id number] 2.4mg Univers ne 10-16- ity of acetonide 20:15: 21:16 [place] (KENALOG) 00 :02 Medical injection Branch 2.4 mg lidocaine 2020- No [id number] 2.5mL U nivers 2% 10-16- ity of (XYLOCAINE) 20:15: 21:16 [place] 20 mg/mL (2 00 :01 Medical %) Branch injection 2.5 mL triamcinolo 2020- No [id number] 2.4mg Univers ne 10-16- ity of acetonide 20:15: 21:16 [place] (KENALOG) 00 :02 Medical injection Branch 2.4 mg lidocaine 2020- No [id number] 2.5mL U nivers 2% 10-16- ity of (XYLOCAINE) 20:15: 21:16 [place] 20 mg/mL (2 00 :01 Medical %) Branch injection 2.5 mL triamcinolo 2020- No [id number] 2.4mg Univers ne 10-16- ity of acetonide 20:15: 21:16 [place] (KENALOG) 00 :02 Medical injection Branch 2.4 mg lidocaine 2020- No [id number] 2.5mL U nivers 2% 10-16- ity of (XYLOCAINE) 20:15: 21:16 [place] 20 mg/mL (2 00 :01 Medical %) Branch injection 2.5 mL triamcinolo 2020- No [id number] 2.4mg Univers ne 10-16- ity of acetonide 20:15: 21:16 [place] (KENALOG) 00 :02 Medical injection Branch 2.4 mg lidocaine 2020- No [id number] 2.5mL U nivers 2% 10-16- ity of (XYLOCAINE) 20:15: 21:16 [place] 20 mg/mL (2 00 :01 Medical %) Branch injection 2.5 mL estradioL 2 Yes 1{tbl} Take 1 Un moises mg tablet 3-24 tablet by ity o f 00:00: mouth 3 [place] 00 (three) Medical times Branch daily. estradioL [...] 3 (three) Medical times Branch daily. estradioL Yes [...] 1 U nivers 10 mg/mL 09-24 } [place] in ity of nasal spray 00:00: 04:59 each [place] 00 :00 nostril Medical every 8 Branch (eight) hours as needed for Pain for up to 7 days. Indication s: chronic pain, occipital nerve apin butorphanol 2020-0 2020- No [id number] 1{spray Use 1 U nivers 10 mg/mL 3-15 -23 } [place] in ity of nasal spray 00:00: 04:59 each [place] 00 :00 nostril Medical every 8 Branch (eight) hours as needed for Pain for up to 7 days. Indication s: chronic pain, occipital nerve apin butorphanol 2020-0 2020- No [id number] 1{spray Use 1 U nivers 10 mg/mL 3-15 -23 } [place] in ity of nasal spray 00:00: 04:59 each [place] 00 :00 nostril Medical every 8 Branch (eight) hours as needed for Pain for up to 7 days. Indication s: chronic pain, occipital nerve apin butorphanol 2020-0 2020- No [id number] 1{spray Use 1 U nivers 10 mg/mL 3-15 -23 } [place] in ity of nasal spray 00:00: 04:59 each [place] 00 :00 nostril Medical every 8 Branch (eight) hours as needed for Pain for up to 7 days. Indication s: chronic pain, occipital nerve apin butorphanol 2020-0 Yes [id number] SPRAY ONCE Univers 10 mg/mL 2-23 IN A ity of nasal spray 00:00: NOSTRIL [place] 00 EVERY 8 Medical HOURS Branch NEEDED; USE SPARINGLY, MAY CAUSE HABIT FORMING Indication s: acute pain butorphanol 2020-0 Yes [id number] SPRAY ONCE Univers 10 mg/mL 2-23 IN A ity of nasal spray 00:00: NOSTRIL [place] as 00 EVERY 8 Medical HOURS Branch NEEDED; USE SPARINGLY, MAY CAUSE HABIT FORMING Indication s: acute pain butorphanol 1-0 Yes [id number] SPRAY ONCE Univers 10 mg/mL 2-23 IN A ity of nasal spray 00:00: NOSTRIL [place] as 00 EVERY 8 Medical HOURS Branch NEEDED; USE SPARINGLY, MAY CAUSE HABIT FORMING Indication s: acute pain butorphanol 2020-0 2020- No [id number] SPRAY ONCE Univers 10 mg/mL 2-23 03-15 IN A ity of nasal spray 00:00: 00:00 [place]IL [place] 00 :00 EVERY 8 Medical HOURS Branch NEEDED; USE SPARINGLY, MAY CAUSE HABIT FORMING Indication s: acute pain butorphanol 2021-0 2021- No [id number] SPRAY ONCE Univers 10 mg/mL [...] FORMING Indication s: acute pain butorphanol No [id number] 1{spray Use 1 U nivers 10 mg/mL 08-10 } [place] in ity of nasal spray 00:00: 05:59 each [place] 00 :00 nostril Medical every 8 Branch (eight) hours as needed for Pain for up to 7 days. Indication s: chronic pain, intractabl e complicate d headache. butorphanol No [id number] 1{spray Use 1 U nivers 10 mg/mL 08-10 } [place] in ity of nasal spray 00:00: 05:59 each [place] 00 :00 nostril Medical every 8 Branch (eight) hours as needed for Pain for up to 7 days. Indication s: chronic pain, intractabl e complicate d headache. butorphanol No [id number] 1{spray Use 1 U nivers 10 mg/mL 08-10 } [place] in ity of nasal spray 00:00: 05:59 each [place] 00 :00 nostril Medical every 8 Branch (eight) hours as needed for Pain for up to 7 days. Indication s: chronic pain, intractabl e complicate d headache. progesteron 0 Yes 2mL 2 mL by Uni vers [...] HABIT FORMING Indication s: acute pain butorphanol 2019- Yes [id number] SPRAY ONCE Univers 10 mg/mL 0-13 IN A ity of nasal spray 00:00: NOSTRIL [place] 00 EVERY 8 Medical HOURS Branch NEEDED; USE SPARINGLY, MAY CAUSE HABIT FORMING Indication s: acute pain butorphanol 2019- Yes 4647 SPRAY ONCE Univers 10 mg/mL 0-13 IN A ity of nasal spray 00:00: NOSTRIL [place] as 00 EVERY 8 Medical HOURS Branch NEEDED; USE SPARINGLY, MAY CAUSE HABIT FORMING Indication s: acute pain butorphanol 2019- Yes 4647 SPRAY ONCE Univers 10 mg/mL 0-13 IN A ity of nasal spray 00:00: NOSTRIL [place] as 00 EVERY 8 Medical HOURS Branch NEEDED; USE SPARINGLY, MAY CAUSE HABIT FORMING Indication s: acute pain butorphanol 2019- Yes 4647 SPRAY ONCE Univers 10 mg/mL 0-13 IN A ity of nasal spray 00:00: NOSTRIL [place] as 00 EVERY 8 Medical HOURS Branch NEEDED; USE SPARINGLY, MAY CAUSE HABIT FORMING Indication s: acute pain butorphanol 2019-07- No 4647 SPRAY ONCE Univers 10 mg/mL 17 IN A ity of nasal spray 00:00: 00:00 [place]STRIL [place] 00 :00 EVERY 8 Medical HOURS Branch NEEDED; USE SPARINGLY, MAY CAUSE HABIT FORMING Indication s: acute pain butorphanol 2019-07 No [id number] SPRAY ONCE Univers 10 mg/mL 08-29 IN A ity of nasal spray 00:00: 00:00 [place]IL [place] 00 :00 EVERY 8 Medical HOURS Branch NEEDED; USE SPARINGLY, MAY CAUSE HABIT FORMING Indication s: acute pain TOPIRAMATE 2020-0 Yes [id number] TAKE 1 Univers 50 mg 7-29 TABLET BY ity of tablet 00:00: MOUTH TWICE A Medical DAY Branch TOPIRAMATE 2020-0 Yes [id number] TAKE 1 Univers 50 mg 7-29 TABLET BY ity of tablet 00:00: MOUTH 00 TWICE A Medical DAY Branch TOPIRAMATE 2020-0 Yes [id number] TAKE 1 Univers 50 mg 7-29 TABLET BY ity of tablet 00:00: MOUTH 00 TWICE A Medical DAY Branch TOPIRAMATE 2020-0 Yes [id number] TAKE 1 Univers 50 mg 7-29 TABLET BY ity of tablet 00:00: MOUTH 00 TWICE A Medical DAY Branch TOPIRAMATE 2020-0 Yes [id number] TAKE 1 Univers 50 mg 7-29 TABLET BY ity of tablet 00:00: MOUTH 00 TWICE A Medical DAY Branch TOPIRAMATE 2020-0 Yes [id number] TAKE 1 Univers 50 mg 7-29 TABLET BY ity of tablet 00:00: MOUTH 00 TWICE A Medical DAY Branch TOPIRAMATE 2020-0 Yes [id number] TAKE 1 Univers 50 mg 7-29 TABLET BY ity of tablet 00:00: MOUTH 00 TWICE A Medical DAY Branch TOPIRAMATE 2020-0 Yes [id number] TAKE 1 Univers 50 mg 7-29 TABLET BY ity of tablet 00:00: MOUTH 00 TWICE A Medical DAY Branch TOPIRAMATE 2020-0 Yes [id number] TAKE 1 Univers 50 mg 7-29 TABLET BY ity of tablet 00:00: MOUTH TWICE A Medical DAY Branch TOPIRAMATE 2020-0 Yes [id number] TAKE 1 Univers 50 mg 7-29 TABLET BY ity of tablet 00:00: MOUTH TWICE A Medical DAY Branch TOPIRAMATE 2020-0 Yes [id number] TAKE 1 Univers 50 mg 7-29 TABLET BY ity of tablet 00:00: MOUTH TWICE A Medical DAY Branch TOPIRAMATE 2020-0 Yes [id number] TAKE 1 Univers 50 mg 7-29 TABLET BY ity of tablet 00:00: MOUTH TWICE A Medical DAY Branch TOPIRAMATE 2020-0 Yes [id number] TAKE 1 Univers 50 mg 7-29 TABLET BY ity of tablet 00:00: MOUTH TWICE A Medical DAY Branch TOPIRAMATE 2020-0 Yes [id number] TAKE 1 Univers 50 mg 7-29 TABLET BY ity of tablet 00:00: MOUTH TWICE A Medical DAY Branch TOPIRAMATE 2020-0 Yes [id number] TAKE 1 Univers 50 mg 7-29 TABLET BY ity of tablet 00:00: MOUTH TWICE A Medical DAY Branch TOPIRAMATE 2020-0 Yes [id number] TAKE 1 Univers 50 mg 7-29 TABLET BY ity of tablet 00:00: MOUTH TWICE A Medical DAY Branch TOPIRAMATE 2020-0 Yes [id number] TAKE 1 Univers 50 mg 7-29 TABLET BY ity of tablet 00:00: MOUTH TWICE A Medical DAY Branch TOPIRAMATE 2020-0 Yes [id number] TAKE 1 Univers 50 mg 7-29 TABLET BY ity of tablet 00:00: MOUTH TWICE A Medical DAY Branch TOPIRAMATE 2020-0 Yes [id number] TAKE 1 Univers 50 mg 7-29 TABLET BY ity of tablet 00:00: MOUTH TWICE A Medical DAY Branch TOPIRAMATE 2020-0 Yes [id number] TAKE 1 Univers 50 mg 7-29 TABLET BY ity of tablet 00:00: MOUTH TWICE A Medical DAY Branch TOPIRAMATE 2020-0 Yes [id number] TAKE 1 Univers 50 mg 7-29 TABLET BY ity of tablet 00:00: MOUTH 00 TWICE A Medical DAY Branch Rizatriptan Rizatriptan 2020-0 Yes JUSTIN Q2H TAKE 1 UT Benzoate 10 Benzoate 10 7-21 HOMAR [place] TABLET AT [facility] MG Oral MG Oral 00:00: ONSET OF ans Tablet Tablet 00 HEADACHE. MAY REPEAT EVERY 2 HOURS NEEDED. MAXIMUM 3 TABLETS IN 24 HOURS. butorphanol 2020-0 Yes [id number] INSERT 1 Univers 10 mg/mL 7-06 SPRAY INTO ity o f nasal spray 00:00: NOSTRIL [place] 00 EVERY 8 Medical HOURS Branch NEEDED FOR PAIN*USE SPARINGLY* *MAYBE HABIT FORMING butorphanol 2020-0 Yes [id number] INSERT 1 Univers 10 mg/mL 7-06 SPRAY INTO ity o f nasal spray 00:00: NOSTRIL [place] 00 EVERY 8 Medical HOURS Branch NEEDED FOR PAIN*USE SPARINGLY* *MAYBE HABIT FORMING butorphanol 2020-0 Yes [id number] INSERT 1 Univers 10 mg/mL 7-06 SPRAY INTO ity o f nasal spray 00:00: NOSTRIL [place] as 00 EVERY 8 Medical HOURS Branch NEEDED FOR PAIN*USE SPARINGLY* *MAYBE HABIT FORMING butorphanol 2020-0 Yes [id number] INSERT 1 Univers 10 mg/mL 7-06 SPRAY INTO ity o f nasal spray 00:00: NOSTRIL [place] 00 EVERY 8 Medical HOURS Branch NEEDED FOR PAIN*USE SPARINGLY* *MAYBE HABIT FORMING butorphanol 2020-0 2020- No [id number] INSERT 1 Univers 10 mg/mL 7-06 10-13 [...] capsule by ity of capsule 00:00: mouth 00 (two) Medical times Branch daily as needed for Cough. benzonatate 2020-0 Yes 200mg Take 1 Uni vers 200 mg 4-10 capsule by ity of capsule 00:00: mouth 2 [place] (two) Medical times Branch daily as needed for Cough. benzonatate 2020-0 Yes 200mg Take 1 Uni vers 200 mg 4-10 capsule by ity of capsule 00:00: mouth 2 [place] (two) Medical times Branch daily as needed for Cough. benzonatate 2020-0 Yes 200mg Take 1 Uni vers 200 mg 4-10 capsule by ity of capsule 00:00: mouth 2 [place] (two) Medical times Branch daily as needed for Cough. butorphanol 2020-0 Yes [id number] INSERT 1 Univers 10 mg/mL 3-16 SPRAY INTO ity o f nasal spray 00:00: NOSTRIL [place] as 00 EVERY 8 Medical HOURS Branch NEEDED FOR PAIN*USE SPARINGLY* *MAYBE HABIT FORMING butorphanol 2020-0 Yes [id number] INSERT 1 Univers 10 mg/mL 3-16 SPRAY INTO ity o f nasal spray 00:00: NOSTRIL [place] as 00 EVERY 8 Medical HOURS Branch NEEDED FOR PAIN*USE SPARINGLY* *MAYBE HABIT FORMING butorphanol 2020-0 Yes [id number] INSERT 1 Univers 10 mg/mL 3-16 SPRAY INTO ity o f nasal spray 00:00: NOSTRIL [place] as 00 EVERY 8 Medical HOURS Branch NEEDED FOR PAIN*USE SPARINGLY* *MAYBE HABIT FORMING butorphanol 2020-0 Yes [id number] INSERT 1 Univers 10 mg/mL 3-16 SPRAY INTO ity o f nasal spray 00:00: NOSTRIL [place] as 00 EVERY 8 Medical HOURS Branch NEEDED FOR PAIN*USE SPARINGLY* *MAYBE HABIT FORMING butorphanol 2020-0 2020- No [id number] INSERT 1 Univers 10 mg/mL 3-16 07-06 SPRAY INTO ity of nasal spray 00:00: 00:00 [place] 00 :00 EVERY 8 Medical HOURS Branch NEEDED FOR PAIN*USE SPARINGLY* *MAYBE HABIT FORMING butorphanol 2020-0 2020- No [id number] INSERT 1 Univers 10 mg/mL 3-16 07-06 SPRAY INTO ity of nasal spray 00:00: 00:00 [place]STRIL [place] 00 :00 EVERY 8 Medical HOURS Branch NEEDED FOR PAIN*USE SPARINGLY* *MAYBE HABIT FORMING DULoxetine 2020-0 Yes 60mg Take 60 mg U nivers 60 mg 2-21 by mouth ity of capsule 00:00: daily. [place] Medical Branch DULoxetine 2020-0 Yes 60mg Take 60 mg U nivers 60 mg 2-21 by mouth ity of capsule 00:00: daily. [place] [facility] Branch DULoxetine 2020-0 Yes 60mg Take 60 mg U nivers 60 mg 2-21 by mouth ity of capsule 00:00: daily. [place] [facility] Branch DULoxetine 2020-0 Yes 60mg Take 60 mg U nivers 60 mg 2-21 by mouth ity of capsule 00:00: daily. [place] [facility] Branch DULoxetine 2020-0 Yes 60mg Take 60 mg U nivers 60 mg 2-21 by mouth ity of capsule 00:00: daily. [place] [facility] Branch DULoxetine 2020-0 Yes 60mg Take 60 mg U nivers 60 mg 2-21 by mouth ity of capsule 00:00: daily. [address] DULoxetine 2020-0 Yes 60mg Take 60 mg U nivers 60 mg 2-21 by mouth ity of capsule 00:00: daily. [place] [facility] Branch DULoxetine 2020-0 Yes 60mg Take 60 mg U nivers 60 mg 2-21 by mouth ity of capsule 00:00: daily. [place] [facility] DULoxetine 2020-0 Yes 60mg Take 60 mg U nivers 60 mg 2-21 by mouth ity of capsule 00:00: daily. [place] [facility] DULoxetine 2020-0 Yes 60mg Take 60 mg U nivers 60 mg 2-21 by mouth ity of capsule 00:00: daily. [place] [facility] Branch DULoxetine 2020-0 Yes 60mg Take 60 mg U nivers 60 mg 2-21 by mouth ity of capsule 00:00: daily. [place] [facility] DULoxetine 2020-0 Yes 60mg Take 60 mg U nivers 60 mg 2-21 by mouth ity of capsule 00:00: daily. [address] Branch DULoxetine 2020-0 Yes 60mg Take 60 mg U nivers 60 mg 2-21 by mouth ity of capsule 00:00: daily. [address] DULoxetine 2020-0 Yes 60mg Take 60 mg U nivers 60 mg 2-21 by mouth ity of capsule 00:00: daily. [place] 00 Medical Branch DULoxetine 2020-0 Yes 60mg Take 60 mg U nivers 60 mg 2-21 by mouth ity of capsule 00:00: daily. [place] Medical Branch DULoxetine 2020-0 Yes 60mg Take 60 mg U nivers 60 mg 2-21 by mouth ity of capsule 00:00: daily. [place] Medical Branch DULoxetine 2020-0 Yes 60mg Take 60 mg U nivers 60 mg 2-21 by mouth ity of capsule 00:00: daily. [place] Medical Branch DULoxetine 2020-0 Yes 60mg Take 60 mg U nivers 60 mg 2-21 by mouth ity of capsule 00:00: daily. [place] Medical Branch DULoxetine 2020-0 Yes 60mg Take 60 mg U nivers 60 mg 2-21 by mouth ity of capsule 00:00: daily. [place] Medical Branch DULoxetine 2020-0 Yes 60mg Take 60 mg U nivers 60 mg 2-21 by mouth ity of capsule 00:00: daily. [place] [address] Medical Branch DULoxetine 2020-0 Yes 60mg Take 60 mg U nivers 60 mg 2-21 by mouth ity of capsule 00:00: daily. [place] Medical Branch DULoxetine 2020-0 Yes 60mg Take 60 mg U nivers 60 mg 2-21 by mouth ity of capsule 00:00: daily. [place] Medical Branch DULoxetine 2020-0 Yes 60mg Take 60 mg U nivers 60 mg 2-21 by mouth ity of capsule 00:00: daily. [place] Medical Branch DULoxetine 2020-0 Yes 60mg Take 60 mg U nivers 60 mg 2-21 by mouth ity of capsule 00:00: daily. [place] [address] Medical Branch DULoxetine 2020-0 Yes 60mg Take 60 mg U nivers 60 mg 2-21 by mouth ity of capsule 00:00: daily. [place] [address] Medical Branch DULoxetine 2020-0 Yes 60mg Take 60 mg U nivers 60 mg 2-21 by mouth ity of capsule 00:00: daily. [place] [address] Medical Branch TOPIRAMATE 2020-0 Yes [id number] TAKE 1 Univers 50 mg 1-23 TABLET BY ity of tablet 00:00: MOUTH [place] [address] TWICE A Medical DAY Branch TOPIRAMATE 2020-0 Yes [id number] TAKE 1 Univers 50 mg 1-23 TABLET BY ity of tablet 00:00: MOUTH [place] [address] TWICE A Medical DAY Branch TOPIRAMATE 2020-0 Yes [id number] TAKE 1 Univers 50 mg 1-23 TABLET BY ity of tablet 00:00: MOUTH [place] 00 TWICE A Medical DAY Branch TOPIRAMATE 2020-0 Yes [id number] TAKE 1 Univers 50 mg 1-23 TABLET BY ity of tablet 00:00: MOUTH [place] 00 TWICE A Medical DAY Branch TOPIRAMATE 2020-0 Yes [id number] TAKE 1 Univers 50 mg 1-23 TABLET BY ity of tablet 00:00: MOUTH [place] 00 TWICE A Medical DAY Branch TOPIRAMATE 2020-0 Yes [id number] TAKE 1 Univers 50 mg 1-23 TABLET BY ity of tablet 00:00: MOUTH [place] 00 TWICE A Medical DAY Branch TOPIRAMATE 2020-0 Yes [id number] TAKE 1 Univers 50 mg 1-23 TABLET BY ity of tablet 00:00: MOUTH [place] 00 TWICE A Medical DAY Branch TOPIRAMATE 2020-0 Yes [id number] TAKE 1 Univers 50 mg 1-23 TABLET BY ity of tablet 00:00: MOUTH [place] 00 TWICE A Medical DAY Branch TOPIRAMATE 2020-0 2020- No [id number] TAKE 1 Univers 50 mg 1-23 07-29 TABLET BY ity of tablet 00:00: 00:00 MOUTH [place] 00 :00 TWICE A Medical DAY Branch butorphanol 2018-07 Yes [id number] INSERT 1 Univers 10 mg/mL 1-07 SPRAY INTO ity o f nasal spray 00:00: NOSTRIL [place] 00 EVERY 8 Medical HOURS Branch NEEDED FOR PAIN*USE SPARINGLY* *MAYBE HAB[employer]MING butorphanol 2018-07 Yes [id number] INSERT 1 Univers 10 mg/mL 1-07 SPRAY INTO ity o f nasal spray 00:00: NOSTRIL [place] 00 EVERY 8 Medical HOURS Branch NEEDED FOR PAIN*USE SPARINGLY* *MAYBE HAB[employer]MING butorphanol 2018-07 2020- No [id number] INSERT 1 Univers 10 mg/mL 1-07 03-16 SPRAY INTO ity of nasal spray 00:00: 00:00 NOSTRIL [place] 00 :00 EVERY 8 Medical HOURS Branch NEEDED FOR PAIN*USE SPARINGLY* *MAYBE HABIT [employer]MING topiramate 2018-07 Yes [id number] 50mg Take 1 Univers 50 mg 0-28 tablet by ity of tablet 00:00: mouth 2 [place] 00 (two) Medical times Branch daily. topiramate 2018-07 2020- No [id number] 50mg Take 1 Univers 50 mg 0-28 01-23 tablet by ity of tablet 00:00: 00:00 mouth 2 [place] 00 :00 (two) Medical times Branch daily. gadoterate 2019- No .2mL/kg 15.06 mL Univers meglumine 02-22 (0.2 mL/kg ity of (DOTAREM-15 20:30: 20:30 ?75.3 kg), [place] mL) 00 :00 Intravenou Medical injection s, ONCE, 1 Bran ch 15.06 mL dose, 02/22/19 at 1530, Routine BUTORPHANOL Yes [id number] INSERT 1 Univers 10 mg/mL 7-30 SPRAY INTO ity o f nasal spray 00:00: NOSTRIL [place] 00 EVERY 8 Medical HOURS Branch NEEDED FOR PAIN*USE SPARINGLY* *MA[employer]BE [employer]MING BUTORPHANOL Yes [id number] INSERT 1 Univers 10 mg/mL 7-30 SPRAY INTO ity o f nasal spray 00:00: NOSTRIL [place] 00 EVERY 8 Medical HOURS Branch NEEDED FOR PAIN*USE SPARINGLY* *MAYBE HAB[employer]MING BUTORPHANOL Yes [id number] INSERT 1 Univers 10 mg/mL 7-30 SPRAY INTO ity o f nasal spray 00:00: NOSTRIL [place] 00 EVERY 8 Medical HOURS Branch NEEDED FOR PAIN*USE SPARINGLY* *MAYBE HAB[employer]MING BUTORPHANOL Yes [id number] INSERT 1 Univers 10 mg/mL 7-30 SPRAY INTO ity o f nasal spray 00:00: NOSTRIL Crhistopher as 00 EVERY 8 Medical HOURS Branch NEEDED FOR PAIN*USE SPARINGLY* *MAYBE HABIT [employer]MING BUTORPHANOL Yes [id number] INSERT 1 Univers 10 mg/mL 7-30 SPRAY INTO ity o f nasal spray 00:00: NOSTRIL [place] 00 EVERY 8 Medical HOURS Branch NEEDED FOR PAIN*USE SPARINGLY* *MAYBE H[employer]MING BUTORPHANOL Yes [id number] INSERT 1 Univers 10 mg/mL 7-30 SPRAY INTO ity o f nasal spray 00:00: NOSTRIL [place] 00 EVERY 8 Medical HOURS Branch NEEDED FOR PAIN*USE SPARINGLY* *MAYBE HAB[employer]MING TOPIRAMATE Yes [id number] TAKE 1 Univers 25 mg 6-12 TABLET BY ity of tablet 00:00: MOUTH [place] 00 TWICE A Medical DAY Branch TOPIRAMATE Yes [id number] TAKE 1 Univers 25 mg 6-12 TABLET BY ity of tablet 00:00: MOUTH [place] 00 TWICE A Medical DAY Branch TOPIRAMATE 2019-0 Yes [id number] TAKE 1 Univers 25 mg 6-12 TABLET BY ity of tablet 00:00: MOUTH [place] 00 TWICE A Medical DAY Branch TOPIRAMATE 2019-0 Yes [id number] TAKE 1 Univers 25 mg 6-12 TABLET BY ity of tablet 00:00: MOUTH [place] 00 TWICE A Medical DAY Branch TOPIRAMATE 2019-0 Yes [id number] TAKE 1 Univers 25 mg 6-12 TABLET BY ity of tablet 00:00: MOUTH [place] 00 TWICE A Medical DAY Branch TOPIRAMATE 2019-0 Yes [id number] TAKE 1 Univers 25 mg 6-12 TABLET BY ity of tablet 00:00: MOUTH [place] 00 TWICE A Medical DAY Branch butorphanol 0 2019- No [id number] 1{spray Use 1 Univers 10 mg/mL 5-30 } [place] in ity of nasal spray 00:00: 00:00 each [place] 00 :00 nostril Medical every 8 Branch (eight) hours as needed for Pain. cephALEXin Yes TAKE 1 Unive rs 500 mg 5-15 CAPSULE BY ity of capsule 00:00: MOUTH [place] 00 EVERY 6 Medical HOURS X7 Branch DAYS cephALEXin Yes TAKE 1 Unive rs 500 mg 5-15 CAPSULE BY ity of capsule 00:00: MOUTH [place] 00 EVERY 6 Medical HOURS X7 Branch DAYS cephALEXin Yes TAKE 1 Unive rs 500 mg 5-15 CAPSULE BY ity of capsule 00:00: MOUTH [place] 00 EVERY 6 Medical HOURS X7 Branch DAYS cephALEXin 2018- Yes TAKE 1 Unive rs 500 mg 5-15 CAPSULE BY ity of capsule 00:00: MOUTH [place] 00 EVERY 6 Medical HOURS X7 Branch DAYS cephALEXin Yes TAKE 1 Unive rs 500 mg 5-15 CAPSULE BY ity of capsule 00:00: MOUTH [place] 00 EVERY 6 Medical HOURS X7 Branch DAYS cephALEXin 2018- Yes TAKE 1 Unive rs 500 mg 5-15 CAPSULE BY ity of capsule 00:00: MOUTH [place] 00 EVERY 6 Medical HOURS X7 Branch [...] t Phosphate Phosphate 00:00: - C HI [facility] LIDOCAINE LIDOCAINE 2018-0 No 5mL Com mon HCL 10MG/ML HCL 10MG/ML 7-27 S pirit 00:00: - [facility] Betamethaso Betamethaso 2018-0 No 1mL Common ne Sodium ne Sodium 7-27 Spiri t Phosphate Phosphate 00:00: - C HI [facility] LIDOCAINE LIDOCAINE 2018-0 No 5mL Com mon HCL 10MG/ML HCL 10MG/ML 7-27 S pirit 00:00: - [facility] Betamethaso Betamethaso 2018-0 No 1mL Common ne Sodium ne Sodium 7-27 Spiri t Phosphate Phosphate 00:00: - C HI [facility] LIDOCAINE LIDOCAINE 2018-0 No 5mL Com mon HCL 10MG/ML HCL 10MG/ML 7-27 S pirit 00:00: - CHI 00 [facility] Betamethaso Betamethaso 2018-0 No 1mL Common ne Sodium ne Sodium 7-27 Spiri t Phosphate Phosphate 00:00: - C HI [facility] LIDOCAINE LIDOCAINE 2018-0 No 5mL Com mon HCL 10MG/ML HCL 10MG/ML 7-27 S pirit 00:00: - [facility] Betamethaso Betamethaso 2018-0 No 1mL Common ne Sodium ne Sodium 7-27 Spiri t Phosphate Phosphate 00:00: - C HI [facility] LIDOCAINE LIDOCAINE 2018-0 No 5mL Com mon HCL 10MG/ML HCL 10MG/ML 7-27 S pirit 00:00: - [facility] Betamethaso Betamethaso 2018-0 No 1mL Common ne Sodium ne Sodium 7-27 Spiri t Phosphate Phosphate 00:00: - C HI 00 [facility] LIDOCAINE LIDOCAINE 2017-0 No 5mL Com mon HCL 10MG/ML HCL 10MG/ML 7-27 S pirit 00:00: - [facility] Betamethaso Betamethaso 2017-0 No 1mL Common ne Sodium ne Sodium 7-27 Spiri t Phosphate Phosphate 00:00: - C HI [facility] LIDOCAINE LIDOCAINE 2017-0 No 5mL Com mon HCL 10MG/ML HCL 10MG/ML 7-27 S pirit 00:00: - [facility] acetaminoph 2015- Yes 1{tbl} Take 1 Un moises en-codeine 7-26 tablet by ity of (TYLENOL-CO 00:00: mouth [place] DEINE #3) 00 every 4 Medical 300-30 mg (four) Branch tablet hours as needed for Pain (scale 4-6). acetaminoph Yes 1{tbl} Take 1 Un mosies en-codeine 7-26 tablet by ity of (TYLENOL-CO [...] as needed for Pain (scale 4-6). acetaminoph 2015- Yes 1{tbl} Take 1 Un moises en-codeine [...] as needed for Pain (scale 4-6). acetaminoph 2016-0 Yes 1{tbl} Take 1 Un moises en-codeine [...] hours as needed for Pain (scale 4-6). Cyclobenzap Cyclobenzap Yes Eddy not Common rine HCl rine HCl Lester defined Spir it - [facility] Cyclobenzap Cyclobenzap No Cyclobenza rine HCl [...] 10 adry HCl MG MG 10 MG acetaminoph acetaminoph No acetaminop [facility] en 300 [...] A DAY THEN 3 TIMES A DAY Immunizations Ordered Immunization Filled Immunization Date Status Commen ts Source Name Name influenza, influenza, 2021-04-04 Completed [facility] injectable, injectable, 12:28:09 quadrivalent, quadrivalent, preservative free preservative free influenza, influenza, 2021-04-04 Completed [facility] injectable, injectable, 12:28:09 quadrivalent, quadrivalent, preservative free preservative free Vital Signs Vital Name Observation Time Observation Value Comments Source blood pressure 2021-12-12 74 mm[Hg] [facility] - diastolic 10:15:00 [facility] height 2021-12-12 65 [in_i] [facility] - 10:15:00 [facility] weight 2021-12-12 164 [lb_av] [facility] - 10:15:00 [facility] temperature 2021-12-12 97.1 [degF] [facility] - 10:15:00 [facility] bmi 2021-12-12 27.29 kg/m2 [facility] - 10:15:00 [facility] blood pressure 2021-12-12 112 mm[Hg] [facility] - systolic 10:15:00 [facility] height 2021-11-25 65 [in_i] [facility] - 10:15:00 [facility] weight 2021-11-25 164 [lb_av] [facility] - 10:15:00 [facility] temperature 2021-11-25 97.4 [degF] [facility] - 10:15:00 [facility] bmi 2021-11-25 27.29 kg/m2 [facility] - 10:15:00 [facility] blood pressure 2021-11-25 100 mm[Hg] [facility] - systolic 10:15:00 [facility] blood pressure 2021-11-25 64 mm[Hg] [facility] - diastolic 10:15:00 [facility] height 2021-11-07 65 [in_i] [facility] - 14:45:00 [facility] weight 2021-11-07 164 [lb_av] [facility] - 14:45:00 [facility] temperature 2021-11-07 97.4 [degF] [facility] - 14:45:00 [facility] bmi 2021-11-07 27.29 kg/m2 [facility] - 14:45:00 [facility] blood pressure 2021-11-07 132 mm[Hg] [facility] - systolic 14:45:00 [facility] blood pressure 2021-11-07 74 mm[Hg] [facility] - diastolic 14:45:00 [facility] height 2021-10-10 65 [in_i] [facility] - 11:00:00 [facility] weight 2021-10-10 164 [lb_av] [facility] - 11:00:00 [facility] temperature 2021-10-10 97.8 [degF] [facility] - 11:00:00 [facility] bmi 2021-10-10 27.29 kg/m2 [facility] - 11:00:00 [facility] blood pressure 2021-10-10 122 mm[Hg] [facility] - systolic 11:00:00 [facility] blood pressure 2021-10-10 82 mm[Hg] [facility] - diastolic 11:00:00 [facility] Height 2021-09-18 65 [in_i] [facility] 00:00:00 BMI (Body Mass 2021-09-18 26.6 kg/m2 [facility] Index) 00:00:00 Body Weight 2021-09-18 2560 [oz_av] [facility] 00:00:00 BP Diastolic 2021-07-03 89 mm[Hg] [facility] 00:00:00 Height 2021-07-03 65 [in_i] [facility] 00:00:00 BMI (Body Mass 2021-07-03 26.6 kg/m2 [facility] Index) 00:00:00 BP Systolic 2021-07-03 132 mm[Hg] [facility] 00:00:00 Body Weight 2021-07-03 160 [lb_av] [facility] 00:00:00 Systolic blood 2020-10-16 114 mm[Hg] University of pressure 19:04:00 [facility] Diastolic blood 2020-10-16 78 mm[Hg] University o f pressure 19:04:00 [facility] Heart rate 2020-10-16 84 /min University of 19:04:00 [facility] Body temperature 2020-10-16 36.72 [place] University of 19:04:00 [facility] Respiratory rate 2020-10-16 18 /min University of 19:04:00 [facility] Body height 2020-10-16 165.1 cm University of 19:04:00 [facility] Body weight 2020-10-16 74.98 kg University of 19:04:00 [facility] BMI 2020-10-16 27.51 kg/m2 University of 19:04:00 [facility] Systolic blood 2019-10-09 126 mm[Hg] University of pressure 20:16:00 [facility] Diastolic blood 2019-10-09 81 mm[Hg] University o f pressure 20:16:00 [facility] Heart rate 2019-10-09 77 /min University of 20:16:00 [facility] Body temperature 2019-10-09 36.89 [place] University of 20:16:00 [facility] Respiratory rate 2019-10-09 18 /min University of 20:16:00 [facility] Body height 2019-10-09 165.1 cm University of 20:16:00 [facility] Body weight 2019-10-09 72.576 kg [facility] 20:16:00 [facility] BMI 2019-10-09 26.63 kg/m2 University 20:16:00 [facility] Oxygen saturation 2019-10-09 97 /min [facility] in Arterial blood 20:16:00 [facility] by Pulse oximetry [place] Systolic blood 2021-09-11 144 mm[Hg] [facility] 19:20:00 Hospital Diastolic blood 2021-09-11 94 mm[Hg] [facility] pressure 19:20:00 Hospital Heart rate 2021-09-11 79 /min [facility] 19:20:00 Hospital Body temperature 2021-09-11 36.78 [place] [facility] 19:20:00 Hospital Respiratory rate 2021-09-11 18 /min [facility] 19:20:00 Hospital Oxygen saturation 2021-09-11 99 /min [facility] in Arterial blood 19:20:00 [facility] by Pulse oximetry Body height 2021-09-11 165.1 cm [facility] 15:52:00 Hospital Body weight 2021-09-11 73.936 kg [facility] 15:52:00 [facility] BMI 2021-09-11 27.12 kg/m2 [facility] 15:52:00 Hospital Systolic blood 2020-05-10 136 mm[Hg] Location: [facility] Physicia ns pressure 09:33:00 Position: Sitting Diastolic blood 2020-05-10 93 mm[Hg] Location: [facility] Physici ans pressure 09:33:00 Position: Sitting Body height 2020-05-10 65 [in_us] [facility] 09:33:00 Weight 2020-05-10 168.4 [lb_av] [facility] 09:33:00 Body mass index 2020-05-10 28.02 kg/m2 [facility] (BMI) [Ratio] 09:33:00 Body temperature 2020-05-10 98.2 [degF] Method: [facility] 09:33:00 Temporal Heart Rate 2020-05-10 73 /min [facility] 09:33:00 O2 SAT 2020-05-10 99 % Source: [facility] 09:33:00 Systolic blood 2020-01-03 127 mm[Hg] [facility] pressure 09:33:00 Diastolic blood 2020-01-03 87 mm[Hg] [facility] pressure 09:33:00 Body height 2020-01-03 65 [in_us] [facility] 09:33:00 Weight 2020-01-03 180 [lb_av] [facility] 09:33:00 Body mass index 2020-01-03 29.95 kg/m2 [facility] (BMI) [Ratio] 09:33:00 Body temperature 2020-01-03 98.2 [degF] [facility] 09:33:00 Heart Rate 2020-01-03 89 /min [facility] 09:33:00 BP Systolic 2019-06-14 117 mm[Hg] [facility] 14:05:00 BP Diastolic 2019-06-14 78 mm[Hg] [facility] 14:05:00 Height 2019-06-14 65 [in_us] [facility] 14:05:00 Weight 2019-06-14 156.375 [lb_av] [facility] 14:05:00 Body Mass Index 2019-06-14 26.02 kg/m2 [facility] Calculated 14:05:00 Temperature 2019-06-14 97.5 [degF] [facility] 14:05:00 Heart Rate 2019-06-14 80 /min [facility] 14:05:00 Respiration Rate 2019-06-14 80 /min [facility] 14:05:00 Procedures Procedure Date / Time Performing Clinician Source Performed MRI, brain, w/o contrast 2021-09-18 00:00:00 Kristy via Medical MRI, cervical spine, w/o 2021-09-18 00:00:00 Kristy via Medical contrast CT HEAD WO CONTRAST 2021-09-11 17:38:41 CristyJean Marie walker [facility] CT CERVICAL SPINE WO 2021-09-11 17:35:00 CristyJean Marie walker [facility] CONTRAST HC COMPLETE BLD COUNT 2021-09-11 16:55:00 CristyJean Marie walker [facility] [place] W/AUTO DIFF COMPREHENSIVE METABOLIC 2021-09-11 16:55:00 CristyJean Marie walker [facility] [place] [facility] PANEL HCG QUALITATIVE, URINE 2021-09-11 16:55:00 CristyJean Marie walker [facility] SCREEN URINALYSIS 2021-09-11 16:55:00 CristyJean Marie walker [facility] ESTIMATED GFR 2021-09-11 16:55:00 Jean Marie Muniz [facility] [id number] 2021-05-30 00:00:00 LEBJO [facility] [id number] 2021-05-30 00:00:00 LEBJO [facility] [id number] 2021-05-30 00:00:00 [facility] [id number] 2021-05-30 00:00:00 [facility] [UTP] Neuro - Nerve 2020-10-31 00:00:00 [facility] Blocks DISCLOSURE AND CONSENT, 2020-10-16 05:01:00 Doctor Unassigned, [facility] MEDICAL AND SURGICAL [place] [facility]c PROCEDURES Hysteroscopy 2020-08-13 00:00:00 [facility] MEDICATION CORRESPONDENCE 2020-08-10 06:01:00 Doctor Unassigned, [facility] [place] [facility] Knee Arthroscopy/surgery 2020-06-12 00:00:00 Kristy via Medical Tilt Table Test 2020-03-25 00:00:00 [facility] MRI Brain wo contrast 2020-03-21 00:00:[place] [id number] [[place]] Toxin - Botox 2020-02-15 00:00:00 [facility] [[facility]] Toxin - Botox 2019-12-09 00:00:00 [facility] [[facility]] Toxin - Botox 2019-11-29 00:00:00 [facility] POCT FLU A AND B 2019-10-09 20:28:00 Trang Kinsey [facility] (MOLECULAR) Medical Branch [UTP] Toxin - Botox 2019-07-27 00:00:00 [facility] AUTHORIZATION FOR RELEASE 2019-06-29 06:01:00 Doctor Unassigned, [facility] [place] [facility] [UTP] Toxin - Botox 2019-06-14 00:00:00 [facility] AUTHORIZATION FOR RELEASE 2019-02-25 05:01:00 Doctor Unassigned, [facility] [place] [facility] MR CERVICAL SPINE W WO 2019-02-22 20:05:59 Requisition, Paper Un [facility] CONTRAST Medical Branch MR VENOGRAM HEAD WO 2019-02-22 19:35:32 [facility] MR BRAIN W WO CONTRAST 2019-02-22 19:00:00 Jamar Veras [facility] ASSIGNMENT OF BENEFITS 2019-02-22 17:34:41 [facility] [place] [facility] Knee Arthroscopy/surgery 2015-07-13 00:00:00 Kristy via Medical Dilation and Curettage 2013-07-13 00:00:00 [facility] Shoulder Joint Surgery [facility] Laparoscopy [facility] Appendectomy [facility] History of In vitro [facility] fertilization Plan of Care Planned Activity Planned Date Details Comments Source Future Scheduled 2022-05-13 HEPATITIS B VACCINES [facility] Test 08:02:10 (1 of 3 - 3-dose series) [code = HEPATITIS B VACCINES (1 of 3 - 3-dose series)] Future Scheduled 2022-05-13 [facility] Test 08:02:10 screening (procedure) [code = 657599628] Future Scheduled 2022-05-13 Screening for [facility] Test 08:02:10 malignant neoplasm of cervix (procedure) [code = 068490845] Future Scheduled 2022-05-13 COVID-19 VACCINE (3 [facility] Test 08:02:10 - Booster for Pfizer series) [code = COVID-19 VACCINE (3 - Booster for Pfizer series)] Future Scheduled 2022-05-13 INFLUENZA VACCINE [facility] Test 08:02:10 [code = INFLUENZA VACCINE] Future Scheduled 2022-05-13 HEPATITIS B VACCINES [facility] Test 08:02:10 (1 of 3 - 3-dose series) [code = HEPATITIS B VACCINES (1 of 3 - 3-dose series)] Future Scheduled 2022-05-13 [facility] Test 08:02:10 screening (procedure) [code = 089940879] Future Scheduled 2022-05-13 [facility] Test 08:02:10 malignant neoplasm of cervix (procedure) [code = 434086412] Future Scheduled 2022-05-13 COVID-19 VACCINE (3 [facility] Test 08:02:10 - Booster for Pfizer series) [code = COVID-19 VACCINE (3 - Booster for Pfizer series)] Future Scheduled 2022-05-13 INFLUENZA VACCINE [facility] Test 08:02:10 [code = INFLUENZA VACCINE] Diagnostic [...] 6250-5] Diagnostic Test 2021-07-03 zander albicans [facility] Pending 00:00:00 DNA, PCR, vaginal fluid [...] Date/Time Type Type Clinicians Facility Department ID 2022-06-16 Outpatient [facility] [id number] [place] 13:55:[id number] [place] [address] 2022-01-23 Outpatient STLMLC STLMLC [id number] Common 15:39:00 [id number] [facility] 2021-10-10 Outpatient STLMLC STLMLC [id number] Common 11:18:01 [facility] 2021-10-09 Outpatient STLMLC STLMLC [id number] Common 10:41:00 [facility] 2021-09-25 Outpatient STLMLC STLMLC [id number] Common 11:01:00 [id number] [facility] 2021-09-14 Outpatient SANJIV [facility] [id number] [place] 02:41:35 [facility] 2021-09-13 Outpatient DENISE [facility] [id number] [place] 15:21:58 [facility] 2021-09-09 Outpatient SANJIV [facility] [id number] [place] 08:51:39 [facility] 2021-08-09 Outpatient SANJIV [facility] [id number] [place] 15:16:50 [facility] 2021-08-07 Outpatient STLMLC STLMLC [id number] Common 12:21:34 [id number] [facility] 2020-06-29 Inpatient ABIGAIL Bucio [facility] [id number] [facility] 11:00:00 Rob Vicente [place] [facility] 2018-10-22 Inpatient U [facility] [id number] [facility] H 16:11:00 2022-08-13 2022-08-13 Outpatient HOMAR [facility] [id number] [place] 08:00:00 08:00:00 [facility] 2021-12-12 2021-12-12 NON-BILLAB STLMLC STLMLC [id number] Common 00:00:00 00:00:00 LE VISIT [facility] 2021-12-07 2021-12-07 Outpatient GC_TNC_Lovi PRIV PRIV [id number] [facility] 02:30:00 02:30:00 tt_S [id number] Medica l 2021-11-25 2021-11-25 NON-BILLAB STLMLC STLMLC [id number] Common 00:00:00 00:00:00 LE VISIT [facility] 2021-11-09 2021-11-09 Outpatient GC_TNC_Lovi PRIV PRIV [id number] [facility] 01:16:00 01:16:00 tt_S [id number] Medica l 2021-11-07 2021-11-07 OFFICE STLMLC STLMLC [id number] Co mmon 00:00:00 00:00:00 VISIT [facility] 4 [facility] 2021-10-28 2021-10-28 (TEL) STLMLC STLMLC [id number] Co mmon 00:00:00 00:00:00 [facility] 2021-10-14 2021-10-14 (TEL) STLMLC STLMLC [id number] Co mmon 00:00:00 00:00:00 [facility] 2021-10-12 2021-10-12 Outpatient GC_TNC_Lovi PRIV PRIV [id number] [facility] 02:26:00 02:26:00 tt_S [id number] Medica l 2021-10-10 2021-10-10 (TEL) STLMLC STLMLC [id number] Co mmon 00:00:00 00:00:00 [facility] 2021-10-10 2021-10-10 OFFICE STLMLC STLMLC [id number] Co mmon 00:00:00 00:00:00 VISIT NEW Spir it PT LEVEL 4 - [facility] 2021-09-18 2021-09-18 Outpatient GC_TNC_Lovi PRIV PRIV [id number] [facility] 12:53:00 12:53:00 tt_S [id number] Medica l 2021-09-18 2021-09-18 Outpatient Waldemar [facility] PRIV [id number] 00:00:00 00:00:00 Masood Spaulding [id number] 2021-09-18 2021-09-18 Masood Spaulding [facility] [id number] [facility] 00:00:00 00:00:00 Waldemar [facility] - Medic hipolito MD: [id number] GC_TNC_[facility], Office* [address], [place] [address] , Ph. 2021-09-17 2021-09-17 Outpatient GC_NICKHABAWS PRIV PRIV [id number] [facility] 01:40:00 01:40:00 _Romina [id number] [facility] amada 2021-09-16 2021-09-16 Outpatient GC_TNC_Lovi PRIV PRIV [id number] [facility] 10:50:00 10:50:00 tt_S [id number] Medica l 2021-09-11 2021-09-11 Emergency Cristy, 1.2.840.1 [id number] [facility]i 09:41:00 13:21:00 Jean Marie Lennon 32475.1.1 825 s t 3.430.2.7 Hospit a .[id number] l .8 2021-09-11 2021-09-11 Emergency Cristy, 1.2.840.1 [id number] [facility] 09:41:00 13:21:00 Jean Marie D. 12062.1.1 825 s t 3.430.2.7 Hospit a .3.585146 l .8 2021-09-11 2021-09-11 Travel 1.2.840.1 [id number] [facility] 00:00:00 00:00:[address] 3.430.2.7 0.2.7.3.698 Ho spita .[id number] 084.8 l .8 2021-09-11 2021-09-11 Travel 1.2.840.1 [id number] [facility] 00:00:00 00:00:[id number] 3.430.2.7 0.2.7.3.698 Ho spita .3.267197 084.8 l .8 2021-09-10 2021-09-10 Outpatient GC_TNC_Lovi PRIV PRIV [id number] [facility] 12:53:00 12:53:00 tt_S [id number] Medica l 2021-08-28 2021-08-28 Telephone MAHSA Randall 6410 1.2.840.114 [id number] [place] 00:00:00 00:00:[address] 350.1.13.58 Health 9.2.7.2.686 [id number] 8 2021-08-11 2021-08-11 Abstract MAHSA Randall 6410 1.2.703.084 [id number] [place] 00:00:00 00:00:[address] 350.1.13.58 Health 9.2.7.2.686 [id number] 2021-07-03 2021-07-03 Outpatient GC_SWHABAWS PRIV PRIV [id number] [facility] 02:30:00 02:30:00 _Romina [id number] [facility] 2021-07-03 2021-07-03 Clementina PRIV [facility] [id number] [facility] 00:00:00 00:00:00 Yaw Obando [facility] talat PA: 560 GC_SWHABAWS [place] _Blossom [facility], [place] [address] , Ph. 2021-07-03 2021-07-03 Outpatient CELESTINO Obando PRIV [id number] 00:00:00 00:00:00 Clementina [id number] 2021-05-29 2021-06-01 Inpatient EL Franco, HCACL OBPP [id number] [facility] 11:11:00 11:00:00 Amanda 84 [facility] 2021-05-22 2021-05-22 Outpatient EL Gamez, HCACL ADMI [id number] [facility] 11:31:00 11:31:00 Amanda 70 [facility] 2020-11-12 2020-11-12 Outpatient OWEN PRIV PRIV [id number] [facility] 02:45:00 02:45:00 _Fred_Kelin [id number] [facility] 2020-11-08 2020-11-08 Appointmen MAHSA CRABTREE Neurology - [id number] [place] 14:00:00 14:00:00 t; JUSTIN CRABTREE [place] Dejuan ANDERSON M.D. Medical rc [place] 2020-10-31 2020-10-31 Appointmen MAHSA RANDALL Neurology - [id number] [place] 11:00:00 11:00:00 t; MONA RANDALL [place] Dejuan ORNELAS M.D. Medical rc [place] 2020-10-16 2020-10-16 Office Rudi Briones [facility] 1.2 .840.114 [id number] Univers 13:51:59 14:54:13 Visit Arnold Hopper PRIMARY 350.1.13.1 0 ity of [facility] 4.2.7.2.686 Marisol FERRERA [phone] Ok dical [address] 2020-10-16 2020-10-16 Outpatient R [facility] [id number] Univers 14:00:00 14:00:00 ity of [facility] 2020-10-16 2020-10-16 Orders Doctor NEIL 1.2.840.114 [id number] Univers 00:00:00 00:00:00 Only Unassigned, AMAURY 350.1.13.10 ity of [place] [facility] 4.2.7.2.686 Christopher as [phone] [address] 2020-09-24 2020-09-24 Refill Doctor [facility] 1.2.840.114 [id number] Univers 00:00:00 00:00:00 Unassigned, [place] 350.1.13.10 it[place] [phone] [address] 2020-09-24 2020-09-24 Refill Doctor [facility] 1.2.840.114 [id number] Univers 00:00:00 00:00:00 Unassigned, [place] 350.1.13.10 [place] [phone] [address] 2020-09-24 2020-09-24 Refill Doctor [place] 1.2.840.114 [id number] Univers 00:00:00 00:00:00 Unassigned, [place] 350.1.13.10 it[place] [phone] [address] 2020-09-24 2020-09-24 Refill Doctor [facility] 1.2.840.114 [id number] Univers 00:00:00 00:00:00 Unassigned, [place] 350.1.13.10 [place] [phone] [address] 2020-09-20 2020-09-20 Ray Veras [facility] 1.2.840.114 [id number] Univers 00:00:00 00:00:00 Jamar Willson 350.1.13.10 ity of [place] [phone] [address] 2020-09-14 2020-09-14 [facility] 1.2.840.114 [id number] Univers 00:00:00 00:00:00 Jamar Willson 350.1.13.10 ity of [place] [phone] [address] 2020-09-04 2020-09-04 [facility]phone [facility] 1.2.840.114 [id number] Univers 00:00:00 00:00:00 Jamar Willson 350.1.13.10 ity of [place] [phone] [address] 2020-08-24 2020-08-24 [facility]phone [facility] 1.2.840.114 [id number] Univers 00:00:00 00:00:00 Jamar Willson 350.1.13.10 ity of [place] [phone] [address] 2020-08-14 2020-08-14 Margie [facility] 1.2.840.114 [id number] Univers 00:00:00 00:00:00 Jamar Willson 350.1.13.10 ity of [place] [phone] [address] 2020-08-10 2020-08-10 Outpatient R JAMRA VERAS [facility] [id number] Univers 15:00:00 15:00:00 JAMAR VERAS itchina [facility] 2020-08-10 2020-08-10 Telemedici Santi [facility] 1.2.840.114 [id number] Univers 07:56:15 14:42:38 ne Visit Jamar Willson 350.1.13.10 it[place] of [place] [phone] [address] 2020-08-10 2020-08-10 Orders Doctor NEIL 1.2.840.114 [id number] Univers 00:00:00 00:00:00 Only Unassigned, AMAURY 350.1.13.10 ity of [place] [facility] 4.2.7.2.686 Christopher as [phone] [address] 2020-08-07 2020-08-07 Telephone [facility] 1.2.840.114 [id number] Univers 00:00:00 00:00:00 Jamar Willson 350.1.13.10 [place] of [place] [phone] [address] 2020-07-27 2020-07-27 Outpatient STLMLC ST[facility] [id number] Common 00:00:00 00:00:00 [facility] 2020-05-10 2020-05-10 Appointmen [facility] Neurology - [id number] [place] 09:30:00 09:30:00 t; JUSTIN CRABTREE, [facility] chris ANDERSON M.D. [facility] 2020-04-24 2020-04-24 Telephone [facility] 1.2.840.114 [id number] 00:00:00 00:00:00 Jamar Willson 350.1.13.10 [place] 4.2.7.2.686 Professio [phone] 2020-04-24 2020-04-24 Telephone [facility] 1.2.840.114 [id number] [facility] 00:00:00 00:00:00 Jamar Willson 350.1.13.10 it[place] of [place] [phone] [address] 2020-04-23 2020-04-23 Refill [facility] 1.2.840.114 [id number] 00:00:00 00:00:00 Jamar Willson 350.1.13.10 [place] 4.2.7.2.686 Professio [phone] [address] 2020-04-23 2020-04-23 Refill Santi, [facility] 1.2.840.114 [id number] Univers 00:00:00 00:00:00 Jamar Willson 350.1.13.10 it[place] of [place] [phone] [address] 2020-04-10 2020-04-10 [facility] [id number] [facility] 07:20:00 07:20:00 JUSTIN 2020-03-27 2020-03-27 [facility] [id number] [place] 13:00:00 13:00:00 t; JUSTIN CRABTREE Phy sici KRISTIN, M.D. ans M.D. 2020-03-21 2020-03-21 Appointmen [facility] Neurology - [id number] [place] 09:00:00 09:00:00 t; [place] De[place] AND[place] M.D. [facility] Melissa [place] 2020-02-07 2020-02-07 Refill Santi, [facility] 1.2.840.114 [id number] 00:00:00 00:00:00 Jamar Willson 350.1.13.10 [place] 4.2.7.2.[address] Professio [phone] [address] 2020-02-07 2020-02-07 [facility] 1.2.840.114 [id number] [facility] 00:00:00 00:00:00 Jamar Willson 350.1.13.10 ity of [place] [phone] Ok dic[address] 2020-01-16 2020-01-16 Telephone Santi [facility] 1.2.840.114 [id number] Univers 00:00:00 00:00:00 Jamar Willson 350.1.13.10 ity of [place] [phone] Ok dic[address] 2020-01-11 2020-01-11 [facility]ill [facility] 1.2.840.114 [id number] 00:00:00 00:00:00 Jamar Willson 350.1.13.10 [place] 4.2.7.2.[address] Profess[phone] nal [address] [facility] 2020-01-11 2020-01-11 Kayy Veras [facility] 1.2.840.114 [id number] Univers 00:00:00 00:00:00 Jamar Willson 350.1.13.10 ity [place] 4.2.7.2.686 [facility] Professio [phone] Ok dical nal [address] 2020-01-03 2020-01-03 Appointmen MAHSA CRABTREE Neurology - [id number] [place] 09:30:00 09:30:00 t; JUSTIN CRABTREE [place] Dejuan ANDERSON M.D. Medical ans MThao [place] 2019-12-20 2019-12-20 Appointmen MAHSA CRABTREE Neurology - 667 [id number] [place] 10:30:00 10:30:00 t; JUSTIN CRABTREE [place] Dejuan ANDERSON M.D. Medical ans MThao [place] 2019-11-29 2019-11-29 Appointmen MAHSA CRABTREE Neurology - [id number] [place] 08:00:00 08:00:00 t; JUSTIN CRABTREE [place] Dejuan ANDERSON M.D. Medical ans MThao [place] 2019-10-21 2019-10-21 Outpatient R ANENE, [facility] [id number] Univers 13:00:00 13:00:00 YANNICK lees of [facility] 2019-10-09 2019-10-09 Urgent Pob1, Acute Care Clinic [facility] 1. 2.840.114 [id number] Univers 15:06:11 16:33:23 Care Unknown, Attending Health 350.1.13.10 itTrang Lopez 4.2.7.2.686 [place] Professio [phone] Ok dical nal [address] One 2019-10-09 2019-10-09 Outpatient R UNKNOWN, [facility] [id number] Univers 15:00:00 15:00:00 ATTENDING ity of [facility] 2019-10-09 2019-10-09 Nurse NEIL Saenz 1.2.840.114 [id number] Univers 00:00:00 00:00:00 Triage Agnes AMAURY 350.1.13.10 it y of HOSPITAL 4.2.7.2.686 [place] as [phone] [facility] 019 [place] 2019-09-26 2019-09-26 [facility] 1.2.840.114 [id number] Univers 00:00:00 00:00:00 Jamar Willson 350.1.13.10 it[place] of [place] [phone] Ok dical nal 092 [facility] 2019-08-30 2019-08-30 AppointMAHSA Sanchez Neurology - [id number] [id number] [place] 13:30:00 13:30:00 t; JUSTIN CRABTREE [place] Phy sici KRISTIN, M.D. Medical rc [place] 2019-07-31 2019-07-31 [facility] 1.2.840.114 [id number] Univers 00:00:00 00:00:00 Jamar Willson 350.1.13.10 ity of [place] [phone] [facility] nal [address] [place] [address] 2019-06-29 2019-06-29 Orders Doctor TREJO 1.2.840.114 [id number] Univers 00:00:00 00:00:00 Only Unassigned, AMAURY 350.1.13.10 ity of [place] [facility] 4.2.7.2.686 Christopher as [phone] [facility] 00[address] [place] 2019-06-14 2019-06-14 Appointmen MAHSA CRABTREE Neurology - 586 [id number] [place] 14:00:00 14:00:00 t; JUSTIN CRABTREE [place] Phy sici KRISTIN, M.D. Medical ans MhTao [place] 2019-02-25 2019-02-25 Orders Doctor TREJO 1.2.840.114 [id number] 00:00:00 00:00:00 Only Unassigned, AMAURY 350.1.13.10 [place] [facility] 4.2.7.2.686 [id number] 009 2019-02-25 2019-02-25 Orders Doctor NEIL 1.2.840.114 [id number] Univers 00:00:00 00:00:00 Only Unassigned, AMAURY 350.1.13.10 ity of [place] [facility] 4.2.7.2.686 Christopher [phone] [facility] [address] 2019-02-22 2019-02-22 [facility] 1.2.836.665 [id number] 12:51:52 23:59:00 Encounter Jamar Gene [place] 350.1.13.10 [place] 4.2.7.2.686 [place] [phone] 80 2019-02-22 2019-02-22 [facility] 1.2.712.142 [id number] [facility] 12:51:52 23:59:00 Encounter Jamar Gene [place] 350.1.13.10 ity of [place] 4.2.7.2.686 [facility] [phone] [facility] [address] 2019-02-22 2019-02-22 [facility] 1.2.761.723 [id number] 12:45:29 12:50:00 Encounter Jamar Gene [place] 350.1.13.10 [place] 4.2.7.2.686 [place] [phone] [facility] 2019-02-22 2019-02-22 [facility] 1.2.788.180 [id number] [facility] 12:45:29 12:50:00 Encounter Jamar Gene [place] 350.1.13.10 ity of [place] 4.2.7.2.686 [facility] [phone] [facility] [address] 2019-02-22 2019-02-22 [facility] 1.2.711.535 [id number] 12:44:26 12:44:26 Encounter Jamar Gene [place] 350.1.13.10 [place] 4.2.7.2.686 [place] [id number] 80 2019-02-22 2019-02-22 [facility] 1.2.703.179 [id number] [facility] 12:44:26 12:44:26 Encounter Jamar Gene [place] 350.1.13.10 ity of [place].2.[place] [phone] [facility] 804 [place] 2019-02-22 2019-02-22 Outpatient R JAMAR VERAS [facility] [id number] [facility] 12:44:26 12:44:26 SANTIJAMAR Garcia ity of [facility] 2019-02-22 2019-02-22 Orders Doctor NEIL 1.2.840.114 [id number] 00:00:00 00:00:00 Only Unassigned, AMAURY 350.1.13.10 [place] [facility] 4.2.7.2.686 [id number] 009 2019-02-22 2019-02-22 Orders Doctor NEIL 1.2.840.114 [id number] [facility] 00:00:00 00:00:00 Only Unassigned, AMAURY 350.1.13.10 ity of [place] [facility] 4.2.7.2.686 Christopher as [phone] [facility] 009 [place] 2019-02-08 2019-02-08 [facility]ha [facility] 1.2.840.114 [id number] 00:00:00 00:00:00 Jamar Romel Willson 350.1.13.10 [place] 4.2.7.2.686 Professio [phone] [address] 2019-02-08 2019-02-08 Refmiesha [facility]NOR[facility] 1.2.840.114 [id number] [facility] 00:00:00 00:00:00 Jamar Willson 350.1.13.10 ity of [place] 4.2.7.2.686 [facility] [phone] Ok dical [facility] 2018-02-05 2018-02-05 [facility] [id number] Common 08:30:00 08:30:00 t [facility] Results Test Description Test Time Test Comments Results Result [facility] e Comments MRI CERVICAL WO 2021-09-19 15:18:41 DACIA Hale MEDICAL IMAGINGName: YADI PETERSEN : 1985 Sex: F CLINI AMADA INDICATION: R20.0, Anesthesia of skin MODALITY: Xplornet [place] 3T MRITECHNIQUE: Multiplanar SE and FSE evaluation [...] noted.C7-T1: Unremarkable. MRI BRAIN WO 2021-09-19 15:18:41 CHRISTIANSHARITA Hale MEDICAL IMAGINGName: AYDI PETERSEN : 1985 Sex: F CLINI AMADA INDICATION: R20.0, Anesthesia of skinMODALITY: [employer] 3T MRITECHNIQUE: Multiplanar SE, FSE and inversion [...] not detected type 1 by RT PCR) [facility] [Presence] in Vaginal fluid by CESAR with probe [id number] 00:00:00 Test Item Value Reference Range Interpretation Comments C.albicans by PCR (test code = not detected not detected C.albicans by PCR) zander genus (test code = not detected not detected zander genus) [facility] panel - Blood by Automated [id number] 00:00:00 Test Item Value Reference Range Interpretation [...] code = baso #) 0.1 10 0.0-0.2 [facility]olate+Cyanocobalamin [Interpretation] in Serum or [id number] 00:00:00 Test Item Value Reference Range Interpretation Comments folate (test code = folate) 10.44 NG/mL 2.00-20.00 vitamin B12 (test code = vitamin 635.1 pg/mL 200.0-900.0 B12) [facility] OaklandMclltvw29-Prigotbocdonyk D3+25-Hydroxyvitamin D2 [Mass/volume] in Serum or [id number] 00:00:00 Test Item Value Reference Range Interpretation Comments vitamin D (test code = vitamin D) 22.2 NG/mL 32.0-100.0 L [facility] T4 and TSH panel - Serum or [id number] 00:00:00 Test Item Value Reference Range Interpretation Comments TSH (test code = TSH) 0.147 uIU/mL 0.178-4.530 L free T4 (test code = free T4) 1.05 NG/dL 0.80-1.73 [facility] OaklandComprehensive metabolic 2000 panel - Serum or [id number] 00:00:00 Test Item Value Reference Range Interpretation [...] 178.056 >60.000 (test code = eGFR mL/min/1.73A? bermudian) [facility] [id number] 10:35:00 Test Item Value Reference Range Interpretation Comments RAPID PLASMA REAGIN (test code = NONREACTIVE NONREACTIVE RPR) AG HEPATITIS B [id number] 10:35:00 Test Item Value Reference Range Interpretation Comments AG HEPATITIS B SURFACE NON REACTIVE INDEX NonReactive (test code = HBSAG) AB HIV 1 10:35:00 Test Item Value Reference Range Interpretation Comments AB HIV 1 2 (test code = [id number]) Nonreactive Nonreactive COVID 19 Asymptomatic IH [id number] 12:47:00 Test Item Value Reference Range Interpretation [...] high or waivedcomplexit y tests. CBC W/AUTO [id number] 12:45:00 Test Item Value Reference Range Interpretation [...] (test code NO = MDIFF) AMNISURE (ROM) [id number] 12:29:00 Test Item Value Reference Range Interpretation Comments AMNISURE (ROM) TEST (test NEGATIVE NEGATIVE OP ENED:05-21-2021 code = AMNI) COVID 19 Asymptomatic IH [id number] 09:15:00 Test Item Value Reference Range Interpretation Comments COVID 19 Asymptomatic IH AG (test NEGATIVE NEGATIVE code = COVNONPUIAG) POCT FLU A AND B (MOLECULAR)2019-10-09 20:39:00 Test Item Value Reference Range Interpretation Comments POCT INFLUENZA A (test code = negative Negative - Negative 3840) POCT INFLUENZA B (test code = negative Negative - Negative 3841) Lab Interpretation (test code = Normal 52671-9) [facility]2019-[facility]-09 20:39:00 Test Item Value Reference Range Interpretation Comments POCT INFLUENZA A (test code = negative Negative - Negative 3840) POCT INFLUENZA B (test code = negative Negative - Negative 3841) Lab Interpretation (test code = Normal 48785-4) [facility] CERVICAL SPINE W WO [id number] 20:14:50HISTORY: Migraines. TECHNIQUE: T1/T2/STIR sagittal and T1/T2 [...] without cord compression or nerve root compression. [facility], Radiant Results Inft User - 02/22/2019 3:16 PM CDTHISTORY: Migraines.TECHNIQUE: T1/T2/STIR sagittal and T1/U6QWJMG/2D MERGE axial studies ofcervical spines were obtained. [...] atC6-C7 without cord compression or nerve root compression.[facility] VENOGRAM HEAD WO [id number] 19:55:40HISTORY: Occlusion of sagittal venous sinus. Patient [...] appear patent. CONCLUSIONS: Normal MR venography study. [facility], Radiant Results Inft User - 02/22/2019 2:57 [...] visualized and appear patent.CONCLUSIONS: Normal MR venography study.[facility] BRAIN W WO [id number] 19:55:31HISTORY: Patient recently delivered twins and having [...] babies with breast milk for next24 hours.. [facility], Radiant Results Inft User - 02/22/2019 2:57 [...] feed babies with breast milk for next24 hours..[facility]
[2022-06-18] MEDS ORDERED: PROMETHAZINE INJ 25 MG/ML AMP ONE (17:12)
[2022-06-18] MEDS ORDERED: NA CHLORIDE 0.9% 1,000 ML ONE (17:13)
[2022-06-18] MEDS ORDERED: MORPHINE 4 MG/ML SYR ONE ×2 (17:13→18:58)
[2022-06-18] MEDS ORDERED: FAMOTIDINE 20 MG/2 ML VIAL IV ONE (17:13)
[2022-06-18 17:37] LABS: Absolute Lymphocytes (CBC) 0.6 K/uL (0.7-4.9); Hematocrit 44.4 % (36.0-45.0); Lymphocytes % 5.1 % (15.3-44.8); MCV 89.2 fL (80-100); MPV 8.3 fL (7.6-11.3); RBC Red Blood Cell Count 4.97 M/uL (3.86-4.86)
[2022-06-18 17:54] LABS: Bilirubin Total 0.5 mg/dL (0.2-1.0); Magnesium 2.3 mg/dL (1.8-2.4); Potassium 3.4 mmol/L (3.5-5.1); Protein, Total 7.7 g/dL (6.4-8.2)
[2022-06-18] MEDS ORDERED: HYDROMORPHONE HCL 1 MG/ML INJ ONE ×2 (19:07→20:23)
[2022-06-18 19:16] LABS: Urine Blood Negative (Negative); Urine Glucose Negative (Negative); Urine Protein Negative (Negative); Urine pH 6.5 (5.0-7.0)
[2022-06-18 19:43] LABS: Urine Specific Gravity/Preg >1.030 (1.005-1.030)
--- NOTE | 2022-06-18 19:46 | RAD REPORT ---
EXAM DESCRIPTION: CT - Abdomen Pelvis W Contrast - 06/18/2022 7:23 pm CLINICAL HISTORY: abdominal pain COMPARISON: Abdomen Pelvis W Contrast dated 06/11/2022 TECHNIQUE: Biphasic, helical CT imaging of the abdomen and pelvis was performed following 100 ml non -ionic IV contrast. Oral contrast: No. All CT scans are performed using dose optimization technique as appropriate and may include automated exposure control or mA/KV adjustment according to patient size. FINDINGS: No suspicious findings in the lung bases. The liver, spleen, and pancreas show no suspicious findings. Gallbladder and biliary tree are also wi thout suspicious finding. Symmetric renal function is seen with no hydronephrosis or suspicious renal mass. No pyelonephritis o r acute parenchymal process. No bladder abnormalities. No adrenal abnormalities. Uterus and ovaries s how no suspicious findings. Stomach is distended by food and fluid. Islas of the gastric antrum appear mildly thickened and edema tous. Small bowel loops are not dilated. A few fluid-filled small bowel loops are seen. Moderate stoo l volume is seen in the distal portion of the colon. No appendicitis findings. An acute colon process is not seen. No free air, free fluid or inflammatory stranding. No hernia, mass or bulky lymphadenopathy. No suspicious bony findings. IMPRESSION: Contrast enhanced CT abdomen and pelvis showing no emergent finding. Islas of the gastric antrum are mildly thickened edematous in could reflect antritis. A few fluid-noemy led small bowel loops could indicate concurrent enteritis.
[2022-06-18 19:53] LABS: SARS-COV-2 RT PCR NEGATIVE (NEGATIVE)
--- NOTE | 2022-06-18 20:14 | EDPHYS ---
Physician Documentation [facility] Name: Yadi Billy Age: 37 yrs Sex: Female : 1985 Arrival Date: 06/18/2022 Time: 15:42 Bed 14 Private MD: Keith Worthy ED Physician Ric Garcia HPI: 06/18 16:59 This 37 yrs old Female presents to ER via Ambulatory with complaints of sb4 Nausea/Vomiting, Body Aches. 16:59 The patient presents to the emergency department with abdominal pain, of the right sb4 upper quadrant and left upper quadrant, and does not radiate. The patient presents to the emergency department with nausea, that is mild. Onset: The symptoms/episode began/occurred just prior to arrival. Possible causes: bad food exposure, fish. The symptoms are aggravated by nothing. The symptoms are alleviated by prescription meds. Associated signs and symptoms: Pertinent positives: diarrhea, nausea, Pertinent negatives: fever, vomiting. Severity of symptoms: in the emergency department the symptoms are unchanged. The patient has experienced a previous episode, last week, and the symptoms today are exactly the same. The patient has been recently seen at the [facility] Emergency Department, last week. RELIGIOUS HEALER: 21:12 LMP N/A - control method kr3 Historical: - Allergies: 16:27 PENICILLINS; vg1 - PMHx: 16:27 Depression; Kidney stones; Migraines; Ovarian cyst; vg1 - PSHx: 16:27 Knee sx x 2; vg1 - Immunization history:: Client reports receiving the 2nd dose of the Covid vaccine. - Social history:: Smoking status: Patient denies any tobacco usage or history of. ROS: 17:01 Constitutional: Negative for fever, chills, and weight loss, Eyes: Negative for injury, sb4 pain, redness, and discharge, ENT: Negative for injury, pain, and discharge, Cardiovascular: Negative for chest pain, palpitations, and edema, Respiratory: Negative for shortness of breath, cough, wheezing, and pleuritic chest pain, MS/Extremity: Negative for injury and deformity, Skin: Negative for injury, rash, and discoloration. 17:01 Abdomen/GI: Positive for abdominal pain, nausea, abdominal cramps, Negative for vomiting. 17:01 All other systems are negative. Exam: 17:02 Constitutional: This is a well developed, well nourished patient who is awake, alert, sb4 and in no acute distress. Head/Face: Normocephalic, atraumatic. Eyes: Pupils equal round and reactive to light, extra-ocular motions intact. Periorbital areas with no swelling, redness, or edema. ENT: Mucous membranes moist. Cardiovascular: Regular rate and rhythm with a normal S1 and S2. Respiratory: Lungs have equal breath sounds bilaterally, clear to auscultation and percussion. No rales, rhonchi or wheezes noted. No increased work of breathing, no retractions or nasal flaring. Skin: Warm, dry with normal turgor. Normal color with no rashes, no lesions, and no evidence of cellulitis. 17:02 Abdomen/GI: Inspection: abdomen appears normal, Bowel sounds: diminished, Palpation: abdomen is soft and non-tender. Vital Signs: 16:24 BP 140 / 98; Pulse 96; Resp 16; Temp 98.7(O); Pulse Ox 100% ; Weight 65.77 kg; Height 5 vg1 ft. 5 in. (165.10 cm); Pain 9/10; 17:30 BP 138 / 94; Pulse 17; Resp 17; Pulse Ox 100% on R/A; kr3 18:30 BP 135 / 96; Pulse 99; Resp 17; Pulse Ox 100% ; kr3 19:19 BP 128 / 93; Pulse 105; Resp 17; Pulse Ox 100% on R/A; kr3 20:30 BP 135 / 96; Pulse 96; Resp 17; Pulse Ox 98% on R/A; kr3 21:11 BP 132 / 94; Pulse 96; Resp 17; Pulse Ox 98% on R/A; kr3 16:24 Body Mass Index 24.13 (65.77 kg, 165.10 cm) vg1 MDM: 16:33 Patient medically screened. sb4 20:13 Data reviewed: vital signs, old medical records, lab test result(s), radiologic sb4 studies, and as a result, I will discharge patient. 06/18 16:35 Order name: CBC with Diff; Complete Time: 17:48 sb4 06/18 16:35 Order name: CMP; Complete Time: 18:18 sb4 06/18 16:35 Order name: Lipase; Complete Time: 18:18 sb4 06/18 16:35 Order name: Magnesium; Complete Time: 18:18 sb4 06/18 16:59 Order name: COVID-19/FLU A+B; Complete Time: 19:55 sb4 06/18 18:30 Order name: Urine --Ancillary (enter results); Complete Time: 19:55 bd 06/18 16:59 Order name: CT Abd/Pelvis - IV Contrast Only; Complete Time: 19:55 sb4 06/18 19:16 Order name: Urine Dipstick-Ancillary; Complete Time: 19:55 EDMS 06/18 16:35 Order name: IV Start; Complete Time: 17:30 sb4 06/18 16:35 Order name: Urine Dipstick-Ancillary (obtain specimen); Complete Time: 19:16 sb4 06/18 16:35 Order name: Urine Test (obtain specimen); Complete Time: 19:16 sb4 Administered Medications: 17:30 Drug: Promethazine 12.5 mg Route: IM; Site: left ventrogluteal; iw 20:07 Follow up: Response: No adverse reaction kr3 17:30 Drug: morphine 4 mg Route: IVP; Infused Over: 4 mins; Site: right antecubital; iw 20:07 Follow up: Response: No adverse reaction; RASS: Alert and Calm (0) kr3 17:30 Drug: Pepcid (famotidine) 20 mg Route: IVP; Site: right antecubital; iw 20:07 Follow up: Response: No adverse reaction kr3 21:13 Follow up: Response: No adverse reaction kr3 17:31 Drug: NS 0.9% 1000 ml Route: IV; Rate: 1 bolus; Site: left antecubital; iw 21:14 Follow up: Response: No adverse reaction; IV Status: Completed infusion; IV Intake: kr3 1000ml 19:15 Drug: Dilaudid (HYDROmorphone) 0.5 mg Route: IVP; Site: right antecubital; kr3 20:07 Follow up: Response: No adverse reaction; RASS: Alert and Calm (0) kr3 21:13 Follow up: Response: No adverse reaction; RASS: Alert and Calm (0) kr3 20:38 Drug: Dilaudid (HYDROmorphone) 1 mg Route: IVP; Site: right antecubital; kr3 21:13 Follow up: Response: No adverse reaction; RASS: Alert and Calm (0) kr3 Disposition: 06/19 07:05 Co-signature as Attending Physician, Ric Garcia MD. rn Disposition Summary: 06/18/22 20:14 Discharge Ordered Location: Home sb4 Problem: an ongoing problem sb4 Symptoms: have improved sb4 Condition: Stable sb4 Diagnosis - Acute gastritis without bleeding sb4 Followup: sb4 - With: Keith Worthy MD - When: As needed - Reason: Continuance of care, Re-evaluation by your physician Followup: sb4 - With: Ralf Durham MD - When: Tomorrow - Reason: Further diagnostic work-up Discharge Instructions: - Discharge Summary Sheet sb4 - Gastritis, Adult, [id number] sb4 Forms: - Medication Reconciliation Form sb4 - Thank You Letter sb4 - Antibiotic Education sb4 - Prescription Opioid Use sb4 Prescriptions: - Protonix 40 mg Oral Tablet - take 1 tablet by ORAL route once daily; 30 tablet; Refills: 0, Product sb4 Selection Permitted Signatures: Dispatcher [employer] Jessica Livingston, RN Ric Caceres MD MD rn Garcia, Victoria RN RN vg1 Sharee Flores RN RN jamar3 Karley Crabtree PA-C PA-C sb4
--- NOTE | 2022-06-18 20:14 | ER ---
Nurse's Notes [facility] Name: Yadi Billy Age: 37 yrs Sex: Female : 1985 Arrival Date: 06/18/2022 Time: 15:42 Bed 14 Private MD: Keith Worthy Diagnosis: Acute gastritis without bleeding Presentation: 06/18 16:24 Chief complaint: Patient states: Upper ABD pain that began today with NVD, also states vg1 Right ear pain and jaw pain. Stated was seen in ED last week 06/11/22 for ABD pain with gastroenteritis. Coronavirus screen: Vaccine status: Patient reports receiving the 2nd dose of the covid vaccine. Client denies travel out of the [place] in the last 14 days. Ebola Screen: Patient negative for fever greater than or equal to 101.5 degrees Fahrenheit, and additional compatible Ebola Virus Disease symptoms. Initial Sepsis Screen: Does the patient meet any 2 criteria? HR > 90 bpm. No. Patient's initial sepsis screen is negative. Does the patient have a suspected source of infection? No. Patient's initial sepsis screen is negative. Risk Assessment: Do you want to hurt yourself or someone else? Patient reports no desire to harm self or others. Onset of symptoms was June 18, 2022. 16:24 Method Of Arrival: Ambulatory 1 16:24 Acuity: AIDAN 3 vg1 Triage Assessment: 16:27 General: Appears uncomfortable, Behavior is cooperative. Pain: Complains of pain in vg1 right upper quadrant and left upper quadrant, right ear and right jaw Pain currently is 9 out of 10 on a pain scale. Pain began 4 hours ago. GI: Reports diarrhea, nausea, vomiting. 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 - Social history:: Smoking status: Patient denies any tobacco usage or history of. Screenin:11 Abuse screen: Denies threats or abuse. Nutritional screening: No deficits noted. kr3 Tuberculosis screening: No symptoms or risk factors identified. Fall Risk IV access (20 points). Total Alcala Fall Scale indicates No Risk (0-24 pts). Assessment: 16:30 General: Appears distressed, uncomfortable, Behavior is cooperative, appropriate for kr3 age, fussy. Pain: Complains of pain in abdomen. Neuro: Level of Consciousness is awake, alert, obeys commands, Oriented to person, place, time, situation. Cardiovascular: Patient's skin is warm and dry. Respiratory: Airway is patent Respiratory effort is even, unlabored, Respiratory pattern is regular, symmetrical. GI: Abdomen is round distended. : No signs and/or symptoms were reported regarding the genitourinary system. EENT: No signs and/or symptoms were reported regarding the EENT system. Derm: Skin is intact, is healthy with good turgor. Musculoskeletal: Circulation, motion, and sensation intact. Range of motion: intact in all extremities. 17:30 Reassessment: No changes from previously documented assessment. Patient and/or family kr3 updated on plan of care and expected duration. Pain level reassessed. Patient is alert, oriented x 3, equal unlabored respirations, skin warm/dry/pink. 18:30 Reassessment: No changes from previously documented assessment. Patient and/or family kr3 updated on plan of care and expected duration. Pain level reassessed. Patient is alert, oriented x 3, equal unlabored respirations, skin warm/dry/pink. 19:18 Reassessment: No changes from previously documented assessment. Patient and/or family kr3 updated on plan of care and expected duration. Pain level reassessed. Patient is alert, oriented x 3, equal unlabored respirations, skin warm/dry/pink. 20:30 Reassessment: No changes from previously documented assessment. Patient and/or family kr3 updated on plan of care and expected duration. Pain level reassessed. Patient is alert, oriented x 3, equal unlabored respirations, skin warm/dry/pink. Vital Signs: 16:24 BP 140 / 98; Pulse 96; Resp 16; Temp 98.7(O); Pulse Ox 100% ; Weight 65.77 kg; Height 5 vg1 ft. 5 in. (165.10 cm); Pain 9/10; 17:30 BP 138 / 94; Pulse 17; Resp 17; Pulse Ox 100% on R/A; kr3 18:30 BP 135 / 96; Pulse 99; Resp 17; Pulse Ox 100% ; kr3 19:19 BP 128 / 93; Pulse 105; Resp 17; Pulse Ox 100% on R/A; kr3 20:30 BP 135 / 96; Pulse 96; Resp 17; Pulse Ox 98% on R/A; kr3 21:11 BP 132 / 94; Pulse 96; Resp 17; Pulse Ox 98% on R/A; kr3 16:24 Body Mass Index 24.13 (65.77 kg, 165.10 cm) vg1 ED Course: 15:42 Patient arrived in ED. rg4 15:42 Keith Worthy MD is Private Physician. rg4 15:52 Karley Crabtree [facility] sb4 15:52 Ric Garcia MD is Attending Physician. sb4 16:27 Triage completed. vg1 16:28 Arm band placed on. vg1 16:40 Bed in low position. Call light in reach. Side rails up X 1. kr3 17:08 Sharee Flores, GIANNA is Primary Nurse. kr3 17:30 Initial lab(s) drawn, by ms, sent to lab. Inserted saline lock: 22 gauge in right iw antecubital area, using aseptic technique. Blood collected. 19:16 COVID-19/FLU A+B Sent. kr3 19:25 CT Abd/Pelvis - IV Contrast Only In Process Unspecified. EDMS 20:13 Keith Worthy MD is Referral Physician. sb4 20:14 Ralf Durham MD is Referral Physician. sb4 21:11 No provider procedures requiring assistance completed. IV discontinued, intact, kr3 bleeding controlled, No redness/swelling at site. Pressure dressing applied. Administered Medications: 17:30 Drug: Promethazine 12.5 mg Route: IM; Site: left ventrogluteal; iw 20:07 Follow up: Response: No adverse reaction kr3 17:30 Drug: morphine 4 mg Route: IVP; Infused Over: 4 mins; Site: right antecubital; iw 20:07 Follow up: Response: No adverse reaction; RASS: Alert and Calm (0) kr3 17:30 Drug: Pepcid (famotidine) 20 mg Route: IVP; Site: right antecubital; iw 20:07 Follow up: Response: No adverse reaction kr3 21:13 Follow up: Response: No adverse reaction kr3 17:31 Drug: NS 0.9% 1000 ml Route: IV; Rate: 1 bolus; Site: left antecubital; iw 21:14 Follow up: Response: No adverse reaction; IV Status: Completed infusion; IV Intake: kr3 1000ml 19:15 Drug: Dilaudid (HYDROmorphone) 0.5 mg Route: IVP; Site: right antecubital; kr3 20:07 Follow up: Response: No adverse reaction; RASS: Alert and Calm (0) kr3 21:13 Follow up: Response: No adverse reaction; RASS: Alert and Calm (0) kr3 20:38 Drug: Dilaudid (HYDROmorphone) 1 mg Route: IVP; Site: right antecubital; kr3 21:13 Follow up: Response: No adverse reaction; RASS: Alert and Calm (0) kr3 Medication: 21:12 VIS not applicable for this client. kr3 Intake: 21:14 IV: 1000ml; Total: 1000ml. kr3 Outcome: 20:14 Discharge ordered by . sb4 21:12 Discharged to home ambulatory. kr3 21:12 Condition: stable 21:12 Discharge instructions given to patient, Instructed on discharge instructions, follow up and referral plans. medication usage, Demonstrated understanding of instructions, follow-up care, medications, Prescriptions given X 1. 21:13 Patient left the ED. kr3 Signatures: Dispatcher [employer] EDJessica Zambrano RN RN iw Garcia, Rubi rg4 Garcia, Victoria, RN RN vg1 Sharee Flores RN RN jamar3 Karley Crabtree PA-C PASharon young4
[2022-06-19 02:54] VITALS: TEMP 98.7
[2022-06-19 02:59] VITALS: O2SAT 98
[2022-06-19 03:00] VITALS: BP 132/94
== END 2022-06-18 21:13 | disposition home or self-care (01) ==
LOC: ER 15:40
DX: K29.00 Acute gastritis without bleeding (principal); Z20.822 Contact with and (suspected) exposure to COVID-19; Z88.0 Allergy status to penicillin
CPT/HCPCS: 85025; 36415; 83735; 81025; 81003; 83690; 80053; 0240U; 74177; Q9967; J2550; J1170 ×2; J7030

== ENCOUNTER 2022-07-11 12:41 | Day surgery (SDC) | payer OTHER ==
[2022-07-10 09:53] LABS: Absolute Lymphocytes (CBC) 3.1 K/uL (0.7-4.9); Hematocrit 43.9 % (36.0-45.0); MCV 88.8 fL (80-100); MPV 7.4 fL (7.6-11.3); RBC Red Blood Cell Count 4.94 M/uL (3.86-4.86)
[2022-07-10 10:14] LABS: ALT/SGPT 31 U/L (13-56); AST/SGOT 14 U/L (15-37); Albumin 3.9 g/dL (3.4-5.0); Alkaline Phosphatase 75 U/L (45-117); Amylase 50 U/L (25-115); BUN Blood Urea Nitrogen 12 mg/dL (7-18); Bicarbonate 29 mmol/L (21-32); Bilirubin Direct < 0.1 mg/dL (0-0.2); Bilirubin Total 0.3 mg/dL (0.2-1.0); Glomerular Filtration Rate 119 ml/min (=/>90); Glucose Level 96 mg/dL (74-106); Lipase 126 U/L (73-393); Potassium 3.7 mmol/L (3.5-5.1); Protein, Total 7.6 g/dL (6.4-8.2); Sodium Level 141 mmol/L (136-145)
[2022-07-11] MEDS ORDERED: Ringers Lactate 1,000 ML IV ONE (13:11)
[2022-07-11] MEDS ORDERED: CIPROFLOXACIN 400mg IV 400 MG/200 ML BAG IV ONE (14:26)
[2022-07-11] MEDS: CEFOXITIN SODIUM 1 GM/VIAL ONE ×2 (14:54→15:50)
[2022-07-11] MEDS ORDERED: MIDAZOLAM HCL 2 MG/2 ML INJ ONE (15:42)
[2022-07-11] MEDS ORDERED: propofoL 200 MG/20 ML VIAL IV ONE (15:48)
[2022-07-11] MEDS ORDERED: LIDOCAINE 2% MPF 5 ML VIAL ONE (15:49)
[2022-07-11] MEDS ORDERED: FENTANYL CITR 100 MCG/2 ML ONE ×2 (15:49→16:19)
[2022-07-11] MEDS ORDERED: ROCURONIUM 50 MG/5 ML VIAL IV ONE (15:49)
[2022-07-11] MEDS ORDERED: LANO/MINERAL OIL/PETRO 3.5 GM ONE (16:00)
[2022-07-11] MEDS ORDERED: KETOROLAC 30 MG/ML INJ ONE (16:02)
[2022-07-11] MEDS ORDERED: dexAMETHasone 10 MG/ML VIAL ONE (16:02)
[2022-07-11] MEDS ORDERED: ONDANSETRON 4 MG/2 ML VIAL ONE (16:15)
[2022-07-11] MEDS ORDERED: GLYCOPYRROLATE 0.2 MG/ML SYR ONE ×2 (16:39)
[2022-07-11] MEDS ORDERED: NEOSTIGMINE 1 MG/ML -5 ML ONE (16:40)
[2022-07-11] MEDS: HYDROMORPHONE HCL 1 MG/ML INJ ONE ×2 (17:08→17:15)
--- NOTE | 2022-07-11 17:38 | P.BOP ---
Preoperative diagnosis: R upper abdominal pain, acute and chronic cholecystitis, Postoperative diagnosis: same Primary procedure: Laparoscopic cholecystectomy Estimated blood loss: <10cc Specimen: gb Findings: GB wall edema with adhesions Anesthesia: General Complications: None Transferred to: Recovery Room Condition: Good
[2022-07-11] MEDS ORDERED: HYDROCODONE/APAP 5/325 MG TAB ONE (17:53)
[2022-07-11] MEDS ORDERED: METOCLOPRAMIDE 10 MG/2mL INJ ONE (17:53)
[2022-07-11 18:02] VITALS: BP 164/98; TEMP 97.1; O2SAT 99
--- NOTE | 2022-07-12 04:45 | OP ---
Date of Procedure: 07/11/2022 Surgeon: Damian Khan MD Preoperative Diagnoses: Right upper quadrant abdominal pain, acute cholecystitis, chronic cholecysti tis, biliary dyskinesia. Postoperative Diagnoses: Right upper quadrant abdominal pain, acute cholecystitis, chronic cholecyst itis, biliary dyskinesia plus intraabdominal adhesions, right upper quadrant. Procedure: Laparoscopic cholecystectomy. Anesthesia: General plus local. Complications: None. Findings: Edema of the gallbladder with adhesions to the gallbladder of omentum. They were removed carefully with the Endo Bimal. Inflammation of that area also present. Estimated Blood Loss: Less than 10 mL. Complications: None. Indications: This is the case of a female, who comes to us with right upper quadrant abdominal pain, intractable. It has been like that for days. Multiple visits to the doctor including also gastroen terologist who performed endoscopies on her trying to rule out any other gastritis or peptic ulcer di sease. She was sent by the manager spring to our office because she was suspected to have cholec ystectomy. The patient had ultrasound done. Patient nearly had a HIDA scan done and the gallbladder could not be even visualized after 2 hours and to the point that they did diagnose dyskinesia and a CCK was not even administered. I discussed the case with Dr. Silva, who is the radiologist; also call ed Dr. Harmon, once again confirmed the findings with biliary dyskinesia and then offered options to her. Those options were the same one that the GI doctor discussed with her which is laparoscopic, p ossible open cholecystectomy with benefits, alternatives, and risks including, but not limited to inf ection, bleeding, damage to adjacent structures, anesthesia complication, negative exploration, OH, a nd even . She also understands this may not relieve the symptoms. She might need more than one surgical intervention. She understood, signed a consent. Description Of Procedure: The patient was brought to the operating room, placed in supine position. Anesthesia was given without complication. Abdominal area was prepped and draped in the usual steri le fashion. Marcaine 0.5% was injected for local anesthetic, followed by sharp incision of skin in t he periumbilical region. Incision was carried down to fascia, which was opened under direct vision. Peritoneum was encountered, opened under direct vision. Vicryl #1 placed inside the fascia. John trocar was carefully introduced. Pneumoperitoneum was obtained. I placed 3 more trocars, 5 mm each one of them in the right upper quadrant area under direct visualization. This allowed me to put a g rasper in the fundus of the gallbladder and then relieved some adhesions with Endo Bimal of omentum to the gallbladder consistent with chronic cholecystitis and acute cholecystitis with gallbladder wal l edema found. Once we had adhesions that we made sure there was no bleeding, I proceeded then to pu t a grasper again in the fundus of the gallbladder, another grasper in the infundibulum, retracting t he gallbladder in the inferolateral fashion exposing the triangle of Calot, and obtaining critical vi ew. The cystic duct and cystic artery were cleared circumferentially and a connection between those and the gallbladder were clearly identified. I proceeded to ligate those by using at least 3 clips p roximal, 1 clip distal, ligation in middle. Same was done with the cystic artery. No bile leak, no bleeding. The gallbladder was removed from liver using Bovie cauterizer and removed from abdominal c avity using EndoCatch through the umbilical incision. The area was inspected once again. Clips were intact. The area of the adhesions removed also intact with no bleeding so at that moment, I proceed ed to remove the trocars under direct vision, deflated pneumoperitoneum, closed the fascia with #1 Vi cryl. Irrigated subcutaneous tissue, closed that with 3-0 chromic and skin approximated. Sponge cou nt and instrument counts correct. Patient tolerated the procedure well. Patient sent to recovery in stable condition. Disposition: Home. Activity: As tolerated. Instructions: No heavy lifting. Follow up in my office in 1 week. Call for appointment at [phone] . Keep area dry for 48 hours, then may shower. Keep Steri-Strips intact. Due to the inflammation i n that area, we left a STEVE drain injection prior in that region. This seems to have the findings of a cute on chronic cholecystitis and the STEVE drain was exiting to 1 of the trocar site. Did not mention that in the operative report, but is mentioned here. For that reason, I explained to her to record t he output every 24 hours. We will see the patient this Thursday in my office. FREDDIE/SAE Voice ID: [id number] Report ID: [id number]
== END 2022-07-11 18:30 | disposition home or self-care (01) ==
LOC: OR 12:41
PROVIDERS: ATTEND Surgery
PROC: 0FT44ZZ Resection of Gallbladder, Percutaneous Endoscopic Approach (ICD-10-PCS; principal; 2022-07-11 15:30)
DX: K81.1 Chronic cholecystitis (principal); R10.11 Right upper quadrant pain; K82.8 Other specified diseases of gallbladder
CPT/HCPCS: 47562; 85025; 80048; 36415; 82150; 84703; 80076; 88304; 83690; J2704; J2765; J2001; J2250; J3010 ×2; J1100; J1170; J2710; J7120; J2405; J0744; J0694

== ENCOUNTER 2024-06-17 12:24 | Emergency (ER) | payer OTHER ==
[2024-06-17] MEDS ORDERED: NA CHLORIDE 0.9% 1,000 ML ONE (12:35)
[2024-06-17 13:03] LABS: Absolute Lymphocytes (CBC) 1.2 K/uL (0.7-4.9); Absolute Monocytes 0.3 K/uL (0.1-1.3); Absolute Neutrophil 1.8 K/uL (1.8-8.0); Basophils % 0.8 % (0-1.3); Eosinophils % 1.4 % (0-4.4); Hematocrit 39.1 % (36.0-45.0); Hemoglobin 13.4 g/dL (12.0-15.0); Lymphocytes % 35.7 % (15.3-44.8); MCH 32.5 pg (27.0-35.0); MCHC 34.3 g/dL (32.0-36.0); MCV 94.8 fL (80-100); MPV 8.1 fL (7.6-11.3); Monocytes % 7.8 % (3.3-12.3); Neutrophils % 54.3 % (41.7-73.7); Nucleated Red Blood Cells % 0.1 % (0-0); Platelets 201 thou/uL (152-406); RBC Red Blood Cell Count 4.12 M/uL (3.86-4.86); Red Cell Distribution Width 12.5 % (12.1-15.2)
[2024-06-17 13:07] LABS: PT Prothrombin Time 11.6 SECONDS (9.4-12.5); PTT, Activated Partial Thromb 28.4 SECONDS (24.3-36.9); Protime INR 1.04
[2024-06-17 13:20] LABS: ALT/SGPT 30 U/L (13-56); AST/SGOT 18 U/L (15-37); Albumin 3.6 g/dL (3.4-5.0); Alkaline Phosphatase 49 U/L (45-117); Anion Gap 8.1 mEq/L (5.0-15.0); BUN Blood Urea Nitrogen 9 mg/dL (7-18); Bicarbonate 26 mEq/L (21-32); Bilirubin Direct < 0.2 mg/dL (0-0.2); Bilirubin Indirect, Calculated 0.2 mg/dL (0.2-0.8); Bilirubin Total 0.4 mg/dL (0.2-1.0); Globulin 3.7 g/dL (2.3-3.5); Glomerular Filtration Rate 113 ml/min (=/>90); Glucose Level 88 mg/dL (74-106); Potassium 3.1 mEq/L (3.5-5.1); Protein, Total 7.3 g/dL (6.4-8.2); Sodium Level 140 mEq/L (136-145)
--- NOTE | 2024-06-17 13:21 | EDPHYS ---
Physician Documentation [facility] Name: Yadi Billy Age: 39 yrs Sex: Female : 1985 Arrival Date: 06/17/2024 Time: 12:24 Bed 15 Private MD: ED Physician Mauirzio Moore HPI: 06/17 13:11 This 39 yrs old Female presents to ER via EMS with complaints of Overdose. bill 13:11 The patient presents to the emergency department after a known overdose, that was bill intentional, trazadone. Context: Time: 2 hour(s) ago. Associated signs and symptoms: Pertinent positives: tearfulness. Severity of symptoms: At their worst the symptoms were mild in the emergency department the symptoms are unchanged. The patient has experienced a previous episode, many years ago. Historical: - Allergies: 12:33 PENICILLINS; rs5 - PMHx: 12:33 Depression; Kidney stones; Migraines; Ovarian cyst; rs5 - PSHx: 12:33 Knee sx x 2; rs5 - Immunization history:: Adult Immunizations up to date. - Infectious Disease History:: Denies. - Social history:: Smoking status: Patient denies any tobacco usage or history of. - Family history:: not pertinent. ROS: 13:11 Constitutional: Negative for fever, chills, and weight loss, Eyes: Negative for injury, bill pain, redness, and discharge, ENT: Negative for injury, pain, and discharge, Neck: Negative for injury, pain, and swelling, Cardiovascular: Negative for chest pain, palpitations, and edema, Respiratory: Negative for shortness of breath, cough, wheezing, and pleuritic chest pain, Abdomen/GI: Negative for abdominal pain, nausea, vomiting, diarrhea, and constipation, Back: Negative for injury and pain, : Negative for injury, bleeding, discharge, and swelling, MS/Extremity: Negative for injury and deformity, Skin: Negative for injury, rash, and discoloration, Psych: Negative for depression, anxiety, suicide ideation, homicidal ideation, and hallucinations, Allergy/Immunology: Negative for hives, rash, and allergies, Endocrine: Negative for neck swelling, polydipsia, polyuria, polyphagia, and marked weight changes, Hematologic/Lymphatic: Negative for swollen nodes, abnormal bleeding, and unusual bruising, 13:11 Neuro: Positive for dizziness, weakness, 13:11 Psych: Positive for depression, suicidal ideation, Exam: 13:12 Constitutional: This is a well developed, well nourished patient who is awake, alert, bill and in no acute distress. Head/Face: Normocephalic, atraumatic. Eyes: Pupils equal round and reactive to light, extra-ocular motions intact. Lids and lashes normal. Conjunctiva and sclera are non-icteric and not injected. Cornea within normal limits. Periorbital areas with no swelling, redness, or edema. ENT: Nares patent. No nasal discharge, no septal abnormalities noted. Tympanic membranes are normal and external auditory canals are clear. Oropharynx with no redness, swelling, or masses, exudates, or evidence of obstruction, uvula midline. Mucous membranes moist. Neck: Trachea midline, no thyromegaly or masses palpated, and no cervical lymphadenopathy. Supple, full range of motion without nuchal rigidity, or vertebral point tenderness. No Meningismus. Chest/axilla: Normal chest wall appearance and motion. Nontender with no deformity. No lesions are appreciated. Cardiovascular: Regular rate and rhythm with a normal S1 and S2. No gallops, murmurs, or rubs. Normal PMI, no JVD. No pulse deficits. Respiratory: Lungs have equal breath sounds bilaterally, clear to auscultation and percussion. No rales, rhonchi or wheezes noted. No increased work of breathing, no retractions or nasal flaring. Abdomen/GI: Soft, non-tender, with normal bowel sounds. No distension or tympany. No guarding or rebound. No evidence of tenderness throughout. Back: No spinal tenderness. No costovertebral tenderness. Full range of motion. Skin: Warm, dry with normal turgor. Normal color with no rashes, no lesions, and no evidence of cellulitis. MS/ Extremity: Pulses equal, no cyanosis. Neurovascular intact. Full, normal range of motion., bilateral aka Neuro: Awake and alert, GCS 15, oriented to person, place, time, and situation. Cranial nerves II-XII grossly intact. Motor strength 5/5 in all extremities. Sensory grossly intact. Cerebellar exam normal. Normal gait. Psych: Awake, alert, with orientation to person, place and time. Behavior, mood, and affect are within normal limits. 13:12 ECG was reviewed by the Attending Physician. Vital Signs: 12:28 BP 149 / 95; Pulse 62; Resp 17; Temp 98(O); Pulse Ox 97% on R/A; rs5 14:30 BP 124 / 79; Pulse 74; Resp 18; Temp 97.6(T); Pulse Ox 96% on R/A; ss 17:22 BP 114 / 73; Pulse 83; Resp 19; Temp 97.9(T); Pulse Ox 96% on R/A; nh2 18:42 BP 127 / 74; Pulse 77; Resp 17; Pulse Ox 99% on R/A; rs5 MDM: 12:31 Medical Screening Exam initiated bill 13:14 Differential diagnosis: Ingestion/exposure to trazadone polypharmacy, over medication. [facility] Data reviewed: vital signs, nurses notes, lab test result(s), EKG. Consideration of Admission/Observation Escalation of care including admission/observation considered. I considered the following discharge prescriptions or medication management in the emergency department Medications were administered in the Emergency Department. See MAR. Independent interpretation of the following test(s) in the Emergency Department EKG: See my EKG interpretation above. Test considered but Not performed: CT: no ct head. Historians other than the Patient: Spouse/Significant Other: well informed. Care significantly affected by the following chronic conditions: depression, kidney stone, migranes, ovarian cyst. 12 12:32 Order name: Acetaminophen; Complete Time: 14:[address] [facility] 06/17 12:32 Order name: Basic Metabolic Panel; Complete Time: 14:[address] [facility] 06/17 12:32 Order name: CBC with Diff; Complete Time: 13:[address] [facility] 06/17 12:32 Order name: ETOH Level; Complete Time: 14:[address] [facility] 06/17 12:32 Order name: Hepatic Function; Complete Time: 14:[address] [facility] 06/17 12:32 Order name: PT-INR; Complete Time: 13:[address] [facility] 12 12:32 Order name: Test, Urine; Complete Time: 14:[address] [facility] 12 12:32 Order name: Ptt, Activated; Complete Time: 13:[address] [facility] 06/17 12:32 Order name: Salicylate; Complete Time: 14:[address] [facility] 06/17 12:32 Order name: Urinalysis w/ reflexes; Complete Time: 14:[address] [facility] 06/17 12:32 Order name: Urine Drug Screen; Complete Time: 14:[address] [facility] 06/17 12:32 Order name: EKG; Complete Time: 12:[address] [facility] 06/17 12:32 Order name: EKG - Nurse/Tech; Complete Time: 13:[address] [facility] 06/17 12:32 Order name: IV Saline Lock; Complete Time: 13:[address] [facility] 12 12:32 Order name: Labs collected and sent; Complete Time: 13:[address] [facility] 06/17 12:32 Order name: Suicide Precautions; Complete Time: 13:[address] [facility] 06/17 12:32 Order name: Suicide Screening ([place]); Complete Time: 13:[address] [facility] 06/17 12:32 Order name: Misc. Order: call poison control; Complete Time: 13:[address] [facility] EC:12 Rate is 63 beats/min. QRS [place] is Normal. CA interval is normal. QRS interval is bill normal. QT interval is prolonged at 497 msec. No Q waves. T waves are Normal. No ST changes noted. Clinical impression: NSR w/ Non-specific ST/T Changes and No evidence of ischemia. Interpreted by me. Reviewed by me. Administered Medications: 12:40 Drug: NS 0.9% IV 1000 ml IV at 1000 ml once; to be given as a bolus over 60 minutes rs5 Route: IV; Rate: 1000 ml; Site: right antecubital; 13:51 Follow up: Response: No adverse reaction; IV Status: Completed infusion; IV Intake: rs5 1000ml 14:55 Drug: Potassium PO Effervescent Tablet 50 mEq PO once; dissolve in 4 ounces of water or rs5 juice Route: PO; 16:01 Follow up: Response: No adverse reaction rs5 16:27 Drug: Ondansetron Oral Disintegrating Tablet Oral Disintegrating Tablet 4 mg PO once rs5 Route: PO; 16:50 Follow up: Response: No adverse reaction; Nausea unchanged; provider notified nausea is rs5 unrelieved 16:56 Drug: Acetaminophen PO 1000 mg PO once Route: PO; rs5 18:44 Follow up: Response: No adverse reaction; Pain is decreased rs5 16:57 Drug: Promethazine IVP 12.5 mg IVP once Route: IVP; Site: left forearm; rs5 17:12 Follow up: Response: No adverse reaction; Nausea is decreased rs5 Disposition Summary: 06/17/24 13:20 Transfer Ordered Notes: Transfer Location: Psych Facility bill Reason: Higher level of care bill Condition: Fair(06/17/24 13:20) bill Problem: new(06/17/24 13:20) bill Symptoms: have improved(06/17/24 13:20) bill Accepting Physician: TO PSYCH(06/17/24 18:46) rs5 Diagnosis - Major depressive disorder, recurrent, moderate(06/17/24 13:20) bill - Suicide attempt - TRAZADONE OVERDOSE(06/17/24 13:20) bill - Hypokalemia bill Forms: - Medication Reconciliation Form bill - SBAR form bill Signatures: Dispatcher [employer] EDMS Maurizio Moore MD MD cha Brown, Sophia, PA-C PASharon sb4 Bishop Mckeon RN RN rs5 Corrections: (The following items were deleted from the chart) 12:33 12:33 ACETAMINOPHEN+C.LAB.BRZ ordered. EDMS EDMS 12:33 12:33 BASIC METABOLIC PANEL+C.LAB.BRZ ordered. EDMS EDMS 12:33 12:33 CBC+H.LAB.BRZ ordered. EDMS EDMS 12:33 12:33 ETHANOL+C.LAB.BRZ ordered. EDMS EDMS 12:33 12:33 HEPATIC FUNCTION+C.LAB.BRZ ordered. EDMS EDMS 12:33 12:33 PROTIME (+INR)+COAG.LAB.BRZ ordered. EDMS EDMS 12:33 12:33 Test, Urine+UC.LAB.BRZ ordered. EDMS EDMS 12:33 12:33 PTT, ACTIVATED+COAG.LAB.BRZ ordered. EDMS EDMS 12:33 12:33 SALICYLATE+C.LAB.BRZ ordered. EDMS EDMS 12:33 12:33 Urinalysis+U.LAB.BRZ ordered. EDMS EDMS 12:33 12:33 URINE DRUG SCREEN+UC.LAB.BRZ ordered. EDMS EDMS 13:19 13:19 Home bill bill 13:19 13:19 new bill bill 13:19 13:19 have improved bill bill 13:19 13:19 Stable bill bill 13:19 13:19 Suicidal ideations bill bill 13:19 13:19 Suicide attempt - TRAZADONE OVERDOSE bill bill 13:19 13:19 Major depressive disorder, recurrent, moderate bill bill 14:40 13:20 TO PSYCH bill bill 18:46 14:40 TO PSYCH bill rs5
--- NOTE | 2024-06-17 13:21 | ER ---
Nurse's Notes [facility] Name: Yadi Billy Age: 39 yrs Sex: Female : 1985 Arrival Date: 06/17/2024 Time: 12:24 Bed 15 Private MD: Diagnosis: Major depressive disorder, recurrent, moderate;Suicide attempt-TRAZADONE OVERDOSE;Hypokalemia Presentation: 06/17 12:28 Chief complaint: EMS states: Pt took twenty 50 mg trazodone 30 min prior to arrival, pt rs5 states that this was a suicidal attempt. Coronavirus screen: At this time, the client does not indicate any symptoms associated with coronavirus-19. Ebola Screen: No symptoms or risks identified at this time. Initial Sepsis Screen: Does the patient meet any 2 criteria? No. Patient's initial sepsis screen is negative. Does the patient have a suspected source of infection? No. Patient's initial sepsis screen is negative. Risk Assessment: Do you want to hurt yourself or someone else? Patient reports no desire to harm self or others. Onset of symptoms was June 17, 2024. 12:28 Method Of Arrival: EMS: [facility] rs5 12:28 Acuity: AIDAN 2 rs5 12:28 Care prior to arrival: Medication(s) given: 1L fluids IV initiated. 18 GA, in the right rs5 antecubital area. Historical: - Allergies: 12:33 PENICILLINS; rs5 - PMHx: 12:33 Depression; Kidney stones; Migraines; Ovarian cyst; rs5 - PSHx: 12:33 Knee sx x 2; rs5 - Immunization history:: Adult Immunizations up to date. - Infectious Disease History:: Denies. - Social history:: Smoking status: Patient denies any tobacco usage or history of. - Family history:: not pertinent. Screenin:30 [facility] ED Fall Risk Assessment (Adult) History of falling in the last 3 months, rs5 including since admission No falls in past 3 months (0 pts) Confusion or Disorientation No (0 pts) Intoxicated or Sedated Yes (3 pts) Impaired Gait Yes (1 pt) Mobility Assist Device Used No (0 pt) Altered Elimination No (0 pt) Score/Fall Risk Level 3 or more points = High Risk Oriented to surroundings, Maintained a safe environment, Hourly rounding (assess needs \\T\\ fall precautionary measures) done, Implemented a Fall Risk Plan of Care. Abuse screen: Denies threats or abuse. Nutritional screening: No deficits noted. Tuberculosis screening: No symptoms or risk factors identified. Assessment: 12:28 Reassessment: provider at bedside . rs5 12:30 General: Appears in no apparent distress. unkempt, Behavior is cooperative. Pain: rs5 Denies pain. Neuro: Level of Consciousness is awake, alert, obeys commands, Oriented to person, place, time, situation. Cardiovascular: Patient's skin is warm and dry. Respiratory: Airway is patent Respiratory effort is even, unlabored, Respiratory pattern is regular, symmetrical. GI: Abdomen is round non-distended, Abd is soft and non tender X 4 quads. : No signs and/or symptoms were reported regarding the genitourinary system. EENT: No signs and/or symptoms were reported regarding the EENT system. Derm: Skin is intact, Skin is pink, warm \\T\\ dry. Musculoskeletal: Range of motion: intact in all extremities. 12:30 Reassessment: pt reports generalized weakness . rs5 12:30 Reassessment: pt placed on radiation monitor . rs5 12:30 Reassessment: sitter at bedside . rs5 12:40 Reassessment: Poison control contacted, spoke to Neyda pharmacist from poison control rs5 center in [place]. . Recommendation, to adm fluids, monitor pt for 6hrs post ingestion, monitor vitals, watch for bradycardia, hypotension and QT prolongation . 13:22 Reassessment: Patient and/or family updated on plan of care and expected duration. Pain rs5 level reassessed. Patient is alert, oriented x 3, equal unlabored respirations, skin warm/dry/pink. 14:35 Reassessment: Patient and/or family updated on plan of care and expected duration. Pain rs5 level reassessed. Patient is alert, oriented x 3, equal unlabored respirations, skin warm/dry/pink. 15:40 Reassessment: Patient and/or family updated on plan of care and expected duration. Pain rs5 level reassessed. Patient is alert, oriented x 3, equal unlabored respirations, skin warm/dry/pink. sitter remains at bedside . 16:55 Reassessment: Patient and/or family updated on plan of care and expected duration. Pain rs5 level reassessed. Patient is alert, oriented x 3, equal unlabored respirations, skin warm/dry/pink. 17:11 Reassessment: Patient and/or family updated on plan of care and expected duration. Pain rs5 level reassessed. Patient is alert, oriented x 3, equal unlabored respirations, skin warm/dry/pink. at bedside states "this is my number if anyone has any questions or would like to contact me for any reason [phone]". 18:20 Reassessment: Patient and/or family updated on plan of care and expected duration. Pain rs5 level reassessed. Patient is alert, oriented x 3, equal unlabored respirations, skin warm/dry/pink. 18:41 Reassessment: Patient and/or family updated on plan of care and expected duration. Pain rs5 level reassessed. Patient is alert, oriented x 3, equal unlabored respirations, skin warm/dry/pink. Report given to EMS at bedside for transport . Vital Signs: 12:28 BP 149 / 95; Pulse 62; Resp 17; Temp 98(O); Pulse Ox 97% on R/A; rs5 14:30 BP 124 / 79; Pulse 74; Resp 18; Temp 97.6(T); Pulse Ox 96% on R/A; ss 17:22 BP 114 / 73; Pulse 83; Resp 19; Temp 97.9(T); Pulse Ox 96% on R/A; nh2 18:42 BP 127 / 74; Pulse 77; Resp 17; Pulse Ox 99% on R/A; rs5 ED Course: 12:27 Patient arrived in ED. eb 12:28 Bishop Mckeon, RN is Primary Nurse. rs5 12:30 Patient has correct armband on for positive identification. Placed in gown. Bed in low rs5 position. Call light in reach. Side rails up X2. 12:30 No provider procedures requiring assistance completed. rs5 12:31 Maurizio Moore MD is Attending Physician. bill 12:33 Triage completed. rs5 13:40 IV discontinued, intact, bleeding controlled, No redness/swelling at site. Pressure rs5 dressing applied. 13:53 FAXED PATIENT CLINICALS TO [facility] IN ATTEMPT TO FIND eb PLACEMENT. 16:40 Inserted saline lock: 22 gauge in left forearm, using aseptic technique. rs5 18:43 Provided Education on: need for transport . rs5 Administered Medications: 12:40 Drug: NS 0.9% IV 1000 ml IV at 1000 ml once; to be given as a bolus over 60 minutes rs5 Route: IV; Rate: 1000 ml; Site: right antecubital; 13:51 Follow up: Response: No adverse reaction; IV Status: Completed infusion; IV Intake: rs5 1000ml 14:55 Drug: Potassium PO Effervescent Tablet 50 mEq PO once; dissolve in 4 ounces of water or rs5 juice Route: PO; 16:01 Follow up: Response: No adverse reaction rs5 16:27 Drug: Ondansetron Oral Disintegrating Tablet Oral Disintegrating Tablet 4 mg PO once rs5 Route: PO; 16:50 Follow up: Response: No adverse reaction; Nausea unchanged; provider notified nausea is rs5 unrelieved 16:56 Drug: Acetaminophen PO 1000 mg PO once Route: PO; rs5 18:44 Follow up: Response: No adverse reaction; Pain is decreased rs5 16:57 Drug: Promethazine IVP 12.5 mg IVP once Route: IVP; Site: left forearm; rs5 17:12 Follow up: Response: No adverse reaction; Nausea is decreased rs5 Medication: 14:36 VIS not applicable for this client. rs5 Intake: 13:51 IV: 1000ml; Total: 1000ml. rs5 Outcome: 13:19 Discharge ordered by . [facility] 13:20 ER care complete, transfer ordered by . [facility] 18:42 Transferred by ground EMS Transfer form completed. Note: pt transported to [place] rs5 behavioral 18:42 Condition: stable 18:42 Instructed on the need for transfer, Demonstrated understanding of instructions, 18:46 Patient left the ED. rs5 Signatures: Maurizio Moore MD MD cha Blanchard, Shelby, RN RN Yesenia Cohn Ricky, RN RN [facility] Dallin David Jr Corrections: (The following items were deleted from the chart) 13:32 12:28 Chief complaint: EMS states: Pt took twenty 50 mg trazodone 30 min prior to rs5 arrival, pt states that this was a suicidal attempt. rs5
[2024-06-17 13:45] LABS: Specific Gravity 1.004 (1.005-1.030)
[2024-06-17 13:46] LABS: Specific Gravity < 1.005 (1.005-1.030); Sqamous Epithelial <5 /HPF (None Seen); Urine Bacteria <20 /HPF (<20); Urine Bilirubin NEGATIVE (Negative); Urine Blood Negative (Negative); Urine Clarity Turbid (Clear); Urine Color Colorless (Yellow); Urine Culture Reflex Order NOT NEEDED; Urine Glucose NEGATIVE (Negative); Urine Ketones NEGATIVE (Negative); Urine Microscopic Reflex YN ORDER UMIC; Urine Nitrite NEGATIVE (Negative); Urine Protein NEGATIVE (Negative); Urine RBC <5 /HPF (None Seen); Urine Urobilinogen Normal (Normal); Urine WBC <5 /HPF (<5)
[2024-06-17 13:52] LABS: Barbiturates POSITIVE (NEGATIVE); Benzodiazepines NEGATIVE (NEGATIVE); Cocaine NEGATIVE (NEGATIVE); METHAMPHETAM NEGATIVE (NEGATIVE); Methadone NEGATIVE (NEGATIVE); Opiates NEGATIVE (NEGATIVE); Phencyclidine NEGATIVE (NEGATIVE); THC Cannibis NEGATIVE (NEGATIVE)
[2024-06-17] MEDS ORDERED: POTASSIUM 25 MEQ EFFERV TAB ONE (14:55)
[2024-06-17] MEDS ORDERED: ONDANSETRON 4 MG (ODT) TAB ONE (16:19)
[2024-06-17] MEDS ORDERED: ACETAMINOPHEN 500 MG TAB ONE (16:53)
[2024-06-17] MEDS ORDERED: PROMETHAZINE INJ 25 MG/ML AMP ONE (16:53)
[2024-06-17 22:22] VITALS: TEMP 97.9
[2024-06-17 22:23] VITALS: BP 127/74; O2SAT 99
== END 2024-06-17 18:46 ==
LOC: ER 12:24
DX: T43.212A Poisoning by selective serotonin and norepinephrine reuptake inhibitors, intentional self-harm, initial encounter (principal); F33.1 Major depressive disorder, recurrent, moderate; E87.6 Hypokalemia
CPT/HCPCS: 96361; 85025; 81001; 80048; 36415; 81025; 85610; 80076; 85730; 80307; 96374; 99285; 80143; 80179; 82077; J2550; Q0162; J7030